=== PATIENT | male | born 1930 | race Caucasian/White ===

== ENCOUNTER 2017-03-08 10:35 | Observation (INO) | payer OTHER ==
[~2017-03-08] VITALS: Ht 177.8 cm; Wt 85.0 kg
[~2017-03-08 10:35] MED LIST: ALLO300T2 PO; AMLO10TA2 PO; ASPI81CH3 CHEW; ENAL10TA PO; ENOX30IN SQ; LOVA40TA PO; METO50TA PO; NORC5TAB PO; OMEP20TA PO; VITA10002 PO; VITA200013 PO
[2017-03-08 10:37] VITALS: BP 143/63; PULSE 62; RESP 20; TEMP 97.3; O2SAT 98
--- NOTE | 2017-03-08 10:50 | PD ---
HPI Chief Complaint: Hip Injury Time Seen by Provider: 10:50 Travel History International Travel<30 days: No Contact w/Intl Traveler<30days: No Traveled to known affect area: No History of Present Illness HPI 86-year-old male who is extremely hard of hearing is here with his for right leg pain radiating down up to his right knee. Patient says this pain has been going on for past 8-9 months. says that he has history of arthritis and was seen by Dr. Tineo 2 and half years ago at which point discussion was done for hip replacement. However at that time patient was diagnosed with colon cancer which became a priority. Lately his hip has been bothering him a lot. He has been having trouble walking and the called 911. EMS mentioned to them that since this is not an emergency that would help him get into the car and if she could drive him to the emergency room which is what she did. Vital signs are stable. No history of recent trauma. PFSH Past Medical History Narrative Medical List of his past medical, surgical, social and family history was reviewed from the nursing note. Hx Anticoagulant Therapy: Yes Arthritis: Yes Asthma: No Anxiety: No Depression: No Cancer: Yes (PROSTATE) Cardiovascular Problems: Yes ([place]) High Cholesterol: Yes Congestive Heart Failure: No COPD: No Diabetes: No Diminished Hearing: Yes ([place] Endocrine: No Gastrointestinal Disorders: Yes (HEMORRHOIDS/RECTAL BLEED) GERD: Yes Gout: Yes Genitourinary: Yes (PROSTATE CANCER, INCONTINENCE) Hepatitis: No Hiatal Hernia: No Hypertension: Yes Immune Disorder: No Implanted Vascular Access Dvce: No Musculoskeletal: Yes (ARTHRITIS/KNEE/HIP PAIN) Neurologic: No Psychiatric: No Reproductive: No Respiratory: No Myocardial Infarction: Yes (PER PATIENT HAD MILD [place] IN 2013) Radiation Therapy: Yes Thyroid Disease: No Past Surgical History AICD: No Body Medical Devices: "pedrito in left leg" Cardiac Surgery: No Ear Surgery: No Endocrine Surgery: No Eye Surgery: Yes (TICO CATARACT SURGERY) Genitourinary Surgery: Yes (PROSTATECTOMY 1997) Joint Replacement: No Neurologic Surgery: No Oral Surgery: No Pacemaker: No Thoracic Surgery: No Social History Alcohol Use: Yes Tobacco Use: No Substance Use: No Allergies-Medications (Allergen,Severity, Reaction): Coded Allergies: No Known Allergies (Verified , 03/08/17) Comments No known drug allergies. Reported Meds & Prescriptions Reported Meds & Active Scripts Active Colace (Docusate Sodium) 100 Mg Capsule 1 Tab PO BID Hydrocodone-Acetaminophen 5-325 mg Tab 1 Tab PO Q6H PRN [place] (Hydrocodone-Acetaminophen) 5-325 mg Tab 1 Tab PO Q4H PRN Omeprazole 20 Mg Tab 20 Mg PO BID Reported Amlodipine (Amlodipine Besylate) 5 Mg Tab 5 Mg PO DAILY Vitamin B-12 (Cyanocobalamin) 1,000 Mcg Tab 1,000 Mcg PO DAILY Vitamin D (Cholecalciferol) 2,000 Unit Cap 2,000 Mg PO DAILY Aspirin 81 Low Dose (Aspirin) 81 Mg Chew 81 Mg CHEW DAILY Lovastatin 40 Mg Tab 40 Mg PO DAILY Allopurinol 300 Mg Tab 300 Mg PO DAILY Metoprolol Tartrate 50 Mg Tab 50 Mg PO BID Enalapril (Enalapril Maleate) 10 Mg Tab 10 Mg PO DAILY Narrative Medication List of his home medications reviewed from the nursing note. Review of Systems Except as stated in HPI: all other systems reviewed are Neg Physical Exam Narrative GENERAL: Awake, alert, extremely hard of hearing SKIN: Focused skin assessment warm/dry. HEAD: Atraumatic. Normocephalic. EYES: Pupils equal and round. No scleral icterus. No injection or drainage. ENT: No nasal bleeding or discharge. Mucous membranes pink and moist. NECK: Trachea midline. No JVD. CARDIOVASCULAR: Regular rate and rhythm. No murmur appreciated. RESPIRATORY: No accessory muscle use. Clear to auscultation. Breath sounds equal bilaterally. GASTROINTESTINAL: Abdomen soft, non-tender, nondistended. Hepatic and splenic margins not palpable. MUSCULOSKELETAL: No obvious deformities. No clubbing. No cyanosis. No edema. Decreased range of motion at the right knee and hip joint due to the pain. NEUROLOGICAL: Awake and alert. No obvious cranial nerve deficits. Motor grossly within normal limits. Normal speech. PSYCHIATRIC: Appropriate mood and affect; insight and judgment normal. Data Data Last Documented VS Vital Signs Date Time Temp Pulse Resp B/P (MAP) Pulse Ox O2 Delivery O2 Flow Rate FiO2 03/08/17 16:28 63 18 145/63 (90) 95 Room Air 03/08/17 10:37 97.3 Orders Orders Hip, Uni(Ap&Lat) W Ap Pelvis (03/08/17 ) Acetamin-Hydrocod 325-5 Mg ([place] 5-325 (03/08/17 11:00) Ct Hip W/O Contrast (03/08/17 ) Ct Lumb Spine W/O Contrast (03/08/17 ) Complete Blood Count With Diff (03/08/17 15:09) Comprehensive Metabolic Panel (03/08/17 15:09) Urinalysis - C+S If Indicated (03/08/17 15:09) (Hub Use Only)Inp Phy Cons/Ref (03/08/17 ) (Hub Use Only)Inp Phy Cons/Ref (03/08/17 ) Place In Observation (03/08/17 ) Vital Signs (Adult) Q4H (03/08/17 17:03) Activity Oob With Assistance (03/08/17 17:03) Diet Regular Basic (03/08/17 Dinner) Sodium Chlor 0.9% 1000 Ml Inj (Ns 1000 M (03/08/17 17:03) Sodium Chloride 0.9% Flush (Ns Flush) (03/08/17 17:15) Sodium Chloride 0.9% Flush (Ns Flush) (03/08/17 21:00) Acetaminophen (Tylenol) (03/08/17 17:15) Ondansetron Inj (Zofran Inj) (03/08/17 17:15) Scd Bilateral/Knee High EL.BID (03/08/17 17:03) Naloxone Inj (Narcan Inj) (03/08/17 17:15) Docusate Sodium-Senna (Le-Colace) (03/08/17 21:00) Magnesium Hydroxide Liq (Milk Of Magnesi (03/08/17 17:15) Sennosides (Senokot) (03/08/17 17:15) Bisacodyl Supp (Dulcolax Supp) (03/08/17 17:15) Lactulose Liq (Lactulose Liq) (03/08/17 17:15) Case Management Consult (03/08/17 ) Admit Order (Ed Use Only) (03/08/17 17:03) Labs Laboratory Tests Test 03/08/17 15:27 White Blood Count 8.5 TH/MM3 Red Blood Count 4.34 MIL/MM3 Hemoglobin 13.4 GM/DL Hematocrit 42.0 % Mean Corpuscular Volume 96.8 FL Mean Corpuscular Hemoglobin 30.9 PG Mean Corpuscular Hemoglobin Concent 32.0 % Red Cell Distribution Width 15.6 % Platelet Count 207 TH/MM3 Mean Platelet Volume 8.3 FL Neutrophils (%) (Auto) 66.4 % Lymphocytes (%) (Auto) 19.7 % Monocytes (%) (Auto) 10.9 % Eosinophils (%) (Auto) 2.6 % Basophils (%) (Auto) 0.4 % Neutrophils # (Auto) 5.6 TH/MM3 Lymphocytes # (Auto) 1.7 TH/MM3 Monocytes # (Auto) 0.9 TH/MM3 Eosinophils # (Auto) 0.2 TH/MM3 Basophils # (Auto) 0.0 TH/MM3 CBC Comment DIFF FINAL Differential Comment Blood Urea Nitrogen 24 MG/DL Creatinine 1.86 MG/DL Random Glucose 110 MG/DL Total Protein 7.8 GM/DL Albumin 3.8 GM/DL Calcium Level 9.5 MG/DL Alkaline Phosphatase 183 U/L Aspartate Amino Transf (AST/SGOT) 85 U/L Alanine Aminotransferase (ALT/SGPT) 49 U/L Total Bilirubin 0.5 MG/DL Sodium Level 138 MEQ/L Potassium Level 4.6 MEQ/L Chloride Level 105 MEQ/L Carbon Dioxide Level 26.8 MEQ/L Anion Gap 6 MEQ/L Estimat Glomerular Filtration Rate 35 ML/MIN [facility] Medical Decision Making Medical Screen Exam Complete: Yes Emergency Medical Condition: Yes Medical Record Reviewed: Yes Differential Diagnosis hip arthritis, hip fracture, pelvic fracture Narrative Course 11:41 AM patient was given hydrocodone. Waiting for the x-ray to be read. I looked at it and did not see any obvious fracture or deformity. 11:56 AM the x-ray was read by the radiologist as possible subcapital femoral neck fracture. I have ordered a CT scan of the hip as well as lumbar spine to clarify. 2:[address] scan reports just came back and they're negative for any fracture. I'll discharge the patient home. 5 PM patient was unable to ambulate after I decided to discharge him. Even with the walker he diffuse to stand up to bear weight because of the pain. The said it would be impossible for her to take care of him. I is cussed with ED case management was trying to find a rehabilitation facility for him. Please refer to her notes. She just told me that they may be able to get a placement in [facility] but not till tomorrow. Patient will require PT evaluation which has been ordered. She wanted the patient to be admitted for observation which has been done. Procedures EKG Prior to Arrival: No Diagnosis Primary Impression: acute on chronic hip pain Additional Impressions: Hip arthritis hip arthritis Admitting Information Admitting Physician Requests: Observation Referrals: Codey Tineo MD 1 week Additional Instructions: Please return to the ER if the condition worsens or any other new concerns. Take the pain medication as per the prescription direction. He have to be very careful with the pain medication as it'll make you groggy. He should not be driving. Follow-up with the orthopedist to discuss about your long-term goal with the hip. If you take the pain medication and it may make it constipated and hence a prescription for stool softener has also been provided. Take it as needed as per the prescription direction. Med/Other Pt SpecificInfo: Prescription(s) given Scripts Docusate Sodium (Colace) 100 Mg Capsule 1 TAB PO BID, #14 Prov: Jenna Macedo MD 03/08/17 Hydrocodone-Acetaminophen (Hydrocodone-Acetaminophen) 5-325 mg Tab 1 TAB PO Q6H Y for PAIN, #15 TAB 0 Refills Prov: Jenna Macedo MD 03/08/17 Jenna Macedo MD Mar 08, 2017 10:50
[2017-03-08] MEDS ORDERED: AMLO5TAB2 PO (10:56)
[2017-03-08] MEDS ORDERED: ACETAMINOPHEN/HYDROcodone 325 MG/5 MG TAB PO ONE (11:00)
--- NOTE | 2017-03-08 11:51 | RADRPT ---
EXAM DATE/TIME: 03/08/2017 11:22 [facility] COMPARISON: No previous studies available for comparison. INDICATIONS : No injury, pain with limited range of motion. MEDICAL HISTORY : None. SURGICAL HISTORY : None. ENCOUNTER: Initial ACUITY: 1 year PAIN SCORE: 10/10 LOCATION: Right hip. FINDINGS: Examination of the right hip was performed with AP Pelvis. There is a subtle lucency along the medial femoral neck could be an incomplete fracture. The acetabulum is grossly intact. CONCLUSION: Probable subcapital femoral neck fracture. Moderate osteoarthritis right hip. Jorge Spangler MD on March 08, 2017 at 11:49 Board Certified Radiologist. This report was verified electronically.
--- NOTE | 2017-03-08 13:38 | RADRPT ---
EXAM DATE/TIME: 03/08/2017 12:29 [facility] COMPARISON: No previous studies available for comparison. INDICATIONS : Right hip pain RADIATION DOSE: 28.05 CTDIvol (mGy) MEDICAL HISTORY : Cardiovascular disease. Hypertension. Carcinoma, prostate.Colon tumor SURGICAL HISTORY : Prostatectomy. ENCOUNTER: Initial ACUITY: 1 yr PAIN SCALE: 8/10 LOCATION: Right Lumbar TECHNIQUE: Volumetric scanning of the lumbar spine was performed. Multiplanar reconstructions in the sagittal, coronal and oblique axial planes were performed. Using automated exposure control and adjustment of the mA and/or kV according to patient size, radiation dose was kept as low as reasonably achievable t o obtain optimal diagnostic quality images. DICOM format image data is available electronically for review and comparison. FINDINGS: VERTEBRAE: Normal vertebral body height. Mild disc space narrowing at L4-5. ALIGNMENT: No evidence of subluxation. T12-L1: The thecal sac has a normal diameter. No evidence of disc bulge or protrusion. The neural foramina are patent bilaterally. L1-L2: The thecal sac has a normal diameter. No evidence of disc bulge or protrusion. The neural foramina are patent bilaterally. L2-L3: The thecal sac has a normal diameter. No evidence of disc bulge or protrusion. The neural foramina are patent bilaterally. L3-L4: The thecal sac has a normal diameter. No evidence of disc bulge or protrusion. The neural foramina are patent bilaterally. L4-L5: The thecal sac has a normal diameter. No evidence of disc bulge or protrusion. The neural foramina are patent bilaterally. L5-S1: The thecal sac has a normal diameter. No evidence of disc bulge or protrusion. The neural foramina are patent bilaterally. CONCLUSION: Normal examination. Mild disc space narrowing at the L4-5 level. Jorge Spangler MD on March 08, 2017 at 13:35 Board Certified Radiologist. This report was verified electronically.
[2017-03-08] MEDS ORDERED: COLA100C PO (14:22)
[2017-03-08] MEDS ORDERED: HYDR-3516 PO (14:22)
--- NOTE | 2017-03-08 14:22 | RADRPT ---
EXAM DATE/TIME: 03/08/2017 12:29 [facility] COMPARISON: No previous studies available for comparison. INDICATIONS : Right hip pain RADIATION DOSE: 50.36 CTDIvol (mGy) MEDICAL HISTORY : Cardiovascular disease. Hypertension. Carcinoma, prostate.Colon tumor SURGICAL HISTORY : Prostatectomy. ENCOUNTER: Initial ACUITY: 1 yr PAIN SCALE: 8/10 LOCATION: Right Hip TECHNIQUE: Volumetric scanning of the hip was performed. Using automated exposure control and adjustment of the mA and/or kV according to patient size, radiation dose was kept as low as reasonably achievable to o btain optimal diagnostic quality images. DICOM format image data is available electronically for rev iew and comparison. FINDINGS: CT scan right hip fails to demonstrate the fracture that is questioned on a plain film. There is art hritis with some joint space narrowing superiorly in the anteriorly. Mild spurring of the femoral he ad and the acetabulum. No lytic or blastic lesions are identified. The left hip has been previously pinned. No fracture is identified. CONCLUSION: 1. The questionable fracture seen on the plain film is not recreated on the CT scan. Could be relate d to overlying osteophyte or vascular groove. 2. No fracture seen on the reformatted images. Jorge Spangler MD on March 08, 2017 at 13:33 Board Certified Radiologist. This report was verified electronically.
[2017-03-08 16:12] LABS: AUTOMATED NEUTROPHIL # 5.6 TH/MM3 (1.8-7.7); BASOPHIL % 0.4 % (0.0-2.0); EOSINOPHIL # 0.2 TH/MM3 (0-0.4); EOSINOPHIL % 2.6 % (0.0-4.0); HEMO FLAGS DIFF FINAL; LYMPH % 19.7 % (9.0-44.0); LYMPHOCYTE # 1.7 TH/MM3 (1.0-4.8); MEAN CELL VOLUME 96.8 FL (80.0-100.0); MEAN CORPUSCULAR HEMOGLOBIN 30.9 PG (27.0-34.0); MONO % 10.9 % (0.0-8.0); NEUT % 66.4 % (16.0-70.0); PLATELET COUNT 207 TH/MM3 (150-450); RED BLOOD COUNT 4.34 MIL/MM3 (4.50-5.90); RED CELL DISTRIBUTION WIDTH 15.6 % (11.6-17.2); WHITE BLOOD COUNT 8.5 TH/MM3 (4.0-11.0)
[2017-03-08 16:27] LABS: ANION GAP 6 MEQ/L (5-15); AST (GOT) 85 U/L (15-37); BICARBONATE 26.8 MEQ/L (21.0-32.0); BLOOD UREA NITROGEN 24 MG/DL (7-18); CHLORIDE 105 MEQ/L (98-107); GLOMERULAR FILTRATION RATE 35 ML/MIN (>89); POTASSIUM 4.6 MEQ/L (3.5-5.1); SODIUM (NA) 138 MEQ/L (136-145)
[2017-03-08 16:28] VITALS: BP 145/63; PULSE 63; RESP 18; O2SAT 95
[2017-03-08 16:30] LABS: ALKALINE PHOSPHATASE 183 U/L (45-117); ALT (GPT) 49 U/L (12-78); TOTAL BILIRUBIN ADULT 0.5 MG/DL (0.2-1.0)
[2017-03-08] MEDS ORDERED: MAGNESIUM HYDROXIDE SUSP 30 ML CUP PO PRN (17:15)
[2017-03-08] MEDS ORDERED: SENNOSIDES 8.6 MG TAB PO PRN (17:15)
[2017-03-08] MEDS ORDERED: NALOXONE HCL 0.4 MG/ML AMP IV PUSH PRN (17:15)
[2017-03-08] MEDS ORDERED: SODIUM CHLORIDE 0.9% FLUSH 10 ML FLUSH IV FLUSH PRN (17:15)
[2017-03-08] MEDS ORDERED: ACETAMINOPHEN 325 MG TAB PO PRN (17:15)
[2017-03-08] MEDS ORDERED: BISACODYL 10 MG SUPP RECTAL PRN (17:15)
[2017-03-08] MEDS ORDERED: LACTULOSE SYRUP 20 GM/30 ML CUP PO PRN (17:15)
[2017-03-08] MEDS ORDERED: ONDANSETRON HCL 4 MG/2 ML VIAL IVP PRN (17:15)
--- NOTE | 2017-03-08 18:27 | RADRPT ---
EXAM DATE/TIME: 03/08/2017 18:00 [facility] COMPARISON: No previous studies available for comparison. INDICATIONS : Right knee pain from unknown injury. MEDICAL HISTORY : None. SURGICAL HISTORY : None. ENCOUNTER: Initial ACUITY: 1 week PAIN SCORE: 8/10 LOCATION: Right knee. FINDINGS: Bones of the right knee are intact. No subluxation. There is mild medial compartment joint space narr owing. No large effusion demonstrated. CONCLUSION: No acute right knee abnormality seen. Mild medial arm and ost or arthritis. Shan Reaves MD on March 08, 2017 at 18:25 Board Certified Radiologist. This report was verified electronically.
[2017-03-08] MEDS: SODIUM CHLOR 0.9% 1000 ML INJ 1,000 ML IV SCH ×2 (18:54→20:41)
[2017-03-08 20:01] VITALS: BP 137/72; TEMP 98.3
[2017-03-08] MEDS: DOCUSATE SODIUM 50 MG/SENNA 8.6 MG TAB PO SCH (20:40)
[2017-03-08] MEDS: SODIUM CHLORIDE 0.9% FLUSH 10 ML FLUSH IV FLUSH SCH (20:41)
[2017-03-08 21:06] VITALS: BP 110/53; PULSE 73; RESP 18; TEMP 97.5; O2SAT 94
[2017-03-09] VITALS (7 sets, daily range): BP systolic 137–175; BP diastolic 60–80; PULSE 61–82; RESP 18–22; TEMP 97.4–98.3; O2SAT 93–98
--- NOTE | 2017-03-09 05:43 | HHI.HP ---
HPI Service [facility] Primary Care Physician Stephani Rodriguez MD Admission Diagnosis difficulty ambulation, leg pain Diagnoses: Chief Complaint: Right hip pain. Travel History International Travel<30 Days: No Contact w/Intl Traveler <30 Da: No Traveled to Known Affected Are: No History of Present Illness Late entry for 03/08/2017. Patient was seen at around 5:30PM on 03/08/2017. However, due to EMR problems, H&P could not be entered. Mr. Nuñez is a pleasant 86 year old male with a history of rectal cancer who presents to the ED with his due to right lower ext pain radiating down to his knee. His pain has been bothering him for a while, especially in the last 8- 9 months. Approximately two and half years ago, he was evaluated by Dr. Jonathan Tineo (Orthopedic surgery) due to osteoarthritis. Although right hip replacement was discussed, patient was diagnosed with rectal cancer and thus hip replacement was postponed. Lately, he has been having a lot of trouble walking. His called EMS who informed that his condition did not constitute as emergency. Thus, with help of EMS personnel, patient was brought to the ED by his . Patient is very hard of hearing. However, he denies any chest pain , SOB, fever, chills. No cough, abdominal pain. No changes in bowel or bladder habits. Review of Systems Except as stated in HPI: all other systems reviewed are Neg Past Family Social History Past Medical History Prostate cancer Rectal cancer Osteoarthritis Hypertension Hyperlipidemia Past Surgical History Left knee surgery Mastectomy Cataract surgery Reported Medications Colace (Docusate Sodium) 100 Mg Capsule 1 Tab PO BID Hydrocodone-Acetaminophen 5-325 mg Tab 1 Tab PO Q6H PRN [place] (Hydrocodone-Acetaminophen) 5-325 mg Tab 1 Tab PO Q4H PRN Omeprazole 20 Mg Tab 20 Mg PO BID Reported Amlodipine (Amlodipine Besylate) 5 Mg Tab 5 Mg PO DAILY Vitamin B-12 (Cyanocobalamin) 1,000 Mcg Tab 1,000 Mcg PO DAILY Vitamin D (Cholecalciferol) 2,000 Unit Cap 2,000 Mg PO DAILY Aspirin 81 Low Dose (Aspirin) 81 Mg Chew 81 Mg CHEW DAILY Lovastatin 40 Mg Tab 40 Mg PO DAILY Allopurinol 300 Mg Tab 300 Mg PO DAILY Metoprolol Tartrate 50 Mg Tab 50 Mg PO BID Enalapril (Enalapril Maleate) 10 Mg Tab 10 Mg PO DAILY Allergies: Coded Allergies: No Known Allergies (Verified , 03/08/17) Family History Father had prostate cancer Social History Denies using tobacco or illicit drugs. Drinks moderate amount of alcohol daily. Physical Exam Vital Signs Vital Signs Date Time Temp Pulse Resp B/P (MAP) Pulse Ox O2 Delivery O2 Flow Rate FiO2 03/09/17 05:16 97.5 81 18 162/80 (107) 98 03/09/17 00:00 97.4 76 18 143/69 (93) 98 03/08/17 21:06 97.5 73 18 110/53 (72) 94 03/08/17 20:01 98.3 61 16 137/72 (93) 100 03/08/17 16:28 63 18 145/63 (90) 95 Room Air 03/08/17 10:46 19 03/08/17 10:37 97.3 62 20 143/63 (89) 98 Room Air Physical Exam GENERAL: This is a well-nourished, well-developed patient, in no apparent distress. SKIN: No rashes, ecchymoses or lesions. Warm and dry. HEAD: Atraumatic. Normocephalic. No temporal or scalp tenderness. EYES: Pupils equal round and reactive. No injection or drainage. ENT: Nose without bleeding, purulent drainage or septal hematoma. Airway patent. NECK: Trachea midline. No lymphadenopathy. Supple, nontender, no meningeal signs. CARDIOVASCULAR: Regular rate and rhythm without murmurs, gallops, or rubs. No JVD. RESPIRATORY: Clear to auscultation. Breath sounds equal bilaterally. No wheezes , rales, or rhonchi. GASTROINTESTINAL: Abdomen soft, non-tender, nondistended. No guarding. MUSCULOSKELETAL: Extremities without clubbing, cyanosis, or edema. Pain on movement of his right hip. NEUROLOGICAL: Awake and alert. Cranial nerves II through XII intact. No focal neurological deficits. Hard of hearing. Laboratory Laboratory Tests Test 03/08/17 15:27 White Blood Count 8.5 Red Blood Count 4.34 Hemoglobin 13.4 Hematocrit 42.0 Mean Corpuscular Volume 96.8 Mean Corpuscular Hemoglobin 30.9 Mean Corpuscular Hemoglobin Concent 32.0 Red Cell Distribution Width 15.6 Platelet Count 207 Mean Platelet Volume 8.3 Neutrophils (%) (Auto) 66.4 Lymphocytes (%) (Auto) 19.7 Monocytes (%) (Auto) 10.9 Eosinophils (%) (Auto) 2.6 Basophils (%) (Auto) 0.4 Neutrophils # (Auto) 5.6 Lymphocytes # (Auto) 1.7 Monocytes # (Auto) 0.9 Eosinophils # (Auto) 0.2 Basophils # (Auto) 0.0 CBC Comment DIFF FINAL Differential Comment Blood Urea Nitrogen 24 Creatinine 1.86 Random Glucose 110 Total Protein 7.8 Albumin 3.8 Calcium Level 9.5 Alkaline Phosphatase 183 Aspartate Amino Transf (AST/SGOT) 85 Alanine Aminotransferase (ALT/SGPT) 49 Total Bilirubin 0.5 Sodium Level 138 Potassium Level 4.6 Chloride Level 105 Carbon Dioxide Level 26.8 Anion Gap 6 Estimat Glomerular Filtration Rate 35 Result Diagram: 03/08/17 1527 03/08/17 1527 Imaging Last Impressions Lumbar Spine CT 03/08/17 0000 Signed Impressions: Service Date/Time: February 12:29 - CONCLUSION: Normal examination. Mild disc space narrowing at the L4-5 level. Jorge Spangler MD Lower Extremity CT 03/08/17 0000 Signed Impressions: Service Date/Time: February 12:29 - CONCLUSION: 1. The questionable fracture seen on the plain film is not recreated on the CT scan. Could be related to overlying osteophyte or vascular groove. 2. No fracture seen on the reformatted images. Jorge Spangler MD Knee X-Ray 03/08/17 0000 Signed Impressions: Service Date/Time: February 18:00 - CONCLUSION: No acute right knee abnormality seen. Mild medial arm and ost or arthritis. Shan Reaves MD Hip and Pelvis X-Ray 03/08/17 0000 Signed Impressions: Service Date/Time: February 11:22 - CONCLUSION: Probable subcapital femoral neck fracture. Moderate osteoarthritis right hip. Jorge Spangler MD Caprini VTE Risk Assessment Isaak VTE Risk Assessment: Mod/High Risk (score >= 2) Caprini Risk Assessment Model Point Value = 1 Point Value = 2 Point Value = 3 Point Value = 5 Age 41-60 Minor surgery BMI > 25 kg/m2 Swollen legs Varicose veins or History of unexplained or recurrent spontaneous Oral contraceptives or hormone replacement Sepsis (< 1 month) Serious lung disease, including pneumonia (< 1 month) Abnormal pulmonary function Acute myocardial infarction Congestive heart failure (< 1 month) History of inflammatory bowel disease Medical patient at bed rest Age 61-74 Arthroscopic surgery Major open surgery (> 45 min) Laparoscopic surgery (> 45 min) Malignancy Confined to bed (> 72 hours) Immobilizing plaster cast Central venous access Age >= 75 History of VTE Family history of VTE Factor V Leiden Prothrombin [id number] Lupus anticoagulant Anticardiolipin antibodies Elevated serum homocysteine Heparin-induced thrombocytopenia Other congenital or acquired thrombophilia Stroke (< 1 month) Elective arthroplasty Hip, pelvis, or leg fracture Acute spinal cord injury (< 1 month) Prophylaxis Regimen Total Risk Factor Score Risk Level Prophylaxis Regimen 0-1 Low Early ambulation 2 Moderate Order ONE of the following: *Sequential Compression Device (SCD) *Heparin 5000 units SQ BID 3-4 Higher Order ONE of the following medications: *Heparin 5000 units SQ TID *Enoxaparin/Lovenox 40 mg SQ daily (WT < 150 kg, CrCl > 30 mL/min) *Enoxaparin/Lovenox 30 mg SQ daily (WT < 150 kg, CrCl > 10-29 mL/min) *Enoxaparin/Lovenox 30 mg SQ BID (WT < 150 kg, CrCl > 30 mL/min) AND/OR *Sequential Compression Device (SCD) 5 or more Highest Order ONE of the following medications: *Heparin 5000 units SQ TID (Preferred with Epidurals) *Enoxaparin/Lovenox 40 mg SQ daily (WT < 150 kg, CrCl > 30 mL/min) *Enoxaparin/Lovenox 30 mg SQ daily (WT < 150 kg, CrCl > 10-29 mL/min) *Enoxaparin/Lovenox 30 mg SQ BID (WT < 150 kg, CrCl > 30 mL/min) AND *Sequential Compression Device (SCD) Assessment and Plan Problem List: (1) Osteoarthritis of right hip ICD Code: M16.11 - Unilateral primary osteoarthritis, right hip (2) HTN (hypertension) ICD Code: I10 - HTN (hypertension) Status: Chronic (3) History of rectal cancer ICD Code: Z85.048 - Personal history of other malignant neoplasm of rectum, rectosigmoid junction, and anus Assessment and Plan Mr. Nuñez is a pleasant 86-year-old male with a history of colon cancer who presented to the emergency department due to right lower extremity pain. Imaging studies indicated no acute fracture. Patient had discussion about right hip replacement 2 and half years ago. However due to a diagnosis of colon cancer, hip replacement was postponed. - Right hip osteoarthritis - Even the x-ray showed possible fracture, CT scan did not indicate any fracture. - Patient's right hip pain is likely related to osteoarthritis. - We'll consult Dr. Codey Tineo for his input. - Obtain right knee x-ray - [place] for pain. - Hypertension - Hyperlipidemia - Continue metoprolol 50 mg twice a day, enalapril 10 mg daily, amlodipine 5 mg daily. - Continue pravastatin 40 mg daily. - Paroxysmal Atrial fibrillation - Patient is on rate control medication Toprol 50 g twice a day only. May benefit from anti-coagulation - Will defer anti-coagulation with patient's outpatient driver license technician/PCP. - [id number] score 3 (age, HTN). Full code. SCDs. Lolita Arriaza DO Mar 09, 2017 5:43 am
[2017-03-09 07:06] LABS: BLOOD, URINE SMALL (NEG); COMMENT (UR) CULT NOT INDICATED; CULTURE IF INDICATED CULT NOT INDICATED; GLUCOSE,URINE NEG (NEG); KETONE, URINE NEG (NEG); NITRITE,URINE NEG (NEG); URINE COLOR LIGHT-YELLOW (YELLW/STRAW)
[2017-03-09] MEDS: METOPROLOL TARTRATE 50 MG TAB PO SCH ×2 (09:00→20:15)
[2017-03-09] MEDS: PANTOPRAZOLE SOD 20 MG DELAYED RELEASE TAB PO SCH ×2 (09:08→20:15)
[2017-03-09] MEDS: DOCUSATE SODIUM 50 MG/SENNA 8.6 MG TAB PO SCH ×2 (09:08→20:15)
[2017-03-09] MEDS: CHOLECALCIFEROL (VIT D3) 1000 UNIT TAB PO SCH (09:08)
[2017-03-09] MEDS: ENALAPRIL MALEATE 10 MG TAB PO SCH (09:08)
[2017-03-09] MEDS: amLODIPine BESYLATE 5 MG TAB PO SCH (09:08)
[2017-03-09] MEDS: ALLOPURINOL 300 MG TAB PO SCH (09:09)
[2017-03-09] MEDS: PRAVASTATIN SOD 40 MG TAB PO SCH (09:09)
[2017-03-09] MEDS: SODIUM CHLORIDE 0.9% FLUSH 10 ML FLUSH IV FLUSH SCH ×2 (09:09→20:15)
[2017-03-09] MEDS: ASPIRIN 81 MG CHEW TAB CHEW SCH (09:09)
[2017-03-09] MEDS: CYANOCOBALAMIN 1,000 MCG TAB PO SCH (09:09)
--- NOTE | 2017-03-09 09:38 | HHI.PR ---
Subjective Remarks Follow up for lower ext pain, weakness wendy right knee. Patient is doing well. He is still having a lot of right knee pain. No fever, chills. Objective Vitals Vital Signs Date Time Temp Pulse Resp B/P (MAP) Pulse Ox O2 Delivery O2 Flow Rate FiO2 03/09/17 07:58 97.4 82 20 175/76 (109) 97 03/09/17 05:16 97.5 81 18 162/80 (107) 98 03/09/17 00:00 97.4 76 18 143/69 (93) 98 03/08/17 21:06 97.5 73 18 110/53 (72) 94 03/08/17 20:01 98.3 61 16 137/72 (93) 100 03/08/17 16:28 63 18 145/63 (90) 95 Room Air 03/08/17 10:46 19 03/08/17 10:37 97.3 62 20 143/63 (89) 98 Room Air I/O 03/08/17 03/08/17 03/08/17 03/09/17 03/09/17 03/09/17 07:00 15:00 23:00 07:00 15:00 23:00 Output Total 600 ml Balance -600 ml Output Urine Total 600 ml # Voids 3 Result Diagram: 03/08/17 1527 03/08/17 1527 Imaging Last Impressions Lumbar Spine CT 03/08/17 0000 Signed Impressions: Service Date/Time: February 12:29 - CONCLUSION: Normal examination. Mild disc space narrowing at the L4-5 level. Jorge Spangler MD Lower Extremity CT 03/08/17 0000 Signed Impressions: Service Date/Time: February 12:29 - CONCLUSION: 1. The questionable fracture seen on the plain film is not recreated on the CT scan. Could be related to overlying osteophyte or vascular groove. 2. No fracture seen on the reformatted images. Jorge Spangler MD Knee X-Ray 03/08/17 0000 Signed Impressions: Service Date/Time: February 18:00 - CONCLUSION: No acute right knee abnormality seen. Mild medial arm and ost or arthritis. Shan Reaves MD Hip and Pelvis X-Ray 03/08/17 0000 Signed Impressions: Service Date/Time: February 11:22 - CONCLUSION: Probable subcapital femoral neck fracture. Moderate osteoarthritis right hip. Jorge pSangler MD Objective Remarks GENERAL: Alert, NAD. SKIN: Warm and dry. HEAD: Normocephalic. EYES: No scleral icterus. No injection or drainage. NECK: Supple, trachea midline. No JVD or lymphadenopathy. CARDIOVASCULAR: Regular rate and rhythm without murmurs, gallops, or rubs. RESPIRATORY: Breath sounds equal bilaterally. No accessory muscle use. GASTROINTESTINAL: Abdomen soft, non-tender, nondistended. MUSCULOSKELETAL: No cyanosis, or edema. Significant pain on right knee movements. BACK: Nontender without obvious deformity. No CVA tenderness. Procedures None. A/P Problem List: (1) Osteoarthritis of right hip ICD Code: M16.11 - Unilateral primary osteoarthritis, right hip (2) HTN (hypertension) ICD Code: I10 - HTN (hypertension) Status: Chronic (3) History of rectal cancer ICD Code: Z85.048 - Personal history of other malignant neoplasm of rectum, rectosigmoid junction, and anus Assessment and Plan Mr. Nuñez is a pleasant 86-year-old male with a history of colon cancer who presented to the emergency department due to right lower extremity pain. Imaging studies indicated no acute fracture. Patient had discussion about right hip replacement 2 and half years ago. However due to a diagnosis of colon cancer, hip replacement was postponed. - Right knee pain - likely due to osteoarthritis - Patient will benefit from intra-articular Hyalgan - Will start patient on Naproxen with PPI. - Patient's would prefer to get intra-articular injection (gel or steroid) prior to going home. SNF is not preferred. - Hypertension - Hyperlipidemia - Continue metoprolol 50 mg twice a day, enalapril 10 mg daily, amlodipine 5 mg daily. - Continue pravastatin 40 mg daily. - Paroxysmal Atrial fibrillation - Patient is on rate control medication Toprol 50 g twice a day only. May benefit from anti-coagulation - Will defer anti-coagulation with patient's outpatient park maintenance technician/PCP. - [id number] score 3 (age, HTN). Full code. SCDs. Lolita Arriaza DO Mar 09, 2017 09:38
[2017-03-09] MEDS: ACETAMINOPHEN/HYDROcodone 325 MG/5 MG TAB PO PRN (11:50)
--- NOTE | 2017-03-09 13:35 | PD.ORT.PN ---
Subjective Subjective Remarks Berry is a 86-year-old male who is here today for difficulty with ambulation. He has had limited activities over the past 2 years. They have a wheelchair, walker, hospital bed and Rollator and walks approximately 50 foot maximum. He has gait instability and has had increased pain in his right lower extremity. He has not had any falls or injuries to the right lower extremity. He has previously been a patient of Dr. Tineo and has had Hyalgan injections to his right knee and has had evaluation to his right hip. At that time his hip is bothering him and discussion was broached concerning a right total hip arthroplasty. Unfortunately they discovered colon cancer and he was unable to proceed. 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 He is examined bedside today and states he has no complaints of pain in his hip. He does have pain when he stands. He is accompanied by his who is his caregiver. He denies any numbness or tingling in the right lower extremity. Objective Vitals Vital Signs Date Time Temp Pulse Resp B/P (MAP) Pulse Ox O2 Delivery O2 Flow Rate FiO2 03/09/17 11:59 97.6 62 22 141/65 (90) 93 03/09/17 10:02 148/79 (102) 03/09/17 07:58 97.4 82 20 175/76 (109) 97 03/09/17 05:16 97.5 81 18 162/80 (107) 98 03/09/17 00:00 97.4 76 18 143/69 (93) 98 03/08/17 21:06 97.5 73 18 110/53 (72) 94 03/08/17 20:01 98.3 61 16 137/72 (93) 100 03/08/17 16:28 63 18 145/63 (90) 95 Room Air I/O 03/08/17 03/08/17 03/08/17 03/09/17 03/09/17 03/09/17 07:00 15:00 23:00 07:00 15:00 23:00 Output Total 600 ml Balance -600 ml Output Urine Total 600 ml # Voids 3 Result Diagram: 03/08/17 1527 03/08/17 1527 Imaging Last 72 hours Impressions [address] 03/08/17 0000 Signed Impressions: Service Date/Time: February 12:29 - CONCLUSION: Normal examination. Mild disc space narrowing at the L4-5 level. Jorge Spangler MD Lower Extremity CT 03/08/17 0000 Signed Impressions: Service Date/Time: February 12:29 - CONCLUSION: 1. The questionable fracture seen on the plain film is not recreated on the CT scan. Could be related to overlying osteophyte or vascular groove. 2. No fracture seen on the reformatted images. Jorge Spangler MD Knee X-Ray 03/08/17 0000 Signed Impressions: Service Date/Time: February 18:00 - CONCLUSION: No acute right knee abnormality seen. Mild medial arm and ost or arthritis. Shan Reaves MD Hip and Pelvis X-Ray 03/08/17 0000 Signed Impressions: Service Date/Time: February 11:22 - CONCLUSION: Probable subcapital femoral neck fracture. Moderate osteoarthritis right hip. Jorge Spangler MD Objective Remarks Bilateral upper extremities: Full range of motion and neurovascularly intact Left lower extremity: No pain with hip knee or ankle range of motion. Distally he has intact sensation with good capillary refills. He is strong dorsiflexion and plantar flexion of foot. Right lower extremity: Examination of the hip reveals no palpable tenderness over the trochanteric bursa. I am able to forward flex and internal/external rotate the hip without any significant pain or discomfort. He has a negative Stinchfield test and straight leg test. He does have snapping and stiffness of his hamstrings distally and has tenderness through range of motion of his knee. He has tenderness over the medial joint line. He has no tenderness over the medial and lateral collateral ligaments. He is stable to varus and valgus stresses and has a negative anterior posterior drawer sign. He has moderate crepitus through range of motion of the patellofemoral joint. Distally he has intact sensation with good capillary refills. He has some tenderness to deep palpation over the Achilles tendon as well. Ankle range of motion is 10 dorsiflexion and 45 of plantarflexion. He is able to do a straight leg raise but does have some weakness of his quadriceps to keep his leg completely straight. Assessment & Plan Assessment and Plan Osteoarthritis of right knee Due to his continued pain and previous surgeries for his colostomy he has has developed weakened gait stability and balance. His CT scan does show mild arthritis of the hip but has no clinical pain. Clinically he does show signs of arthritis of his knee with pain with motion as well as over the medial compartment. At this point is recommended that he continue to work with physical therapy to work on range of motion of the right lower extremity. I would also recommend that he follow-up with Dr. Tineo for repeat evaluation of his knee and repeat Hyalgan series injections to his right knee to help with arthritis. I would evaluate the possibility of being discharged home versus going to rehabilitation depending on his progress with physical therapy and his ability to safely transfer and ambulate. If he is able to take anti-inflammatories such as Aleve or naproxen it would benefit him for his arthritic changes and inflammation of his right knee. Patient's x-rays and clinical findings are reviewed and plan is agreed with by Dr. Gaytan. Bao Cochran Jr. Mar 09, 2017 13:35
[2017-03-09] MEDS: SODIUM CHLOR 0.9% 1000 ML INJ 1,000 ML IV SCH (14:01)
[2017-03-10] VITALS (8 sets, daily range): BP systolic 109–166; BP diastolic 56–69; PULSE 59–66; RESP 16–20; TEMP 97.9–98.9; O2SAT 93–97
[2017-03-10] MEDS: SODIUM CHLOR 0.9% 1000 ML INJ 1,000 ML IV SCH ×3 (01:39→21:00)
[2017-03-10] MEDS: SODIUM CHLORIDE 0.9% FLUSH 10 ML FLUSH IV FLUSH SCH ×2 (09:00→21:00)
[2017-03-10] MEDS: ENALAPRIL MALEATE 10 MG TAB PO SCH (09:03)
[2017-03-10] MEDS: NAPROXEN 500 MG TAB PO SCH ×2 (09:03→21:00)
[2017-03-10] MEDS: CYANOCOBALAMIN 1,000 MCG TAB PO SCH (09:04)
[2017-03-10] MEDS: CHOLECALCIFEROL (VIT D3) 1000 UNIT TAB PO SCH (09:04)
[2017-03-10] MEDS: ALLOPURINOL 300 MG TAB PO SCH (09:04)
[2017-03-10] MEDS: ASPIRIN 81 MG CHEW TAB CHEW SCH (09:04)
[2017-03-10] MEDS: amLODIPine BESYLATE 5 MG TAB PO SCH (09:04)
[2017-03-10] MEDS: PANTOPRAZOLE SOD 20 MG DELAYED RELEASE TAB PO SCH ×2 (09:04→21:00)
[2017-03-10] MEDS: DOCUSATE SODIUM 50 MG/SENNA 8.6 MG TAB PO SCH ×2 (09:04→21:00)
[2017-03-10] MEDS: PRAVASTATIN SOD 40 MG TAB PO SCH (09:04)
[2017-03-10] MEDS: METOPROLOL TARTRATE 50 MG TAB PO SCH ×2 (09:04→21:00)
[2017-03-10] MEDS: ACETAMINOPHEN/HYDROcodone 325 MG/5 MG TAB PO PRN (21:00)
[2017-03-11 03:36] VITALS: BP 135/68; PULSE 61; RESP 16; TEMP 98.4; O2SAT 94
[2017-03-11] MEDS: SODIUM CHLOR 0.9% 1000 ML INJ 1,000 ML IV SCH ×2 (05:03→15:03)
[2017-03-11 08:25] VITALS: BP 144/80; PULSE 62; RESP 20; TEMP 97.9; O2SAT 96
[2017-03-11] MEDS: SODIUM CHLORIDE 0.9% FLUSH 10 ML FLUSH IV FLUSH SCH ×2 (09:00→21:00)
[2017-03-11] MEDS: METOPROLOL TARTRATE 50 MG TAB PO SCH ×2 (09:24→22:24)
[2017-03-11] MEDS: amLODIPine BESYLATE 5 MG TAB PO SCH (09:25)
[2017-03-11] MEDS: PANTOPRAZOLE SOD 20 MG DELAYED RELEASE TAB PO SCH ×2 (09:25→22:24)
[2017-03-11] MEDS: PRAVASTATIN SOD 40 MG TAB PO SCH (09:25)
[2017-03-11] MEDS: CHOLECALCIFEROL (VIT D3) 1000 UNIT TAB PO SCH (09:25)
[2017-03-11] MEDS: CYANOCOBALAMIN 1,000 MCG TAB PO SCH (09:25)
[2017-03-11] MEDS: DOCUSATE SODIUM 50 MG/SENNA 8.6 MG TAB PO SCH ×2 (09:25→22:24)
[2017-03-11] MEDS: ASPIRIN 81 MG CHEW TAB CHEW SCH (09:25)
[2017-03-11] MEDS: ENALAPRIL MALEATE 10 MG TAB PO SCH (09:25)
[2017-03-11] MEDS: ALLOPURINOL 300 MG TAB PO SCH (09:26)
[2017-03-11] MEDS: NAPROXEN 500 MG TAB PO SCH ×2 (09:26→22:24)
[2017-03-11 12:10] VITALS: BP 118/60; PULSE 55; RESP 18; TEMP 98.2; O2SAT 96
--- NOTE | 2017-03-11 14:59 | HHI.PR ---
Subjective Remarks Late entry for 03/10/2017 Follow up for lower ext pain, weakness wendy right knee. Patient is doing better. He is able to move his right knee better. No fever, chills. Objective Vitals Vital Signs Date Time Temp Pulse Resp B/P (MAP) Pulse Ox O2 Delivery O2 Flow Rate FiO2 03/11/17 12:10 98.2 55 18 118/60 (79) 96 03/11/17 08:25 97.9 62 20 144/80 (101) 96 03/11/17 03:36 98.4 61 16 135/68 (90) 94 03/10/17 23:26 97.9 61 16 110/56 (74) 93 03/10/17 23:08 18 03/10/17 23:07 18 03/10/17 19:40 98.2 62 18 111/56 (74) 94 03/10/17 16:20 97.9 65 20 109/57 (74) 95 03/10/17 15:01 98.9 59 16 117/59 (78) 94 I/O 03/10/17 03/10/17 03/10/17 03/11/17 03/11/17 03/11/17 07:00 15:00 23:00 07:00 15:00 23:00 Intake Total 1200 ml Output Total 375 ml Balance 1200 ml -375 ml IV Total 1200 ml Output Urine Total 375 ml Result Diagram: 03/08/17 1527 03/08/17 1527 Imaging Last Impressions Lumbar Spine CT 03/08/17 0000 Signed Impressions: Service Date/Time: February 12:29 - CONCLUSION: Normal examination. Mild disc space narrowing at the L4-5 level. Jorge Spangler MD Lower Extremity CT 03/08/17 0000 Signed Impressions: Service Date/Time: February 12:29 - CONCLUSION: 1. The questionable fracture seen on the plain film is not recreated on the CT scan. Could be related to overlying osteophyte or vascular groove. 2. No fracture seen on the reformatted images. Jorge Spangler MD Knee X-Ray 03/08/17 0000 Signed Impressions: Service Date/Time: February 18:00 - CONCLUSION: No acute right knee abnormality seen. Mild medial arm and ost or arthritis. Shan Reaves MD Hip and Pelvis X-Ray 03/08/17 0000 Signed Impressions: Service Date/Time: February 11:22 - CONCLUSION: Probable subcapital femoral neck fracture. Moderate osteoarthritis right hip. Jorge Spangler MD Objective Remarks GENERAL: Alert, NAD. SKIN: Warm and dry. HEAD: Normocephalic. EYES: No scleral icterus. No injection or drainage. NECK: Supple, trachea midline. No JVD or lymphadenopathy. CARDIOVASCULAR: Regular rate and rhythm without murmurs, gallops, or rubs. RESPIRATORY: Breath sounds equal bilaterally. No accessory muscle use. GASTROINTESTINAL: Abdomen soft, non-tender, nondistended. MUSCULOSKELETAL: No cyanosis, or edema. Significant pain on right knee movements. BACK: Nontender without obvious deformity. No CVA tenderness. Procedures None. A/P Problem List: (1) Osteoarthritis of right hip ICD Code: M16.11 - Unilateral primary osteoarthritis, right hip (2) HTN (hypertension) ICD Code: I10 - HTN (hypertension) Status: Chronic (3) History of rectal cancer ICD Code: Z85.048 - Personal history of other malignant neoplasm of rectum, rectosigmoid junction, and anus Assessment and Plan Mr. Nuñez is a pleasant 86-year-old male with a history of colon cancer who presented to the emergency department due to right lower extremity pain. Imaging studies indicated no acute fracture. Patient had discussion about right hip replacement 2 and half years ago. However due to a diagnosis of colon cancer, hip replacement was postponed. - Right knee pain - likely due to osteoarthritis - Patient will benefit from intra-articular Hyalgan - Will Continue patient on Naproxen with PPI. - PT consult. - Hypertension - Hyperlipidemia - Continue metoprolol 50 mg twice a day, enalapril 10 mg daily, amlodipine 5 mg daily. - Continue pravastatin 40 mg daily. - Paroxysmal Atrial fibrillation - Patient is on rate control medication Toprol 50 g twice a day only. May benefit from anti-coagulation - Will defer anti-coagulation with patient's outpatient online journalist/PCP. - [id number] score 3 (age, HTN). Full code. SCDs. Lolita Arriaza DO Mar 11, 2017 2:59 pm
--- NOTE | 2017-03-11 15:02 | HHI.PR ---
Subjective Remarks Follow up for lower ext pain, weakness wendy right knee. Patient complains of no knee pain. He is able to move his right knee well. PT evaluated patient and recommended rehab or home health PT. Patient's wants to arrange some help at home and take him home tomorrow. She does not want him to go to SNF. Objective Vitals Vital Signs Date Time Temp Pulse Resp B/P (MAP) Pulse Ox O2 Delivery O2 Flow Rate FiO2 03/11/17 12:10 98.2 55 18 118/60 (79) 96 03/11/17 08:25 97.9 62 20 144/80 (101) 96 03/11/17 03:36 98.4 61 16 135/68 (90) 94 03/10/17 23:26 97.9 61 16 110/56 (74) 93 03/10/17 23:08 18 03/10/17 23:07 18 03/10/17 19:40 98.2 62 18 111/56 (74) 94 03/10/17 16:20 97.9 65 20 109/57 (74) 95 03/10/17 15:01 98.9 59 16 117/59 (78) 94 I/O 03/10/17 03/10/17 03/10/17 03/11/17 03/11/17 03/11/17 07:00 15:00 23:00 07:00 15:00 23:00 Intake Total 1200 ml Output Total 375 ml Balance 1200 ml -375 ml IV Total 1200 ml Output Urine Total 375 ml Result Diagram: 03/08/17 1527 03/08/17 1527 Imaging Last Impressions Lumbar Spine CT 03/08/17 0000 Signed Impressions: Service Date/Time: February 12:29 - CONCLUSION: Normal examination. Mild disc space narrowing at the L4-5 level. Jorge Spangler MD Lower Extremity CT 03/08/17 0000 Signed Impressions: Service Date/Time: February 12:29 - CONCLUSION: 1. The questionable fracture seen on the plain film is not recreated on the CT scan. Could be related to overlying osteophyte or vascular groove. 2. No fracture seen on the reformatted images. Jorge Spangelr MD Knee X-Ray 03/08/17 0000 Signed Impressions: Service Date/Time: February 18:00 - CONCLUSION: No acute right knee abnormality seen. Mild medial arm and ost or arthritis. Shan Reaves MD Hip and Pelvis X-Ray 03/08/17 0000 Signed Impressions: Service Date/Time: February 11:22 - CONCLUSION: Probable subcapital femoral neck fracture. Moderate osteoarthritis right hip. Jorge Spangler MD Objective Remarks GENERAL: Alert, NAD. SKIN: Warm and dry. HEAD: Normocephalic. EYES: No scleral icterus. No injection or drainage. NECK: Supple, trachea midline. No JVD or lymphadenopathy. CARDIOVASCULAR: Regular rate and rhythm without murmurs, gallops, or rubs. RESPIRATORY: Breath sounds equal bilaterally. No accessory muscle use. GASTROINTESTINAL: Abdomen soft, non-tender, nondistended. MUSCULOSKELETAL: No cyanosis, or edema. Significant pain on right knee movements. BACK: Nontender without obvious deformity. No CVA tenderness. Procedures None. A/P Problem List: (1) Osteoarthritis of right hip ICD Code: M16.11 - Unilateral primary osteoarthritis, right hip (2) HTN (hypertension) ICD Code: I10 - HTN (hypertension) Status: Chronic (3) History of rectal cancer ICD Code: Z85.048 - Personal history of other malignant neoplasm of rectum, rectosigmoid junction, and anus Assessment and Plan Mr. Nuñez is a pleasant 86-year-old male with a history of colon cancer who presented to the emergency department due to right lower extremity pain. Imaging studies indicated no acute fracture. Patient had discussion about right hip replacement 2 and half years ago. However due to a diagnosis of colon cancer, hip replacement was postponed. - Right knee pain - likely due to osteoarthritis - Patient will benefit from intra-articular Hyalgan - Will Continue patient on Naproxen with PPI. Patient is already showing significant improvement of his right knee movements. - PT consult --> rehab vs. Home health PT. - Patient can follow up with Orthopedic surgery in the outpatient setting. - Hypertension - Hyperlipidemia - Continue metoprolol 50 mg twice a day, enalapril 10 mg daily, amlodipine 5 mg daily. - Continue pravastatin 40 mg daily. - Paroxysmal Atrial fibrillation - Patient is on rate control medication Toprol 50 g twice a day only. May benefit from anti-coagulation - Will defer anti-coagulation with patient's outpatient forestry and wildlife manager/PCP. - [id number] score 3 (age, HTN). Full code. SCDs. Lolita Arriaza DO Mar 11, 2017 3:02 pm
--- NOTE | 2017-03-11 15:04 | HHI.FF ---
Face to Face Verification Diagnosis: (1) Osteoarthritis of right knee (2) Osteoarthritis of right hip Physical Therapy Order: Evaluate and Treat, Improve ambulation, Strength and gait training Home Health Nursing Order: Signs/symptoms of disease process Nursing assessment with vital signs I have seen patient Berry Nuñez on 03/11/17. My clinical findings support the need for the requested home health care services because: Ltd mobility - disease progression Patient has SOB Deconditioned w/ increased weakness Need for psychosocial assistance High risk of falls Infection w/ risk of complications I certify that my clinical findings support that this patient is homebound because: Impaired cognitive ability/safety Unsteady gait/balance Unsafe to leave home unassisted Unable to use public transportation Lolita Arriaza DO Mar 11, 2017 3:04 pm
[2017-03-11 15:51] VITALS: BP 140/60; PULSE 60; RESP 20; TEMP 97.8; O2SAT 96
[2017-03-11 20:11] VITALS: BP 162/70; PULSE 78; RESP 18; TEMP 98.5; O2SAT 97
[2017-03-12] MEDS: SODIUM CHLOR 0.9% 1000 ML INJ 1,000 ML IV SCH ×2 (01:03→11:03)
[2017-03-12 04:39] VITALS: BP 147/84; PULSE 67; RESP 18; TEMP 98.8; O2SAT 97
[2017-03-12 07:19] VITALS: BP 137/59; PULSE 61; RESP 17; TEMP 97.7; O2SAT 95
--- NOTE | 2017-03-12 08:16 | MB ---
cc: KIM BEST M.D. DATE OF CONSULTATION: 03/08/2017. REASON FOR CONSULTATION: Right leg pain with probable osteoarthritis. ADMISSION DIAGNOSIS: Gait instability and inability to ambulate. CONSULTING PHYSICIAN: Dr. Arriaza. HISTORY OF PRESENT ILLNESS Berry is an 86-year-old male who was examined bedside. He is very [id number] and his is able to answer the majority of the questions. He is a previously known patient to Dr. Best. He has had Hyalgan injections to his right knee in the past due to arthritis and he was developing worsening pain in his right hip. He was evaluated for osteoarthritis and prior scheduling surgery and his medical workup, he was diagnosed with colon cancer. They postponed surgery for a total hip and proceeded with addressing the colon cancer. He was given a colostomy which is non-reversible, which he continues to have. He has had an limited ambulation and has had gait instability. His is his caregiver and he has had many things purchased to help with daily activities which included a wheelchair, walker, rollator and hospital bed. He has done physical therapy but unfortunately the right lower extremity continues to give him problems. He denies any falls or any injuries to the right lower extremity. He denies any chest pain, shortness of breath, fevers, chills, abdominal pain. REVIEW OF SYSTEMS: He denies any fevers, chills, blurred vision, double vision, chest pain, palpitations, shortness of breath, cough, nausea, vomiting, diarrhea, constipation, dysuria, chronic rashes, heat or cold intolerances, easy bruising or anxiety but does complain of right lower extremity pain. PAST MEDICAL HISTORY: 1. Prostate cancer. 2. Rectal cancer. 3. Osteoarthritis of the knee. 4. Hypertension. 5. Hyperlipidemia. PAST SURGICAL HISTORY: 1. Left knee surgery. 2. Mastectomy. 3. Cataract surgery. REPORTED MEDICATIONS: 1. Colace. 2. Hydrocodone. 3. Omeprazole. 4. Vitamin B12. 5. Vitamin D. 6. Aspirin 81 milligrams. 7. Lovastatin. 8. Allopurinol. 9. Metoprolol. 10. Enalapril. ALLERGIES: NO KNOWN DRUG ALLERGIES. FAMILY HISTORY: Father had prostate cancer. SOCIAL HISTORY: Denies any tobacco or illicit drug use and drinks occasional alcohol socially. PHYSICAL EXAMINATION: VITAL SIGNS: Temperature of 97.6 oral, pulse of 62 with respiratory rate of 22, blood pressure is 141/65 with a pulse oximetry of 93%. GENERAL: Berry is an 86-year-old male who is well-nourished and pleasant. He is alert and oriented but has difficulty hearing and he is in no apparent distress. SKIN: No rashes or ecchymoses. Warm and dry. HEAD: Normocephalic and atraumatic. EYES: Pupils equal, round and reactive to light and accommodation. Extraocular muscles are intact. ENT: Nose without bleeding or purulent drainage. NECK: Trachea is midline with no lymphadenopathy. CARDIOVASCULAR: Regular rate and rhythm. RESPIRATORY: No wheezing or accessory muscle use. GASTROINTESTINAL: Abdomen soft and nondistended but does have a colostomy. MUSCULOSKELETAL: Examination of bilateral upper extremities reveals no decreased range of motion or pain. ____ of his shoulders, elbows, or wrists. Distally he has intact sensation of the radial, ulnar and median nerve distributions and bilateral upper extremities. He is able to fully extend his fingers and make fist bilaterally. Examination of the left lower extremity reveals no pain with hip, knee or ankle range of motion. Distally he has intact sensation with good capillary refills. He has a previous surgical incision over his patella. Examination of the right lower extremity reveals no tenderness to palpation over the trochanteric bursa. He has no tenderness with forward flexion and internal and external rotation of the hip. He has a negative test and negative straight leg test. When doing straight leg test, he does show pain through the hamstrings as it inserts into the knee. He has no tenderness over the medial or lateral collateral ligaments. He is stable to varus and valgus stresses and has a negative anterior and posterior draw sign. He has minimal effusion to the knee. He has palpable tenderness over the medial joint line and mild crepitus through range of motion of the knee as well as crepitus through patellofemoral joint. He is able to extend his knee but does have weakness distally. He has intact sensation with good capillary refills. He has weak dorsiflexion and plantar flexion of bilateral feet. LABORATORY TESTS: Laboratory tests show white blood cell count of 8.5 with hemoglobin of 13.4, hematocrit 42. Chemistries do show some decreased renal function with BUN of 24, creatinine of 1.86 with an estimated GFR of 35. Urines are negative for any infection. IMAGING STUDIES: Hip and pelvis x-rays taken on 03/08/2017 showed a possible suspected subcapital femoral neck fracture. CT was thereafter which shows no fracture seen through reformatted images. Knee x-rays were also obtained on 03/08/2017 which showed no acute fractures or dislocations. He does have decreased joint space over the medial compartment and patellofemoral arthritis. ASSESSMENT: 1. Osteoarthritis of knee. 2. Gait instability with atrophy. PLAN: At this point, it is recommended that he continue to work with physical therapy for gait and balance. The decision making needs to consider home discharge versus rehab. I would recommend that he follow up with Dr. Best this week for evaluation of his knee and due to arthritic changes and pain in his knee followup injections of Hyalgan be proceeded with. If he is able to take anti-inflammatories, it would be recommended such as Aleve or naproxen. Otherwise, Tylenol and hydrocodone will help alleviate some pain. Clinical examination as well as x-ray examination shows mild arthritis of his hip and clinical findings do not support significant hip arthritis pain. The majority of this pain does appear to be coming from the arthritis of his knee as well as muscular and soft tissue inflammation. X-rays and plan as well as clinical findings were reviewed with Dr. Gaytan who agrees with the aforementioned plan. We will have him follow up with Dr. Best this week. If the patient still remains to be at the hospital overnight, Dr. Best or his PA, Daniela Pedroza, will evaluate. Thank you for the consultation. Dictated by Bao Cochran PA-C. MD RAYMUNDO Aragon/IVELISSE /1:39 PM /8:14 AM
[2017-03-12] MEDS ORDERED: HYDR-3516 PO ×2 (08:24→08:25)
--- NOTE | 2017-03-12 08:26 | HHI.DS ---
Discharge Summary Admission Date Mar 08, 2017 at 5:06 pm Discharge Date: Mar 12, 2017 Admitting Diagnosis difficulty ambulation, leg pain (1) Osteoarthritis of right hip ICD Code: M16.11 - Unilateral primary osteoarthritis, right hip (2) HTN (hypertension) ICD Code: I10 - HTN (hypertension) Status: Chronic (3) History of rectal cancer ICD Code: Z85.048 - Personal history of other malignant neoplasm of rectum, rectosigmoid junction, and anus Procedures None. Brief History - From Admission Mr. Nuñez is a pleasant 86 year old male with a history of rectal cancer who presents to the ED with his due to right lower ext pain radiating down to his knee. His pain has been bothering him for a while, especially in the last 8- 9 months. Approximately two and half years ago, he was evaluated by Dr. Jonathan Tineo (Orthopedic surgery) due to osteoarthritis. Although right hip replacement was discussed, patient was diagnosed with rectal cancer and thus hip replacement was postponed. Lately, he has been having a lot of trouble walking. His called EMS who informed that his condition did not constitute as emergency. Thus, with help of EMS personnel, patient was brought to the ED by his . Patient is very hard of hearing. However, he denies any chest pain , SOB, fever, chills. No cough, abdominal pain. No changes in bowel or bladder habits. CBC/BMP: 03/08/17 1527 03/08/17 1527 Imaging Last Impressions Lumbar Spine CT 03/08/17 0000 Signed Impressions: Service Date/Time: February 12:29 - CONCLUSION: Normal examination. Mild disc space narrowing at the L4-5 level. Jorge Spangler MD Lower Extremity CT 03/08/17 0000 Signed Impressions: Service Date/Time: February 12:29 - CONCLUSION: 1. The questionable fracture seen on the plain film is not recreated on the CT scan. Could be related to overlying osteophyte or vascular groove. 2. No fracture seen on the reformatted images. Jorge Spangler MD Knee X-Ray 03/08/17 0000 Signed Impressions: Service Date/Time: February 18:00 - CONCLUSION: No acute right knee abnormality seen. Mild medial arm and ost or arthritis. Shan Reaves MD Hip and Pelvis X-Ray 03/08/17 0000 Signed Impressions: Service Date/Time: February 11:22 - CONCLUSION: Probable subcapital femoral neck fracture. Moderate osteoarthritis right hip. Jorge Spangler MD PE at Discharge GENERAL: Alert, NAD. SKIN: Warm and dry. HEAD: Normocephalic. EYES: No scleral icterus. No injection or drainage. NECK: Supple, trachea midline. No JVD or lymphadenopathy. CARDIOVASCULAR: Regular rate and rhythm without murmurs, gallops, or rubs. RESPIRATORY: Breath sounds equal bilaterally. No accessory muscle use. GASTROINTESTINAL: Abdomen soft, non-tender, nondistended. MUSCULOSKELETAL: No cyanosis, or edema. Significant pain on right knee movements. BACK: Nontender without obvious deformity. No CVA tenderness. Pt update on day of discharge Patient is doing well. No pain on moving his right knee. Patient wants to go home. Hospital Course Mr. Nuñez is a pleasant 86-year-old male with a history of colon cancer who presented to the emergency department due to right lower extremity pain. Imaging studies indicated no acute fracture. Patient had discussion about right hip replacement 2 and half years ago. However due to a diagnosis of colon cancer, hip replacement was postponed. - Right knee pain - likely due to osteoarthritis - Patient will benefit from intra-articular Hyalgan - Will Continue patient on Naproxen with PPI. Patient is already showing significant improvement of his right knee movements. - PT consult --> rehab vs. Home health PT. Patient prefers to go home with home health. - Patient can follow up with Orthopedic surgery in the outpatient setting. - Hypertension - Hyperlipidemia - Continue metoprolol 50 mg twice a day, enalapril 10 mg daily, amlodipine 5 mg daily. - Continue pravastatin 40 mg daily. - Paroxysmal Atrial fibrillation - Patient is on rate control medication Toprol 50 g twice a day only. May benefit from anti-coagulation - Will defer anti-coagulation with patient's outpatient unit control clerk/PCP. - [id number] score 3 (age, HTN). Full code. SCDs. Pt Condition on Discharge: Good Discharge Disposition: Disch w/ Home Health Serv Discharge Time: <= 30 minutes Discharge Instructions DIET: Follow Instructions for: Heart Healthy Diet Activities you can perform: Regular-No Restrictions Follow up Referrals: Orthopedics - 2 Weeks with Codey Tineo MD PCP Follow-up - 1 Week New Medications: Naproxen (Naprosyn) 500 Mg Tab 500 MG PO Q12HR for Inflammation, #30 TAB Continued Medications: Allopurinol (Allopurinol) 300 Mg Tab 300 MG PO DAILY for Gout, #30 TAB 0 Refills Amlodipine (Amlodipine) 5 Mg Tab 5 MG PO DAILY for Blood Pressure Management, #30 TAB 0 Refills Aspirin (Aspirin 81 Low Dose) 81 Mg Chew 81 MG CHEW DAILY, #30 TAB Cholecalciferol (Vitamin D) 2,000 Unit Cap 2000 MG PO DAILY Cyanocobalamin (Vitamin B-12) 1,000 Mcg Tab 1000 MCG PO DAILY for Nutritional Supplement, #1 BOTTLE 0 Refills Docusate Sodium (Colace) 100 Mg Capsule 1 TAB PO BID, #14 Enalapril (Enalapril) 10 Mg Tab 10 MG PO DAILY, #30 TAB 0 Refills Hydrocodone-Acetaminophen (Hydrocodone-Acetaminophen) 5-325 mg Tab 1 TAB PO Q6H PRN for PAIN, #30 TAB 0 Refills (This prescription has been renewed ) Lovastatin (Lovastatin) 40 Mg Tab 40 MG PO DAILY for Cholesterol Management, #30 TAB 0 Refills Metoprolol Tartrate (Metoprolol Tartrate) 50 Mg Tab 50 MG PO BID, #30 TAB 0 Refills Omeprazole (Omeprazole) 20 Mg Tab 20 MG PO BID for Reflux, #60 TAB 0 Refills Discontinued Medications: Hydrocodone-Acetaminophen (Rydal) 5-325 mg Tab 1 TAB PO Q4H PRN for PAIN, #90 TAB 0 Refills Lolita Arriaza DO Mar 12, 2017 08:26
[2017-03-12] MEDS ORDERED: NAPR500 PO (08:28)
[2017-03-12] MEDS: DOCUSATE SODIUM 50 MG/SENNA 8.6 MG TAB PO SCH (09:00)
[2017-03-12] MEDS: CYANOCOBALAMIN 1,000 MCG TAB PO SCH (10:20)
[2017-03-12] MEDS: NAPROXEN 500 MG TAB PO SCH (10:21)
[2017-03-12] MEDS: ENALAPRIL MALEATE 10 MG TAB PO SCH (10:21)
[2017-03-12] MEDS: PRAVASTATIN SOD 40 MG TAB PO SCH (10:21)
[2017-03-12] MEDS: ALLOPURINOL 300 MG TAB PO SCH (10:21)
[2017-03-12] MEDS: CHOLECALCIFEROL (VIT D3) 1000 UNIT TAB PO SCH (10:22)
[2017-03-12] MEDS: METOPROLOL TARTRATE 50 MG TAB PO SCH (10:22)
[2017-03-12] MEDS: ASPIRIN 81 MG CHEW TAB CHEW SCH (10:22)
[2017-03-12] MEDS: PANTOPRAZOLE SOD 20 MG DELAYED RELEASE TAB PO SCH (10:22)
[2017-03-12] MEDS: SODIUM CHLORIDE 0.9% FLUSH 10 ML FLUSH IV FLUSH SCH (10:22)
[2017-03-12] MEDS: amLODIPine BESYLATE 5 MG TAB PO SCH (10:22)
== END 2017-03-12 13:29 | disposition home or self-care (01) ==
LOC: NEPD 10:35 → NEDA 17:06 → NEPHCDU 20:39
PROVIDERS: ADMIT Hospitalist; ATTEND Hospitalist
DX: M17.11 Unilateral primary osteoarthritis, right knee (principal); I48.0 Paroxysmal atrial fibrillation; E78.00 Pure hypercholesterolemia, unspecified; K21.9 Gastro-esophageal reflux disease without esophagitis; M10.9 Gout, unspecified; Z85.048 Personal history of other malignant neoplasm of rectum, rectosigmoid junction, and anus
CPT/HCPCS: 72131; 73502; 73564; 73700; 80053; 81001; 85025; 96360; 96361; 97162; 99285; G0378; G8987; G8988; J7030

== ENCOUNTER 2017-06-17 20:00 | Inpatient (IN) | payer OTHER, MEDICARE ==
[~2017-06-17] VITALS: Ht 180.3 cm; Wt 84.9 kg
[~2017-06-17 20:00] MED LIST changes: -AMLO10TA2 PO; +AMLO5TAB2 PO; +ASPI1CHW4 CHEW; -ASPI81CH3 CHEW; +COLA100C5 PO; -ENOX30IN SQ; +HYDR-3516 PO; +NAPR500 PO; -NORC5TAB PO; -OMEP20TA PO; +OMEP20TA93 PO
[2017-06-17] MEDS ORDERED: IODIXANOL 320 MG/ML 50 ML VIAL (for Rad CT) IVCONTRAST ONE (20:01)
[2017-06-17 20:03] VITALS: BP 137/62; PULSE 94; RESP 18; TEMP 98; O2SAT 98
[2017-06-17] MEDS ORDERED: ONDANSETRON HCL 4 MG/2 ML VIAL IVP ONE (20:15)
[2017-06-17] MEDS ORDERED: SODIUM CHLORIDE 0.9% FLUSH 10 ML FLUSH IV FLUSH PRN ×2 (20:15→23:00)
[2017-06-17] MEDS ORDERED: PANTOPRAZOLE SODIUM 40 MG VIAL IVP ONE (20:15)
[2017-06-17] MEDS ORDERED: MORPHINE SULFATE 2 MG/ML INJ IV PUSH ONE (20:15)
[2017-06-17 20:30] VITALS: BP 136/62; PULSE 78; RESP 16; O2SAT 94
[2017-06-17] MEDS ORDERED: MORPHINE SULFATE 4 MG/ML INJ ONE (20:39)
[2017-06-17 20:59] LABS: AUTOMATED NEUTROPHIL # 15.6 TH/MM3 (1.8-7.7); BASOPHIL # 0.8 TH/MM3 (0-0.2); BASOPHIL % 4.5 % (0.0-2.0); EOSINOPHIL % 0.2 % (0.0-4.0); HEMATOCRIT 39.3 % (39.0-51.0); HEMOGLOBIN 12.3 GM/DL (13.0-17.0); LYMPH % 4.3 % (9.0-44.0); LYMPHOCYTE # 0.8 TH/MM3 (1.0-4.8); MEAN CELL VOLUME 97.9 FL (80.0-100.0); MEAN CORPUSCULAR HEMOGLOBIN 30.6 PG (27.0-34.0); MEAN CORPUSCULAR HGB CONC 31.3 % (32.0-36.0); MEAN PLATELET VOLUME 8.5 FL (7.0-11.0); MONO % 4.6 % (0.0-8.0); MONOCYTE # 0.8 TH/MM3 (0-0.9); NEUT % 86.4 % (16.0-70.0); PLATELET COUNT 216 TH/MM3 (150-450); RED BLOOD COUNT 4.01 MIL/MM3 (4.50-5.90); RED CELL DISTRIBUTION WIDTH 16.6 % (11.6-17.2)
[2017-06-17] MEDS ORDERED: HYDROmorphone HCL PF 2 MG/ML VIAL IV PUSH ONE (21:00)
--- NOTE | 2017-06-17 21:03 | PD ---
HPI Chief Complaint: Abdominal Pain Time Seen by Provider: 20:03 Travel History International Travel<30 days: No Contact w/Intl Traveler<30days: No Traveled to known affect area: No History of Present Illness HPI 86-year-old male with history of prostate cancer, rectal cancer, status post abdominopelvic resection of the rectal cancer with diverting colostomy performed by Dr. Jacobs in 2016, here for evaluation of epigastric abdominal pain. Symptoms have been going on for about 4 hours and are severe, constant, worse with movements, radiates up into his chest. Patient is unable to provide much more history secondary to pain and clinical condition. His is able to tell me more about the patient's presentation. She tells me that yesterday after waking up and having his morning coffee the patient told her that he did not feel well. He then went into his bedroom and laid in bed the entire day. Yesterday evening he felt nauseous and had 2 episodes of vomiting. He also felt feverish/chills. Patient also complained of having chest pain to his yesterday evening, so she gave him a sublingual nitroglycerin which seemed to improve his pain. After having his morning coffee today, again the patient stated that he did not feel well and did not wish to have anything to eat all day. About 4 hours prior to presenting to the emergency department he began to have severe epigastric pain. PFSH Past Medical History Hx Anticoagulant Therapy: Yes Arthritis: Yes Asthma: No Anxiety: No Depression: No Cancer: Yes (PROSTATE) Cardiovascular Problems: Yes ([place]) High Cholesterol: Yes Congestive Heart Failure: No COPD: No Diabetes: No Diminished Hearing: Yes ([place]) Endocrine: No Gastrointestinal Disorders: Yes (HEMORRHOIDS/RECTAL BLEED, COLOSTOMY, COLON TUMOR) GERD: Yes Gout: Yes Genitourinary: Yes (PROSTATE CANCER, INCONTINENCE) Hepatitis: No Hiatal Hernia: No Hypertension: Yes Immune Disorder: No Implanted Vascular Access Dvce: No Musculoskeletal: Yes (ARTHRITIS/KNEE/HIP PAIN) Neurologic: No Psychiatric: No Reproductive: No Respiratory: No Myocardial Infarction: Yes (PER PATIENT HAD MILD LA IN 2013) Radiation Therapy: Yes Thyroid Disease: No ?: Not Past Surgical History AICD: No Body Medical Devices: "pedrito in left leg" Cardiac Surgery: No Ear Surgery: No Endocrine Surgery: No Eye Surgery: Yes (TICO CATARACT SURGERY) Genitourinary Surgery: Yes (PROSTATECTOMY 1997) Joint Replacement: No Neurologic Surgery: No Oral Surgery: No Pacemaker: No Thoracic Surgery: No Other Surgery: Yes (unable to assess) Social History Alcohol Use: Yes Tobacco Use: No Substance Use: No Allergies-Medications (Allergen,Severity, Reaction): Coded Allergies: No Known Allergies (Verified , 03/08/17) Reported Meds & Prescriptions Reported Meds & Active Scripts Active Naprosyn (Naproxen) 500 Mg Tab 500 Mg PO Q12HR Hydrocodone-Acetaminophen 5-325 mg Tab 1 Tab PO Q6H PRN Colace (Docusate Sodium) 100 Mg Capsule 1 Tab PO BID Omeprazole 20 Mg Tab 20 Mg PO BID Reported Amlodipine (Amlodipine Besylate) 5 Mg Tab 5 Mg PO DAILY Vitamin B-12 (Cyanocobalamin) 1,000 Mcg Tab 1,000 Mcg PO DAILY Vitamin D (Cholecalciferol) 2,000 Unit Cap 2,000 Mg PO DAILY Aspirin 81 Low Dose (Aspirin) 81 Mg Chew 81 Mg CHEW DAILY Lovastatin 40 Mg Tab 40 Mg PO DAILY Allopurinol 300 Mg Tab 300 Mg PO DAILY Metoprolol Tartrate 50 Mg Tab 50 Mg PO BID Enalapril (Enalapril Maleate) 10 Mg Tab 10 Mg PO DAILY Review of Systems Except as stated in HPI: all other systems reviewed are Neg Physical Exam Narrative GENERAL: Well-developed, well-nourished, moderate distress secondary to pain. SKIN: Focused skin assessment warm/dry. Mild diffuse jaundice. HEAD: Atraumatic. Normocephalic. EYES: Pupils equal and round. No scleral icterus. No injection or drainage. ENT: Mucous membranes pink and moist. NECK: Trachea midline. No JVD. CARDIOVASCULAR: Regular rate and rhythm. RESPIRATORY: No accessory muscle use. Clear to auscultation. Breath sounds equal bilaterally. GASTROINTESTINAL: Abdomen soft, nondistended. Moderate epigastric and right upper quadrant tenderness with guarding, rest of abdomen is mildly tender. Left mid/lower abdomen with colostomy bag with brown stool within the bag. Normal bowel sounds. Slight parastomal hernia that is reducible. No other hernias. MUSCULOSKELETAL: No obvious deformities. No clubbing. No cyanosis. No edema. NEUROLOGICAL: Awake and alert. No obvious cranial nerve deficits. Motor grossly within normal limits. Normal speech. PSYCHIATRIC: Appropriate mood and affect; insight and judgment normal. Data Data Last Documented VS Vital Signs Date Time Temp Pulse Resp B/P (MAP) Pulse Ox O2 Delivery O2 Flow Rate FiO2 06/17/17 21:46 92 16 145/63 (90) 92 Nasal Cannula 4.00 06/17/17 20:03 98.0 Orders Orders Complete Blood Count With Diff (06/17/17 20:03) Comprehensive Metabolic Panel (06/17/17 20:03) Lipase (06/17/17 20:03) Lactic Acid (06/17/17 20:03) Prothrombin Time / Inr (Pt) (06/17/17 20:03) Act Partial Throm Time (Ptt) (06/17/17 20:03) Urinalysis - C+S If Indicated (06/17/17 20:03) Ct Abd/Pel W Iv Contrast(Rout) (06/17/17 20:03) Iv Access Insert/Monitor (06/17/17 20:03) Ecg Monitoring (06/17/17 20:03) Oximetry (06/17/17 20:03) Ondansetron Inj (Zofran Inj) (06/17/17 20:15) Pantoprazole Inj (Protonix Inj) (06/17/17 20:15) Sodium Chloride 0.9% Flush (Ns Flush) (06/17/17 20:15) Morphine Inj (Morphine Inj) (06/17/17 20:15) Electrocardiogram (06/17/17 20:03) Ckmb (Isoenzyme) Profile (06/17/17 20:03) Troponin I (06/17/17 20:03) Morphine Inj (Morphine Inj) (06/17/17 20:39) Abdomen, Upright Only (06/17/17 20:41) Chest, Single Ap (06/17/17 ) Influenzae A/B Antigen (06/17/17 20:45) Hydromorphone Pf Inj (Dilaudid Pf Inj) (06/17/17 21:00) Sodium Chlor 0.9% 1000 Ml Inj (Ns 1000 M (06/17/17 21:15) Iodixanol 320 Inj (Rad Ct) (Visipaque 32 (06/17/17 20:01) Ceftriaxone Inj (Rocephin Inj) (06/17/17 22:30) Labs Laboratory Tests Test 06/17/17 20:40 White Blood Count 18.0 TH/MM3 Red Blood Count 4.01 MIL/MM3 Hemoglobin 12.3 GM/DL Hematocrit 39.3 % Mean Corpuscular Volume 97.9 FL Mean Corpuscular Hemoglobin 30.6 PG Mean Corpuscular Hemoglobin Concent 31.3 % Red Cell Distribution Width 16.6 % Platelet Count 216 TH/MM3 Mean Platelet Volume 8.5 FL Neutrophils (%) (Auto) 86.4 % Lymphocytes (%) (Auto) 4.3 % Monocytes (%) (Auto) 4.6 % Eosinophils (%) (Auto) 0.2 % Basophils (%) (Auto) 4.5 % Neutrophils # (Auto) 15.6 TH/MM3 Lymphocytes # (Auto) 0.8 TH/MM3 Monocytes # (Auto) 0.8 TH/MM3 Eosinophils # (Auto) 0.0 TH/MM3 Basophils # (Auto) 0.8 TH/MM3 CBC Comment AUTO DIFF Differential Comment AUTO DIFF CONFIRMED Platelet Estimate NORMAL Platelet Morphology Comment NORMAL Prothrombin Time 10.9 SEC Prothromb Time International Ratio 1.1 RATIO Activated Partial Thromboplast Time 30.3 SEC Blood Urea Nitrogen 30 MG/DL Creatinine 2.20 MG/DL Random Glucose 203 MG/DL Total Protein 7.5 GM/DL Albumin 3.2 GM/DL Calcium Level 8.9 MG/DL Alkaline Phosphatase 315 U/L Aspartate Amino Transf (AST/SGOT) 97 U/L Alanine Aminotransferase (ALT/SGPT) 108 U/L Total Bilirubin 4.7 MG/DL Sodium Level 138 MEQ/L Potassium Level 3.7 MEQ/L Chloride Level 102 MEQ/L Carbon Dioxide Level 24.5 MEQ/L Anion Gap 12 MEQ/L Estimat Glomerular Filtration Rate 29 ML/MIN Lactic Acid Level 2.5 mmol/L Total Creatine Kinase 37 U/L Troponin I LESS THAN 0.02 NG/ML Lipase 93 U/L MDM Medical Decision Making Medical Screen Exam Complete: Yes Emergency Medical Condition: Yes Medical Record Reviewed: Yes Differential Diagnosis Pancreatitis, hepatobiliary disease, colitis, ruptured AAA, ACS, dissection, mesenteric ischemia, cholangitis, choledocholithiasis Narrative Course Initial vital signs show heart rate 94, blood pressure 137/62, pulse ox 98% on room air, oral temp of 98F. CBC: WBC 18, hemoglobin 12.3, hematocrit 97.9, platelets 216, neutrophils 86.4%. CMP is remarkable for BUN 30, creatinine 2.2, GFR 29 which is slightly worse than his baseline, random glucose 203, AST 97, ALT 108, T bili 4.7 Cardiac enzymes are negative. CT scan was reviewed from 2016 and shows that the patient has about a 3 cm AAA. I am concerned about possible AAA rupture as well as possible mesenteric ischemia, therefore although the patient shows some renal insufficiency, IV contrast was ordered for the CT scan today. CT Abd/Pelvis: CONCLUSION: 1. 5 mm rounded density in the region of the distal common duct suspicious for choledocholithiasis. Common duct diameter has increased when compared to the prior study now measuring 7-8 mm in diameter. Mild diffuse intrahepatic biliary ductal prominence. 2. Cholelithiasis. 3. 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 No bowel dilatation. Patient was started on IV Rocephin for possible cholangitis given his elevated WBC count, signs of choledocholithiasis, right upper quadrant pain, and jaundice. Patient was initially given a dose of 4 mg of IV morphine which did not help with his pain. He was then given 1 mg of IV Dilaudid and states his pain is resolved. Again the patient has slight acute on chronic renal insufficiency, however because of concern for possible vascular etiology for the patient's severe abdominal pain, small amount of this opaque was given to the patient. He was given some IV fluids, and IV Rocephin was given to avoid any nephrotoxic antibiotic. Case discussed with on-call inside sales specialist Dr. Rinaldi who would like the patient to be admitted to the medical service and transferred to the main hospital for likely ERCP tomorrow. The patient and the patient's were made aware of all findings and plan for admission. Case discussed with hospitalist Dr. Rodgers who will admit the patient to her service. Diagnosis Primary Impression: Choledocholithiasis Additional Impressions: Hyperbilirubinemia Transaminitis Acute on chronic renal insufficiency Roverto Hair MD Jun 17, 2017 21:03
[2017-06-17 21:06] LABS: CHLORIDE 102 MEQ/L (98-107); SODIUM (NA) 138 MEQ/L (136-145)
[2017-06-17 21:08] VITALS: BP 137/62; PULSE 88; RESP 16; O2SAT 96
[2017-06-17 21:09] LABS: CALCIUM 8.9 MG/DL (8.5-10.1)
[2017-06-17 21:10] LABS: ALBUMIN 3.2 GM/DL (3.4-5.0); BICARBONATE 24.5 MEQ/L (21.0-32.0); BLOOD UREA NITROGEN 30 MG/DL (7-18); GLUCOSE,RANDOM 203 MG/DL (74-106); LIPASE 93 U/L (73-393)
[2017-06-17 21:11] LABS: INTERNATIONAL NORMALIZED RATIO 1.1 RATIO; PROTHROMBIN TIME - PATIENT 10.9 SEC (9.8-11.6)
[2017-06-17 21:13] LABS: ALT (GPT) 108 U/L (12-78); AST (GOT) 97 U/L (15-37); GLOMERULAR FILTRATION RATE 29 ML/MIN (>89)
[2017-06-17 21:14] LABS: TOTAL BILIRUBIN ADULT 4.7 MG/DL (0.2-1.0); TOTAL PROTEIN 7.5 GM/DL (6.4-8.2)
[2017-06-17 21:15] LABS: ALKALINE PHOSPHATASE 315 U/L (45-117)
[2017-06-17] MEDS ORDERED: SODIUM CHLOR 0.9% 1000 ML INJ 1,000 ML IV ONE (21:15)
[2017-06-17 21:18] LABS: TROPONIN I LESS THAN 0.02 NG/ML (0.02-0.05)
[2017-06-17 21:46] VITALS: BP 145/63; PULSE 92; RESP 16; O2SAT 92
--- NOTE | 2017-06-17 22:05 | RADRPT ---
EXAM DATE/TIME: 06/17/2017 20:49 [facility] COMPARISON: No previous studies available for comparison. INDICATIONS : Epigastric pain. MEDICAL HISTORY : Hypertension. Gastroesophageal reflux disease. Carcinoma, prostatic. SURGICAL HISTORY : Prostatectomy. Colostomy. ENCOUNTER: Initial ACUITY: 1 day PAIN SCORE: 5/10 LOCATION: abdomen, epigastric. FINDINGS: Single upright view of the abdomen. No evidence of free air. Scattered gas in the colon. Mildly diste nded gas filled stomach. CONCLUSION: No evidence of free air. Salomon Faust MD on June 17, 2017 at 22:03 Board Certified Radiologist. This report was verified electronically.
--- NOTE | 2017-06-17 22:05 | RADRPT ---
EXAM DATE/TIME: 06/17/2017 20:49 [facility] COMPARISON: CHEST SINGLE AP, May 30, 2016, 13:26. INDICATIONS : Shortness of breath. MEDICAL HISTORY : Hypertension. Gastroesophageal reflux disease. SURGICAL HISTORY : None. ENCOUNTER: Initial ACUITY: 1 day PAIN SCORE: 6/10 LOCATION: Bilateral chest FINDINGS: Single AP view of the chest. Lung volumes are low. Mild cardiac silhouette enlargement. Mild bilatera l linear opacity at the lung bases. No evidence of pleural effusion or pneumothorax. CONCLUSION: Mild linear bilateral lower lung zone predominant opacity may be related to vascular crowding from lo w volumes or may represent mild pulmonary edema. Cardiac silhouette is mildly enlarged. Salomon Faust MD on June 17, 2017 at 22:02 Board Certified Radiologist. This report was verified electronically.
--- NOTE | 2017-06-17 22:23 | RADRPT ---
EXAM DATE/TIME: 06/17/2017 21:30 [facility] COMPARISON: CT ABDOMEN & PELVIS W CONTRAST, December 09, 2015, 18:27. No previous studies available for comparison. INDICATIONS : Sudden onset of abdominal pain 4 hours ago. IV CONTRAST: 40 cc Visipaque (iodixanol) IV ORAL CONTRAST: No oral contrast ingested. RADIATION DOSE: 13.01 CTDIvol (mGy) MEDICAL HISTORY : Gastroesophageal reflux disease. Hypertension. Carcinoma, prostate. SURGICAL HISTORY : None. ENCOUNTER: Initial ACUITY: 1 day PAIN SCALE: 10/10 LOCATION: abdomen TECHNIQUE: Volumetric scanning of the abdomen and pelvis was performed. Using automated exposure control and ad justment of the mA and/or kV according to patient size, radiation dose was kept as low as reasonably achievable to obtain optimal diagnostic quality images. DICOM format image data is available electro nically for review and comparison. FINDINGS: LOWER LUNGS: Moderate bilateral lower lobe atelectasis. Mild diffuse cardiac enlargement. LIVER: Distended gallbladder with multiple small calculi in the dependent portion of the gallbladder. No per icholecystic inflammatory changes. There is a 5 mm rounded hyperdensity in the region of the distal c ommon duct at the pancreatic head indicating possible choledocholithiasis. Mild diffuse intrahepatic biliary ductal prominence The common duct is more prominent than on the comparison study of 2016. Now measuring 7-8 mm in diameter compared to 5 mm on the prior study SPLEEN: Normal size without lesion. PANCREAS: Within normal limits. KIDNEYS: Normal in size and shape. There is no mass, stone or hydronephrosis. ADRENAL GLANDS: Within normal limits. VASCULAR: Diffuse arterial calcification. Aortic diameter are within normal limits. BOWEL/MESENTERY: Left lower quadrant stoma. Peristomal hernia containing loop of small bowel. No evidence of bowel dil atation or bowel wall thickening. RETROPERITONEUM: There is no lymphadenopathy. BLADDER: No wall thickening or mass. REPRODUCTIVE: Within normal limits. INGUINAL: There is no lymphadenopathy or hernia. MUSCULOSKELETAL: Left-sided hip screw. CONCLUSION: 1. 5 mm rounded density in the region of the distal common duct suspicious for choledocholithiasis. C ommon duct diameter has increased when compared to the prior study now measuring 7-8 mm in diameter. Mild diffuse intrahepatic biliary ductal prominence. 2. Cholelithiasis. 3. 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 No bowel dilatation. Salomon Faust MD on June 17, 2017 at 22:15 Board Certified Radiologist. This report was verified electronically.
[2017-06-17] MEDS ORDERED: cefTRIAXone INJ 1,000 MG in SODIUM CHLORIDE 0.9% INJ 100 ML IV ONE (22:30)
[2017-06-17] MEDS ORDERED: BISACODYL 10 MG SUPP RECTAL PRN (23:00)
[2017-06-17] MEDS ORDERED: NALOXONE HCL 0.4 MG/ML AMP IV PUSH PRN (23:00)
[2017-06-17] MEDS ORDERED: ONDANSETRON HCL 4 MG/2 ML VIAL IVP PRN (23:00)
[2017-06-17] MEDS ORDERED: LACTULOSE SYRUP 20 GM/30 ML CUP PO PRN (23:00)
[2017-06-17] MEDS ORDERED: SENNOSIDES 8.6 MG TAB PO PRN (23:00)
[2017-06-17] MEDS ORDERED: MAGNESIUM HYDROXIDE SUSP 30 ML CUP PO PRN (23:00)
[2017-06-18] VITALS (7 sets, daily range): BP systolic 99–146; BP diastolic 50–63; PULSE 83–133; RESP 16–25; TEMP 95.7–98.7; O2SAT 91–96
[2017-06-18] MEDS: SODIUM CHLOR 0.9% 1000 ML INJ 1,000 ML IV SCH ×4 (02:30→21:32)
--- NOTE | 2017-06-18 02:42 | HHI.HP ---
[facility] Primary Care Physician Stephani Rodriguez MD Admission Diagnosis choledocholithiasis, hyperbilirubinemia, renal insufficiency Diagnoses: Travel History International Travel<30 Days: No Contact w/Intl Traveler <30 Da: No Traveled to Known Affected Are: No History of Present Illness 86-year-old male with a past medical history significant for rectal cancer status post colectomy, history of prostate cancer, osteoarthritis, hypertension , hyperlipidemia, CKD and paroxysmal A. fib presented to the emergency department with severe epigastric abdominal pain. The patient's abdominal pain started 2 days ago. It was accompanied by episodic nausea/vomiting. Positive subjective fever/chills. CT of the abdomen/pelvis showed choledocholithiasis with increased diameter of the common bile duct. Patient with transaminitis and elevated lactic acid. WBCs 18.0. Review of Systems Positive fever/chills Denies blurry vision, otorrhea, rhinorrhea Denies sore throat and cough No chest pain, palpitations, shortness of breath Positive abdominal pain Denies constipation/diarrhea. Positive nausea/vomiting Denies muscle pain/weakness No rashes Past Family Social History Past Medical History (Obtained from medical records) h/o prostate cancer h/o rectal cancer Osteoarthritis Hypertension Hyperlipidemia Paroxysmal atrial fibrillation History of PE Past Surgical History Left knee surgery Left hip repair Prostatectomy Colostomy Reported Medications Reported Meds & Active Scripts Active Naprosyn (Naproxen) 500 Mg Tab 500 Mg PO Q12HR Hydrocodone-Acetaminophen 5-325 mg Tab 1 Tab PO Q6H PRN Colace (Docusate Sodium) 100 Mg Capsule 1 Tab PO BID Omeprazole 20 Mg Tab 20 Mg PO BID Reported Amlodipine (Amlodipine Besylate) 5 Mg Tab 5 Mg PO DAILY Vitamin B-12 (Cyanocobalamin) 1,000 Mcg Tab 1,000 Mcg PO DAILY Vitamin D (Cholecalciferol) 2,000 Unit Cap 2,000 Mg PO DAILY Aspirin 81 Low Dose (Aspirin) 81 Mg Chew 81 Mg CHEW DAILY Lovastatin 40 Mg Tab 40 Mg PO DAILY Allopurinol 300 Mg Tab 300 Mg PO DAILY Metoprolol Tartrate 50 Mg Tab 50 Mg PO BID Enalapril (Enalapril Maleate) 10 Mg Tab 10 Mg PO DAILY Allergies: Coded Allergies: No Known Allergies (Verified , 03/08/17) Family History Father with prostate cancer Social History Denies tobacco, illicit drugs. Daily alcohol intake. Physical Exam Vital Signs Vital Signs Date Time Temp Pulse Resp B/P (MAP) Pulse Ox O2 Delivery O2 Flow Rate FiO2 06/18/17 01:21 06/18/17 00:01 87 16 146/63 (90) 96 Nasal Cannula 3.00 06/17/17 21:46 92 16 145/63 (90) 92 Nasal Cannula 4.00 06/17/17 21:08 88 16 137/62 (87) 96 Room Air 06/17/17 20:30 78 16 136/62 (86) 94 Room Air 06/17/17 20:03 98.0 94 18 137/62 (87) 98 Physical Exam GENERAL: male lying in bed SKIN: No rashes, ecchymoses or lesions. Cool and dry. Mild diffuse jaundice. HEAD: Atraumatic. Normocephalic. No temporal or scalp tenderness. EYES: Pupils equal round and reactive. Extraocular motions intact. Positive scleral icterus. No injection or drainage. ENT: Nose without bleeding, purulent drainage or septal hematoma. Throat without erythema, tonsillar hypertrophy or exudate. Uvula midline. Airway patent. NECK: Trachea midline. No JVD or lymphadenopathy. Supple, nontender, no meningeal signs. CARDIOVASCULAR: Regular rate and rhythm without murmurs, gallops, or rubs. RESPIRATORY: Clear to auscultation. Breath sounds equal bilaterally. No wheezes , rales, or rhonchi. GASTROINTESTINAL: Abdomen soft, nondistended. Exquisitely tender to palpation in the epigastric region. No guarding. MUSCULOSKELETAL: Extremities without clubbing, cyanosis, or edema. No joint tenderness, effusion, or edema noted. No calf tenderness. NEUROLOGICAL: Awake and alert. Cranial nerves II through XII intact. Motor and sensory grossly within normal limits. Normal speech. Laboratory Laboratory Tests Test 06/17/17 20:40 White Blood Count 18.0 Red Blood Count 4.01 Hemoglobin 12.3 Hematocrit 39.3 Mean Corpuscular Volume 97.9 Mean Corpuscular Hemoglobin 30.6 Mean Corpuscular Hemoglobin Concent 31.3 Red Cell Distribution Width 16.6 Platelet Count 216 Mean Platelet Volume 8.5 Neutrophils (%) (Auto) 86.4 Lymphocytes (%) (Auto) 4.3 Monocytes (%) (Auto) 4.6 Eosinophils (%) (Auto) 0.2 Basophils (%) (Auto) 4.5 Neutrophils # (Auto) 15.6 Lymphocytes # (Auto) 0.8 Monocytes # (Auto) 0.8 Eosinophils # (Auto) 0.0 Basophils # (Auto) 0.8 CBC Comment AUTO DIFF Differential Comment AUTO DIFF CONFIRMED Platelet Estimate NORMAL Platelet Morphology Comment NORMAL Prothrombin Time 10.9 Prothromb Time International Ratio 1.1 Activated Partial Thromboplast Time 30.3 Blood Urea Nitrogen 30 Creatinine 2.20 Random Glucose 203 Total Protein 7.5 Albumin 3.2 Calcium Level 8.9 Alkaline Phosphatase 315 Aspartate Amino Transf (AST/SGOT) 97 Alanine Aminotransferase (ALT/SGPT) 108 Total Bilirubin 4.7 Sodium Level 138 Potassium Level 3.7 Chloride Level 102 Carbon Dioxide Level 24.5 Anion Gap 12 Estimat Glomerular Filtration Rate 29 Lactic Acid Level 2.5 Total Creatine Kinase 37 Troponin I LESS THAN 0.02 Lipase 93 Date/Time Source Procedure Growth Status 06/17/17 20:40 Nasal Washing Influenza Types A,B Antigen (JUJU) - Final NEGATIVE FOR FLU A AND B ANTIGEN.... Complete Result Diagram: 06/17/17203906/17/172039 Caprini VTE Risk Assessment Caprini VTE Risk Assessment: Mod/High Risk (score >= 2) Caprini Risk Assessment Model Point Value = 1 Point Value = 2 Point Value = 3 Point Value = 5 Age 41-60 Minor surgery BMI > 25 kg/m2 Swollen legs Varicose veins or History of unexplained or recurrent spontaneous Oral contraceptives or hormone replacement Sepsis (< 1 month) Serious lung disease, including pneumonia (< 1 month) Abnormal pulmonary function Acute myocardial infarction Congestive heart failure (< 1 month) History of inflammatory bowel disease Medical patient at bed rest Age 61-74 Arthroscopic surgery Major open surgery (> 45 min) Laparoscopic surgery (> 45 min) Malignancy Confined to bed (> 72 hours) Immobilizing plaster cast Central venous access Age >= 75 History of VTE Family history of VTE Factor V Leiden Prothrombin [id number] Lupus anticoagulant Anticardiolipin antibodies Elevated serum homocysteine Heparin-induced thrombocytopenia Other congenital or acquired thrombophilia Stroke (< 1 month) Elective arthroplasty Hip, pelvis, or leg fracture Acute spinal cord injury (< 1 month) Prophylaxis Regimen Total Risk Factor Score Risk Level Prophylaxis Regimen 0-1 Low Early ambulation 2 Moderate Order ONE of the following: *Sequential Compression Device (SCD) *Heparin 5000 units SQ BID 3-4 Higher Order ONE of the following medications: *Heparin 5000 units SQ TID *Enoxaparin/Lovenox 40 mg SQ daily (WT < 150 kg, CrCl > 30 mL/min) *Enoxaparin/Lovenox 30 mg SQ daily (WT < 150 kg, CrCl > 10-29 mL/min) *Enoxaparin/Lovenox 30 mg SQ BID (WT < 150 kg, CrCl > 30 mL/min) AND/OR *Sequential Compression Device (SCD) 5 or more Highest Order ONE of the following medications: *Heparin 5000 units SQ TID (Preferred with Epidurals) *Enoxaparin/Lovenox 40 mg SQ daily (WT < 150 kg, CrCl > 30 mL/min) *Enoxaparin/Lovenox 30 mg SQ daily (WT < 150 kg, CrCl > 10-29 mL/min) *Enoxaparin/Lovenox 30 mg SQ BID (WT < 150 kg, CrCl > 30 mL/min) AND *Sequential Compression Device (SCD) Assessment and Plan Assessment and Plan Assessment/plan: 1. Choledocholithiasis CT of the abdomen/pelvis showed choledocholithiasis with increased diameter of the common bile duct Leukocytosis, elevated lactic acid, transaminitis, elevated T bili Antibiotic coverage with Rocephin as patient has acute on chronic kidney injury Gastroenterology consulted, plan for ERCP later today Dilaudid for pain Monitor for signs of sepsis 2. Acute on chronic kidney injury Creatinine 2.20, baseline 1.8 IV fluid hydration Monitor renal function Avoid nephrotoxic agents 3. Hypertension/hyperlipidemia/a fib Restart home medications once medication list reconciled - patient unable to provide list of his home medications FEN NPO NS at 125 cc/hr Electrolytes: monitor and replete prn Holding pharmacologic anticoagulation in anticipation of procedure later today Physician Certification 2 Midnight Certification Type: Admission for Inpatient Services Order for Inpatient Services The services are ordered in accordance with Medicare regulations or non- Medicare payer requirements, as applicable. In the case of services not specified as inpatient-only, they are appropriately provided as inpatient services in accordance with the 2-midnight benchmark. Estimated LOS (days): 2 2 days is the estimated time the patient will need to remain in the hospital, assuming treatment plan goals are met and no additional complications. Post-Hospital Plan: Not yet determined Rosy Rodgers MD Jun 18, 2017 02:42
[2017-06-18] MEDS: HYDROmorphone HCL PF 2 MG/ML VIAL IV PUSH PRN ×2 (03:47→10:19)
[2017-06-18 04:02] LABS: AUTOMATED NEUTROPHIL # 13.8 TH/MM3 (1.8-7.7); BASOPHIL # 0.1 TH/MM3 (0-0.2); BASOPHIL % 0.4 % (0.0-2.0); HEMATOCRIT 40.3 % (39.0-51.0); HEMOGLOBIN 13.1 GM/DL (13.0-17.0); LYMPH % 1.8 % (9.0-44.0); LYMPHOCYTE # 0.3 TH/MM3 (1.0-4.8); MEAN CELL VOLUME 98.8 FL (80.0-100.0); MEAN CORPUSCULAR HGB CONC 32.4 % (32.0-36.0); MEAN PLATELET VOLUME 8.9 FL (7.0-11.0); MONO % 3.1 % (0.0-8.0); MONOCYTE # 0.4 TH/MM3 (0-0.9); NEUT % 94.7 % (16.0-70.0); PLATELET COUNT 175 TH/MM3 (150-450); RED BLOOD COUNT 4.09 MIL/MM3 (4.50-5.90); RED CELL DISTRIBUTION WIDTH 16.9 % (11.6-17.2); WHITE BLOOD COUNT 14.5 TH/MM3 (4.0-11.0)
[2017-06-18 04:13] LABS: LACTIC ACID SEPSIS PROTOCOL 3.1 mmol/L (0.4-2.0)
[2017-06-18 04:31] LABS: ALT (GPT) 101 U/L (12-78); AST (GOT) 76 U/L (15-37); BLOOD UREA NITROGEN 28 MG/DL (7-18); CHLORIDE 107 MEQ/L (98-107); CREATININE 2.02 MG/DL (0.60-1.30); GLOMERULAR FILTRATION RATE 32 ML/MIN (>89); GLUCOSE,RANDOM 199 MG/DL (74-106); SODIUM (NA) 139 MEQ/L (136-145)
[2017-06-18 04:34] LABS: ALKALINE PHOSPHATASE 295 U/L (45-117); TOTAL PROTEIN 7.2 GM/DL (6.4-8.2)
--- NOTE | 2017-06-18 07:22 | EKG ---
Date Performed: 06/17/2017 Time Performed: 20:03:51 PTAGE: 86 years EKG: Sinus rhythm WITH FIRST DEGREE AV BLOCK NONSPECIFIC ST & T-WAVE ABNORMALITY ABNORMAL ECG NO PREVIOUS TRACING DOCTOR: Manohar Mc Interpretating Date/Time 06/18/2017 07:20:20
[2017-06-18] MEDS: SODIUM CHLORIDE 0.9% FLUSH 10 ML FLUSH IV FLUSH SCH ×2 (07:34→21:26)
[2017-06-18] MEDS: DOCUSATE SODIUM 50 MG/SENNA 8.6 MG TAB PO SCH ×2 (08:01→21:26)
--- NOTE | 2017-06-18 10:57 | PD.CONS ---
HPI History of Present Illness This is a 86 year old male with hx rectal ca s/p colectomy and colostomy, prostate ca s/p 38 x radiation tx, extremely GAKONA, who presentes with abd pain, n /v. His noticed his urine became dark in the last few days. Onset 1 week ago, tried aleve and nitroglycerin and did nto help. Denies blood in emesis, hx problems with gallbladder, pancreas or liver. Had EGD with dilatation [address] Arambula, has had 2 EGD with dilatations in past. CT showed choledocholithiasis. Drinks 3 x vodka drinks daily. Pt extremely GAK[place] and poor historian, hx obtained from and EMR. (Eliana Watters) PFSH Past Medical History (Obtained from medical records) h/o prostate cancer s/p radiation treatment x 38 h/o rectal cancer s/p colectomy and colostomy Osteoarthritis Hypertension Hyperlipidemia Paroxysmal atrial fibrillation History of PE Past Surgical History Left knee surgery Left hip repair Prostatectomy Colostomy (Eliana Watters) Coded Allergies: No Known Allergies (Verified , 03/08/17) Family History Father with prostate cancer Social History Denies tobacco, illicit drugs. Daily alcohol intake, 3 x vodka drinks daily (Eliana Watters) Review of Systems ROS noncontributory (Eliana Watters) GI Exam Vitals I&O Vital Signs Date Time Temp Pulse Resp B/P (MAP) Pulse Ox O2 Delivery O2 Flow Rate FiO2 06/18/17 07:42 98.7 99 25 107/53 (71) 92 06/18/17 04:00 95.7 83 20 108/57 (74) 93 06/18/17 02:23 96.2 94 18 137/60 (85) 93 06/18/17 01:21 06/18/17 00:01 87 16 146/63 (90) 96 Nasal Cannula 3.00 06/17/17 21:46 92 16 145/63 (90) 92 Nasal Cannula 4.00 06/17/17 21:08 88 16 137/62 (87) 96 Room Air 06/17/17 20:30 78 16 136/62 (86) 94 Room Air 06/17/17 20:03 98.0 94 18 137/62 (87) 98 I/O 06/17/17 06/17/17 06/17/17 06/18/17 06/18/17 06/18/17 07:00 15:00 23:00 07:00 15:00 23:00 Intake Total 1000 ml 100 ml 0 ml Balance 1000 ml 100 ml 0 ml Intake Oral 0 ml 0 ml IV Total 1000 ml 100 ml # Voids 2 # Bowel Movements 0 Imaging Last Impressions Abdomen X-Ray 06/17/172040 Signed Impressions: Service Date/Time: Saturday, June 17, 2017 20:49 - CONCLUSION: No evidence of free air. Salomon Faust MD Abdomen/Pelvis CT 06/17/172002 Signed Impressions: Service Date/Time: Saturday, June 17, 2017 21:30 - CONCLUSION: 1. 5 mm rounded density in the region of the distal common duct suspicious for choledocholithiasis. Common duct diameter has increased when compared to the prior study now measuring 7-8 mm in diameter. Mild diffuse intrahepatic biliary ductal prominence. 2. Cholelithiasis. 3. 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 No bowel dilatation. Salomon Faust MD Chest X-Ray 06/17/17 0000 Signed Impressions: Service Date/Time: Saturday, June 17, 2017 20:49 - CONCLUSION: Mild linear bilateral lower lung zone predominant opacity may be related to vascular crowding from low volumes or may represent mild pulmonary edema. Cardiac silhouette is mildly enlarged. Salomon Faust MD Laboratory Test 06/17/17 20:40 06/18/17 03:36 06/18/17 08:24 White Blood Count 18.0 TH/MM3 14.5 TH/MM3 Red Blood Count 4.01 MIL/MM3 4.09 MIL/MM3 Hemoglobin 12.3 GM/DL 13.1 GM/DL Hematocrit 39.3 % 40.3 % Mean Corpuscular Volume 97.9 FL 98.8 FL Mean Corpuscular Hemoglobin 30.6 PG 32.0 PG Mean Corpuscular Hemoglobin Concent 31.3 % 32.4 % Red Cell Distribution Width 16.6 % 16.9 % Platelet Count 216 TH/MM3 175 TH/MM3 Mean Platelet Volume 8.5 FL 8.9 FL Neutrophils (%) (Auto) 86.4 % 94.7 % Lymphocytes (%) (Auto) 4.3 % 1.8 % Monocytes (%) (Auto) 4.6 % 3.1 % Eosinophils (%) (Auto) 0.2 % 0.0 % Basophils (%) (Auto) 4.5 % 0.4 % Neutrophils # (Auto) 15.6 TH/MM3 13.8 TH/MM3 Lymphocytes # (Auto) 0.8 TH/MM3 0.3 TH/MM3 Monocytes # (Auto) 0.8 TH/MM3 0.4 TH/MM3 Eosinophils # (Auto) 0.0 TH/MM3 0.0 TH/MM3 Basophils # (Auto) 0.8 TH/MM3 0.1 TH/MM3 CBC Comment AUTO DIFF DIFF FINAL Differential Comment AUTO DIFF CONFIRMED Platelet Estimate NORMAL Platelet Morphology Comment NORMAL Prothrombin Time 10.9 SEC Prothromb Time International Ratio 1.1 RATIO Activated Partial Thromboplast Time 30.3 SEC Blood Urea Nitrogen 30 MG/DL 28 MG/DL Creatinine 2.20 MG/DL 2.02 MG/DL Random Glucose 203 MG/DL 199 MG/DL Total Protein 7.5 GM/DL 7.2 GM/DL Albumin 3.2 GM/DL 3.0 GM/DL Calcium Level 8.9 MG/DL 9.0 MG/DL Alkaline Phosphatase 315 U/L 295 U/L Aspartate Amino Transf (AST/SGOT) 97 U/L 76 U/L Alanine Aminotransferase (ALT/SGPT) 108 U/L 101 U/L Total Bilirubin 4.7 MG/DL 4.0 MG/DL Sodium Level 138 MEQ/L 139 MEQ/L Potassium Level 3.7 MEQ/L 3.8 MEQ/L Chloride Level 102 MEQ/L 107 MEQ/L Carbon Dioxide Level 24.5 MEQ/L 23.0 MEQ/L Anion Gap 12 MEQ/L 9 MEQ/L Estimat Glomerular Filtration Rate 29 ML/MIN 32 ML/MIN Lactic Acid Level 2.5 mmol/L 3.1 mmol/L 2.5 mmol/L Total Creatine Kinase 37 U/L Troponin I LESS THAN 0.02 NG/ML Lipase 93 U/L Date/Time Source Procedure Growth Status 06/17/17 20:40 Nasal Washing Influenza Types A,B Antigen (JUJU) - Final NEGATIVE FOR FLU A AND B ANTIGEN.... Complete Physical Examination HEENT: PERRL; normocephalic; atraumatic; no jaundice. CHEST: diminished CARDIAC: RRR ABDOMEN: Soft, mildly,diffuse TTP; no hepatosplenomegaly; bowel sounds are present in all four quadrants. colostomy with neris colored stool EXTREMITIES: No clubbing, cyanosis, or edema. SKIN: Normal; no rash; no jaundice. 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 CT showing increased diameter CBD, cholelithiasis, and suspicious for choledocholithiasis. LFT elevated obstructive pattern. lipase WNL. neris colored stool PLAN - ERCP - obtain consent - NPO - consider GS consult - monitor labs - further recs to follow This pt seen by myself and Dr Rinaldi and this note is written on his behalf (Eliana Watters) Physician Comments Seen and examined, plan as above. Will proceed with ERCP. Risk, benefits and possible complications explained to the patient. (Margoth Rinaldi MD) Eliana Watters Jun 18, 2017 10:57 Margoth Rinaldi MD Jun 18, 2017 12:13
[2017-06-18 12:17] LABS: BACTERIA, URINE FEW /hpf; BILIRUBIN, URINE MOD (NEG); BLOOD, URINE MOD (NEG); GLUCOSE,URINE NEG (NEG); KETONE, URINE TRACE mg/dL (NEG); MUCUS URINE FEW /lpf (OCC); NITRITE,URINE NEG (NEG); SQUAMOUS EPITHELIAL CELL URINE <1 /hpf (0-5); URINE COLOR DARK-BROWN (YELLW/STRAW); URINE LEUKOCYTE ESTERASE LARGE (NEG); WHITE BLOOD CELL CLUMPS OCC
[2017-06-18] MEDS ORDERED: SUGAMMADEX SODIUM 200 MG/2 ML VIAL IV PUSH ONE (12:42)
--- NOTE | 2017-06-18 13:40 | GIPROC ---
[facility] [address] [facility]. [facility], [address] ERCP PROCEDURE REPORT EXAM DATE: 06/18/2017 PATIENT NAME: Berry Nuñez MR #: [id number] BIRTHDATE: 1930 ATTENDING: Margoth Rinaldi MD ORDER #: [id number] GENERAL OFFICE DISPATCHER: Oliver Bal NATIONAL RECRUITER STATUS: inpatient INDICATIONS: The patient is a 86 yr old male here for an ERCP due to established ascending cholangitis, abdominal pain of suspected biliary origin, and abnormal abdominal CT PROCEDURE PERFORMED: ERCP with sphincterotomy/papillotomy ERCP with removal of calculus/calculi MEDICATIONS: None and Per Anesthesia. CONSENT: The patient understands the risks and benefits of the procedure and understands that these risks include, but are not limited to: sedation, allergic reaction, infection, perforation and/or bleeding. Alternative means of evaluation and treatment include, among others: physical exam, x-rays, and/or surgical intervention. The patient elects to proceed with this endoscopic procedure. medical equipment was checked for proper function. Hand hygiene and appropriate measures for infection prevention was taken. After the risks, benefits and alternatives of the procedure were thoroughly explained, Informed was verified, confirmed and timeout was successfully executed by the treatment team. With the patient in left semi-prone position, medications were administered intravenously.The was passed from the mouth into the esophagus and further advanced from the esophagus into the stomach. From stomach scope was directed to the second portion of the duodenum. Major papilla was aligned with the duodenoscope. The scope position was confirmed fluoroscopically. Rest of the findings/therapeutics are given below. The scope was then completely withdrawn from the patient and the procedure completed. The pulse, BP, and O2 saturation were monitored and documented by the physician and the nursing staff throughout the entire procedure. The patient was cared for as planned according to standard protocol. The patient was then discharged to recovery in stable condition and with appropriate post procedure care. There was a small periampullary diverticulum. A single filling defect was seen in the distal common bile duct. With guidewire in the bile duct, a biliary sphincterotomy was performed using the sphincterotome. Using a stone extraction balloon the bile duct was swept three times. A single stone was removed from the bile duct successfully. ADVERSE EVENT: There were no complications. IMPRESSIONS: Small periampullary diverticulum Filling defect at distal CBD Sphinecterotomy and large stone removed successfully GB with multiple stones. RECOMMENDATIONS: Cholecystectomy REPEAT EXAM: As needed Margoth Rinaldi MD eSigned: Margoth Rinaldi MD 06/18/2017 1:39 PM cc: PATIENT NAME: Joaquin Berry Victor Hugo MR#: [id number]
[2017-06-18] MEDS ORDERED: *RESP: ALBUTEROL 2.5 MG/3 ML NEB (PRN) PERIprocedural Use ONLY NEB ONE (13:43)
[2017-06-18] MEDS ORDERED: DO NOT ADM ANY ANTICOAGULANT DRUGS PRN (14:00)
[2017-06-18] MEDS ORDERED: IOHEXOL 350 MG/ML 50 ML BTL (for RAD DIAG) OTHER ONE (14:01)
--- NOTE | 2017-06-18 15:32 | RADRPT ---
EXAM DATE/TIME: 06/18/2017 13:06 [facility] COMPARISON: No previous studies available for comparison. INDICATIONS : Obstruction. FLUORO TIME: 2 minutes IMAGE COUNT: 10 CONTRAST: Instilled by Ordering Physician MEDICAL HISTORY : Gastroesophageal reflux disease. Hypertension. Carcinoma, prostate. SURGICAL HISTORY : None. ENCOUNTER: Subsequent ACUITY: 1 day PAIN SCORE: Non-responsive. LOCATION: Abdomen. FINDINGS: An ERCP was performed by the ordering physician. The images demonstrate contrast within the biliary tract. Several filling defects are seen in the com mon duct suggesting calculi. Balloon is seen in the common duct. Final image shows balloon distally a nd contrast emptying of the common duct. CONCLUSION: ERCP as above. Salomon Faust MD on June 18, 2017 at 15:27 Board Certified Radiologist. This report was verified electronically.
[2017-06-18] MEDS ORDERED: cefTRIAXone INJ 1,000 MG in SODIUM CHLORIDE 0.9% INJ 100 ML IV SCH (22:30)
[2017-06-19] VITALS (10 sets, daily range): BP systolic 121–153; BP diastolic 60–83; PULSE 98–135; RESP 19–22; TEMP 97.8–99.8; O2SAT 92–95
[2017-06-19 04:56] LABS: BASOPHIL % 0.4 % (0.0-2.0); EOSINOPHIL % 0.3 % (0.0-4.0); HEMATOCRIT 32.7 % (39.0-51.0); LYMPH % 6.2 % (9.0-44.0); LYMPHOCYTE # 0.7 TH/MM3 (1.0-4.8); MEAN CELL VOLUME 97.7 FL (80.0-100.0); MEAN CORPUSCULAR HEMOGLOBIN 32.8 PG (27.0-34.0); MEAN CORPUSCULAR HGB CONC 33.6 % (32.0-36.0); MEAN PLATELET VOLUME 8.4 FL (7.0-11.0); MONO % 7.7 % (0.0-8.0); MONOCYTE # 0.8 TH/MM3 (0-0.9); NEUT % 85.4 % (16.0-70.0); PLATELET COUNT 154 TH/MM3 (150-450); RED BLOOD COUNT 3.35 MIL/MM3 (4.50-5.90); RED CELL DISTRIBUTION WIDTH 16.7 % (11.6-17.2); WHITE BLOOD COUNT 10.5 TH/MM3 (4.0-11.0)
[2017-06-19 05:21] LABS: BICARBONATE 23.4 MEQ/L (21.0-32.0); CALCIUM 8.8 MG/DL (8.5-10.1); CREATININE 1.59 MG/DL (0.60-1.30)
[2017-06-19] MEDS: SODIUM CHLOR 0.9% 1000 ML INJ 1,000 ML IV SCH ×3 (08:06→22:50)
[2017-06-19] MEDS: DOCUSATE SODIUM 50 MG/SENNA 8.6 MG TAB PO SCH ×2 (08:07→21:10)
[2017-06-19] MEDS: SODIUM CHLORIDE 0.9% FLUSH 10 ML FLUSH IV FLUSH SCH ×2 (08:08→21:12)
--- NOTE | 2017-06-19 10:46 | RADRPT ---
EXAM DATE/TIME: 06/19/2017 10:36 [facility] COMPARISON: CHEST SINGLE AP, June 17, 2017, 20:49. INDICATIONS : Shortness of breath. MEDICAL HISTORY : Gastroesophageal reflux disease. Hypertension. Carcinoma, prostate. SURGICAL HISTORY : None. ENCOUNTER: Subsequent ACUITY: 1 day PAIN SCORE: 0/10 LOCATION: Bilateral chest FINDINGS: The lungs are hypoaerated. Mild airspace disease is evident in the right base. Heart and mediastinal structures are stable. Heart is mildly enlarged. CONCLUSION: Hypoaerated lungs with mild right basilar airspace disease. Mild cardiomegaly Long Garrison MD on June 19, 2017 at 10:43 Board Certified Radiologist. This report was verified electronically.
[2017-06-19] MEDS: RESP: ALBUTEROL 2.5 MG/IPRATROPIUM 0.5 MG NEB (SCH) NEB ONE (11:40)
[2017-06-19] MEDS ORDERED: RESP: IPRATROPIUM 0.5 MG/2.5 ML NEB NEB SCH (12:00)
[2017-06-19] MEDS ORDERED: SODIUM CHLOR 0.9% 1000 ML INJ 1,000 ML IV ONE (12:00)
[2017-06-19] MEDS ORDERED: THIAMINE HCL 100 MG TAB PO ONE (12:00)
[2017-06-19] MEDS: PIPERACIL-TAZO 3.375 GM PREMIX 50 ML IV SCH ×2 (12:52→18:20)
[2017-06-19] MEDS ORDERED: RESP: IPRATROPIUM 0.5 MG/2.5 ML NEB NEB PRN (14:00)
[2017-06-19] MEDS ORDERED: AZITHROMYCIN INJ 500 MG in SODIUM CHLOR 0.9% 250 ML INJ 250 ML IV SCH (14:00)
[2017-06-19] MEDS ORDERED: RESP: ALBUTEROL 2.5 MG/IPRATROPIUM 0.5 MG NEB (SCH) NEB (16:00)
[2017-06-19] MEDS: RESP: IPRATROPIUM 0.5 MG/2.5 ML NEB NEB SCH ×3 (16:00→23:51)
--- NOTE | 2017-06-19 16:27 | RADRPT ---
EXAM DATE/TIME: 06/19/2017 15:59 [facility] COMPARISON: CT THORAX W/O CONTRAST, November 09, 2014, 10:47. INDICATIONS : Evaluate the size of the infiltrate,short of breath. RADIATION DOSE: 7.56 CTDIvol (mGy) MEDICAL HISTORY : Cardiovascular disease. Carcinoma, rectal. Carcinoma, prostate. Hypertension SURGICAL HISTORY : Prostatectomy. Colostomy. ENCOUNTER: Initial ACUITY: 1 day PAIN SCALE: 0/10 LOCATION: chest TECHNIQUE: Volumetric scanning of the chest was performed. Using automated exposure control and adjustment of t he mA and/or kV according to patient size, radiation dose was kept as low as reasonably achievable to obtain optimal diagnostic quality images. DICOM format image data is available electronically for r eview and comparison. Follow-up recommendations for detected pulmonary nodules are based at a minimum on nodule size and pa tient risk factors according to Fleischner Society Guidelines. FINDINGS: LUNGS: Chronic interstitial lung disease is identified course septal thickening is evident throughout both u pper lobes. Bibasilar airspace disease is identified in both bases. Chronic airway changes with bronc hial wall thickening are noted. PLEURAE: Mild pleural thickening and small bilateral effusions are noted. MEDIASTINUM: Mild aneurysmal enlargement of the ascending thoracic aorta stable. It measures 5.6 cm in diameter. T he soft tissues are otherwise unremarkable. AXILLAE: Within normal limits. No lymphadenopathy. MUSCULOSKELETAL: Within normal limits for patient age. MISCELLANEOUS: The visualized upper abdominal organs demonstrate no acute abnormality. CONCLUSION: 1. Chronic interstitial lung disease 2. Bibasilar airspace disease with small effusions and mild dural thickening 3. 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 Long Garrison MD on June 19, 2017 at 16:20 Board Certified Radiologist. This report was verified electronically.
--- NOTE | 2017-06-19 16:36 | RADRPT ---
EXAM DATE/TIME: 06/19/2017 13:29 [facility] COMPARISON: CT ABDOMEN & PELVIS W CONTRAST, December 09, 2015, 18:27. US ABDOMEN - LOWER LIMITED, June 19, 2017, 14:14. CT ABDOMEN & PELVIS W CONTRAST, June 17, 2017, 21:30. EXTERNAL COMPARISON : [facility], CT ABDOMEN & PELVIS W & W/O CONTRAST, August 13, 2012 INDICATIONS : Increased BUN/creatinine. MEDICAL HISTORY : Myocardial infarction. Hypercholesterolemia. Arthritis. HTN. GERD. Gout. Prostate/rectal carcinoma. A nticoagulant therapy. SURGICAL HISTORY : Prostatectomy. Bilateral cataract surgery. Right arm surgery for severed muscle/tendon. Left knee surgery. ENCOUNTER: Initial ACUITY: 1 day PAIN SCORE: 0/10 LOCATION: Bilateral flank MEASUREMENTS: RIGHT KIDNEY: 12.2 x 5.2 x 6.5 cm LEFT KIDNEY: 11.7 x 5.7 x 5.0 cm FINDINGS: RIGHT KIDNEY: Increased renal cortical echogenicity. No stone or hydronephrosis. No significant mass. LEFT KIDNEY: Increased renal cortical echogenicity. BLADDER: Within normal limits given the degree of distension. CONCLUSION: 1. Hyperechoic kidneys consistent with medical renal disease. 2. No obstructive uropathy. Swapnil Marte MD on June 19, 2017 at 16:31 Board Certified Radiologist. This report was verified electronically.
--- NOTE | 2017-06-19 16:38 | RADRPT ---
EXAM DATE/TIME: 06/19/2017 14:14 [facility] COMPARISON: No previous studies available for comparison. INDICATIONS : Evaulate for ascites. MEDICAL HISTORY : Myocardial infarction. Hypercholesterolemia. Arthritis. Hearing loss. HTN. GERD. Gout. Prostate/recta l carcinoma. Anticoagulant therapy. SURGICAL HISTORY : Prostatectomy. Bilateral cataract surgery. Right arm for severed muscle/tendon. Left knee surgery . ENCOUNTER: Initial ACUITY: 1 day PAIN SCORE: 0/10 LOCATION: Abdomen. AREA EVALUATED: Abdominal quadrants. FINDINGS: Imaging of the abdomen and pelvis was performed to evaluate for ascites for possible paracentesis. N o ascites is observed. CONCLUSION: 1. No significant ascites. Swapnil Marte MD on June 19, 2017 at 16:36 Board Certified Radiologist. This report was verified electronically.
[2017-06-19] MEDS: AZITHROMYCIN INJ 500 MG in SODIUM CHLOR 0.9% 250 ML INJ 250 ML IV SCH (17:00)
--- NOTE | 2017-06-19 20:12 | ECHRPT ---
Indication: EF CHF CONCLUSIONS Normal left ventricular size. Mild concentric left ventricular hypertrophy. The left ventricular systolic function is preserved with an estimated ejection fraction of 55%. The right ventriclar size is upper limits of normal. BP: 133 / 63 HR: 107 Rhythm: Atrial fibrillation MEASUREMENTS (Male / Female) Normal Values Technical Quality:Good 2D ECHO LV Diastolic Diameter PLAX 4.1 cm 4.2 - 5.9 / 3.9 - 5.3 cm LV Systolic Diameter PLAX 3.4 cm IVS Diastolic Thickness 0.9 cm 0.6 - 1.0 / 0.6 - 0.9 cm LVPW Diastolic Thickness 0.9 cm 0.6 - 1.0 / 0.6 - 0.9 cm LV Relative Wall Thickness 0.4 RV Internal Dim ED PLAX 2.2 cm DOPPLER Mitral E Point Velocity 115.0 cm/s TR Peak Velocity 305.0 cm/s TR Peak Gradient 37.2 mmHg Right Atrial Pressure 10.0 mmHg Pulmonary Artery Systolic Pressu 47.2 mmHg Right Ventricular Systolic Press 47.2 mmHg FINDINGS LEFT VENTRICLE Normal left ventricular size. Mild concentric left ventricular hypertrophy. The left ventricular systolic function is preserved with an estimated ejection fraction of 55%. RIGHT VENTRICLE The right ventriclar size is upper limits of normal. LEFT ATRIUM The left atrial size is normal. RIGHT ATRIUM The right atrial size is normal. ATRIAL SEPTUM Normal atrial septal thickness without atrial level shunting by limited color doppler interrogation. AORTA The aortic root and proximal ascending aorta are normal in size on limited imaging. MITRAL VALVE Structurally normal mitral valve. No mitral valve stenosis or regurgitation. AORTIC VALVE Trileaflet aortic valve. No aortic valve stenosis or regurgitation. TRICUSPID VALVE Structurally normal tricuspid valve. No tricuspid valve stenosis or regurgitation. PULMONARY VALVE No pulmonary valve regurgitation or stenosis. VESSELS The inferior vena cava is normal in size. PERICARDIUM No pericardial effusion. Mitch Foster MD, FACC (Electronically Signed) Final Date:19 June 2017 20:12
--- NOTE | 2017-06-19 23:35 | MB ---
cc: GERMAN CONROY MD, JOHN DATE OF CONSULTATION: 06/19/2017 REASON FOR CONSULTATION: Respiratory insufficiency and lung infiltrate with pneumonia. HISTORY OF PRESENT ILLNESS: This is an 86 year-old white male who was initially admitted with complaints of abdominal pain, restlessness and epigastric discomfort with vomiting. The patient also had some fever or chills. He was seen in the emergency room after being brought in via [facility]. Upon arrival, CT of the abdomen and pelvis was done which showed choledocholithiasis and increased common bile duct diameter. The patient was placed on antibiotics. His white count was elevated and lactic acid was elevated as well. He was on piperacillin and Zithromax. A chest x-ray showed a right lower lobe lung infiltrate. The patient was unable to provide any meaningful details of his history and seems somewhat disoriented. He is on oxygen by nasal cannula at three liters and maintaining a saturation of 92%. PAST MEDICAL HISTORY: 1. History of rectal cancer with resection. 2. Prior history of prostate cancer with radiation and resection. 3. History of hypertension. 4. Hyperlipidemia. 5. History of pulmonary embolism. 6. Paroxysmal atrial fibrillation. PAST SURGICAL HISTORY: 1. Prostatectomy. 2. Colostomy following colon resection. 3. Left hip repair, with a history of fracture. 4. Left knee surgery. MEDICATIONS: 1. Amlodipine 5 milligrams a day. 2. Aspirin one daily. 3. Allopurinol 300 milligrams a day. 4. Metoprolol 50 milligrams b.i.d. 5. Enalapril 10 milligrams daily. ALLERGIES: None listed. FAMILY HISTORY: Prostate cancer. HABITS: The patient smoked in the past for about 25 years and then quit many years ago. He drinks alcohol daily. No other illicit drug use. SYSTEM REVIEW: The patient is unable to provide any meaningful details, seems disoriented. PHYSICAL EXAMINATION: This is a moderately obese elderly man, who is laying flat. Pallor is noted. No cyanosis. There is mild clubbing. Skin turgor is diminished. VITAL SIGNS: Blood pressure is 140/70, pulse 80, respiratory rate 22, temperature 97.2. HEENT: Head normocephalic. Pupils are reactive and equal. Tongue dry. Throat is injected. He has no inflammation. Neck: Supple. No bruits or thyroid enlargement or lymphadenopathy. Chest: Decreased excursions. Coarse wheezes bilaterally with crackles over for right lung base. Heart: The heart sounds are irregularly irregular, S1-S2 no murmur. Abdomen: Soft, protuberant with colostomy bag in place. Bowel sounds are active. No organomegaly. Extremities: Minimal edema with diminished pulses. Reflexes are 1+. The patient does move his lower extremities sluggishly. Babinski negative. Skin: No lesions are observed. IMPRESSION 1. Basilar pneumonia with hypoxemia. 2. History of choledocholithiasis with sepsis. 3. Acute kidney injury with history of chronic kidney disease. 4. History of colostomy. PLAN The patient has been on antibiotic coverage, piperacillin and Zithromax will be continued. He will be placed on nebulized DuoNeb solution q.i.d. and p.r.n. O2 will be placed via nasal cannula at 4 liters to maintain sats greater than 92 and incentive spirometry added every two hours, BiPap will be used at night if the saturations drop below 92. Follow up chest x-ray has been ordered and a CT scan of the chest to evaluate lower lung infiltrates. Sputum will be sent for Gram stain and culture. Thank you Dr. Conroy, for this consultation. MD NIKITA Chowdary/ROSE MARIE /10:31 PM /10:49 PM
--- NOTE | 2017-06-19 23:51 | HHI.PR ---
Subjective Remarks Patient seen this morning around 11 AM. Slightly more short of breath than yesterday. Denies any chest pain. Objective Vital Signs Date Time Temp Pulse Resp B/P (MAP) Pulse Ox O2 Delivery O2 Flow Rate FiO2 06/19/17 20:30 93 Simple Mask 10.00 06/19/17 20:00 98.7 115 22 153/72 (99) 93 06/19/17 19:53 92 Simple Mask 10.00 06/19/17 16:00 99.3 132 19 121/72 (88) 95 06/19/17 11:50 95 Simple Mask 10.00 06/19/17 11:30 97.8 107 20 133/63 (86) 93 06/19/17 09:24 92 Simple Mask 7.00 06/19/17 08:20 92 Simple Mask 7.00 06/19/17 07:53 99.8 108 19 128/60 (82) 92 06/19/17 05:11 92 Simple Mask 7.00 06/19/17 00:09 98.6 98 21 128/83 (98) 92 I/O 06/19/17 06/19/17 06/19/17 06/20/17 06/20/17 06/20/17 07:00 15:00 23:00 07:00 15:00 23:00 Intake Total 680 ml 100 ml 1780 ml Output Total 400 ml 400 ml Balance 280 ml 100 ml 1380 ml Intake Oral 580 ml 100 ml 480 ml IV Total 100 ml 1300 ml Output Urine Total 400 ml Stool Total 400 ml # Voids 3 # Bowel Movements 0 Result Diagram: 06/19/17 0432 06/19/17 0432 Objective Remarks GENERAL: patient sitting up in bed. Appears moderately short of breath. SKIN: Warm and dry. HEAD: Normocephalic. EYES: No scleral icterus. No injection or drainage. NECK: Supple, trachea midline. No JVD. CARDIOVASCULAR: Regular rate and rhythm without murmurs, gallops, or rubs. RESPIRATORY: Breath sounds equal bilaterally. No accessory muscle use. GASTROINTESTINAL: Abdomen distended. Nontender. MUSCULOSKELETAL: No cyanosis, or edema. BACK: Nontender without obvious deformity. No CVA tenderness. A/P Assessment and Plan //Choledocholithiasis CT of the abdomen/pelvis showed choledocholithiasis with increased diameter of the common bile duct Leukocytosis, elevated lactic acid, transaminitis, elevated T bili Antibiotic coverage with Rocephin as patient has acute on chronic kidney injury Gastroenterology consulted, plan for ERCP later today Dilaudid for pain Monitor for signs of sepsis -GI following. Status post ERCP. Appreciate assistance. //biBasilar pneumonia //Hypoxemic respiratory failure. -Change antibiotics to Zosyn and Zithromax. Continue supportive care with do nebs. Incentive spirometry, Acapella. BNP normal, echocardiogram without pericardial effusion. Pulmonology following. Appreciate assistance. //Acute on chronic kidney injury Creatinine 2.20, baseline 1.8 IV fluid hydration Monitor renal function Avoid nephrotoxic agents = 06/19. Creatinine improved to baseline 1.8. Continue to monitor. //Hypertension/hyperlipidemia/a fib Restart home medications once medication list reconciled - patient unable to provide list of his home medications FEN NPO NS at 125 cc/hr Electrolytes: monitor and replete prn Holding pharmacologic anticoagulation due to procedures. Plan restart when appropriate. Codey Maldonado MD Jun 19, 2017 23:51
[2017-06-20] VITALS (19 sets, daily range): BP systolic 105–148; BP diastolic 58–92; PULSE 82–160; RESP 24–38; TEMP 95.9–99.5; O2SAT 90–95
[2017-06-20] MEDS: PIPERACIL-TAZO 3.375 GM PREMIX 50 ML IV SCH ×4 (00:13→19:06)
[2017-06-20] MEDS: RESP: IPRATROPIUM 0.5 MG/2.5 ML NEB NEB SCH ×5 (03:19→19:55)
[2017-06-20] MEDS ORDERED: ATOR40TA16 PO (07:31)
[2017-06-20] MEDS: SODIUM CHLOR 0.9% 1000 ML INJ 1,000 ML IV SCH ×2 (07:43→16:55)
[2017-06-20] MEDS: DOCUSATE SODIUM 50 MG/SENNA 8.6 MG TAB PO SCH ×2 (08:24→21:00)
[2017-06-20] MEDS: SODIUM CHLORIDE 0.9% FLUSH 10 ML FLUSH IV FLUSH SCH (08:25)
[2017-06-20 10:02] LABS: AUTOMATED NEUTROPHIL # 9.4 TH/MM3 (1.8-7.7); BASOPHIL % 0.4 % (0.0-2.0); EOSINOPHIL # 0.1 TH/MM3 (0-0.4); EOSINOPHIL % 0.8 % (0.0-4.0); HEMATOCRIT 34.7 % (39.0-51.0); HEMOGLOBIN 11.6 GM/DL (13.0-17.0); LYMPH % 4.3 % (9.0-44.0); LYMPHOCYTE # 0.5 TH/MM3 (1.0-4.8); MEAN CELL VOLUME 97.7 FL (80.0-100.0); MEAN CORPUSCULAR HEMOGLOBIN 32.8 PG (27.0-34.0); MEAN CORPUSCULAR HGB CONC 33.5 % (32.0-36.0); MEAN PLATELET VOLUME 8.5 FL (7.0-11.0); MONO % 7.4 % (0.0-8.0); MONOCYTE # 0.8 TH/MM3 (0-0.9); NEUT % 87.1 % (16.0-70.0); PLATELET COUNT 177 TH/MM3 (150-450); RED BLOOD COUNT 3.55 MIL/MM3 (4.50-5.90); WHITE BLOOD COUNT 10.8 TH/MM3 (4.0-11.0)
[2017-06-20 10:21] LABS: ALBUMIN 2.1 GM/DL (3.4-5.0); BICARBONATE 20.5 MEQ/L (21.0-32.0); CALCIUM 9.1 MG/DL (8.5-10.1); CREATININE 1.21 MG/DL (0.60-1.30); MAGNESIUM 1.8 MG/DL (1.5-2.5); PHOSPHORUS 2.3 MG/DL (2.5-4.9)
--- NOTE | 2017-06-20 11:01 | HHI.GIFU ---
Subjective Remarks Sitting up in the chair, awake, very hard of hearing at bedside Denies any current abdominal pain, mild soreness at colostomy site Positive for abdominal bloating (Taylor Ching) Objective Vitals I&O Vital Signs Date Time Temp Pulse Resp B/P (MAP) Pulse Ox O2 Delivery O2 Flow Rate FiO2 06/20/17 08:05 91 Simple Mask 10.00 06/20/17 08:00 98.3 104 24 147/69 (95) 90 06/20/17 04:38 98.8 107 24 142/79 (100) 92 06/20/17 03:22 90 Simple Mask 10.00 06/20/17 00:41 24 06/20/17 00:22 98.6 102 28 133/72 (92) 95 06/20/17 00:00 96 06/19/17 23:59 93 Simple Mask 10.00 06/19/17 20:30 93 Simple Mask 10.00 06/19/17 20:00 135 06/19/17 20:00 98.7 115 22 153/72 (99) 93 06/19/17 19:53 92 Simple Mask 10.00 06/19/17 16:00 99.3 132 19 121/72 (88) 95 06/19/17 11:50 95 Simple Mask 10.00 06/19/17 11:30 97.8 107 20 133/63 (86) 93 I/O 06/19/17 06/19/17 06/19/17 06/20/17 06/20/17 06/20/17 07:00 15:00 23:00 07:00 15:00 23:00 Intake Total 680 ml 100 ml 1780 ml 630 ml Output Total 400 ml 400 ml 1500 ml Balance 280 ml 100 ml 1380 ml -870 ml Intake Oral 580 ml 100 ml 480 ml 580 ml IV Total 100 ml 1300 ml 50 ml Output Urine Total 400 ml 1200 ml Stool Total 400 ml 300 ml # Voids 3 # Bowel Movements 0 Laboratory Laboratory Tests Test 06/19/17 11:13 06/19/17 17:10 06/20/17 09:35 Blood Gas Puncture Site RT RADIAL Blood Gas Patient Temperature 98.1 Blood Gas HCO3 23 Blood Gas Base Excess -0.4 Blood Gas Oxygen Saturation 92 Arterial Blood pH 7.43 Arterial Blood Partial Pressure CO2 36 Arterial Blood Partial Pressure O2 68 Arterial Blood Oxygen Content 13.8 Arterial Blood Carboxyhemoglobin 1.4 Arterial Blood Methemoglobin 1.1 Blood Gas Hemoglobin 10.6 Oxygen Delivery Device MASK Blood Gas Liter Flow 10 Lactic Acid Level 0.9 White Blood Count 10.8 Red Blood Count 3.55 Hemoglobin 11.6 Hematocrit 34.7 Mean Corpuscular Volume 97.7 Mean Corpuscular Hemoglobin 32.8 Mean Corpuscular Hemoglobin Concent 33.5 Red Cell Distribution Width 17.0 Platelet Count 177 Mean Platelet Volume 8.5 Neutrophils (%) (Auto) 87.1 Lymphocytes (%) (Auto) 4.3 Monocytes (%) (Auto) 7.4 Eosinophils (%) (Auto) 0.8 Basophils (%) (Auto) 0.4 Neutrophils # (Auto) 9.4 Lymphocytes # (Auto) 0.5 Monocytes # (Auto) 0.8 Eosinophils # (Auto) 0.1 Basophils # (Auto) 0.0 CBC Comment DIFF FINAL Differential Comment Blood Urea Nitrogen 15 Creatinine 1.21 Random Glucose 87 Albumin 2.1 Calcium Level 9.1 Phosphorus Level 2.3 Magnesium Level 1.8 Sodium Level 137 Potassium Level 3.7 Chloride Level 108 Carbon Dioxide Level 20.5 Anion Gap 9 Estimat Glomerular Filtration Rate 57 Date/Time Source Procedure Growth Status 06/17/17 20:40 Nasal Washing Influenza Types A,B Antigen (JUJU) - Final NEGATIVE FOR FLU A AND B ANTIGEN.... Complete 06/18/17 10:15 Urine Random Urine Urine Culture - Final <10,000 CFU/ML GRAM POSITIVE DENICE Complete Imaging Last Impressions Chest CT 06/19/17 1513 Signed Impressions: Service Date/Time: Monday, June 19, 2017 15:59 - CONCLUSION: 1. Chronic interstitial lung disease 2. Bibasilar airspace disease with small effusions and mild dural thickening 3. 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 Long Garrison MD Renal Ultrasound 06/19/17 0000 Signed Impressions: Service Date/Time: Monday, June 19, 2017 13:29 - CONCLUSION: 1. Hyperechoic kidneys consistent with medical renal disease. 2. No obstructive uropathy. Swapnil Marte MD Chest X-Ray 06/19/17 0000 Signed Impressions: Service Date/Time: Monday, June 19, 2017 10:36 - CONCLUSION: Hypoaerated lungs with mild right basilar airspace disease. Mild cardiomegaly Long Garrison MD Abdomen Ultrasound 06/19/17 0000 Signed Impressions: Service Date/Time: Monday, June 19, 2017 14:14 - CONCLUSION: 1. No significant ascites. Swapnil Marte MD GI Procedure 06/18/17 0000 Signed Impressions: Service Date/Time: Sunday, June 18, 2017 13:06 - CONCLUSION: ERCP as above. Salomon Faust MD Abdomen X-Ray 06/17/172040 Signed Impressions: Service Date/Time: Saturday, June 17, 2017 20:49 - CONCLUSION: No evidence of free air. Salomon Faust MD Abdomen/Pelvis CT 06/17/172002 Signed Impressions: Service Date/Time: Saturday, June 17, 2017 21:30 - CONCLUSION: 1. 5 mm rounded density in the region of the distal common duct suspicious for choledocholithiasis. Common duct diameter has increased when compared to the prior study now measuring 7-8 mm in diameter. Mild diffuse intrahepatic biliary ductal prominence. 2. Cholelithiasis. 3. 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 No bowel dilatation. Salomon Faust MD Physical Exam HEENT: Pupils round and reactive to light; normocephalic; atraumatic, obese NECK: Neck is supple, no JVD, no lymphadenopathy. CHEST: Chest, decreased breath sounds at bases CARDIAC: Regular rhythm/tachycardia mild ABDOMEN: taut, mild bloating nontender except for around colostomy site; no hepatosplenomegaly; bowel sounds present EXTREMITIES: No clubbing, cyanosis, or edema. SKIN: Normal; no rash; no jaundice. REACHER: Hard of hearing (Taylor Ching) Assessment and Plan Plan ASSESSMENT - abd pain, n/v, abnormal imaging, elevated LFT - choledocholithiasis. CT showing increased diameter CBD, cholelithiasis, and suspicious for choledocholithiasis. LFT elevated obstructive pattern. lipase WNL. neris colored stool ERCP 06/18, Small periampullary diverticulum Filling defect at distal CBD Sphinecterotomy and large stone removed successfully GB with multiple stones. PLAN - consider cholecystectomy, consult done today , spoke to hospitalist - Diet clear liquids, increase to full liquids today - monitor labs - further recs to follow This pt seen by myself and Dr Rinaldi and this note is written on his behalf (Taylor Ching) Physician Comments Improving clinically and by labs, stable from GI point of view. (Margoth Rinaldi MD) Taylor Ching Jun 20, 2017 11:01 Margoth Rinaldi MD Jun 20, 2017 14:15
[2017-06-20] MEDS ORDERED: ATOR10TA15 PO (12:29)
[2017-06-20] MEDS ORDERED: METOPROLOL TARTRATE 5 MG/5 ML VIAL IV PUSH ONE (12:45)
[2017-06-20] MEDS ORDERED: METOPROLOL TARTRATE 50 MG TAB PO SCH (12:45)
[2017-06-20] MEDS: ENALAPRIL MALEATE 10 MG TAB PO SCH (12:47)
--- NOTE | 2017-06-20 12:56 | HHI.PR ---
Subjective Remarks Went to see the patient is an A. fib with RVR at 160, he looks pale, fatigued, he's not really answering my question so he did not confirm feeling pain or lightheaded or dizziness, blood pressure dropped to around 100 systolic I discussed with the nurse will have to transfer patient to ICU in order to be able to give him iv medication to control heart rate, I will resume his Lopressor 50 mg twice a day. Also discussed with nurse, GI, and consulted general surgery to look at him for future cholecystectomy, discussed with [facility] Objective Vitals Vital Signs Date Time Temp Pulse Resp B/P (MAP) Pulse Ox O2 Delivery O2 Flow Rate FiO2 06/20/17 12:00 95.9 160 24 105/69 (81) 91 06/20/17 08:20 103 06/20/17 08:20 92 Simple Mask 10.00 06/20/17 08:05 91 Simple Mask 10.00 06/20/17 08:00 98.3 104 24 147/69 (95) 90 06/20/17 04:38 98.8 107 24 142/79 (100) 92 06/20/17 03:22 90 Simple Mask 10.00 06/20/17 00:41 24 06/20/17 00:22 98.6 102 28 133/72 (92) 95 06/20/17 00:00 96 06/19/17 23:59 93 Simple Mask 10.00 06/19/17 20:30 93 Simple Mask 10.00 06/19/17 20:00 135 06/19/17 20:00 98.7 115 22 153/72 (99) 93 06/19/17 19:53 92 Simple Mask 10.00 06/19/17 16:00 99.3 132 19 121/72 (88) 95 I/O 06/19/17 06/19/17 06/19/17 06/20/17 06/20/17 06/20/17 07:00 15:00 23:00 07:00 15:00 23:00 Intake Total 680 ml 100 ml 1780 ml 630 ml Output Total 400 ml 400 ml 1500 ml Balance 280 ml 100 ml 1380 ml -870 ml Intake Oral 580 ml 100 ml 480 ml 580 ml IV Total 100 ml 1300 ml 50 ml Output Urine Total 400 ml 1200 ml Stool Total 400 ml 300 ml # Voids 3 # Bowel Movements 0 Result Diagram: 06/20/1735 06/20/17 0935 Objective Remarks GENERAL: This is a frail elderly patient on 10 L simple mask oxygen SKIN: No rashes, warm and dry HEAD: Atraumatic. Normocephalic. EYES: Pupils equal round and reactive. Extraocular motions intact. No scleral icterus. ENT: Nose without bleeding, or drainage, Airway patent. NECK: Trachea midline. Supple CARDIOVASCULAR: Irregularly irregular RESPIRATORY: Fair air entry bilaterally. No wheezes, rales, or rhonchi. GASTROINTESTINAL: Abdomen soft, non-tender, nondistended. Positive bowel sounds MUSCULOSKELETAL: Extremities without clubbing, cyanosis, or edema. Pedal pulses appreciated NEUROLOGICAL: Awake and alert. Moves all extremity. Normal speech.no focal neurological deficit A/P Assessment and Plan Bibasilar pneumonia A. fib with RVR Choledocholithiasis Acute respiratory failure and hypoxia QUIQUE on CKD Hypertension/hyperlipidemia DVT prophylaxis Plan: 06/20: Stat transfer to ICU, stat Check lactic acid, consult ID, Lopressor iv to control heart rate, resume Lopressorpo, Discussed with GI, discussed with GS //Choledocholithiasis CT of the abdomen/pelvis showed choledocholithiasis with increased diameter of the common bile duct Leukocytosis, elevated lactic acid, transaminitis, elevated T bili Antibiotic coverage with Rocephin as patient has acute on chronic kidney injury Gastroenterology consulted, plan for ERCP later today Dilaudid for pain Monitor for signs of sepsis -GI following. Status post ERCP. Appreciate assistance. //biBasilar pneumonia //Hypoxemic respiratory failure. -Change antibiotics to Zosyn and Zithromax. Continue supportive care with do nebs. Incentive spirometry, Acapella. BNP normal, echocardiogram without pericardial effusion. Pulmonology following. Appreciate assistance. //Acute on chronic kidney injury Creatinine 2.20, baseline 1.8 IV fluid hydration Monitor renal function Avoid nephrotoxic agents = 06/19. Creatinine improved to baseline 1.8. Continue to monitor. //Hypertension/hyperlipidemia/a fib Restart home medications once medication list reconciled - patient unable to provide list of his home medications FEN NPO NS at 125 cc/hr Electrolytes: monitor and replete prn Holding pharmacologic anticoagulation due to procedures. Plan restart when/ Gaby Slaughter MD Jun 20, 2017 12:56
[2017-06-20] MEDS: ALLOPURINOL 300 MG TAB PO SCH (13:04)
[2017-06-20] MEDS ORDERED: CHLORHEXIDINE GLUCONATE 2 % 1 PACK (2 CLOTHS)(extra cloths) TOPICAL PRN (14:15)
--- NOTE | 2017-06-20 14:58 | EKG ---
Date Performed: 06/19/2017 Time Performed: 18:21:18 PTAGE: 86 years EKG: ATRIAL FLUTTER/TACHYCARDIA WITH RAPID VENTRICULAR RESPONSE NONSPECIFIC T-WAVE ABNORMALITY A BNORMAL RHYTHM ECG PREVIOUS TRACING : 06/17/2017 20.03 DOCTOR: Jorge Fuller Interpretating Date/Time 06/20/2017 14:57:43
[2017-06-20 15:11] LABS: ALBUMIN 2.1 GM/DL (3.4-5.0); DIRECT BILIRUBIN ADULT 4.5 MG/DL (0.0-0.2)
[2017-06-20 15:14] LABS: INDIRECT BILIRUBIN 1.1 MG/DL (0.0-0.8); TOTAL BILIRUBIN ADULT 5.6 MG/DL (0.2-1.0); TOTAL PROTEIN 6.3 GM/DL (6.4-8.2)
--- NOTE | 2017-06-20 16:49 | MB ---
cc: RUFINA STINSON M.D. DATE OF CONSULTATION: 06/20/2017 REASON FOR CONSULTATION: Cholelithiasis status post ERCP for choledocholithiasis. HISTORY OF PRESENT ILLNESS The patient is a 86-year-old male who was admitted on 06/17 with abdominal pain, weakness, nausea and vomiting and epigastric pain. The patient was found to have elevated liver function tests and cholecystolithiasis. He underwent ERCP with stone extraction 06/18 with large stone extracted at that time. The patient continues have some right upper quadrant pain and was moved to intensive care for tachycardia which was treated medically. The patient also has pulmonary consultation placed for question of pneumonia. PAST MEDICAL HISTORY Past medical history is quite significant and includes history of prostate cancer history of rectal cancer status post abdominal perineal resection and 2016 with radiation OTHER MEDICAL PROBLEMS: other medical problems include Hypertension Osteoarthritis History of pulmonary embolus and atrial fibrillation. PAST SURGERIES Included an abdominoperineal resection with diverting colostomy prostatectomy Cataract surgery. ALLERGIES NO KNOWN DRUG ALLERGIES MEDICATIONS: 1. currently include atorvastatin 10 mg p.o. q.h.s. 2. Allopurinol 300 mg p.o. q. day 3. Vasotec 10 mg p.o. q. Day 4. Metoprolol 50 mg p.o. b.i.d. 5. Azithromycin q 24 hours. 6. Piperacillin 7. Tazobactam q.6 h 8. Senna as needed. 9. lactulose as needed. PHYSICAL EXAMINATION: IN GENERAL: The physical exam reveals an obese male who is hard of hearing. VITAL SIGNS: Blood pressure 105/69, pulse currently 110, it was a high as 160 at noon today. 91% sat on simple mask now 89% sat on non-rebreather. HEAD, EYES, EARS, NOSE, AND THROAT: Sclerae are icteric with some jaundice to the skin on the face and upper arms. Pupils are equal and reactive. NECK: Neck is supple. CHEST: Chest is clear with decreased breath sounds on the right. There are no rhonchi or wheezes noted. CARDIOVASCULAR SYSTEM: Cardiac exam reveals tachycardia without appreciated murmurs. ABDOMEN: The abdomen is soft with tenderness in the right upper quadrant. There is a well-healed midline scar extending above the umbilicus, half way to the xyphoid process. There is a colostomy in place in the left lower quadrant. No hernias noted. LABORATORY FINDINGS WBCs are 10.8, hemoglobin 11.6, platelet count 177,000. Chemistries demonstrates a total bilirubin 5.6, direct bili is 4.5, AST 42, ALT 48, alkaline phosphatase 309, coagulation demonstrates an INR of 1.1. IMAGING STUDIES Includes chest CT which does not demonstrate any evidence of PE with only chronic interstitial lung disease noted. CT of the abdomen and pelvis on 06/17 demonstrated distended gallbladder with multiple small calculi. There is no pericholecystic inflammatory changes. There is a 5 mm rounded hyper density in the region of the distal common duct at the pancreatic head, indicating possible choledocholithiasis. There is some diffuse intrahepatic biliary ductal dilatation measuring 7 to 8 mm's in diameter. ASSESSMENT Previous choledocholithiasis with persistently elevated liver function tests, pulmonary insufficiency and tachy arrhythmia today requiring admission to the intensive care unit. PLAN The patient needs to be medically optimized and is a poor candidate for surgery at this time. We would recommend placement of a cholecystostomy tube at this juncture, allow for him to recuperate and to perform surgery when he is medically able to tolerate with minimal chance for morbidity. I will attempt to contact the patient's to discuss this with her. We do not plan on any surgery this week. He will likely undergo surgical procedure about 3 weeks although it could be accomplished sooner if he improves rapidly. We will follow with you and see the patient while he is in the hospital. MD KOMAL Martinez/asuncion /3:21 PM /4:08 PM [id number]
[2017-06-20] MEDS: METOPROLOL TARTRATE 50 MG TAB PO SCH (16:54)
[2017-06-20] MEDS: AZITHROMYCIN INJ 500 MG in SODIUM CHLOR 0.9% 250 ML INJ 250 ML IV SCH (16:55)
--- NOTE | 2017-06-20 18:03 | HHI.PR ---
Subjective Remarks He is SOB and on a Mask at 60 % FIO2 . Was in Atrial Fib and RVR,with rate of 160.Was given IV Lopressor. Now HR is 78. Being transferred to [facility]. Output was OK. Objective Vital Signs Date Time Temp Pulse Resp B/P (MAP) Pulse Ox O2 Delivery O2 Flow Rate FiO2 06/20/17 17:00 117 38 130/66 (87) 93 06/20/17 16:00 99.5 118 35 147/92 (110) 93 06/20/17 16:00 118 06/20/17 15:00 115 35 148/76 (100) 91 06/20/17 14:01 99.1 102 32 137/65 (89) 91 06/20/17 14:00 103 34 90 06/20/17 13:35 89 Non-Rebreather 15.00 06/20/17 13:30 156 06/20/17 13:30 85 Simple Mask 10.00 06/20/17 12:00 95.9 160 24 105/69 (81) 91 06/20/17 08:20 103 06/20/17 08:20 92 Simple Mask 10.00 06/20/17 08:05 91 Simple Mask 10.00 06/20/17 08:00 98.3 104 24 147/69 (95) 90 06/20/17 04:38 98.8 107 24 142/79 (100) 92 06/20/17 03:22 90 Simple Mask 10.00 06/20/17 00:41 24 06/20/17 00:22 98.6 102 28 133/72 (92) 95 06/20/17 00:00 96 06/19/17 23:59 93 Simple Mask 10.00 06/19/17 20:30 93 Simple Mask 10.00 06/19/17 20:00 135 06/19/17 20:00 98.7 115 22 153/72 (99) 93 06/19/17 19:53 92 Simple Mask 10.00 I/O 06/19/17 06/19/17 06/19/17 06/20/17 06/20/17 06/20/17 07:00 15:00 23:00 07:00 15:00 23:00 Intake Total 680 ml 100 ml 1780 ml 630 ml 100 ml 1000 ml Output Total 400 ml 400 ml 1500 ml Balance 280 ml 100 ml 1380 ml -870 ml 100 ml 1000 ml Intake Oral 580 ml 100 ml 480 ml 580 ml IV Total 100 ml 1300 ml 50 ml 100 ml 1000 ml Output Urine Total 400 ml 1200 ml Stool Total 400 ml 300 ml # Voids 3 # Bowel Movements 0 Result Diagram: 06/20/1793406/20/17934 Objective Remarks This is a moderately obese elderly man, who is laying flat. Pallor is noted. Mild cyanosis. There is mild clubbing. Skin turgor is diminished. HEENT: Head normocephalic. Pupils are reactive and equal. Tongue dry. Throat is injected. He has no inflammation. Neck: Supple. No bruits or thyroid enlargement or lymphadenopathy. Chest: Decreased excursions. Coarse wheezes bilaterally with crackles over Both lung bases. Heart: The heart sounds are irregularly irregular, S1-S2 no murmur. Abdomen: Soft, protuberant with colostomy bag in place. Bowel sounds are active. No organomegaly. Extremities: Minimal edema with diminished pulses. Reflexes are 1+. The patient does move his lower extremities sluggishly. Babinski negative. Skin: No lesions are observed. Assessment and Plan Assessment and Plan IMPRESSION 1. Basilar pneumonia with hypoxemia. 2. History of choledocholithiasis with sepsis. 3. Acute kidney injury with history of chronic kidney disease. 4. History of colostomy. 5. Atrial Fibrillation with RVR Plan : 1. Start Metoprolol 50 mg bid 2. O2 Via NRB mask and to BIPAP tonite 3. ABG, CXR in am. 4. Continue antibiotics, Zosyn.Zithromax 5. CBC,BMP in am. 6. Lasix 40 mg IV X1 7. Continue Heparin 5000 U S/Q 8.For Drainage of Gall bladder in am Lon Willams MD Jun 20, 2017 18:03
[2017-06-20] MEDS ORDERED: FUROSEMIDE 40 MG/4 ML VIAL IV PUSH ONE (18:15)
[2017-06-20] MEDS: HEPARIN SODIUM - SQ 10,000 UNITS/ML VIAL SQ SCH (21:00)
--- NOTE | 2017-06-20 22:47 | MB ---
cc: BARBARA TATE MD DATE OF CONSULTATION: 06/20/[address] Slaughter. REASON FOR CONSULTATION: Sepsis with bilateral choledocholithiasis. Please help with antibiotics. HISTORY OF PRESENT ILLNESS This 86-year-old white male was admitted through the emergency department with abdominal pain. He was evaluated and found to have a 1.5 millimeter rounded density in the region of the distal common duct suspicious for choledocholithiasis. Also increase in the diameter of the common duct was noted. His white count was 18.0 on admission and his temperature was normal on admission, but then decreased to 95.7 at one point. He has undergone CT of the chest which shows chronic interstitial lung disease. The patient was evaluated by surgical specialty and it was felt that he is not a good surgical candidate and therefore plans to place a cholecystostomy tube. The patient developed arrhythmia in the form of atrial fibrillation and was transferred to the Intensive Care Unit. He is currently on BiPAP and he does appear to have been short of breath. He was seen also by credentials specialist and is felt to have bilateral pneumonia. He is currently on intravenous antibiotics. His white count has improved and today it is 10.8. PAST MEDICAL HISTORY 1. Hypertension. 2. Hyperlipidemia. 3. Paroxysmal atrial fibrillation. 4. Osteoarthritis. 5. History of pulmonary embolism. 6. History of prostate cancer. 7. History of rectal cancer. 8. History of abdominal surgery. 9. Colostomy. 10. Left knee surgery. 11. Left hip repair. 12. Prostatectomy. ALLERGIES NO KNOWN DRUG ALLERGIES. MEDICATIONS 1. Lopressor. 2. Vasotec. 3. Allopurinol 4. Azithromycin 5. Piperacillin/tazobactam 6. Le-Colace SOCIAL HISTORY: No tobacco. Positive alcohol. No illicit drugs. FAMILY HISTORY Unable to obtain because of the BiPap being in place. REVIEW OF SYSTEMS: Unable to obtain because of the BiPAP in place. PHYSICAL EXAMINATION: The patient is a well-developed male who is somewhat agitated. He appears restless and is trying to sit up. He just pulled out a condom catheter. Vital signs: Include temperature of 99.5, heart rate 97. Blood pressure 130/66, respiratory rate 32. HEENT: Head is atraumatic. Extraocular movements grossly intact. No icterus. Oropharynx: mucosa appears slightly dry. He has a BiPap mask in place. Neck: Obese, no tenderness. Lungs: Bilateral wheezing and decreased breath sounds. Heart: Irregular rate and rhythm. Slight systolic murmur at the left sternal border. Abdomen: Bowel sounds present but diminished, soft. Colostomy bag in place at the left lower quadrant and appears functional. Rectal: Not performed. Extremities: No clubbing or cyanosis or edema. Skin: No rash. Neuro: Unable to fully assess. Psych: The patient is restless. LABORATORY DATA: WBC 10.8, platelet count 177, 87% neutrophils, hemoglobin 11.6, creatinine 1.21, BUN 15, sodium 137, total bilirubin 5.6, AST 42, ALT 48, alk phos 309. Urine culture less than 10,000 colonies of gram-positive carmen. IMPRESSION 1. Pneumonia. 2. Choledocholithiasis. 3. Hypoxemia. RECOMMENDATIONS 1. Continue piperacillin / tazobactam. 2. Continue Zithromax. 3. Follow temperature and obtain blood culture if temperature spikes again. Thank you this consultation. The patient's progress will be followed and further recommendations will be given upon followup. Currently he appears to be in respiratory distress and may require intubation. Barbara Tate MD FD/ROSE MARIE /6:47 PM /10:11 PM
[2017-06-21] VITALS (20 sets, daily range): BP systolic 120–155; BP diastolic 58–98; PULSE 83–97; RESP 21–36; TEMP 98.6–99.2; O2SAT 76–95
[2017-06-21] MEDS: SODIUM CHLOR 0.9% 1000 ML INJ 1,000 ML IV SCH ×4 (00:06→16:31)
[2017-06-21] MEDS: RESP: IPRATROPIUM 0.5 MG/2.5 ML NEB NEB SCH ×7 (00:29→23:53)
[2017-06-21] MEDS: METOPROLOL TARTRATE 50 MG TAB PO SCH ×3 (00:50→17:43)
[2017-06-21] MEDS: PIPERACIL-TAZO 3.375 GM PREMIX 50 ML IV SCH ×4 (00:51→18:47)
[2017-06-21] MEDS ORDERED: CHLORHEXIDINE GLUCONATE 2 % 1 PACK (2 CLOTHS)(taper/protocol) TOPICAL SCH (04:00)
[2017-06-21 06:49] LABS: ALKALINE PHOSPHATASE 304 U/L (45-117); TOTAL BILIRUBIN ADULT 4.5 MG/DL (0.2-1.0); TOTAL PROTEIN 6.3 GM/DL (6.4-8.2)
[2017-06-21 06:50] LABS: ALBUMIN 2.1 GM/DL (3.4-5.0); ALT (GPT) 38 U/L (12-78); AST (GOT) 37 U/L (15-37); BICARBONATE 24.9 MEQ/L (21.0-32.0); BLOOD UREA NITROGEN 15 MG/DL (7-18); CHLORIDE 104 MEQ/L (98-107); CREATININE 1.27 MG/DL (0.60-1.30); GLOMERULAR FILTRATION RATE 54 ML/MIN (>89); GLUCOSE,RANDOM 58 MG/DL (74-106); SODIUM (NA) 139 MEQ/L (136-145)
[2017-06-21] MEDS: SODIUM CHLORIDE 0.9% FLUSH 10 ML FLUSH IV FLUSH SCH ×2 (09:00→21:34)
[2017-06-21] MEDS: ENALAPRIL MALEATE 10 MG TAB PO SCH (09:00)
[2017-06-21] MEDS: ALLOPURINOL 300 MG TAB PO SCH (09:00)
[2017-06-21] MEDS: DOCUSATE SODIUM 50 MG/SENNA 8.6 MG TAB PO SCH ×3 (09:00→21:33)
[2017-06-21] MEDS ORDERED: PHENYLEPHRINE HCL 10 MG/ML VIAL IV ONE (12:00)
[2017-06-21] MEDS ORDERED: LIDOCAINE HCL 1% PF 5 ML SYRINGE OTHER ONE (12:00)
[2017-06-21] MEDS ORDERED: ROCURONIUM INJ 50 MG/5 ML SYRINGE IV PUSH ONE (12:00)
[2017-06-21] MEDS ORDERED: PROPOFOL 200 MG/20 ML AMP IV ONE (12:00)
[2017-06-21] MEDS ORDERED: PHENYLEPH/NS 1000 MCG/10 ML SYR IV ONE (12:00)
--- NOTE | 2017-06-21 13:43 | RADRPT ---
EXAM DATE/TIME: 06/21/2017 11:19 [facility] COMPARISON: No previous studies available for comparison. INDICATIONS : Epigastric abdominal pain. DOSE: 4.2 mCi Tc99m Mebrofenin IV MEDICAL HISTORY : Myocardial infarction. Hypertension. Gastroesophageal reflux disease. SURGICAL HISTORY : Prostatectomy. ENCOUNTER: Initial ACUITY: 3 days PAIN SCALE: 4/10 LOCATION: Abdomen. TECHNIQUE: Following the intravenous administration of radiotracer, dynamic sequential images were performed wit h continuous acquisition. FINDINGS: HEPATIC KINETICS: There is prompt uptake of radiotracer in the liver. No focal defects are seen. There is normal rate of washout from the hepatic parenchyma. BILIARY CLEARANCE: Activity is first seen in the extrahepatic biliary system at 15 minutes. There is normal excretion i nto the small bowel. GALLBLADDER: No activity is demonstrated in the gallbladder at up to 90 minutes. Common bile duct kinetics are nor mal and there is no evidence of biliary obstruction. BILIARY ENTRIC REFLUX: None observed. CONCLUSION: 1. Normal biliary bowel transit time with no evidence for common bile duct obstruction. 2. No activity noted in the gallbladder at up to 90 minutes. This is concerning for obstruction of th e cystic duct in this patient with suspected acute cholecystitis. Given the high degree of clinical s uspicion and patient's tenuous clinical condition, plan is for percutaneous cholecystostomy drain bety cement rather than delayed imaging. Swapnil Marte MD on June 21, 2017 at 13:39 Board Certified Radiologist. This report was verified electronically.
--- NOTE | 2017-06-21 14:19 | HHI.PR ---
Subjective Remarks patient going to special for cholecystomy drainage Still on 15 L nonrebreather oxygen, appreciate coronary and ID consultation Discussed with the nurse will plan on keeping in ICU until respiratory more stable Objective Vitals Vital Signs Date Time Temp Pulse Resp B/P (MAP) Pulse Ox O2 Delivery O2 Flow Rate FiO2 06/21/17 13:35 99.2 89 25 155/75 (101) 92 06/21/17 08:01 95 Partial Rebreather 06/21/17 06:00 83 06/21/17 04:00 90 06/21/17 04:00 98.7 90 22 138/98 (111) 80 06/21/17 02:00 84 06/21/17 00:00 98.6 87 21 125/68 (87) 92 06/21/17 00:00 87 06/21/17 00:00 Non-Rebreather 15.00 06/20/17 22:00 85 06/20/17 20:00 82 06/20/17 20:00 91 Non-Rebreather 15.00 06/20/17 20:00 98.8 85 25 125/58 (80) 94 06/20/17 19:55 92 Non-Rebreather 15.00 06/20/17 18:00 97 06/20/17 17:00 117 38 130/66 (87) 93 06/20/17 16:00 99.5 118 35 147/92 (110) 93 06/20/17 16:00 118 06/20/17 15:00 115 35 148/76 (100) 91 I/O 06/20/17 06/20/17 06/20/17 06/21/17 06/21/17 06/21/17 06:59 14:59 22:59 06:59 14:59 22:59 Intake Total 630 ml 100 ml 1587 ml 100 ml 1000 ml Output Total 1500 ml 150 ml 3700 ml Balance -870 ml 100 ml 1437 ml -3600 ml 1000 ml Intake Oral 580 ml 50 ml 50 ml IV Total 50 ml 100 ml 1537 ml 50 ml 1000 ml Output Urine Total 1200 ml 150 ml 3000 ml Stool Total 300 ml 0 ml 700 ml Result Diagram: 06/20/17 0935 06/21/17 0520 Objective Remarks GENERAL: This is a frail elderly patient on 15 L nonrebreathing mask SKIN: No rashes, warm and dry HEAD: Atraumatic. Normocephalic. EYES: Pupils equal round and reactive. Extraocular motions intact. No scleral icterus. ENT: Nose without bleeding, or drainage, Airway patent. NECK: Trachea midline. Supple CARDIOVASCULAR: Irregularly irregular RESPIRATORY: Diminished breath sounds GASTROINTESTINAL: Abdomen soft, non-tender, nondistended. Positive bowel sounds MUSCULOSKELETAL: Extremities without clubbing, cyanosis, or edema. Pedal pulses appreciated NEUROLOGICAL: Awake and alert. Moves all extremity. Normal speech.no focal neurological deficit A/P Assessment and Plan Bibasilar pneumonia A. fib with RVR Choledocholithiasis Acute respiratory failure and hypoxia QUIQUE on CKD Hypertension/hyperlipidemia DVT prophylaxis Plan: 06/20: Stat transfer to ICU, stat Check lactic acid, consult ID, Lopressor iv to control heart rate, resume Lopressorpo, Discussed with GI, discussed with GS 06/21: Heart rate much better on Lopressor 50 every 8 hours, still on 15 L nonrebreather mask, appreciate pulmonary, recommended high flow oxygen, ABG nonsignificant pH 7.44. Rayna scan has been done was concerning for obstruction, surgery following patient will go to IR for cholecystotomy drainage, ID following for iv antibiotic //Choledocholithiasis CT of the abdomen/pelvis showed choledocholithiasis with increased diameter of the common bile duct Leukocytosis, elevated lactic acid, transaminitis, elevated T bili Antibiotic coverage with Rocephin as patient has acute on chronic kidney injury Gastroenterology consulted, plan for ERCP later today Dilaudid for pain Monitor for signs of sepsis -GI following. Status post ERCP. Appreciate assistance. //biBasilar pneumonia //Hypoxemic respiratory failure. -Change antibiotics to Zosyn and Zithromax. Continue supportive care with do nebs. Incentive spirometry, Acapella. BNP normal, echocardiogram without pericardial effusion. Pulmonology following. Appreciate assistance. //Acute on chronic kidney injury Creatinine 2.20, baseline 1.8 IV fluid hydration Monitor renal function Avoid nephrotoxic agents = 06/19. Creatinine improved to baseline 1.8. Continue to monitor. //Hypertension/hyperlipidemia/a fib Restart home medications once medication list reconciled - patient unable to provide list of his home medications FEN NPO NS at 125 cc/hr Electrolytes: monitor and replete prn Holding pharmacologic anticoagulation due to procedures. Plan restart when/ Gaby Slaughter MD Jun 21, 2017 14:19
[2017-06-21] MEDS ORDERED: fentaNYL CITRATE 250 MCG/5 ML AMP ONE (14:36)
--- NOTE | 2017-06-21 15:41 | PD.RAD ---
Post Procedure Progress Note Pre Procedure Diagnosis: (1) Acute cholecystitis Post Procedure Diagnosis: (1) Biliary sludge Procedure Date: Jun 21, 2017 Supervising Radiologist: Jermaine Herman Proceduralist/Assist: Ca Khan RT(R)(CV), Kristan Lundy RT(R) Anesthesia: Local, Analgesia, Conscious Sedation Plan of Activity Patient to Unit: [facility]OPU Patient Condition: Good See PACS Report for procedural detail/treatment Drainage Procedure Procedure 1 Imaging Guidance: Fluoroscopy, Ultrasound Procedure Type: Cholecystostomy Procedure: Placement Drainage: [place] drainage Fluid Description: Cloudy, Bilious Findings: Bowel surrounds anterior access to GB. Transhepatic approach. Cystic duct and CBD patent. Debris in GB lumen. 8Fr catheter to gravity drainage. Jermaine Herman MD Jun 21, 2017 15:41
[2017-06-21] MEDS ORDERED: IOHEXOL 350 MG/ML 50 ML BTL (for RAD DIAG) OTHER ONE (15:44)
--- NOTE | 2017-06-21 15:47 | HHI.IDPN ---
Note Infectious Disease Note Patient had cholecystostomy tube placement. Appears confused. Afebrile. WBC improved. 86-year-old white male was admitted through the emergency department with abdominal pain. He was evaluated and found to have a 1.5 millimeter rounded density in the region of the distal common duct suspicious for choledocholithiasis. PAST MEDICAL HISTORY 1. Hypertension. 2. Hyperlipidemia. 3. Paroxysmal atrial fibrillation. 4. Osteoarthritis. 5. History of pulmonary embolism. 6. History of prostate cancer. 7. History of rectal cancer. 8. History of abdominal surgery. 9. Colostomy. 10. Left knee surgery. 11. Left hip repair. 12. Prostatectomy. ALLERGIES NO KNOWN DRUG ALLERGIES. MEDICATIONS Azithromycin Piperacillin/tazobactam OBJECTIVE: Vital Signs Date Time Temp Pulse Resp B/P (MAP) Pulse Ox O2 Delivery O2 Flow Rate FiO2 06/21/17 13:35 99.2 89 25 155/75 (101) 92 06/21/17 08:01 95 Partial Rebreather 06/21/17 06:00 83 06/21/17 04:00 90 06/21/17 04:00 98.7 90 22 138/98 (111) 80 06/21/17 02:00 84 06/21/17 00:00 98.6 87 21 125/68 (87) 92 06/21/17 00:00 87 06/21/17 00:00 Non-Rebreather 15.00 06/20/17 22:00 85 06/20/17 20:00 82 06/20/17 20:00 91 Non-Rebreather 15.00 06/20/17 20:00 98.8 85 25 125/58 (80) 94 06/20/17 19:55 92 Non-Rebreather 15.00 06/20/17 18:00 97 06/20/17 17:00 117 38 130/66 (87) 93 06/20/17 16:00 99.5 118 35 147/92 (110) 93 06/20/17 16:00 118 Laboratory Tests Test 06/20/17 09:35 White Blood Count 10.8 TH/MM3 Red Blood Count 3.55 MIL/MM3 Hemoglobin 11.6 GM/DL Hematocrit 34.7 % Mean Corpuscular Volume 97.7 FL Mean Corpuscular Hemoglobin 32.8 PG Mean Corpuscular Hemoglobin Concent 33.5 % Red Cell Distribution Width 17.0 % Platelet Count 177 TH/MM3 Mean Platelet Volume 8.5 FL Neutrophils (%) (Auto) 87.1 % Lymphocytes (%) (Auto) 4.3 % Monocytes (%) (Auto) 7.4 % Eosinophils (%) (Auto) 0.8 % Basophils (%) (Auto) 0.4 % Neutrophils # (Auto) 9.4 TH/MM3 Lymphocytes # (Auto) 0.5 TH/MM3 Monocytes # (Auto) 0.8 TH/MM3 Eosinophils # (Auto) 0.1 TH/MM3 Basophils # (Auto) 0.0 TH/MM3 CBC Comment DIFF FINAL Differential Comment Laboratory Tests Test 06/19/17 17:10 06/20/17 09:35 06/20/17 14:45 06/21/17 05:20 Lactic Acid Level 0.9 mmol/L 0.9 mmol/L Blood Urea Nitrogen 15 MG/DL 15 MG/DL Creatinine 1.21 MG/DL 1.27 MG/DL Random Glucose 87 MG/DL 58 MG/DL Albumin 2.1 GM/DL 2.1 GM/DL Calcium Level 9.1 MG/DL 9.0 MG/DL Phosphorus Level 2.3 MG/DL Magnesium Level 1.8 MG/DL Sodium Level 137 MEQ/L 139 MEQ/L Potassium Level 3.7 MEQ/L 3.5 MEQ/L Chloride Level 108 MEQ/L 104 MEQ/L Carbon Dioxide Level 20.5 MEQ/L 24.9 MEQ/L Anion Gap 9 MEQ/L 10 MEQ/L Estimat Glomerular Filtration Rate 57 ML/MIN 54 ML/MIN Total Bilirubin 5.6 MG/DL 4.5 MG/DL Direct Bilirubin 4.5 MG/DL Indirect Bilirubin 1.1 MG/DL Aspartate Amino Transf (AST/SGOT) 42 U/L 37 U/L Alanine Aminotransferase (ALT/SGPT) 48 U/L 38 U/L Alkaline Phosphatase 309 U/L 304 U/L Total Protein 6.3 GM/DL 6.3 GM/DL IMAGING: Hepatobiliary Scan Nuclear Medicine 06/21/17 1120 Signed Impressions: Service Date/Time: May 11:19 - CONCLUSION: 1. Normal biliary bowel transit time with no evidence for common bile duct obstruction. 2. No activity noted in the gallbladder at up to 90 minutes. This is concerning for obstruction of the cystic duct in this patient with suspected acute cholecystitis. Given the high degree of clinical suspicion and patient's tenuous clinical condition, plan is for percutaneous cholecystostomy drain placement rather than delayed imaging. Swapnil Marte MD Chest CT 06/19/17 1513 Signed Impressions: Service Date/Time: Monday, June 19, 2017 15:59 - CONCLUSION: 1. Chronic interstitial lung disease 2. Bibasilar airspace disease with small effusions and mild dural thickening 3. 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 Long Garrison MD Renal Ultrasound 06/19/17 0000 Signed Impressions: Service Date/Time: Monday, June 19, 2017 13:29 - CONCLUSION: 1. Hyperechoic kidneys consistent with medical renal disease. 2. No obstructive uropathy. Swapnil Marte MD Chest X-Ray 06/19/17 0000 Signed Impressions: Service Date/Time: Monday, June 19, 2017 10:36 - CONCLUSION: Hypoaerated lungs with mild right basilar airspace disease. Mild cardiomegaly Long Garrison MD Abdomen Ultrasound 06/19/17 0000 Signed Impressions: Service Date/Time: Monday, June 19, 2017 14:14 - CONCLUSION: 1. No significant ascites. Swapnil Marte MD GI Procedure 06/18/17 0000 Signed Impressions: Service Date/Time: Sunday, June 18, 2017 13:06 - CONCLUSION: ERCP as above. Salomon Faust MD Abdomen X-Ray 06/17/[id number] Signed Impressions: Service Date/Time: Saturday, June 17, 2017 20:49 - CONCLUSION: No evidence of free air. Salomon Faust MD Abdomen/Pelvis CT 06/17/172002 Signed Impressions: Service Date/Time: Saturday, June 17, 2017 21:30 - CONCLUSION: 1. 5 mm rounded density in the region of the distal common duct suspicious for choledocholithiasis. Common duct diameter has increased when compared to the prior study now measuring 7-8 mm in diameter. Mild diffuse intrahepatic biliary ductal prominence. 2. Cholelithiasis. 3. 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 No bowel dilatation. Salomon Faust MD PHYSICAL EXAMINATION: General: Restless. He just pulled out a condom catheter. HEENT: Head is atraumatic. Extraocular movements grossly intact. No icterus. Oropharynx: mucosa appears slightly dry. He has a BiPap mask in place. Neck: Obese, no tenderness. Lungs: Bilateral wheezing and decreased breath sounds. Heart: Irregular rate and rhythm. Slight systolic murmur at the left sternal border. Abdomen: Bowel sounds present but diminished, soft. Colostomy bag in place at the left lower quadrant and appears functional. Extremities: No clubbing or cyanosis or edema. Skin: No rash. Neuro: Unable to fully assess. NEURO: No focal finding. Psych: Restless. IMPRESSION 1. Pneumonia. 2. Choledocholithiasis. 3. Hypoxemia. RECOMMENDATIONS 1. Continue piperacillin / tazobactam. 2. Continue Zithromax. 3. Follow temperature. Lito Sena MD Jun 21, 2017 15:47
--- NOTE | 2017-06-21 15:55 | RADRPT ---
EXAM DATE/TIME: 06/21/2017 14:26 [facility] COMPARISON: No previous studies available for comparison. INDICATIONS : Patient with abdominal pain. Fever and chills. MEDICAL HISTORY : 1. Hx of prostate ca 2. hx of rectal ca 3. osteoarthritis 4. HTN 5. Hyperlipidemia 6. A fib 7. Hx of PE SURGICAL HISTORY : 1. Left kneesurgery 2. Left hip repair 3. prostatectomy 4. colostomy ENCOUNTER: Initial ACUITY: 4 - 6 days PAIN SCORE: 2/10 LOCATION: Right upper quadrant FLUORO TIME: 1.7 minutes IMAGE SERIES: 3 SEDATION TIME: 30 minutes CONTRAST: 5 cc Omnipaque (iohexol) 350 MEDICATION(S): 1.) 2 mg midazolam (Versed) IV 2.) 100 mcg fentanyl (Sublimaze) IV DEVICE(S): 1.) 8 [place]ian locking All purpose drain PROCEDURE : 1. Ultrasound guided puncture of the gallbladder. 2. Percutaneous cholangiogram. 3. Percutaneous cholecystostomy tube placement. 4. Conscious sedation with continuous EKG and oximetry monitoring. The risks, benefits and alternatives to the procedure were explained and verbal and written consent w as obtained. The site was prepped in sterile fashion. Full sterile technique was used, including ca p, mask, sterile gloves and gown and a large sterile sheet. Hand hygiene and 2% chlorhexidine and/or betadine/alcohol prep was utilized per protocol for cutaneous antisepsis. Sterile gel and sterile p robe cover were utilized for ultrasound guidance. The skin and subcutaneous tissues were infiltrated with local anesthetic solution. Patient's CT was reviewed. This demonstrated loops of bowel over the anterior and anterolateral aspec t of the gallbladder fundus, the area most accessible percutaneously. Therefore, a lateral, transhepa tic approach was utilized. With ultrasound and fluoroscopic guidance the gallbladder was punctured wi th a micropuncture set and a 4 [place]udian dilator was placed. Injection of positive contrast demonstrate s position within the gallbladder. Contrast also passed freely through the cystic duct into the CBD and down to the sphincter of Alexandro into the small bowel. A 0.035 guidewire was placed within the gallb ladder lumen and dilatation was performed to accept the prescribed catheter. Conscious sedation was performed with the prescribed dosages and duration as above in the presence of an independent trained radiology nurse to assist in the monitoring of the patient. EKG and oximetry remained stable throughout the procedure. The patient tolerated the procedure well and there were n o complications. The patient was sent to post anesthesia recovery in stable condition. CONCLUSION: 1. Uncomplicated percutaneous cholecystostomy as above. 2. As noted above, bowel drapes over the anterior and anterolateral aspects of the gallbladder preven ting access from this approach. A lateral, transhepatic approach was utilized. 3. Cystic duct and CBD all appear to be patent. Jermaine Herman MD on June 21, 2017 at 15:50 Board Certified Radiologist. This report was verified electronically.
[2017-06-21] MEDS: AZITHROMYCIN INJ 500 MG in SODIUM CHLOR 0.9% 250 ML INJ 250 ML IV SCH (17:43)
--- NOTE | 2017-06-21 18:36 | HHI.PR ---
Subjective Remarks He is SOB and on a Partial NRB Mask at 60 % FIO2 .Confused. Was in Atrial Fib and RVR,with rate of 160.Was given IV Lopressor. Now HR is 78. Being sent for Bile duct Drain placement. Output was OK. Objective Vital Signs Date Time Temp Pulse Resp B/P (MAP) Pulse Ox O2 Delivery O2 Flow Rate FiO2 06/21/17 17:30 90 31 95 06/21/17 17:00 97 32 120/62 (81) 82 06/21/17 16:30 93 32 76 06/21/17 16:00 95 33 127/78 (94) 84 06/21/17 15:38 94 32 128/58 (81) 06/21/17 14:30 92 31 95 06/21/17 14:00 88 32 126/60 (82) 94 06/21/17 13:35 99.2 89 25 155/75 (101) 92 06/21/17 08:01 95 Partial Rebreather 06/21/17 07:00 89 Partial Non-Rebreather 15.00 Non-Rebreather 06/21/17 06:00 83 06/21/17 04:00 90 06/21/17 04:00 98.7 90 22 138/98 (111) 80 06/21/17 02:00 84 06/21/17 00:00 98.6 87 21 125/68 (87) 92 06/21/17 00:00 87 06/21/17 00:00 Non-Rebreather 15.00 06/20/17 22:00 85 06/20/17 20:00 82 06/20/17 20:00 91 Non-Rebreather 15.00 06/20/17 20:00 98.8 85 25 125/58 (80) 94 06/20/17 19:55 92 Non-Rebreather 15.00 I/O 06/20/17 06/20/17 06/20/17 06/21/17 06/21/17 06/21/17 07:00 15:00 23:00 07:00 15:00 23:00 Intake Total 630 ml 100 ml 1587 ml 100 ml 1000 ml 1050 ml Output Total 1500 ml 150 ml 3700 ml Balance -870 ml 100 ml 1437 ml -3600 ml 1000 ml 1050 ml Intake Oral 580 ml 50 ml 50 ml IV Total 50 ml 100 ml 1537 ml 50 ml 1000 ml 1050 ml Output Urine Total 1200 ml 150 ml 3000 ml Stool Total 300 ml 0 ml 700 ml Result Diagram: 06/20/17 0935 06/21/17 0520 Objective Remarks This is a moderately obese elderly man, who is sitting up. Pallor is noted. Mild cyanosis. There is no clubbing. Skin turgor is diminished. HEENT: Head normocephalic. Pupils are reactive and equal. Tongue dry. Throat is injected. He has no inflammation. Neck: Supple. No bruits or thyroid enlargement or lymphadenopathy. Chest: Decreased excursions. occ wheezes bilaterally with crackles over Both lung bases. Heart: The heart sounds are irregularly irregular, S1-S2 no murmur. Abdomen: Soft, protuberant with colostomy bag in place. Bowel sounds are active. No organomegaly.Tender upper abdomen. Extremities: Minimal edema with diminished pulses. Reflexes are 1+. The patient does move his lower extremities. Babinski negative. Skin: No lesions are observed. Assessment and Plan Assessment and Plan IMPRESSION 1. Basilar pneumonia with hypoxemia. 2. History of choledocholithiasis with sepsis. 3. Acute kidney injury with history of chronic kidney disease. 4. History of colostomy. 5. Atrial Fibrillation with RVR Plan : 1. Metoprolol 50 mg bid 2. O2 Via NRB mask and to ventimask 50 % 3. CBC CXR in am. 4. Continue antibiotics, Zosyn.Zithromax 5. CBC,BMP in am. 6. Lasix 20 mg IV X1 7. Continue Heparin 5000 U S/Q 8. IS at bedside qid. Lon Willams MD Jun 21, 2017 18:36
--- NOTE | 2017-06-21 20:01 | HHI.PR ---
Subjective Subjective Notes Discussed with radiology; performed HIDA first, as bili persistently elevated. Objective Vitals/I&O Vital Signs Date Time Temp Pulse Resp B/P (MAP) Pulse Ox O2 Delivery O2 Flow Rate FiO2 06/21/17 19:47 92 Partial Rebreather 12.00 06/21/17 18:00 90 06/21/17 17:30 31 06/21/17 17:00 120/62 (81) 06/21/17 13:35 99.2 Labs Laboratory Tests Test 06/21/17 05:20 06/21/17 11:23 Blood Urea Nitrogen 15 Creatinine 1.27 Random Glucose 58 Total Protein 6.3 Albumin 2.1 Calcium Level 9.0 Alkaline Phosphatase 304 Aspartate Amino Transf (AST/SGOT) 37 Alanine Aminotransferase (ALT/SGPT) 38 Total Bilirubin 4.5 Sodium Level 139 Potassium Level 3.5 Chloride Level 104 Carbon Dioxide Level 24.9 Anion Gap 10 Estimat Glomerular Filtration Rate 54 Blood Gas Puncture Site LT RADIAL Blood Gas Patient Temperature 98.6 Blood Gas HCO3 24 Blood Gas Base Excess 0.4 Blood Gas Oxygen Saturation 92 Arterial Blood pH 7.44 Arterial Blood Partial Pressure CO2 36 Arterial Blood Partial Pressure O2 70 Arterial Blood Oxygen Content 14.7 Arterial Blood Carboxyhemoglobin 0.9 Arterial Blood Methemoglobin 1.2 Blood Gas Hemoglobin 11.3 Oxygen Delivery Device PRB Blood Gas Liter Flow 15 Date/Time Source Procedure Growth Status 06/17/17 20:40 Nasal Washing Influenza Types A,B Antigen (UJJU) - Final NEGATIVE FOR FLU A AND B ANTIGEN.... Complete 06/18/17 10:15 Urine Random Urine Urine Culture - Final <10,000 CFU/ML GRAM POSITIVE DENICE Complete Lungs: Clear Abdomen: Non-distended A/P Assessment and Plan Acute cholecystitis with multiple medical comorbidities, s/p cholecystostomy tube placement Will see tomorrow, then next week. No surgery planned for near future. Bao Rojas MD Jun 21, 2017 20:01
[2017-06-21] MEDS ORDERED: DEXTROSE 50% IN WATER 50 ML VIAL(D50) IV PUSH PRN (20:45)
[2017-06-21] MEDS ORDERED: GLUCAGON 1 MG/ML VIAL OTHER PRN (20:45)
[2017-06-21] MEDS: ATORVASTATIN 10 MG TAB PO SCH ×2 (21:00→21:33)
[2017-06-21] MEDS: DEXT 5%-NACL 0.9% 1000 ML INJ 1,000 ML IV SCH (21:34)
--- NOTE | 2017-06-21 23:27 | EKG ---
Date Performed: 06/20/2017 Time Performed: 12:52:22 PTAGE: 86 years EKG: ATRIAL FLUTTER/TACHYCARDIA WITH RAPID VENTRICULAR RESPONSE ST DEVIATION AND MODERATE T-WAVE ABNORMALITY, CONSIDER INFERIOR ISCHEMIA ABNORMAL ECG PREVIOUS TRACING : 06/19/2017 18.21 Compared to prior tracing no significant change DOCTOR: Brad Pollack Interpretating Date/Time 06/21/2017 23:26:35
[2017-06-22] VITALS (15 sets, daily range): BP systolic 105–140; BP diastolic 58–94; PULSE 82–108; RESP 31–41; TEMP 87–99.2; O2SAT 91–96
[2017-06-22] MEDS: PIPERACIL-TAZO 3.375 GM PREMIX 50 ML IV SCH ×4 (00:33→17:58)
[2017-06-22] MEDS: METOPROLOL TARTRATE 50 MG TAB PO SCH ×3 (00:34→16:41)
[2017-06-22] MEDS ORDERED: HALOPERIDOL LACTATE 5 MG/ML AMP IM ONE (01:45)
[2017-06-22] MEDS: RESP: IPRATROPIUM 0.5 MG/2.5 ML NEB NEB SCH ×6 (03:53→23:54)
[2017-06-22 05:28] LABS: ALBUMIN 2.3 GM/DL (3.4-5.0); AST (GOT) 35 U/L (15-37); BLOOD UREA NITROGEN 15 MG/DL (7-18); CALCIUM 9.4 MG/DL (8.5-10.1); CHLORIDE 103 MEQ/L (98-107); CREATININE 1.16 MG/DL (0.60-1.30); GLOMERULAR FILTRATION RATE 60 ML/MIN (>89); GLUCOSE,RANDOM 90 MG/DL (74-106); SODIUM (NA) 140 MEQ/L (136-145)
[2017-06-22 05:30] LABS: AUTOMATED NEUTROPHIL # 7.9 TH/MM3 (1.8-7.7); BASOPHIL % 0.5 % (0.0-2.0); EOSINOPHIL # 0.3 TH/MM3 (0-0.4); EOSINOPHIL % 2.7 % (0.0-4.0); HEMATOCRIT 36.4 % (39.0-51.0); HEMOGLOBIN 12.2 GM/DL (13.0-17.0); LYMPH % 7.7 % (9.0-44.0); LYMPHOCYTE # 0.8 TH/MM3 (1.0-4.8); MEAN CELL VOLUME 97.9 FL (80.0-100.0); MEAN CORPUSCULAR HEMOGLOBIN 32.8 PG (27.0-34.0); MEAN CORPUSCULAR HGB CONC 33.5 % (32.0-36.0); MEAN PLATELET VOLUME 8.4 FL (7.0-11.0); MONO % 10.9 % (0.0-8.0); MONOCYTE # 1.1 TH/MM3 (0-0.9); NEUT % 78.2 % (16.0-70.0); PLATELET COUNT 204 TH/MM3 (150-450); RED BLOOD COUNT 3.72 MIL/MM3 (4.50-5.90); RED CELL DISTRIBUTION WIDTH 16.9 % (11.6-17.2); WHITE BLOOD COUNT 10.2 TH/MM3 (4.0-11.0)
[2017-06-22 05:31] LABS: ALKALINE PHOSPHATASE 300 U/L (45-117); ALT (GPT) 36 U/L (12-78); TOTAL BILIRUBIN ADULT 3.4 MG/DL (0.2-1.0)
[2017-06-22] MEDS: POTASSIUM CHLOR 10 MEQ PREMIX 100 ML IV SCH ×4 (06:57→11:26)
--- NOTE | 2017-06-22 08:01 | HHI.PR ---
Subjective Remarks Pt agitated, currently in restraints. RN assisted in repositioning pt and he grabbed her stethoscope/hair and wouldn't let go. Pt does appear agitated, didn' t know he was in the hospital. when asked if he is in pain, he does say yes but is vague on location. Difficult to understand. Pt speaks but doesn't quite make sense. Objective Vitals Vital Signs Date Time Temp Pulse Resp B/P (MAP) Pulse Ox O2 Delivery O2 Flow Rate FiO2 06/22/17 06:00 93 06/22/17 04:00 108 06/22/17 04:00 108 31 134/58 (83) 91 06/22/17 02:00 99 06/22/17 00:00 96 39 134/66 (88) 91 06/22/17 00:00 96 06/21/17 22:00 93 06/21/17 20:00 91 06/21/17 20:00 91 36 129/76 (93) 94 06/21/17 19:47 92 Partial Rebreather 12.00 06/21/17 19:00 93 Non-Rebreather 15.00 06/21/17 18:00 90 06/21/17 17:30 90 31 95 06/21/17 17:00 97 32 120/62 (81) 82 06/21/17 16:30 93 32 76 06/21/17 16:00 95 33 127/78 (94) 84 06/21/17 16:00 95 06/21/17 15:38 94 32 128/58 (81) 06/21/17 14:30 92 31 95 06/21/17 14:00 88 32 126/60 (82) 94 06/21/17 14:00 88 06/21/17 13:35 99.2 89 25 155/75 (101) 92 06/21/17 12:00 86 06/21/17 10:00 86 06/21/17 08:01 95 Partial Rebreather 06/21/17 08:00 87 I/O 06/21/17 06/21/17 06/21/17 06/22/17 06/22/17 06/22/17 07:00 15:00 23:00 07:00 15:00 23:00 Intake Total 100 ml 1000 ml 2350 ml 100 ml Output Total 3700 ml 650 ml 900 ml Balance -3600 ml 1000 ml 1700 ml -800 ml Intake Oral 50 ml 50 ml IV Total 50 ml 1000 ml 2350 ml 50 ml Output Urine Total 3000 ml 500 ml 900 ml Stool Total 700 ml 150 ml 0 ml Result Diagram: 06/22/17 0400 06/22/17 0400 Imaging Last Impressions Percutaneous Cholangiogram 06/21/17 1513 Signed Impressions: Service Date/Time: May 14:26 - CONCLUSION: 1. Uncomplicated percutaneous cholecystostomy as above. 2. As noted above, bowel drapes over the anterior and anterolateral aspects of the gallbladder preventing access from this approach. A lateral, transhepatic approach was utilized. 3. Cystic duct and CBD all appear to be patent. Jermaine Herman MD Hepatobiliary Scan Nuclear Medicine 06/21/17 1120 Signed Impressions: Service Date/Time: May 11:19 - CONCLUSION: 1. Normal biliary bowel transit time with no evidence for common bile duct obstruction. 2. No activity noted in the gallbladder at up to 90 minutes. This is concerning for obstruction of the cystic duct in this patient with suspected acute cholecystitis. Given the high degree of clinical suspicion and patient's tenuous clinical condition, plan is for percutaneous cholecystostomy drain placement rather than delayed imaging. Swapnil Marte MD Chest CT 06/19/17 1513 Signed Impressions: Service Date/Time: Monday, June 19, 2017 15:59 - CONCLUSION: 1. Chronic interstitial lung disease 2. Bibasilar airspace disease with small effusions and mild dural thickening 3. 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 Long Garrison MD Renal Ultrasound 06/19/17 0000 Signed Impressions: Service Date/Time: Monday, June 19, 2017 13:29 - CONCLUSION: 1. Hyperechoic kidneys consistent with medical renal disease. 2. No obstructive uropathy. Swapnil Marte MD Chest X-Ray 06/19/17 0000 Signed Impressions: Service Date/Time: Monday, June 19, 2017 10:36 - CONCLUSION: Hypoaerated lungs with mild right basilar airspace disease. Mild cardiomegaly Long Garrison MD Abdomen Ultrasound 06/19/17 0000 Signed Impressions: Service Date/Time: Monday, June 19, 2017 14:14 - CONCLUSION: 1. No significant ascites. Swapnil Marte MD GI Procedure 06/18/17 0000 Signed Impressions: Service Date/Time: Sunday, June 18, 2017 13:06 - CONCLUSION: ERCP as above. Salomon Faust MD Abdomen X-Ray [id number] Signed Impressions: Service Date/Time: Saturday, June 17, 2017 20:49 - CONCLUSION: No evidence of free air. Salomon Faust MD Abdomen/Pelvis CT [id number] Signed Impressions: Service Date/Time: Saturday, June 17, 2017 21:30 - CONCLUSION: 1. 5 mm rounded density in the region of the distal common duct suspicious for choledocholithiasis. Common duct diameter has increased when compared to the prior study now measuring 7-8 mm in diameter. Mild diffuse intrahepatic biliary ductal prominence. 2. Cholelithiasis. 3. 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 No bowel dilatation. Salomon Faust MD Objective Remarks GENERAL: This is a frail elderly patient on 15 L nonrebreathing mask EYES: Extraocular motions intact. ENT: Nose without bleeding. Airway patent. NECK: Trachea midline. Supple CARDIOVASCULAR: Irregularly irregular RESPIRATORY: Diminished breath sounds, some expiratory wheezes auscultated GASTROINTESTINAL: Abdomen soft, non-tender, nondistended. Positive bowel sounds MUSCULOSKELETAL: Extremities without edema. Pedal pulses appreciated NEUROLOGICAL/PSYCH: Awake and alert but agitated. Moves all extremity but currently limited due to restraints. able to speak but confused A/P Assessment and Plan Bibasilar pneumonia A. fib with RVR Choledocholithiasis Acute respiratory failure and hypoxia QUIQUE on CKD Hypertension/hyperlipidemia DVT prophylaxis Plan: 06/20: Stat transfer to ICU, stat Check lactic acid, consult ID, Lopressor iv to control heart rate, resume Lopressorpo, Discussed with GI, discussed with GS 06/21: Heart rate much better on Lopressor 50 every 8 hours, still on 15 L nonrebreather mask, appreciate pulmonary, recommended high flow oxygen, ABG nonsignificant pH 7.44. Rayna scan has been done was concerning for obstruction, surgery following patient will go to IR for cholecystotomy drainage, ID following for iv antibiotic 06/22: pt agitated, aggressive if restraints removed. will consult Psych for assistance to agitation/confusion. Continue abx (zosyn/azithro). Monitor labs. Hypokalemia noted. Currently getting replacement. Per RN, pt NPO at this time, awaiting swallow eval. On D5NS @84ml/hr and also getting IV potassium. Monitor electrolytes. Leukocytosis resolved. s/p cholecystostomy tube placement. QUIQUE resolved. Continue to monitor in ICU due to respiratory status and still requiring partial non rebreather. //Choledocholithiasis CT of the abdomen/pelvis showed choledocholithiasis with increased diameter of the common bile duct Leukocytosis, elevated lactic acid, transaminitis, elevated T bili Antibiotic coverage with Rocephin as patient has acute on chronic kidney injury Gastroenterology following, s/p ERCP. Dilaudid for pain //biBasilar pneumonia //Hypoxemic respiratory failure. -Change antibiotics to Zosyn and Zithromax. Continue supportive care with do nebs. Incentive spirometry, Acapella. BNP normal, echocardiogram without pericardial effusion. Pulmonology following. Appreciate assistance. //Acute on chronic kidney injury resolved. IV fluid hydration Monitor renal function Avoid nephrotoxic agent //Hypertension/hyperlipidemia/a fib Restart home medications once medication list reconciled - patient unable to provide list of his home medications FEN NPO Electrolytes: monitor and replete prn Holding pharmacologic anticoagulation due to procedures. Awaiting final recs from GS and restart anticoagulation. Discharge Planning continue monitoring in the ICU, pt still requiring partial non rebreather and sats do drop. Pt agitated and confused. Psych consult placed. Bia Pérez MD Jun 22, 2017 08:01
[2017-06-22] MEDS ORDERED: LORazepam 2 MG/ML VIAL IV PUSH PRN (08:15)
[2017-06-22] MEDS ORDERED: HALOPERIDOL LACTATE 5 MG/ML AMP IM STA (09:11)
[2017-06-22] MEDS: ENALAPRIL MALEATE 10 MG TAB PO SCH (09:53)
[2017-06-22] MEDS: DOCUSATE SODIUM 50 MG/SENNA 8.6 MG TAB PO SCH ×2 (09:53→19:48)
[2017-06-22] MEDS: SODIUM CHLORIDE 0.9% FLUSH 10 ML FLUSH IV FLUSH SCH ×2 (09:53→19:53)
[2017-06-22] MEDS: ALLOPURINOL 300 MG TAB PO SCH (09:53)
--- NOTE | 2017-06-22 13:19 | PD.PSY.CON ---
Provisional Diagnosis Admission Date Jun 17, 2017 at 22:55 Etta I. Delirium History of Present Illness Service Psychiatry Consult Requested By Medical team Reason for Consult Agitation Primary Care Physician Stephani Rodriguez MD HPI The patient is a 86 year-old man, domiciled in [place] with his , retired, without any previous psychiatric history, no previous psychiatric hospitalizations, no previous suicidal attempts, hospitalized due to Bibasilar pneumonia, A. fib with RVR, Choledocholithiasis Acute respiratory failure and hypoxia, QUIQUE on CKD. Consulted to psychiatry due to agitation and aggressive behavior in the ICU. Chart reviewed. Case discussed with nurse in charge. Collateral information from patient's Stella Nuñez was obtained. On psychiatric evaluation patient is restrained in 4 points. He is disorganized, completely disoriented and confused, unable to provide any meaningful information for the psychiatric assessment. His states that the patient at baseline is completely logical, coherent and relevant. She denies dementia symptoms. Patient is functional at home. Doesn' t have any previous psychiatric history. She clarifies that he has been in a similar presentation before after surgery many years ago. Patient doesn't use alcohol or illicit drugs. Review of Systems ROS Limitations: Unresponsive, Uncooperative Past Family Social History Coded Allergies: No Known Allergies (Verified , 03/08/17) Active Scripts Naproxen (Naprosyn) 500 Mg Tab, 500 MG PO Q12HR for Inflammation, #30 TAB Prov:Lolita Arriaza DO 03/12/17 Hydrocodone-Acetaminophen (Hydrocodone-Acetaminophen) 5-325 mg Tab, 1 TAB PO Q6H Y for PAIN, #30 TAB 0 Refills Prov:Lolita Arriaza DO 03/12/17 Docusate Sodium (Colace) 100 Mg Capsule, 1 TAB PO BID, #14 Prov:Jenna Macedo MD 03/08/17 Omeprazole (Omeprazole) 20 Mg Tab, 20 MG PO BID for Reflux, #60 TAB 0 Refills Prov:Codey Maldonado MD 06/02/16 Reported Medications Atorvastatin (Atorvastatin) 10 Mg Tab, 10 MG PO HS for Cholesterol Management, # 30 TAB 0 Refills 06/20/17 Amlodipine (Amlodipine) 5 Mg Tab, 5 MG PO DAILY for Blood Pressure Management, # 30 TAB 0 Refills 03/08/17 Cyanocobalamin (Vitamin B-12) 1,000 Mcg Tab, 1000 MCG PO DAILY for Nutritional Supplement, #1 BOTTLE 0 Refills 06/16/16 Cholecalciferol (Vitamin D) 2,000 Unit Cap, 2000 MG PO DAILY 05/30/16 Aspirin (Aspirin 81 Low Dose) 81 Mg Chew, 81 MG CHEW DAILY, #30 TAB 05/30/16 Allopurinol (Allopurinol) 300 Mg Tab, 300 MG PO DAILY for Gout, #30 TAB 0 Refills 05/30/16 Metoprolol Tartrate (Metoprolol Tartrate) 50 Mg Tab, 50 MG PO BID, #30 TAB 0 Refills 05/30/16 Enalapril (Enalapril) 10 Mg Tab, 10 MG PO DAILY, #30 TAB 0 Refills 05/30/16 Current Medications Medications (Trade) Dose Ordered Sig/Thee Route Start Time Stop Time Status Last Admin (NS Flush) 2 ml UNSCH PRN IV FLUSH 06/17/17 23:00 (NS Flush) 2 ml BID IV FLUSH 06/18/17 09:00 06/22/17 09:53 (Zofran Inj) 4 mg Q6H PRN IVP 06/17/17 23:00 06/18/17 07:34 (Narcan Inj) 0.4 mg UNSCH PRN IV PUSH 06/17/17 23:00 (Le-Colace) 1 tab BID PO 06/18/17 09:00 06/22/17 09:53 (Milk Of Magnesia Liq) 30 ml Q12H PRN PO 06/17/17 23:00 (Senokot) 17.2 mg Q12H PRN PO 06/17/17 23:00 (Dulcolax Supp) 10 mg DAILY PRN RECTAL 06/17/17 23:00 (Lactulose Liq) 30 ml DAILY PRN PO 06/17/17 23:00 Piperacillin Sod/ Tazobactam Sod 50 ml @ 100 mls/hr Q6H IV 06/19/17 13:00 06/22/17 13:00 (Atrovent Neb) 0.5 mg Q2HR NEB PRN NEB 06/19/17 14:00 (Atrovent Neb) 0.5 mg Q4HR NEB NEB 06/19/17 16:00 06/22/17 11:26 Azithromycin 500 mg/Sodium Chloride 250 ml @ 250 mls/hr Q24H IV 06/19/17 17:00 06/21/17 17:43 (Zyloprim) 300 mg DAILY PO 06/20/17 12:45 06/22/17 09:53 (Lipitor) 10 mg HS PO 06/20/17 21:00 06/21/17 21:33 (Vasotec) 10 mg DAILY PO 06/20/17 12:45 06/22/17 09:53 Miscellaneous Information Patient in critical care unit? Ass... [id number] .XX 06/20/17 14:15 06/20/17 14:15 (Chlorhexidine 2% Cloth) 3 pack DAILY@04 TOPICAL 06/21/17 04:00 06/25/17 04:01 (Chlorhexidine 2% Cloth) 3 pack UNSCH PRN TOPICAL 06/20/17 14:15 06/25/17 14:03 (Lopressor) 50 mg Q8H PO 06/20/17 17:00 06/22/17 09:53 (Heparin Inj) 5,000 units Q12HR SQ 06/20/17 21:00 Future Hold 06/20/17 21:00 Dextrose/Sodium Chloride 1,000 ml @ 84 mls/hr [id number] IV 06/21/17 20:45 06/21/17 21:34 (D50w (Vial) Inj) 50 ml UNSCH PRN IV PUSH 06/21/17 20:45 (Glucagon Inj) 1 mg UNSCH PRN OTHER 06/21/17 20:45 (Ativan Inj) 1 mg Q4H PRN IV PUSH 06/22/17 08:15 Social History Patient was born and raised in [place], he lives in [place] with his , he is retired, his highest level of education is high school Patient's Strengths (min. 2) No previous psychiatric history Physical Exam Vital Signs Vital Signs Date Time Temp Pulse Resp B/P (MAP) Pulse Ox O2 Delivery O2 Flow Rate FiO2 06/22/17 08:00 98.4 106 37 140/94 (109) 91 06/22/17 07:52 Partial Rebreather 06/22/17 07:00 15.00 I/O 06/22/17 06/22/17 06/23/17 08:00 16:00 00:00 Intake Total 250 ml 200 ml Output Total 900 ml Balance -650 ml 200 ml Lab Results Test 06/22/17 02:06 06/22/17 04:00 Blood Gas Puncture Site RT RADIAL Blood Gas Patient Temperature 98.6 Blood Gas HCO3 23 mmol/L Blood Gas Base Excess -0.9 mmol/L Blood Gas Oxygen Saturation 92 % Arterial Blood pH 7.45 Arterial Blood Partial Pressure CO2 33 mmHg Arterial Blood Partial Pressure O2 71 mmHg Arterial Blood Oxygen Content 15.6 Vol % Arterial Blood Carboxyhemoglobin 0.9 % Arterial Blood Methemoglobin 1.3 % Blood Gas Hemoglobin 12.0 G/DL Oxygen Delivery Device Non-Rebreathing Mask Blood Gas Liter Flow 12 L/M White Blood Count 10.2 TH/MM3 Red Blood Count 3.72 MIL/MM3 Hemoglobin 12.2 GM/DL Hematocrit 36.4 % Mean Corpuscular Volume 97.9 FL Mean Corpuscular Hemoglobin 32.8 PG Mean Corpuscular Hemoglobin Concent 33.5 % Red Cell Distribution Width 16.9 % Platelet Count 204 TH/MM3 Mean Platelet Volume 8.4 FL Neutrophils (%) (Auto) 78.2 % Lymphocytes (%) (Auto) 7.7 % Monocytes (%) (Auto) 10.9 % Eosinophils (%) (Auto) 2.7 % Basophils (%) (Auto) 0.5 % Neutrophils # (Auto) 7.9 TH/MM3 Lymphocytes # (Auto) 0.8 TH/MM3 Monocytes # (Auto) 1.1 TH/MM3 Eosinophils # (Auto) 0.3 TH/MM3 Basophils # (Auto) 0.0 TH/MM3 CBC Comment AUTO DIFF Differential Comment AUTO DIFF CONFIRMED Platelet Estimate NORMAL Platelet Morphology Comment NORMAL Blood Urea Nitrogen 15 MG/DL Creatinine 1.16 MG/DL Random Glucose 90 MG/DL Total Protein 7.0 GM/DL Albumin 2.3 GM/DL Calcium Level 9.4 MG/DL Alkaline Phosphatase 300 U/L Aspartate Amino Transf (AST/SGOT) 35 U/L Alanine Aminotransferase (ALT/SGPT) 36 U/L Total Bilirubin 3.4 MG/DL Sodium Level 140 MEQ/L Potassium Level 3.1 MEQ/L Chloride Level 103 MEQ/L Carbon Dioxide Level 26.0 MEQ/L Anion Gap 11 MEQ/L Estimat Glomerular Filtration Rate 60 ML/MIN Date/Time Source Procedure Growth Status 06/17/17 20:40 Nasal Washing Influenza Types A,B Antigen (JUJU) - Final NEGATIVE FOR FLU A AND B ANTIGEN.... Complete 06/18/17 10:15 Urine Random Urine Urine Culture - Final <10,000 CFU/ML GRAM POSITIVE DENICE Complete Mental Status Examination Appearance: Disheveled Consciousness: Obtunded, Clouded Orientation: Person Motor Activity: Abnormal gait Speech: Incoherent Fund of Knowledge: Inadequate Mood: Angry Affect: Irritable Thought Process & Associations: Loose associations Thought Content: Ideas of reference, Racing thoughts, Derealization Suicidal Ideation: No Suicidal Plan: No Suicidal Intention: No Homicidal Ideation: No Homicidal Plan: No Homicidal Intention: No Insight: Poor Judgment: Poor Assessment & Plan Problem List: (1) Delirium ICD Codes: R41.0 - Disorientation, unspecified Assessment & Plan: Patient presents agitated, disorganized, incoherent, unable to provide any meaningful information for the psychiatric assessment. Current presentation seems to be secondary to delirium most probably related with current medical conditions. Patient doesn't have any previous psychiatric history, he doesn't have history of aggressive behavior, psychosis, suicidal attempts. He should benefit of standing low doses of antipsychotics and also IM stat antipsychotics in order to help him to calm down and to help with delirium, however QTC interval was 471 in previous EKG, has to be really careful with antipsychotics. Will order Haldol 2 mg IM stat. Try to avoid benzodiazepines/narcotics,/anticholinergics as much as possible since this medication can actually worsen cognition. Order EKG to reassess QTC. If QTC is less than 460 can continue Haldol 1 mg by mouth twice a day for behavioral dysregulation and delirium and Haldol 2 mg IM every 8 hours when necessary breakthrough agitation. If QTC continues to be increased and patient continues to be agitated, order Abilify 5 mg by mouth twice a day and Alternate Haldol 2 mg IM with Ativan 1-2 mg IM/IV breakthrough aggressive behavior and agitation. We'll follow-up. Assessment & Plan Estimated LOS: Vladimir Vega MD Jun 22, 2017 13:19
--- NOTE | 2017-06-22 16:14 | HHI.PR ---
cc: Bao Rojas MD Subjective Subjective Notes Resting in bed RN at bedside-- patient was agitated; almost hit RN and pulled at her stethoscope Better after IM Haldol Objective Vitals/I&O Vital Signs Date Time Temp Pulse Resp B/P (MAP) Pulse Ox O2 Delivery O2 Flow Rate FiO2 06/22/17 16:00 90 06/22/17 16:00 98.2 31 105/69 (81) 92 06/22/17 07:52 Partial Rebreather 06/22/17 07:00 15.00 Labs Laboratory Tests Test 06/22/17 02:06 06/22/17 04:00 Blood Gas Puncture Site RT RADIAL Blood Gas Patient Temperature 98.6 Blood Gas HCO3 23 Blood Gas Base Excess -0.9 Blood Gas Oxygen Saturation 92 Arterial Blood pH 7.45 Arterial Blood Partial Pressure CO2 33 Arterial Blood Partial Pressure O2 71 Arterial Blood Oxygen Content 15.6 Arterial Blood Carboxyhemoglobin 0.9 Arterial Blood Methemoglobin 1.3 Blood Gas Hemoglobin 12.0 Oxygen Delivery Device Non-Rebreathing Mask Blood Gas Liter Flow 12 White Blood Count 10.2 Red Blood Count 3.72 Hemoglobin 12.2 Hematocrit 36.4 Mean Corpuscular Volume 97.9 Mean Corpuscular Hemoglobin 32.8 Mean Corpuscular Hemoglobin Concent 33.5 Red Cell Distribution Width 16.9 Platelet Count 204 Mean Platelet Volume 8.4 Neutrophils (%) (Auto) 78.2 Lymphocytes (%) (Auto) 7.7 Monocytes (%) (Auto) 10.9 Eosinophils (%) (Auto) 2.7 Basophils (%) (Auto) 0.5 Neutrophils # (Auto) 7.9 Lymphocytes # (Auto) 0.8 Monocytes # (Auto) 1.1 Eosinophils # (Auto) 0.3 Basophils # (Auto) 0.0 CBC Comment AUTO DIFF Differential Comment AUTO DIFF CONFIRMED Platelet Estimate NORMAL Platelet Morphology Comment NORMAL Blood Urea Nitrogen 15 Creatinine 1.16 Random Glucose 90 Total Protein 7.0 Albumin 2.3 Calcium Level 9.4 Alkaline Phosphatase 300 Aspartate Amino Transf (AST/SGOT) 35 Alanine Aminotransferase (ALT/SGPT) 36 Total Bilirubin 3.4 Sodium Level 140 Potassium Level 3.1 Chloride Level 103 Carbon Dioxide Level 26.0 Anion Gap 11 Estimat Glomerular Filtration Rate 60 Date/Time Source Procedure Growth Status 06/17/17 20:40 Nasal Washing Influenza Types A,B Antigen (JUJU) - Final NEGATIVE FOR FLU A AND B ANTIGEN.... Complete 06/18/17 10:15 Urine Random Urine Urine Culture - Final <10,000 CFU/ML GRAM POSITIVE DENICE Complete Cardiovascular: Regular Lungs: Clear Abdomen: Other (jonh tube in place with bilious drainage ) Extremities: No edema A/P Assessment and Plan 86 year old male with multiple medical issues; acute cholecystitis; s/p cholecystostomy tube placement -Continue cholecystostomy tube to drainage bag -GS will see again next week Attending Note - Dr. Rojas Abdomen soft, minimally tender now, cholecystostomy tube drainage yellow/light red Stable from GS standpoint; not a candidate for surgery at this time. Sushma Herrera Jun 22, 2017 16:14 Bao Rojas MD Jun 22, 2017 18:18
[2017-06-22] MEDS: DEXT 5%-NACL 0.9% 1000 ML INJ 1,000 ML IV SCH (16:40)
[2017-06-22] MEDS: AZITHROMYCIN INJ 500 MG in SODIUM CHLOR 0.9% 250 ML INJ 250 ML IV SCH (16:41)
--- NOTE | 2017-06-22 16:44 | HHI.IDPN ---
Note Infectious Disease Note Patient is restless. On 15L O2 via partial rebreather. Noted to be desaturation with weaning O2. Appears confused. Afebrile. Post cholecystostomy tube placement. 86-year-old white male was admitted through the emergency department with abdominal pain. He was evaluated and found to have a 1.5 millimeter rounded density in the region of the distal common duct suspicious for choledocholithiasis. PAST MEDICAL HISTORY 1. Hypertension. 2. Hyperlipidemia. 3. Paroxysmal atrial fibrillation. 4. Osteoarthritis. 5. History of pulmonary embolism. 6. History of prostate cancer. 7. History of rectal cancer. 8. History of abdominal surgery. 9. Colostomy. 10. Left knee surgery. 11. Left hip repair. 12. Prostatectomy. ALLERGIES NO KNOWN DRUG ALLERGIES. MEDICATIONS Azithromycin Piperacillin/tazobactam OBJECTIVE: Vital Signs Date Time Temp Pulse Resp B/P (MAP) Pulse Ox O2 Delivery O2 Flow Rate FiO2 06/22/17 16:00 90 06/22/17 16:00 98.2 90 31 105/69 (81) 92 06/22/17 14:00 92 06/22/17 12:00 85 06/22/17 12:00 98.5 85 34 116/84 (95) 93 06/22/17 10:00 102 06/22/17 08:00 98.4 106 37 140/94 (109) 91 06/22/17 08:00 106 06/22/17 07:52 96 Partial Rebreather 06/22/17 07:00 92 Non-Rebreather 15.00 06/22/17 06:00 93 06/22/17 04:00 108 06/22/17 04:00 108 31 134/58 (83) 91 06/22/17 02:00 99 06/22/17 00:00 96 39 134/66 (88) 91 06/22/17 00:00 96 06/21/17 22:00 93 06/21/17 20:00 91 06/21/17 20:00 91 36 129/76 (93) 94 06/21/17 19:47 92 Partial Rebreather 12.00 06/21/17 19:00 93 Non-Rebreather 15.00 06/21/17 18:00 90 06/21/17 17:30 90 31 95 06/21/17 17:00 97 32 120/62 (81) 82 Laboratory Tests Test 06/22/17 04:00 White Blood Count 10.2 TH/MM3 Red Blood Count 3.72 MIL/MM3 Hemoglobin 12.2 GM/DL Hematocrit 36.4 % Mean Corpuscular Volume 97.9 FL Mean Corpuscular Hemoglobin 32.8 PG Mean Corpuscular Hemoglobin Concent 33.5 % Red Cell Distribution Width 16.9 % Platelet Count 204 TH/MM3 Mean Platelet Volume 8.4 FL Neutrophils (%) (Auto) 78.2 % Lymphocytes (%) (Auto) 7.7 % Monocytes (%) (Auto) 10.9 % Eosinophils (%) (Auto) 2.7 % Basophils (%) (Auto) 0.5 % Neutrophils # (Auto) 7.9 TH/MM3 Lymphocytes # (Auto) 0.8 TH/MM3 Monocytes # (Auto) 1.1 TH/MM3 Eosinophils # (Auto) 0.3 TH/MM3 Basophils # (Auto) 0.0 TH/MM3 CBC Comment AUTO DIFF Differential Comment AUTO DIFF CONFIRMED Platelet Estimate NORMAL Platelet Morphology Comment NORMAL Laboratory Tests Test 06/21/17 05:20 06/22/17 04:00 Blood Urea Nitrogen 15 MG/DL 15 MG/DL Creatinine 1.27 MG/DL 1.16 MG/DL Random Glucose 58 MG/DL 90 MG/DL Total Protein 6.3 GM/DL 7.0 GM/DL Albumin 2.1 GM/DL 2.3 GM/DL Calcium Level 9.0 MG/DL 9.4 MG/DL Alkaline Phosphatase 304 U/L 300 U/L Aspartate Amino Transf (AST/SGOT) 37 U/L 35 U/L Alanine Aminotransferase (ALT/SGPT) 38 U/L 36 U/L Total Bilirubin 4.5 MG/DL 3.4 MG/DL Sodium Level 139 MEQ/L 140 MEQ/L Potassium Level 3.5 MEQ/L 3.1 MEQ/L Chloride Level 104 MEQ/L 103 MEQ/L Carbon Dioxide Level 24.9 MEQ/L 26.0 MEQ/L Anion Gap 10 MEQ/L 11 MEQ/L Estimat Glomerular Filtration Rate 54 ML/MIN 60 ML/MIN Vital Signs Date Time Temp Pulse Resp B/P (MAP) Pulse Ox O2 Delivery O2 Flow Rate FiO2 06/21/17 13:35 99.2 89 25 155/75 (101) 92 06/21/17 08:01 95 Partial Rebreather 06/21/17 06:00 83 06/21/17 04:00 90 06/21/17 04:00 98.7 90 22 138/98 (111) 80 06/21/17 02:00 84 06/21/17 00:00 98.6 87 21 125/68 (87) 92 06/21/17 00:00 87 06/21/17 00:00 Non-Rebreather 15.00 06/20/17 22:00 85 06/20/17 20:00 82 06/20/17 20:00 91 Non-Rebreather 15.00 06/20/17 20:00 98.8 85 25 125/58 (80) 94 06/20/17 19:55 92 Non-Rebreather 15.00 06/20/17 18:00 97 06/20/17 17:00 117 38 130/66 (87) 93 06/20/17 16:00 99.5 118 35 147/92 (110) 93 06/20/17 16:00 118 Laboratory Tests Test 06/20/17 09:35 White Blood Count 10.8 TH/MM3 Red Blood Count 3.55 MIL/MM3 Hemoglobin 11.6 GM/DL Hematocrit 34.7 % Mean Corpuscular Volume 97.7 FL Mean Corpuscular Hemoglobin 32.8 PG Mean Corpuscular Hemoglobin Concent 33.5 % Red Cell Distribution Width 17.0 % Platelet Count 177 TH/MM3 Mean Platelet Volume 8.5 FL Neutrophils (%) (Auto) 87.1 % Lymphocytes (%) (Auto) 4.3 % Monocytes (%) (Auto) 7.4 % Eosinophils (%) (Auto) 0.8 % Basophils (%) (Auto) 0.4 % Neutrophils # (Auto) 9.4 TH/MM3 Lymphocytes # (Auto) 0.5 TH/MM3 Monocytes # (Auto) 0.8 TH/MM3 Eosinophils # (Auto) 0.1 TH/MM3 Basophils # (Auto) 0.0 TH/MM3 CBC Comment DIFF FINAL Differential Comment Laboratory Tests Test 06/19/17 17:10 06/20/17 09:35 06/20/17 14:45 06/21/17 05:20 Lactic Acid Level 0.9 mmol/L 0.9 mmol/L Blood Urea Nitrogen 15 MG/DL 15 MG/DL Creatinine 1.21 MG/DL 1.27 MG/DL Random Glucose 87 MG/DL 58 MG/DL Albumin 2.1 GM/DL 2.1 GM/DL Calcium Level 9.1 MG/DL 9.0 MG/DL Phosphorus Level 2.3 MG/DL Magnesium Level 1.8 MG/DL Sodium Level 137 MEQ/L 139 MEQ/L Potassium Level 3.7 MEQ/L 3.5 MEQ/L Chloride Level 108 MEQ/L 104 MEQ/L Carbon Dioxide Level 20.5 MEQ/L 24.9 MEQ/L Anion Gap 9 MEQ/L 10 MEQ/L Estimat Glomerular Filtration Rate 57 ML/MIN 54 ML/MIN Total Bilirubin 5.6 MG/DL 4.5 MG/DL Direct Bilirubin 4.5 MG/DL Indirect Bilirubin 1.1 MG/DL Aspartate Amino Transf (AST/SGOT) 42 U/L 37 U/L Alanine Aminotransferase (ALT/SGPT) 48 U/L 38 U/L Alkaline Phosphatase 309 U/L 304 U/L Total Protein 6.3 GM/DL 6.3 GM/DL IMAGING: Hepatobiliary Scan Nuclear Medicine 06/21/17 1120 Signed Impressions: Service Date/Time: May 11:19 - CONCLUSION: 1. Normal biliary bowel transit time with no evidence for common bile duct obstruction. 2. No activity noted in the gallbladder at up to 90 minutes. This is concerning for obstruction of the cystic duct in this patient with suspected acute cholecystitis. Given the high degree of clinical suspicion and patient's tenuous clinical condition, plan is for percutaneous cholecystostomy drain placement rather than delayed imaging. Swapnil Marte MD Chest CT 06/19/17 1513 Signed Impressions: Service Date/Time: Monday, June 19, 2017 15:59 - CONCLUSION: 1. Chronic interstitial lung disease 2. Bibasilar airspace disease with small effusions and mild dural thickening 3. 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 Long Garrison MD Renal Ultrasound 06/19/17 0000 Signed Impressions: Service Date/Time: Monday, June 19, 2017 13:29 - CONCLUSION: 1. Hyperechoic kidneys consistent with medical renal disease. 2. No obstructive uropathy. Swapnil Marte MD Chest X-Ray 06/19/17 0000 Signed Impressions: Service Date/Time: Monday, June 19, 2017 10:36 - CONCLUSION: Hypoaerated lungs with mild right basilar airspace disease. Mild cardiomegaly Long Garrison MD Abdomen Ultrasound 06/19/17 0000 Signed Impressions: Service Date/Time: Monday, June 19, 2017 14:14 - CONCLUSION: 1. No significant ascites. Swapnil Marte MD GI Procedure 06/18/17 0000 Signed Impressions: Service Date/Time: Sunday, June 18, 2017 13:06 - CONCLUSION: ERCP as above. Salomon Faust MD Abdomen X-Ray 06/17/172040 Signed Impressions: Service Date/Time: Saturday, June 17, 2017 20:49 - CONCLUSION: No evidence of free air. Salomon Faust MD Abdomen/Pelvis CT 06/17/172002 Signed Impressions: Service Date/Time: Saturday, June 17, 2017 21:30 - CONCLUSION: 1. 5 mm rounded density in the region of the distal common duct suspicious for choledocholithiasis. Common duct diameter has increased when compared to the prior study now measuring 7-8 mm in diameter. Mild diffuse intrahepatic biliary ductal prominence. 2. Cholelithiasis. 3. 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 No bowel dilatation. Salomon Faust MD PHYSICAL EXAMINATION: GENERAL: Restless. HEENT: Head is atraumatic. Extraocular movements grossly intact. No icterus. Oropharynx: mucosa appears slightly dry. He has a BiPap mask in place. Neck: Obese, no tenderness. Lungs: Decreased breath sounds. Heart: Irregular rate and rhythm. Slight systolic murmur at the left sternal border. Abdomen: Bowel sounds present but diminished, soft. Colostomy bag in place at the left lower quadrant and appears functional. Extremities: No clubbing or cyanosis or edema. Skin: No rash. NEURO: No focal finding. Psych: Restless. IMPRESSION 1. Pneumonia. 2. Choledocholithiasis. 3. Hypoxemia. RECOMMENDATIONS 1. Continue piperacillin / tazobactam. 2. Stop Zithromax. 3. Follow temperature. 4. Follow clinical status. Lito Snea MD Jun 22, 2017 16:44
--- NOTE | 2017-06-22 18:58 | HHI.PR ---
Subjective Remarks He remains SOB and on a Partial NRB Mask at 60 % FIO2 .Confused and agitated.Received Haldol. Was in Atrial Fib and RVR,with rate of 160.Was given IV Lopressor. Now HR is 78. Had a Cholecystostomy tube placed .Output was OK. Objective Vital Signs Date Time Temp Pulse Resp B/P (MAP) Pulse Ox O2 Delivery O2 Flow Rate FiO2 06/22/17 18:00 82 06/22/17 16:00 90 06/22/17 16:00 98.2 90 31 105/69 (81) 92 06/22/17 14:00 92 06/22/17 12:00 85 06/22/17 12:00 98.5 85 34 116/84 (95) 93 06/22/17 10:00 102 06/22/17 08:00 98.4 106 37 140/94 (109) 91 06/22/17 08:00 106 06/22/17 07:52 96 Partial Rebreather 06/22/17 07:00 92 Non-Rebreather 15.00 06/22/17 06:00 93 06/22/17 04:00 108 06/22/17 04:00 108 31 134/58 (83) 91 06/22/17 02:00 99 06/22/17 00:00 96 39 134/66 (88) 91 06/22/17 00:00 96 06/21/17 22:00 93 06/21/17 20:00 91 06/21/17 20:00 91 36 129/76 (93) 94 06/21/17 19:47 92 Partial Rebreather 12.00 06/21/17 19:00 93 Non-Rebreather 15.00 I/O 06/21/17 06/21/17 06/21/17 06/22/17 06/22/17 06/22/17 07:00 15:00 23:00 07:00 15:00 23:00 Intake Total 100 ml 1000 ml 2350 ml 150 ml 400 ml 490 ml Output Total 3700 ml 650 ml 900 ml 1100 ml Balance -3600 ml 1000 ml 1700 ml -750 ml 400 ml -610 ml Intake Oral 50 ml 50 ml 240 ml IV Total 50 ml 1000 ml 2350 ml 100 ml 400 ml 250 ml Output Urine Total 3000 ml 500 ml 900 ml 750 ml Stool Total 700 ml 150 ml 0 ml 100 ml Drainage Total 250 ml Result Diagram: 06/22/1739906/22/17399 Objective Remarks This is a moderately obese elderly man, who is sitting up. Pallor is noted. No cyanosis. There is no clubbing. HEENT: Head normocephalic. Pupils are reactive and equal. Tongue dry. Throat is injected. He has no inflammation. Neck: Supple. No bruits or thyroid enlargement or lymphadenopathy. Chest: Decreased excursions. occ wheezes bilaterally with crackles over Both lung bases. Heart: The heart sounds are irregular, S1-S2 no murmur. Abdomen: Soft, protuberant with colostomy bag in place. Bowel sounds are active. No organomegaly.Tender upper abdomen.Drain on RUQ Extremities: Minimal edema with diminished pulses. Reflexes are 1+. The patient does move his lower extremities. Babinski negative. Skin: No lesions are observed. Assessment and Plan Assessment and Plan IMPRESSION 1. Basilar pneumonia with hypoxemia. 2. History of choledocholithiasis with sepsis. 3. Acute kidney injury with history of chronic kidney disease. 4. History of colostomy. 5. Atrial Fibrillation with RVR Plan : 1. Metoprolol 50 mg bid 2. Cont O2 Via NRB mask and to ventimask 50 % 3. CBC BMP in am. 4. Continue antibiotics, Zosyn. 5. CBC,BMP in am. 6. Haldol and Ativan for agitation 7. Continue Heparin 5000 U S/Q bid 8. IS at bedside qid. Lon Willams MD Jun 22, 2017 18:57
[2017-06-22] MEDS: ATORVASTATIN 10 MG TAB PO SCH (19:47)
[2017-06-22] MEDS: HEPARIN SODIUM - SQ 10,000 UNITS/ML VIAL SQ SCH (19:48)
[2017-06-22] MEDS: D5-NS + KCL 20 MEQ INJ 1,000 ML IV SCH (20:50)
[2017-06-23] VITALS (18 sets, daily range): BP systolic 120–143; BP diastolic 56–89; PULSE 78–87; RESP 26–35; TEMP 98.6–99.2; O2SAT 91–94
[2017-06-23] MEDS: METOPROLOL TARTRATE 50 MG TAB PO SCH ×3 (01:00→18:13)
[2017-06-23] MEDS: PIPERACIL-TAZO 3.375 GM PREMIX 50 ML IV SCH ×4 (01:00→18:13)
[2017-06-23] MEDS: RESP: IPRATROPIUM 0.5 MG/2.5 ML NEB NEB SCH ×6 (04:12→23:27)
--- NOTE | 2017-06-23 05:15 | RADRPT ---
EXAM DATE/TIME: 06/23/2017 03:19 [facility] COMPARISON: No previous studies available for comparison. INDICATIONS : Shortness of breath, possible pulmonary disease. MEDICAL HISTORY : Gastroesophageal reflux disease. Hypertension Carcinoma, prostatic. SURGICAL HISTORY : None. ENCOUNTER: Subsequent ACUITY: 1 week PAIN SCORE: Non-responsive. LOCATION: Bilateral chest FINDINGS: Patchy parenchymal opacities again seen of both lungs, not significantly changed. Small right and sma [id number] left pleural effusions persist, also not significantly changed. Heart size stable, upp er limits of normal. CONCLUSION: No significant change. Shan Reaves MD on June 23, 2017 at 5:13 Board Certified Radiologist. This report was verified electronically.
[2017-06-23 05:43] LABS: CALCIUM 8.9 MG/DL (8.5-10.1); CREATININE 1.1 MG/DL (0.60-1.30)
[2017-06-23] MEDS ORDERED: ENALAPRILAT 1.25 MG/ML VIAL IV PUSH PRN (07:45)
--- NOTE | 2017-06-23 07:57 | HHI.PR ---
Subjective Remarks Pt denies any pain, states he feels a better. knows he is in a hospital but thinks it is 2018 and june. discussed w RN, pt now on partial non rebreather. Still on restraints but will try later to take them off Objective Vitals Vital Signs Date Time Temp Pulse Resp B/P (MAP) Pulse Ox O2 Delivery O2 Flow Rate FiO2 06/23/17 06:00 87 06/23/17 04:00 99.0 85 32 142/89 (106) 92 06/23/17 04:00 85 06/23/17 02:00 85 06/23/17 00:00 87 06/23/17 00:00 99.2 87 35 130/64 (86) 92 06/22/17 23:56 93 Partial Rebreather 15.00 06/22/17 22:00 86 06/22/17 20:00 99.2 85 41 118/78 (91) 94 06/22/17 20:00 85 06/22/17 19:45 94 Partial Rebreather 15.00 06/22/17 19:00 93 Non-Rebreather 15.00 06/22/17 18:00 82 06/22/17 16:00 90 06/22/17 16:00 98.2 90 31 105/69 (81) 92 06/22/17 14:00 92 06/22/17 12:00 85 06/22/17 12:00 98.5 85 34 116/84 (95) 93 06/22/17 10:00 102 06/22/17 08:00 98.4 106 37 140/94 (109) 91 06/22/17 08:00 106 06/22/17 07:52 96 Partial Rebreather I/O 06/22/17 06/22/17 06/22/17 06/23/17 06/23/17 06/23/17 07:00 15:00 23:00 07:00 15:00 23:00 Intake Total 150 ml 450 ml 640 ml 50 ml Output Total 900 ml 1100 ml 1000 ml Balance -750 ml 450 ml -460 ml -950 ml Intake Oral 50 ml 240 ml IV Total 100 ml 450 ml 400 ml 50 ml Output Urine Total 900 ml 750 ml 850 ml Stool Total 0 ml 100 ml 0 ml Drainage Total 250 ml 150 ml Result Diagram: 06/22/17 0400 06/23/17 0349 Imaging Last Impressions Chest X-Ray 06/23/17 0600 Signed Impressions: Service Date/Time: Friday, June 23, 2017 03:19 - CONCLUSION: No significant change. Shan Reaves MD Percutaneous Cholangiogram 06/21/17 1513 Signed Impressions: Service Date/Time: May 14:26 - CONCLUSION: 1. Uncomplicated percutaneous cholecystostomy as above. 2. As noted above, bowel drapes over the anterior and anterolateral aspects of the gallbladder preventing access from this approach. A lateral, transhepatic approach was utilized. 3. Cystic duct and CBD all appear to be patent. Jermaine Herman MD Hepatobiliary Scan Nuclear Medicine 06/21/17 1120 Signed Impressions: Service Date/Time: May 11:19 - CONCLUSION: 1. Normal biliary bowel transit time with no evidence for common bile duct obstruction. 2. No activity noted in the gallbladder at up to 90 minutes. This is concerning for obstruction of the cystic duct in this patient with suspected acute cholecystitis. Given the high degree of clinical suspicion and patient's tenuous clinical condition, plan is for percutaneous cholecystostomy drain placement rather than delayed imaging. Swapnil Marte MD Chest CT 06/19/17 1513 Signed Impressions: Service Date/Time: Monday, June 19, 2017 15:59 - CONCLUSION: 1. Chronic interstitial lung disease 2. Bibasilar airspace disease with small effusions and mild dural thickening 3. 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 Long Garrison MD Renal Ultrasound 06/19/17 0000 Signed Impressions: Service Date/Time: Monday, June 19, 2017 13:29 - CONCLUSION: 1. Hyperechoic kidneys consistent with medical renal disease. 2. No obstructive uropathy. Swapnil Marte MD Abdomen Ultrasound 06/19/17 0000 Signed Impressions: Service Date/Time: Monday, June 19, 2017 14:14 - CONCLUSION: 1. No significant ascites. Swapnil Marte MD GI Procedure 06/18/17 0000 Signed Impressions: Service Date/Time: Sunday, June 18, 2017 13:06 - CONCLUSION: ERCP as above. Salomon Faust MD Abdomen X-Ray 06/17/172040 Signed Impressions: Service Date/Time: Saturday, June 17, 2017 20:49 - CONCLUSION: No evidence of free air. Salomon Faust MD Abdomen/Pelvis CT 06/17/172002 Signed Impressions: Service Date/Time: Saturday, June 17, 2017 21:30 - CONCLUSION: 1. 5 mm rounded density in the region of the distal common duct suspicious for choledocholithiasis. Common duct diameter has increased when compared to the prior study now measuring 7-8 mm in diameter. Mild diffuse intrahepatic biliary ductal prominence. 2. Cholelithiasis. 3. 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 No bowel dilatation. Salomon Faust MD Objective Remarks GENERAL: This is a frail elderly patient on partial non rebreather. EYES: Extraocular motions intact. ENT: Nose without bleeding. Airway patent. NECK: Trachea midline. Supple CARDIOVASCULAR: Irregularly irregular RESPIRATORY: Diminished breath sounds, audible exp wheezes. GASTROINTESTINAL: Abdomen soft, non-tender, nondistended. Positive bowel sounds. Ostomy and cholecystectomy tube in place. MUSCULOSKELETAL: Extremities without edema. Pedal pulses appreciated. Restraints in place NEUROLOGICAL/PSYCH: Awake and alert but agitated. Moves all extremity but currently limited due to restraints. able to speak but confused A/P Assessment and Plan Bibasilar pneumonia A. fib with RVR Choledocholithiasis Acute respiratory failure and hypoxia QUIQUE on CKD Hypertension/hyperlipidemia DVT prophylaxis Plan: 06/20: Stat transfer to ICU, stat Check lactic acid, consult ID, Lopressor iv to control heart rate, resume Lopressorpo, Discussed with GI, discussed with GS 06/21: Heart rate much better on Lopressor 50 every 8 hours, still on 15 L nonrebreather mask, appreciate pulmonary, recommended high flow oxygen, ABG nonsignificant pH 7.44. Rayna scan has been done was concerning for obstruction, surgery following patient will go to IR for cholecystotomy drainage, ID following for iv antibiotic 06/22: pt agitated, aggressive if restraints removed. will consult Psych for assistance to agitation/confusion. Continue abx (zosyn/azithro). Monitor labs. Hypokalemia noted. Currently getting replacement. Per RN, pt NPO at this time, awaiting swallow eval. On D5NS @84ml/hr and also getting IV potassium. Monitor electrolytes. Leukocytosis resolved. s/p cholecystostomy tube placement. QUIQUE resolved. Continue to monitor in ICU due to respiratory status and still requiring partial non rebreather. 06/23: seems a bit better this morning. calm. at least he knows his name and that he is in a hospital. K 3.3. continue to supplement IV as pt is currently NPO per speech therapy recs. continue to monitor. added vasotec prn as he cannot yet take po meds. Discussed w GS yesterday, ok to resume dvt proph. Azithro has been stopped by ID and continue zosyn per their rec. Appreciate recs from psych. Try to remove restraints if pt cooperative. //Choledocholithiasis CT of the abdomen/pelvis showed choledocholithiasis with increased diameter of the common bile duct Leukocytosis, elevated lactic acid, transaminitis, elevated T bili Antibiotic coverage with Rocephin as patient has acute on chronic kidney injury Gastroenterology following, s/p ERCP. Dilaudid for pain //biBasilar pneumonia //Hypoxemic respiratory failure. -Change antibiotics to Zosyn and Zithromax. Continue supportive care with do nebs. Incentive spirometry, Acapella. BNP normal, echocardiogram without pericardial effusion. Pulmonology following. Appreciate assistance. //Acute on chronic kidney injury resolved. IV fluid hydration Monitor renal function Avoid nephrotoxic agent //Hypertension/hyperlipidemia/a fib Restart home medications once medication list reconciled - patient unable to provide list of his home medications FEN NPO Electrolytes: monitor and replete prn Holding pharmacologic anticoagulation due to procedures. Awaiting final recs from GS and restart anticoagulation. Discharge Planning continue monitoring in the ICU, pt on partial non rebreather. continue to wean oxygen as tolerated. Pt confused. Psych following. Bia Pérez MD Jun 23, 2017 07:57
[2017-06-23] MEDS: D5-NS + KCL 20 MEQ INJ 1,000 ML IV SCH ×2 (08:25→22:44)
[2017-06-23] MEDS: SODIUM CHLORIDE 0.9% FLUSH 10 ML FLUSH IV FLUSH SCH ×2 (09:00→20:01)
[2017-06-23] MEDS: ENALAPRIL MALEATE 10 MG TAB PO SCH (10:51)
[2017-06-23] MEDS: HEPARIN SODIUM - SQ 10,000 UNITS/ML VIAL SQ SCH ×2 (10:51→20:01)
[2017-06-23] MEDS: ALLOPURINOL 300 MG TAB PO SCH (10:51)
[2017-06-23] MEDS: DOCUSATE SODIUM 50 MG/SENNA 8.6 MG TAB PO SCH ×2 (10:51→20:01)
[2017-06-23 11:13] LABS: AUTOMATED NEUTROPHIL # 6.8 TH/MM3 (1.8-7.7); BASOPHIL % 0.5 % (0.0-2.0); EOSINOPHIL # 0.5 TH/MM3 (0-0.4); EOSINOPHIL % 5.4 % (0.0-4.0); HEMATOCRIT 34.7 % (39.0-51.0); HEMOGLOBIN 11.7 GM/DL (13.0-17.0); LYMPH % 8.3 % (9.0-44.0); LYMPHOCYTE # 0.7 TH/MM3 (1.0-4.8); MEAN CELL VOLUME 97.1 FL (80.0-100.0); MEAN CORPUSCULAR HEMOGLOBIN 32.8 PG (27.0-34.0); MEAN CORPUSCULAR HGB CONC 33.8 % (32.0-36.0); MEAN PLATELET VOLUME 8.1 FL (7.0-11.0); MONO % 10.7 % (0.0-8.0); NEUT % 75.1 % (16.0-70.0); PLATELET COUNT 224 TH/MM3 (150-450); RED BLOOD COUNT 3.57 MIL/MM3 (4.50-5.90); RED CELL DISTRIBUTION WIDTH 17.1 % (11.6-17.2)
[2017-06-23] MEDS: POTASSIUM CHLOR 20 MEQ PREMIX 100 ML IV SCH ×2 (11:52→14:04)
--- NOTE | 2017-06-23 12:51 | HHI.PR ---
Subjective Remarks Seems less SOB and on a Partial NRB Mask at 60 % FIO2 . Confused and less agitated. CXR shows basal infiltrates.On Zosyn. Had a Cholecystostomy tube placed .Output was OK. Objective Vital Signs Date Time Temp Pulse Resp B/P (MAP) Pulse Ox O2 Delivery O2 Flow Rate FiO2 06/23/17 11:00 80 06/23/17 10:00 80 06/23/17 09:00 81 06/23/17 08:00 78 06/23/17 08:00 98.6 78 30 143/65 (91) 94 06/23/17 07:59 92 Partial Rebreather 15.00 06/23/17 07:00 83 06/23/17 07:00 95 Non-Rebreather 15.00 06/23/17 06:00 87 06/23/17 04:00 99.0 85 32 142/89 (106) 92 06/23/17 04:00 85 06/23/17 02:00 85 06/23/17 00:00 87 06/23/17 00:00 99.2 87 35 130/64 (86) 92 06/22/17 23:56 93 Partial Rebreather 15.00 06/22/17 22:00 86 06/22/17 20:00 99.2 85 41 118/78 (91) 94 06/22/17 20:00 85 06/22/17 19:45 94 Partial Rebreather 15.00 06/22/17 19:00 93 Non-Rebreather 15.00 06/22/17 18:00 82 06/22/17 16:00 90 06/22/17 16:00 98.2 90 31 105/69 (81) 92 06/22/17 14:00 92 I/O 06/22/17 06/22/17 06/22/17 06/23/17 06/23/17 06/23/17 07:00 15:00 23:00 07:00 15:00 23:00 Intake Total 150 ml 450 ml 640 ml 50 ml Output Total 900 ml 1100 ml 1000 ml Balance -750 ml 450 ml -460 ml -950 ml Intake Oral 50 ml 240 ml IV Total 100 ml 450 ml 400 ml 50 ml Output Urine Total 900 ml 750 ml 850 ml Stool Total 0 ml 100 ml 0 ml Drainage Total 250 ml 150 ml Result Diagram: 06/23/17 0940 06/23/17 0349 Objective Remarks This is a moderately obese elderly man, who is sitting up. Pallor is noted. No cyanosis. There is no clubbing. HEENT: Head normocephalic. Pupils are reactive and equal. Tongue dry. Throat is clear. Neck: Supple. No bruits or thyroid enlargement or lymphadenopathy. Chest: Decreased excursions. occ wheezes bilaterally with crackles over Both lung bases. Heart: The heart sounds are irregular, S1-S2 no murmur. Abdomen: Soft, protuberant with colostomy bag in place. Bowel sounds are active. No organomegaly.Tender upper abdomen. Drain on RUQ Extremities: Minimal edema with diminished pulses. Reflexes are 1+. The patient does move his lower extremities. Babinski negative. Skin: No lesions are observed. Assessment and Plan Assessment and Plan IMPRESSION 1. Basilar pneumonia with hypoxemia. 2. History of choledocholithiasis/ Cholecystitis with sepsis. 3. Acute kidney injury with history of chronic kidney disease. 4. History of colostomy. 5. Atrial Fibrillation with RVR Plan : 1. Chest Xray in am 2. Cont O2 Via NRB mask and to ventimask 50 % 3. CBC BMP in am. 4. Continue antibiotics, Zosyn. 5. Pureed diet as tolerated. 6. Haldol and Ativan for agitation 7. Continue Heparin 5000 U S/Q bid 8. IS at bedside qid. Lon Willams MD Jun 23, 2017 12:51
[2017-06-23] MEDS: ATORVASTATIN 10 MG TAB PO SCH (20:01)
[2017-06-24] VITALS (16 sets, daily range): BP systolic 114–145; BP diastolic 54–69; PULSE 75–103; RESP 22–39; TEMP 97.7–98.7; O2SAT 85–96
[2017-06-24] MEDS: PIPERACIL-TAZO 3.375 GM PREMIX 50 ML IV SCH ×4 (00:09→18:54)
[2017-06-24] MEDS: METOPROLOL TARTRATE 50 MG TAB PO SCH ×3 (00:09→17:00)
[2017-06-24] MEDS: RESP: IPRATROPIUM 0.5 MG/2.5 ML NEB NEB SCH ×6 (04:32→23:18)
[2017-06-24 05:36] LABS: BICARBONATE 26.1 MEQ/L (21.0-32.0); CALCIUM 9.1 MG/DL (8.5-10.1); CREATININE 1.07 MG/DL (0.60-1.30); MAGNESIUM 1.9 MG/DL (1.5-2.5); TOTAL BILIRUBIN ADULT 1.9 MG/DL (0.2-1.0)
--- NOTE | 2017-06-24 07:52 | HHI.PR ---
Subjective Remarks Pt denies any pain, states his "breathing is ok". Pt knows he is in the hospital , tells me today is sunday and the year is 2017. Objective Vitals Vital Signs Date Time Temp Pulse Resp B/P (MAP) Pulse Ox O2 Delivery O2 Flow Rate FiO2 06/24/17 07:00 92 Partial Non-Rebreather 15.00 06/24/17 06:00 82 06/24/17 04:34 94 Partial Rebreather 15.00 06/24/17 04:00 80 06/24/17 04:00 98.2 80 39 145/65 (91) 85 06/24/17 02:00 85 06/24/17 00:00 97.8 79 32 132/69 (90) 90 06/24/17 00:00 79 06/23/17 23:29 94 Partial Rebreather 15.00 06/23/17 22:00 79 06/23/17 21:00 92 Partial Non-Rebreather 15.00 06/23/17 20:00 78 06/23/17 20:00 92 Partial Non-Rebreather 12.00 06/23/17 20:00 99.1 78 28 131/59 (83) 91 06/23/17 19:49 93 Non-Rebreather 10.00 06/23/17 18:00 80 06/23/17 16:00 98.8 78 26 143/65 (91) 93 06/23/17 16:00 78 06/23/17 14:00 80 06/23/17 12:00 98.9 83 28 120/56 (77) 92 06/23/17 12:00 83 06/23/17 11:00 80 06/23/17 10:00 80 06/23/17 09:00 81 06/23/17 08:00 78 06/23/17 08:00 98.6 78 30 143/65 (91) 94 06/23/17 07:59 92 Partial Rebreather 15.00 I/O 06/23/17 06/23/17 06/23/17 06/24/17 06/24/17 06/24/17 07:00 15:00 23:00 07:00 15:00 23:00 Intake Total 50 ml 2146 ml 670 ml Output Total 1000 ml 1600 ml 1350 ml Balance -950 ml 546 ml -680 ml Intake Oral 650 ml 120 ml IV Total 50 ml 1496 ml 550 ml Output Urine Total 850 ml 1000 ml 1100 ml Stool Total 0 ml Drainage Total 150 ml 600 ml 250 ml Result Diagram: 06/23/17 0940 06/24/17 0450 Imaging Last Impressions Chest X-Ray 06/23/17 0600 Signed Impressions: Service Date/Time: Friday, June 23, 2017 03:19 - CONCLUSION: No significant change. Shan Reaves MD Percutaneous Cholangiogram 06/21/17 1513 Signed Impressions: Service Date/Time: May 14:26 - CONCLUSION: 1. Uncomplicated percutaneous cholecystostomy as above. 2. As noted above, bowel drapes over the anterior and anterolateral aspects of the gallbladder preventing access from this approach. A lateral, transhepatic approach was utilized. 3. Cystic duct and CBD all appear to be patent. Jermaine Herman MD Hepatobiliary Scan Nuclear Medicine 06/21/17 1120 Signed Impressions: Service Date/Time: May 11:19 - CONCLUSION: 1. Normal biliary bowel transit time with no evidence for common bile duct obstruction. 2. No activity noted in the gallbladder at up to 90 minutes. This is concerning for obstruction of the cystic duct in this patient with suspected acute cholecystitis. Given the high degree of clinical suspicion and patient's tenuous clinical condition, plan is for percutaneous cholecystostomy drain placement rather than delayed imaging. Swapnil Marte MD Chest CT 06/19/17 1513 Signed Impressions: Service Date/Time: Monday, June 19, 2017 15:59 - CONCLUSION: 1. Chronic interstitial lung disease 2. Bibasilar airspace disease with small effusions and mild dural thickening 3. 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 Long Garrison MD Renal Ultrasound 06/19/17 0000 Signed Impressions: Service Date/Time: Monday, June 19, 2017 13:29 - CONCLUSION: 1. Hyperechoic kidneys consistent with medical renal disease. 2. No obstructive uropathy. Swapnil Marte MD Abdomen Ultrasound 06/19/17 0000 Signed Impressions: Service Date/Time: Monday, June 19, 2017 14:14 - CONCLUSION: 1. No significant ascites. Swapnil Marte MD GI Procedure 06/18/17 0000 Signed Impressions: Service Date/Time: Sunday, June 18, 2017 13:06 - CONCLUSION: ERCP as above. Salomon Faust MD Abdomen X-Ray 06/17/172040 Signed Impressions: Service Date/Time: Saturday, June 17, 2017 20:49 - CONCLUSION: No evidence of free air. Salomon Faust MD Abdomen/Pelvis CT 06/17/172002 Signed Impressions: Service Date/Time: Saturday, June 17, 2017 21:30 - CONCLUSION: 1. 5 mm rounded density in the region of the distal common duct suspicious for choledocholithiasis. Common duct diameter has increased when compared to the prior study now measuring 7-8 mm in diameter. Mild diffuse intrahepatic biliary ductal prominence. 2. Cholelithiasis. 3. 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 No bowel dilatation. Salomon Faust MD Objective Remarks GENERAL: This is a frail elderly patient on partial non rebreather. EYES: Extraocular motions intact. ENT: Nose without bleeding. Airway patent. NECK: Trachea midline. Supple CARDIOVASCULAR: Irregularly irregular RESPIRATORY: Diminished breath sounds, audible exp wheezes. GASTROINTESTINAL: Abdomen soft, non-tender, nondistended. Positive bowel sounds. Ostomy and cholecystectomy tube in place. MUSCULOSKELETAL: Extremities without edema. Pedal pulses appreciated. off Restraints NEUROLOGICAL/PSYCH: Awake and alert, calm. Moves all extremity on commands. A/P Assessment and Plan Bibasilar pneumonia A. fib with RVR Choledocholithiasis Acute respiratory failure and hypoxia QUIQUE on CKD Hypertension/hyperlipidemia DVT prophylaxis Plan: 06/20: Stat transfer to ICU, stat Check lactic acid, consult ID, Lopressor iv to control heart rate, resume Lopressorpo, Discussed with GI, discussed with GS 06/21: Heart rate much better on Lopressor 50 every 8 hours, still on 15 L nonrebreather mask, appreciate pulmonary, recommended high flow oxygen, ABG nonsignificant pH 7.44. Rayna scan has been done was concerning for obstruction, surgery following patient will go to IR for cholecystotomy drainage, ID following for iv antibiotic 06/22: pt agitated, aggressive if restraints removed. will consult Psych for assistance to agitation/confusion. Continue abx (zosyn/azithro). Monitor labs. Hypokalemia noted. Currently getting replacement. Per RN, pt NPO at this time, awaiting swallow eval. On D5NS @84ml/hr and also getting IV potassium. Monitor electrolytes. Leukocytosis resolved. s/p cholecystostomy tube placement. QUIQUE resolved. Continue to monitor in ICU due to respiratory status and still requiring partial non rebreather. 06/23: seems a bit better this morning. calm. at least he knows his name and that he is in a hospital. K 3.3. continue to supplement IV as pt is currently NPO per speech therapy recs. continue to monitor. added vasotec prn as he cannot yet take po meds. Discussed w GS yesterday, ok to resume dvt proph. Azithro has been stopped by ID and continue zosyn per their rec. Appreciate recs from psych. Try to remove restraints if pt cooperative. 06/24: Pt calm, took off his non rebreather and sats were 74% when I came into the room, I immediately put mask on and sats went up slowly. Pt seems to be improving, he is more alert and able to follow commands, he is off restraints. continue to monitor. continue breathing treatments and IV abx. He is on Zosyn. Discussed w RN, encourage out of bed to a recliner if possible to see if this helps w his ventilation. PT/ST/OT following. He is on puree honey thick diet. No BM's recorded, I requested that pt get his prn stool softeners in addition to the shahab-colace he is getting. Continue to monitor in the ICU for now as pt still requiring a partial non rebreather. Repeat K level as it was noted to be elevated this morning but due to blood being hemolyzed. //Choledocholithiasis CT of the abdomen/pelvis showed choledocholithiasis with increased diameter of the common bile duct Leukocytosis, elevated lactic acid, transaminitis, elevated T bili Antibiotic coverage with Rocephin as patient has acute on chronic kidney injury Gastroenterology following, s/p ERCP. Dilaudid for pain //biBasilar pneumonia //Hypoxemic respiratory failure. -Change antibiotics to Zosyn and Zithromax. Continue supportive care with do nebs. Incentive spirometry, Acapella. BNP normal, echocardiogram without pericardial effusion. Pulmonology following. Appreciate assistance. //Acute on chronic kidney injury resolved. IV fluid hydration Monitor renal function Avoid nephrotoxic agent //Hypertension/hyperlipidemia/a fib Restart home medications once medication list reconciled - patient unable to provide list of his home medications FEN NPO Electrolytes: monitor and replete prn Holding pharmacologic anticoagulation due to procedures. Awaiting final recs from GS and restart anticoagulation. Discharge Planning continue monitoring in the ICU, pt on partial non rebreather. continue to wean oxygen as tolerated. Pt confused. Psych following. Bia Pérez MD Jun 24, 2017 07:52
[2017-06-24] MEDS: HEPARIN SODIUM - SQ 10,000 UNITS/ML VIAL SQ SCH ×2 (08:38→20:37)
[2017-06-24] MEDS: DOCUSATE SODIUM 50 MG/SENNA 8.6 MG TAB PO SCH ×2 (08:39→20:36)
[2017-06-24] MEDS: SODIUM CHLORIDE 0.9% FLUSH 10 ML FLUSH IV FLUSH SCH ×2 (08:39→20:36)
[2017-06-24] MEDS: ALLOPURINOL 300 MG TAB PO SCH (08:39)
[2017-06-24] MEDS: ENALAPRIL MALEATE 10 MG TAB PO SCH (08:39)
[2017-06-24] MEDS: D5-NS + KCL 20 MEQ INJ 1,000 ML IV SCH (08:40)
--- NOTE | 2017-06-24 13:52 | HHI.IDPN ---
Note Infectious Disease Note ID COVERAGE 86-year-old white male was admitted through the emergency department with abdominal pain. He was evaluated and found to have a 1.5 millimeter rounded density in the region of the distal common duct suspicious for choledocholithiasis. Notes reviewed Temps ok On PNRB mask Coughing, but no sputum No CP Appears confused. BP ok Post cholecystostomy tube placement. Bile C/S pending PAST HISTORY 1. Hypertension. 2. Hyperlipidemia. 3. Paroxysmal atrial fibrillation. 4. Osteoarthritis. 5. History of pulmonary embolism. 6. History of prostate cancer. 7. History of rectal cancer. 8. History of abdominal surgery. 9. Colostomy. 10. Left knee surgery. 11. Left hip repair. 12. Prostatectomy. ALLERGIES NO KNOWN DRUG ALLERGIES. MEDICATIONS Piperacillin/tazobactam Current Medications Medications (Trade) Dose Ordered Sig/Thee Route Start Time Stop Time Status Last Admin (NS Flush) 2 ml UNSCH PRN IV FLUSH 06/17/17 23:00 (NS Flush) 2 ml BID IV FLUSH 06/18/17 09:00 06/24/17 08:39 (Zofran Inj) 4 mg Q6H PRN IVP 06/17/17 23:00 06/18/17 07:34 (Narcan Inj) 0.4 mg UNSCH PRN IV PUSH 06/17/17 23:00 (Le-Colace) 1 tab BID PO 06/18/17 09:00 06/24/17 08:39 (Milk Of Magnesia Liq) 30 ml Q12H PRN PO 06/17/17 23:00 (Senokot) 17.2 mg Q12H PRN PO 06/17/17 23:00 (Dulcolax Supp) 10 mg DAILY PRN RECTAL 06/17/17 23:00 (Lactulose Liq) 30 ml DAILY PRN PO 06/17/17 23:00 Piperacillin Sod/ Tazobactam Sod 50 ml @ 100 mls/hr Q6H IV 06/19/17 13:00 06/24/17 12:30 (Atrovent Neb) 0.5 mg Q2HR NEB PRN NEB 06/19/17 14:00 (Atrovent Neb) 0.5 mg Q4HR NEB NEB 06/19/17 16:00 06/24/17 12:41 (Zyloprim) 300 mg DAILY PO 06/20/17 12:45 06/24/17 08:39 (Lipitor) 10 mg HS PO 06/20/17 21:00 06/23/17 20:01 (Vasotec) 10 mg DAILY PO 06/20/17 12:45 06/24/17 08:39 Miscellaneous Information Patient in critical care unit? Ass... [id number] .XX 06/20/17 14:15 06/20/17 14:15 (Chlorhexidine 2% Cloth) 3 pack DAILY@04 TOPICAL 06/21/17 04:00 06/25/17 04:01 (Chlorhexidine 2% Cloth) 3 pack UNSCH PRN TOPICAL 06/20/17 14:15 06/25/17 14:03 (Lopressor) 50 mg Q8H PO 06/20/17 17:00 06/24/17 08:38 (Heparin Inj) 5,000 units Q12HR SQ 06/20/17 21:00 Future hold 06/24/17 08:38 (D50w (Vial) Inj) 50 ml UNSCH PRN IV PUSH 06/21/17 20:45 (Glucagon Inj) 1 mg UNSCH PRN OTHER 06/21/17 20:45 (Ativan Inj) 1 mg Q4H PRN IV PUSH 06/22/17 08:15 Potassium Chloride/Dextrose/ Sod Cl 1,000 ml @ 84 mls/hr [id number] IV 06/22/17 20:30 06/24/17 08:40 (Vasotec Inj) 1.25 mg Q6H PRN IV PUSH 06/23/17 07:45 OBJECTIVE: Vital Signs Date Time Temp Pulse Resp B/P (MAP) Pulse Ox O2 Delivery O2 Flow Rate FiO2 06/24/17 10:00 75 06/24/17 08:00 92 06/24/17 08:00 98.6 92 28 114/54 (74) 90 06/24/17 07:50 96 Partial Rebreather 06/24/17 07:00 92 Partial Non-Rebreather 15.00 06/24/17 06:00 82 06/24/17 04:34 94 Partial Rebreather 15.00 06/24/17 04:00 80 06/24/17 04:00 98.2 80 39 145/65 (91) 85 06/24/17 02:00 85 06/24/17 00:00 97.8 79 32 132/69 (90) 90 06/24/17 00:00 79 06/23/17 23:29 94 Partial Rebreather 15.00 06/23/17 22:00 79 06/23/17 21:00 92 Partial Non-Rebreather 15.00 06/23/17 20:00 78 06/23/17 20:00 92 Partial Non-Rebreather 12.00 06/23/17 20:00 99.1 78 28 131/59 (83) 91 06/23/17 19:49 93 Non-Rebreather 10.00 06/23/17 18:00 80 06/23/17 16:00 98.8 78 26 143/65 (91) 93 06/23/17 16:00 78 06/23/17 14:00 80 Laboratory Tests Test 06/23/17 09:40 White Blood Count 9.0 TH/MM3 Red Blood Count 3.57 MIL/MM3 Hemoglobin 11.7 GM/DL Hematocrit 34.7 % Mean Corpuscular Volume 97.1 FL Mean Corpuscular Hemoglobin 32.8 PG Mean Corpuscular Hemoglobin Concent 33.8 % Red Cell Distribution Width 17.1 % Platelet Count 224 TH/MM3 Mean Platelet Volume 8.1 FL Neutrophils (%) (Auto) 75.1 % Lymphocytes (%) (Auto) 8.3 % Monocytes (%) (Auto) 10.7 % Eosinophils (%) (Auto) 5.4 % Basophils (%) (Auto) 0.5 % Neutrophils # (Auto) 6.8 TH/MM3 Lymphocytes # (Auto) 0.7 TH/MM3 Monocytes # (Auto) 1.0 TH/MM3 Eosinophils # (Auto) 0.5 TH/MM3 Basophils # (Auto) 0.0 TH/MM3 CBC Comment DIFF FINAL Differential Comment Laboratory Tests Test 06/22/17 19:05 06/23/17 03:49 06/24/17 04:50 06/24/17 10:00 Potassium Level 3.4 MEQ/L 3.3 MEQ/L 5.2 MEQ/L Blood Urea Nitrogen 12 MG/DL 9 MG/DL Creatinine 1.10 MG/DL 1.07 MG/DL Random Glucose 110 MG/DL 118 MG/DL Calcium Level 8.9 MG/DL 9.1 MG/DL Sodium Level 141 MEQ/L 138 MEQ/L Chloride Level 106 MEQ/L 107 MEQ/L Carbon Dioxide Level 27.0 MEQ/L 26.1 MEQ/L Anion Gap 8 MEQ/L 5 MEQ/L Estimat Glomerular Filtration Rate 64 ML/MIN 66 ML/MIN Magnesium Level 1.9 MG/DL Total Bilirubin 1.9 MG/DL Microbiology Date/Time Source Procedure Growth Status 06/24/17 02:10 Fluid Bile Fluid Gram Stain - Final Resulted 06/24/17 02:10 Fluid Bile Fluid Body Fluid Culture Pending Resulted Laboratory Tests Test 06/22/17 04:00 White Blood Count 10.2 TH/MM3 Red Blood Count 3.72 MIL/MM3 Hemoglobin 12.2 GM/DL Hematocrit 36.4 % Mean Corpuscular Volume 97.9 FL Mean Corpuscular Hemoglobin 32.8 PG Mean Corpuscular Hemoglobin Concent 33.5 % Red Cell Distribution Width 16.9 % Platelet Count 204 TH/MM3 Mean Platelet Volume 8.4 FL Neutrophils (%) (Auto) 78.2 % Lymphocytes (%) (Auto) 7.7 % Monocytes (%) (Auto) 10.9 % Eosinophils (%) (Auto) 2.7 % Basophils (%) (Auto) 0.5 % Neutrophils # (Auto) 7.9 TH/MM3 Lymphocytes # (Auto) 0.8 TH/MM3 Monocytes # (Auto) 1.1 TH/MM3 Eosinophils # (Auto) 0.3 TH/MM3 Basophils # (Auto) 0.0 TH/MM3 CBC Comment AUTO DIFF Differential Comment AUTO DIFF CONFIRMED Platelet Estimate NORMAL Platelet Morphology Comment NORMAL Laboratory Tests Test 06/21/17 05:20 06/22/17 04:00 Blood Urea Nitrogen 15 MG/DL 15 MG/DL Creatinine 1.27 MG/DL 1.16 MG/DL Random Glucose 58 MG/DL 90 MG/DL Total Protein 6.3 GM/DL 7.0 GM/DL Albumin 2.1 GM/DL 2.3 GM/DL Calcium Level 9.0 MG/DL 9.4 MG/DL Alkaline Phosphatase 304 U/L 300 U/L Aspartate Amino Transf (AST/SGOT) 37 U/L 35 U/L Alanine Aminotransferase (ALT/SGPT) 38 U/L 36 U/L Total Bilirubin 4.5 MG/DL 3.4 MG/DL Sodium Level 139 MEQ/L 140 MEQ/L Potassium Level 3.5 MEQ/L 3.1 MEQ/L Chloride Level 104 MEQ/L 103 MEQ/L Carbon Dioxide Level 24.9 MEQ/L 26.0 MEQ/L Anion Gap 10 MEQ/L 11 MEQ/L Estimat Glomerular Filtration Rate 54 ML/MIN 60 ML/MIN IMAGING: Hepatobiliary Scan Nuclear Medicine 06/21/17 1120 Signed Impressions: Service Date/Time: May 11:19 - CONCLUSION: 1. Normal biliary bowel transit time with no evidence for common bile duct obstruction. 2. No activity noted in the gallbladder at up to 90 minutes. This is concerning for obstruction of the cystic duct in this patient with suspected acute cholecystitis. Given the high degree of clinical suspicion and patient's tenuous clinical condition, plan is for percutaneous cholecystostomy drain placement rather than delayed imaging. Swapnil Marte MD Chest CT 06/19/17 1513 Signed Impressions: Service Date/Time: Monday, June 19, 2017 15:59 - CONCLUSION: 1. Chronic interstitial lung disease 2. Bibasilar airspace disease with small effusions and mild dural thickening 3. 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 Long Garrison MD Renal Ultrasound 06/19/17 0000 Signed Impressions: Service Date/Time: Monday, June 19, 2017 13:29 - CONCLUSION: 1. Hyperechoic kidneys consistent with medical renal disease. 2. No obstructive uropathy. Swapnil Marte MD Chest X-Ray 06/19/17 0000 Signed Impressions: Service Date/Time: Monday, June 19, 2017 10:36 - CONCLUSION: Hypoaerated lungs with mild right basilar airspace disease. Mild cardiomegaly Long Garrison MD Abdomen Ultrasound 06/19/17 0000 Signed Impressions: Service Date/Time: Monday, June 19, 2017 14:14 - CONCLUSION: 1. No significant ascites. Swapnil Marte MD GI Procedure 06/18/17 0000 Signed Impressions: Service Date/Time: Sunday, June 18, 2017 13:06 - CONCLUSION: ERCP as above. Salomon Faust MD Abdomen X-Ray 06/17/172040 Signed Impressions: Service Date/Time: Saturday, June 17, 2017 20:49 - CONCLUSION: No evidence of free air. Salomon Faust MD Abdomen/Pelvis CT 06/17/172002 Signed Impressions: Service Date/Time: Saturday, June 17, 2017 21:30 - CONCLUSION: 1. 5 mm rounded density in the region of the distal common duct suspicious for choledocholithiasis. Common duct diameter has increased when compared to the prior study now measuring 7-8 mm in diameter. Mild diffuse intrahepatic biliary ductal prominence. 2. Cholelithiasis. 3. 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 No bowel dilatation. Salomon Faust MD PHYSICAL EXAMINATION: GENERAL: AWake, responding, NAD HEENT: Head is atraumatic. Extraocular movements grossly intact. No icterus. Oropharynx: mucosa appears slightly dry. On PNRB mask Neck: Obese, no tenderness. Lungs: Decreased breath sounds. Heart: Irregular rate and rhythm. Slight systolic murmur at the left sternal border. Abdomen: Bowel sounds present but diminished, soft. Colostomy bag in place at the left lower quadrant and appears functional. Has diffuse tenderness, no guarding or rebound. GB tube with bile Extremities: No clubbing or cyanosis or edema. Skin: No rash. NEURO: No focal finding. Psych: Restless. IMPRESSION 1. Pneumonia. 2. Choledocholithiasis., cholecystitis 3. Respiratory failure. RECOMMENDATIONS Continue piperacillin / tazobactam. Follow C/S Monitor temps Monitor progress Alexandra Boyd MD Jun 24, 2017 13:52
--- NOTE | 2017-06-24 17:35 | HHI.PR ---
Subjective Remarks Seems less SOB and still on a Partial NRB Mask at 60 % FIO2 . Confused and calm. CXR shows basal infiltrates.On Zosyn. Had a Cholecystostomy tube placed .Output was OK. Objective Vital Signs Date Time Temp Pulse Resp B/P (MAP) Pulse Ox O2 Delivery O2 Flow Rate FiO2 06/24/17 14:00 103 06/24/17 12:00 83 06/24/17 12:00 98.7 83 24 136/60 (85) 91 06/24/17 10:00 75 06/24/17 08:00 92 06/24/17 08:00 98.6 92 28 114/54 (74) 90 06/24/17 07:50 96 Partial Rebreather 06/24/17 07:00 92 Partial Non-Rebreather 15.00 06/24/17 06:00 82 06/24/17 04:34 94 Partial Rebreather 15.00 06/24/17 04:00 80 06/24/17 04:00 98.2 80 39 145/65 (91) 85 06/24/17 02:00 85 06/24/17 00:00 97.8 79 32 132/69 (90) 90 06/24/17 00:00 79 06/23/17 23:29 94 Partial Rebreather 15.00 06/23/17 22:00 79 06/23/17 21:00 92 Partial Non-Rebreather 15.00 06/23/17 20:00 78 06/23/17 20:00 92 Partial Non-Rebreather 12.00 06/23/17 20:00 99.1 78 28 131/59 (83) 91 06/23/17 19:49 93 Non-Rebreather 10.00 06/23/17 18:00 80 I/O 06/23/17 06/23/17 06/23/17 06/24/17 06/24/17 06/24/17 07:00 15:00 23:00 07:00 15:00 23:00 Intake Total 50 ml 2146 ml 670 ml Output Total 1000 ml 1600 ml 1350 ml Balance -950 ml 546 ml -680 ml Intake Oral 650 ml 120 ml IV Total 50 ml 1496 ml 550 ml Output Urine Total 850 ml 1000 ml 1100 ml Stool Total 0 ml Drainage Total 150 ml 600 ml 250 ml Result Diagram: 06/23/17 0940 06/24/17 0450 Objective Remarks This is a moderately obese elderly man, who is sitting up. Pallor is noted. No cyanosis. There is no clubbing. HEENT: Head normocephalic. Pupils are reactive and equal. Tongue dry. Throat is clear. Neck: Supple. No bruits or thyroid enlargement or lymphadenopathy. Chest: occ wheezes bilaterally with crackles over Both lung bases. Heart: The heart sounds are irregular, S1-S2 no murmur. Abdomen: Soft, protuberant with colostomy bag in place. Bowel sounds are active. No organomegaly.Tender upper abdomen. Drain on RUQ Extremities: 1 + edema with diminished pulses. Reflexes are 1+. The patient does move his lower extremities. Skin: No lesions are observed. Assessment and Plan Assessment and Plan IMPRESSION 1. Basilar pneumonia with hypoxemia. 2. History of choledocholithiasis/ Cholecystitis with sepsis. 3. Acute kidney injury with history of chronic kidney disease. 4. History of colostomy. 5. Atrial Fibrillation with RVR Plan : 1. Use Bipap at HS12/5 CM ,FIo2 50% 2. Cont O2 Via NRB mask and to ventimask 50 % daytime 3. CBC BMP in am. 4. Continue antibiotics, Zosyn. 5. Pureed diet as tolerated. 6. Haldol and Ativan for agitation 7. Continue Heparin 5000 U S/Q bid 8. IS at bedside qid. 9. CXR in am. Lon Willams MD Jun 24, 2017 17:35
[2017-06-24] MEDS: ATORVASTATIN 10 MG TAB PO SCH (20:36)
[2017-06-25] VITALS (22 sets, daily range): BP systolic 113–159; BP diastolic 56–97; PULSE 73–107; RESP 22–32; TEMP 98.2–98.4; O2SAT 89–97
[2017-06-25] MEDS: PIPERACIL-TAZO 3.375 GM PREMIX 50 ML IV SCH ×4 (00:38→18:21)
[2017-06-25] MEDS: D5-NS + KCL 20 MEQ INJ 1,000 ML IV SCH ×3 (00:39→18:21)
[2017-06-25] MEDS: METOPROLOL TARTRATE 50 MG TAB PO SCH ×3 (00:51→18:21)
[2017-06-25] MEDS: RESP: IPRATROPIUM 0.5 MG/2.5 ML NEB NEB SCH ×6 (03:26→23:56)
--- NOTE | 2017-06-25 07:54 | HHI.PR ---
Subjective Remarks Pt feeling ok. No pain. Answers yes when asked if his breathing is improving. No nausea or vomiting. Knows he is in the hospital, knows year and month. Discussed w RN, didn't tolerate the BiPAP overnight, now on partial non rebreather Objective Vitals Vital Signs Date Time Temp Pulse Resp B/P (MAP) Pulse Ox O2 Delivery O2 Flow Rate FiO2 06/25/17 07:37 93 Partial Rebreather 15.00 06/25/17 06:00 106 06/25/17 04:00 89 06/25/17 04:00 98.4 89 32 140/60 (86) 89 06/25/17 02:00 107 06/25/17 00:00 98.2 93 31 144/68 (93) 90 06/25/17 00:00 93 06/24/17 22:00 83 06/24/17 21:40 92 Partial Non-Rebreather 14.00 06/24/17 20:01 94 50 06/24/17 20:00 97.7 95 32 132/59 (83) 94 06/24/17 20:00 94 Bi-Pap 50 06/24/17 20:00 95 06/24/17 19:55 95 BiPAP 50 06/24/17 19:00 94 Partial Non-Rebreather 12.00 06/24/17 18:00 85 06/24/17 16:00 81 06/24/17 16:00 98.6 81 22 125/59 (81) 94 06/24/17 14:00 103 06/24/17 12:00 83 06/24/17 12:00 98.7 83 24 136/60 (85) 91 06/24/17 10:00 75 06/24/17 08:00 92 06/24/17 08:00 98.6 92 28 114/54 (74) 90 06/24/17 07:50 96 Partial Rebreather I/O 06/24/17 06/24/17 06/24/17 06/25/17 06/25/17 06/25/17 07:00 15:00 23:00 07:00 15:00 23:00 Intake Total 670 ml 50 ml 1532 ml 959 ml Output Total 1350 ml 950 ml 1650 ml Balance -680 ml 50 ml 582 ml -691 ml Intake Oral 120 ml 650 ml IV Total 550 ml 50 ml 882 ml 959 ml Output Urine Total 1100 ml 450 ml 600 ml Stool Total 500 ml 550 ml Drainage Total 250 ml 500 ml Result Diagram: 06/23/17 0940 06/24/17 1723 Imaging Last Impressions Chest X-Ray 06/23/17 0600 Signed Impressions: Service Date/Time: Friday, June 23, 2017 03:19 - CONCLUSION: No significant change. Shan Reaves MD Percutaneous Cholangiogram 06/21/17 1513 Signed Impressions: Service Date/Time: May 14:26 - CONCLUSION: 1. Uncomplicated percutaneous cholecystostomy as above. 2. As noted above, bowel drapes over the anterior and anterolateral aspects of the gallbladder preventing access from this approach. A lateral, transhepatic approach was utilized. 3. Cystic duct and CBD all appear to be patent. Jermaine Herman MD Hepatobiliary Scan Nuclear Medicine 06/21/17 1120 Signed Impressions: Service Date/Time: May 11:19 - CONCLUSION: 1. Normal biliary bowel transit time with no evidence for common bile duct obstruction. 2. No activity noted in the gallbladder at up to 90 minutes. This is concerning for obstruction of the cystic duct in this patient with suspected acute cholecystitis. Given the high degree of clinical suspicion and patient's tenuous clinical condition, plan is for percutaneous cholecystostomy drain placement rather than delayed imaging. Swapnil Marte MD Chest CT 06/19/17 1513 Signed Impressions: Service Date/Time: Monday, June 19, 2017 15:59 - CONCLUSION: 1. Chronic interstitial lung disease 2. Bibasilar airspace disease with small effusions and mild dural thickening 3. 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 Long Garrison MD Renal Ultrasound 06/19/17 0000 Signed Impressions: Service Date/Time: Monday, June 19, 2017 13:29 - CONCLUSION: 1. Hyperechoic kidneys consistent with medical renal disease. 2. No obstructive uropathy. Swapnil Marte MD Abdomen Ultrasound 06/19/17 0000 Signed Impressions: Service Date/Time: Monday, June 19, 2017 14:14 - CONCLUSION: 1. No significant ascites. Swapnil Marte MD GI Procedure 06/18/17 0000 Signed Impressions: Service Date/Time: Sunday, June 18, 2017 13:06 - CONCLUSION: ERCP as above. Salomon Faust MD Abdomen X-Ray 06/17/172040 Signed Impressions: Service Date/Time: Saturday, June 17, 2017 20:49 - CONCLUSION: No evidence of free air. Salomon Faust MD Abdomen/Pelvis CT 06/17/172002 Signed Impressions: Service Date/Time: Saturday, June 17, 2017 21:30 - CONCLUSION: 1. 5 mm rounded density in the region of the distal common duct suspicious for choledocholithiasis. Common duct diameter has increased when compared to the prior study now measuring 7-8 mm in diameter. Mild diffuse intrahepatic biliary ductal prominence. 2. Cholelithiasis. 3. 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 No bowel dilatation. Salomon Faust MD Objective Remarks GENERAL: This is a frail elderly patient on partial non rebreather. EYES: Extraocular motions intact. ENT: Nose without bleeding. Airway patent. NECK: Trachea midline. Supple CARDIOVASCULAR: Irregularly irregular RESPIRATORY: Diminished breath sounds, exp wheezes. Currently getting a breathing treatment GASTROINTESTINAL: Abdomen soft, non-tender, nondistended. Positive bowel sounds. Ostomy and cholecystectomy tube in place. MUSCULOSKELETAL: Extremities without edema. Pedal pulses appreciated. NEUROLOGICAL/PSYCH: Awake and alert, calm. Moves all extremity on commands. A/P Assessment and Plan Bibasilar pneumonia A. fib with RVR Choledocholithiasis Acute respiratory failure and hypoxia QUIQUE on CKD Hypertension/hyperlipidemia DVT prophylaxis Plan: 06/20: Stat transfer to ICU, stat Check lactic acid, consult ID, Lopressor iv to control heart rate, resume Lopressorpo, Discussed with GI, discussed with GS 06/21: Heart rate much better on Lopressor 50 every 8 hours, still on 15 L nonrebreather mask, appreciate pulmonary, recommended high flow oxygen, ABG nonsignificant pH 7.44. Rayna scan has been done was concerning for obstruction, surgery following patient will go to IR for cholecystotomy drainage, ID following for iv antibiotic 06/22: pt agitated, aggressive if restraints removed. will consult Psych for assistance to agitation/confusion. Continue abx (zosyn/azithro). Monitor labs. Hypokalemia noted. Currently getting replacement. Per RN, pt NPO at this time, awaiting swallow eval. On D5NS @84ml/hr and also getting IV potassium. Monitor electrolytes. Leukocytosis resolved. s/p cholecystostomy tube placement. QUIQUE resolved. Continue to monitor in ICU due to respiratory status and still requiring partial non rebreather. 06/23: seems a bit better this morning. calm. at least he knows his name and that he is in a hospital. K 3.3. continue to supplement IV as pt is currently NPO per speech therapy recs. continue to monitor. added vasotec prn as he cannot yet take po meds. Discussed w GS yesterday, ok to resume dvt proph. Azithro has been stopped by ID and continue zosyn per their rec. Appreciate recs from psych. Try to remove restraints if pt cooperative. 06/24: Pt calm, took off his non rebreather and sats were 74% when I came into the room, I immediately put mask on and sats went up slowly. Pt seems to be improving, he is more alert and able to follow commands, he is off restraints. continue to monitor. continue breathing treatments and IV abx. He is on Zosyn. Discussed w RN, encourage out of bed to a recliner if possible to see if this helps w his ventilation. PT/ST/OT following. He is on puree honey thick diet. No BM's recorded, I requested that pt get his prn stool softeners in addition to the shahab-colace he is getting. Continue to monitor in the ICU for now as pt still requiring a partial non rebreather. Repeat K level as it was noted to be elevated this morning but due to blood being hemolyzed. 06/25: Pt calm and getting breathing treatment. Still requiring partial non rebreather. Per RN, didn't tolerate BiPAP last night. Pt less confused. Continue current management. ID, GS and pulm following. Appreciate assistance. Labs pending this morning. Continue cholecystostomy tube to drainage bag, pt not a candidate for sx. Once breathing treatment improves, will transfer out of ICU. Encourage out of bed to recliner daily. //Choledocholithiasis CT of the abdomen/pelvis showed choledocholithiasis with increased diameter of the common bile duct Leukocytosis, elevated lactic acid, transaminitis, elevated T bili currently on zosyn. Gastroenterology following, s/p ERCP. Dilaudid for pain //biBasilar pneumonia //Hypoxemic respiratory failure. -s/p Zithromax now on Zosyn. Continue supportive care with do nebs. Incentive spirometry, Acapella. BNP normal, echocardiogram without pericardial effusion. Pulmonology following. BiPAP at night but pt not tolerating it. Appreciate assistance. //Acute on chronic kidney injury resolved. IV fluid hydration Monitor renal function Avoid nephrotoxic agent //Hypertension/hyperlipidemia/a fib on metoprolol. Stable. FEN Electrolytes: monitor and replete prn on heparin Discharge Planning continue monitoring in the ICU, pt on partial non rebreather. continue to wean oxygen as tolerated. Once respiratory status improves, transfer out of ICU. Pt not a surgical candidate. Continue IV abx. Awaiting final recs from consultants. Bia Pérez MD Jun 25, 2017 07:54
[2017-06-25 08:24] LABS: AUTOMATED NEUTROPHIL # 6.6 TH/MM3 (1.8-7.7); BASOPHIL # 0.1 TH/MM3 (0-0.2); BASOPHIL % 0.6 % (0.0-2.0); EOSINOPHIL # 0.4 TH/MM3 (0-0.4); EOSINOPHIL % 4.3 % (0.0-4.0); HEMATOCRIT 36.2 % (39.0-51.0); LYMPH % 8.6 % (9.0-44.0); LYMPHOCYTE # 0.7 TH/MM3 (1.0-4.8); MEAN CELL VOLUME 98.2 FL (80.0-100.0); MEAN CORPUSCULAR HEMOGLOBIN 32.4 PG (27.0-34.0); MEAN PLATELET VOLUME 8.2 FL (7.0-11.0); MONOCYTE # 0.6 TH/MM3 (0-0.9); NEUT % 79.5 % (16.0-70.0); PLATELET COUNT 248 TH/MM3 (150-450); RED BLOOD COUNT 3.69 MIL/MM3 (4.50-5.90); RED CELL DISTRIBUTION WIDTH 16.7 % (11.6-17.2); WHITE BLOOD COUNT 8.3 TH/MM3 (4.0-11.0)
[2017-06-25 08:46] LABS: BICARBONATE 27.1 MEQ/L (21.0-32.0); CALCIUM 9.2 MG/DL (8.5-10.1); CREATININE 1.21 MG/DL (0.60-1.30)
[2017-06-25] MEDS: DOCUSATE SODIUM 50 MG/SENNA 8.6 MG TAB PO SCH ×2 (09:00→20:31)
[2017-06-25] MEDS: SODIUM CHLORIDE 0.9% FLUSH 10 ML FLUSH IV FLUSH SCH ×2 (09:35→20:30)
[2017-06-25] MEDS: HEPARIN SODIUM - SQ 10,000 UNITS/ML VIAL SQ SCH ×2 (09:35→20:33)
[2017-06-25] MEDS: ENALAPRIL MALEATE 10 MG TAB PO SCH (09:35)
[2017-06-25] MEDS: ALLOPURINOL 300 MG TAB PO SCH (09:35)
--- NOTE | 2017-06-25 15:16 | HHI.PR ---
Subjective Remarks Seems Mildly Confused CXR shows basal infiltrates.On Zosyn. Had a Cholecystostomy tube placed .Output was OK. Objective Vital Signs Date Time Temp Pulse Resp B/P (MAP) Pulse Ox O2 Delivery O2 Flow Rate FiO2 06/25/17 07:37 93 Partial Rebreather 15.00 06/25/17 06:00 106 06/25/17 04:00 89 06/25/17 04:00 98.4 89 32 140/60 (86) 89 06/25/17 02:00 107 06/25/17 00:00 98.2 93 31 144/68 (93) 90 06/25/17 00:00 93 06/24/17 22:00 83 06/24/17 21:40 92 Partial Non-Rebreather 14.00 06/24/17 20:01 94 50 06/24/17 20:00 97.7 95 32 132/59 (83) 94 06/24/17 20:00 94 Bi-Pap 50 06/24/17 20:00 95 06/24/17 19:55 95 BiPAP 50 06/24/17 19:00 94 Partial Non-Rebreather 12.00 06/24/17 18:00 85 06/24/17 16:00 81 06/24/17 16:00 98.6 81 22 125/59 (81) 94 I/O 06/24/17 06/24/17 06/24/17 06/25/17 06/25/17 06/25/17 07:00 15:00 23:00 07:00 15:00 23:00 Intake Total 670 ml 50 ml 1532 ml 959 ml Output Total 1350 ml 950 ml 1650 ml Balance -680 ml 50 ml 582 ml -691 ml Intake Oral 120 ml 650 ml IV Total 550 ml 50 ml 882 ml 959 ml Output Urine Total 1100 ml 450 ml 600 ml Stool Total 500 ml 550 ml Drainage Total 250 ml 500 ml Result Diagram: 06/25/17 0706/25/17 07 Objective Remarks This is a moderately obese elderly man, who is alert and Pallor noted. No cyanosis. There is no clubbing. HEENT: Head normocephalic. Pupils are reactive and equal. Tongue dry. Throat is clear. Neck: Supple. No bruits or thyroid enlargement or lymphadenopathy. Chest: Few wheezes bilaterally with crackles over Both lung bases. Heart: The heart sounds are irregular, S1-S2 no murmur. Abdomen: Soft, protuberant with colostomy bag in place. Bowel sounds are active. No organomegaly.Tender upper abdomen. Drain on RUQ Extremities: 1 + edema with diminished pulses. Reflexes are 1+. The patient does move his lower extremities. Skin: No lesions are observed. Assessment and Plan Assessment and Plan IMPRESSION 1. Basilar pneumonia with hypoxemia. 2. History of choledocholithiasis/ Cholecystitis with sepsis. 3. Acute kidney injury with history of chronic kidney disease. 4. History of colostomy. 5. Atrial Fibrillation with RVR Plan : 1. Use Bipap at HS 12/5 CM ,FIo2 50% 2. Cont O2 Via ventimask 50 % daytime 3. CBC BMP in am. 4. Continue antibiotics, Zosyn. 5. Pureed diet as tolerated. 6. Haldol and Ativan for agitation 7. Continue Heparin 5000 U S/Q bid 8. IS at bedside qid. 9. To rehab soon. Lon Willams MD Jun 25, 2017 15:16
--- NOTE | 2017-06-25 17:14 | HHI.IDPN ---
Note Infectious Disease Note Patient is calm On O2 via partial rebreather. More alert. Afebrile. Biliary fluid culture has group D enterococcus. Post cholecystostomy tube placement. 86-year-old white male was admitted through the emergency department with abdominal pain. He was evaluated and found to have a 1.5 millimeter rounded density in the region of the distal common duct suspicious for choledocholithiasis. PAST MEDICAL HISTORY 1. Hypertension. 2. Hyperlipidemia. 3. Paroxysmal atrial fibrillation. 4. Osteoarthritis. 5. History of pulmonary embolism. 6. History of prostate cancer. 7. History of rectal cancer. 8. History of abdominal surgery. 9. Colostomy. 10. Left knee surgery. 11. Left hip repair. 12. Prostatectomy. ALLERGIES NO KNOWN DRUG ALLERGIES. MEDICATIONS Piperacillin/tazobactam OBJECTIVE: Vital Signs Date Time Temp Pulse Resp B/P (MAP) Pulse Ox O2 Delivery O2 Flow Rate FiO2 06/25/17 07:37 93 Partial Rebreather 15.00 06/25/17 06:00 106 06/25/17 04:00 89 06/25/17 04:00 98.4 89 32 140/60 (86) 89 06/25/17 02:00 107 06/25/17 00:00 98.2 93 31 144/68 (93) 90 06/25/17 00:00 93 06/24/17 22:00 83 06/24/17 21:40 92 Partial Non-Rebreather 14.00 06/24/17 20:01 94 50 06/24/17 20:00 97.7 95 32 132/59 (83) 94 06/24/17 20:00 94 Bi-Pap 50 06/24/17 20:00 95 06/24/17 19:55 95 BiPAP 50 06/24/17 19:00 94 Partial Non-Rebreather 12.00 06/24/17 18:00 85 Laboratory Tests Test 06/25/17 07:01 White Blood Count 8.3 TH/MM3 Red Blood Count 3.69 MIL/MM3 Hemoglobin 12.0 GM/DL Hematocrit 36.2 % Mean Corpuscular Volume 98.2 FL Mean Corpuscular Hemoglobin 32.4 PG Mean Corpuscular Hemoglobin Concent 33.0 % Red Cell Distribution Width 16.7 % Platelet Count 248 TH/MM3 Mean Platelet Volume 8.2 FL Neutrophils (%) (Auto) 79.5 % Lymphocytes (%) (Auto) 8.6 % Monocytes (%) (Auto) 7.0 % Eosinophils (%) (Auto) 4.3 % Basophils (%) (Auto) 0.6 % Neutrophils # (Auto) 6.6 TH/MM3 Lymphocytes # (Auto) 0.7 TH/MM3 Monocytes # (Auto) 0.6 TH/MM3 Eosinophils # (Auto) 0.4 TH/MM3 Basophils # (Auto) 0.1 TH/MM3 CBC Comment DIFF FINAL Differential Comment Laboratory Tests Test 06/24/17 04:50 06/24/17 17:23 06/25/17 07:01 Blood Urea Nitrogen 9 MG/DL 9 MG/DL Creatinine 1.07 MG/DL 1.21 MG/DL Random Glucose 118 MG/DL 105 MG/DL Calcium Level 9.1 MG/DL 9.2 MG/DL Magnesium Level 1.9 MG/DL Total Bilirubin 1.9 MG/DL Sodium Level 138 MEQ/L 139 MEQ/L Potassium Level 5.2 MEQ/L 3.7 MEQ/L 3.9 MEQ/L Chloride Level 107 MEQ/L 105 MEQ/L Carbon Dioxide Level 26.1 MEQ/L 27.1 MEQ/L Anion Gap 5 MEQ/L 7 MEQ/L Estimat Glomerular Filtration Rate 66 ML/MIN 57 ML/MIN Microbiology Date/Time Source Procedure Growth Status 06/24/17 02:10 Fluid Bile Fluid Gram Stain - Final Resulted 06/24/17 02:10 Body Fluid Culture - Preliminary Group D Enterococcus Resulted IMAGING: Hepatobiliary Scan Nuclear Medicine 06/21/17 1120 Signed Impressions: Service Date/Time: May 11:19 - CONCLUSION: 1. Normal biliary bowel transit time with no evidence for common bile duct obstruction. 2. No activity noted in the gallbladder at up to 90 minutes. This is concerning for obstruction of the cystic duct in this patient with suspected acute cholecystitis. Given the high degree of clinical suspicion and patient's tenuous clinical condition, plan is for percutaneous cholecystostomy drain placement rather than delayed imaging. Swapnil Marte MD Chest CT 06/19/17 1513 Signed Impressions: Service Date/Time: Monday, June 19, 2017 15:59 - CONCLUSION: 1. Chronic interstitial lung disease 2. Bibasilar airspace disease with small effusions and mild dural thickening 3. 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 Long Garrison MD Renal Ultrasound 06/19/17 0000 Signed Impressions: Service Date/Time: Monday, June 19, 2017 13:29 - CONCLUSION: 1. Hyperechoic kidneys consistent with medical renal disease. 2. No obstructive uropathy. Swapnil Marte MD Chest X-Ray 06/19/17 0000 Signed Impressions: Service Date/Time: Monday, June 19, 2017 10:36 - CONCLUSION: Hypoaerated lungs with mild right basilar airspace disease. Mild cardiomegaly Long Garrison MD Abdomen Ultrasound 06/19/17 0000 Signed Impressions: Service Date/Time: Monday, June 19, 2017 14:14 - CONCLUSION: 1. No significant ascites. Swapnil Marte MD GI Procedure 06/18/17 0000 Signed Impressions: Service Date/Time: Sunday, June 18, 2017 13:06 - CONCLUSION: ERCP as above. Salomon Faust MD Abdomen X-Ray 06/17/172040 Signed Impressions: Service Date/Time: Saturday, June 17, 2017 20:49 - CONCLUSION: No evidence of free air. Salomon Faust MD Abdomen/Pelvis CT 06/17/172002 Signed Impressions: Service Date/Time: Saturday, June 17, 2017 21:30 - CONCLUSION: 1. 5 mm rounded density in the region of the distal common duct suspicious for choledocholithiasis. Common duct diameter has increased when compared to the prior study now measuring 7-8 mm in diameter. Mild diffuse intrahepatic biliary ductal prominence. 2. Cholelithiasis. 3. 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 No bowel dilatation. Salomon Faust MD PHYSICAL EXAMINATION: GENERAL: No acute distress. HEENT: Head is atraumatic. Extraocular movements grossly intact. No icterus. Oropharynx: mucosa appears slightly dry. Neck: Obese, no tenderness. Lungs: Decreased breath sounds. Heart: Irregular rate and rhythm. Slight systolic murmur at the left sternal border. Abdomen: Bowel sounds present but diminished, soft. Non tender. Colostomy bag in place at the left lower quadrant and appears functional. Extremities: No clubbing or cyanosis or edema. Skin: No rash. NEURO: No focal finding. Psych: Calm and cooperative. IMPRESSION 1. Pneumonia. 2. Choledocholithiasis. 3. Hypoxemia. RECOMMENDATIONS 1. Continue piperacillin/tazobactam. 2. Restart Zithromax. 3. Follow temperature. 4. Follow clinical status. Lito Sena MD Jun 25, 2017 17:14
[2017-06-25] MEDS: AZITHROMYCIN 250 MG TAB PO SCH (20:30)
[2017-06-25] MEDS: ATORVASTATIN 10 MG TAB PO SCH (20:31)
[2017-06-26] VITALS (14 sets, daily range): BP systolic 136–146; BP diastolic 61–121; PULSE 70–105; RESP 24–40; TEMP 97.2–98.9; O2SAT 90–97
[2017-06-26] MEDS: PIPERACIL-TAZO 3.375 GM PREMIX 50 ML IV SCH ×3 (00:11→12:05)
[2017-06-26] MEDS: METOPROLOL TARTRATE 50 MG TAB PO SCH ×4 (00:11→23:44)
[2017-06-26] MEDS: RESP: IPRATROPIUM 0.5 MG/2.5 ML NEB NEB SCH ×6 (03:31→23:13)
[2017-06-26 05:23] LABS: AUTOMATED NEUTROPHIL # 7.8 TH/MM3 (1.8-7.7); BASOPHIL # 0.1 TH/MM3 (0-0.2); BASOPHIL % 0.6 % (0.0-2.0); EOSINOPHIL # 0.4 TH/MM3 (0-0.4); EOSINOPHIL % 4.2 % (0.0-4.0); HEMATOCRIT 35.5 % (39.0-51.0); HEMOGLOBIN 11.6 GM/DL (13.0-17.0); LYMPH % 8.4 % (9.0-44.0); LYMPHOCYTE # 0.8 TH/MM3 (1.0-4.8); MEAN CELL VOLUME 98.2 FL (80.0-100.0); MEAN CORPUSCULAR HEMOGLOBIN 32.2 PG (27.0-34.0); MEAN CORPUSCULAR HGB CONC 32.8 % (32.0-36.0); MEAN PLATELET VOLUME 8.1 FL (7.0-11.0); MONO % 7.1 % (0.0-8.0); MONOCYTE # 0.7 TH/MM3 (0-0.9); NEUT % 79.7 % (16.0-70.0); PLATELET COUNT 279 TH/MM3 (150-450); RED BLOOD COUNT 3.61 MIL/MM3 (4.50-5.90); RED CELL DISTRIBUTION WIDTH 16.6 % (11.6-17.2); WHITE BLOOD COUNT 9.8 TH/MM3 (4.0-11.0)
[2017-06-26 05:43] LABS: BICARBONATE 27.6 MEQ/L (21.0-32.0); CALCIUM 9.1 MG/DL (8.5-10.1); CREATININE 1.3 MG/DL (0.60-1.30); MAGNESIUM 1.9 MG/DL (1.5-2.5)
[2017-06-26] MEDS: D5-NS + KCL 20 MEQ INJ 1,000 ML IV SCH ×2 (07:28→20:22)
[2017-06-26] MEDS: ENALAPRIL MALEATE 10 MG TAB PO SCH (08:16)
[2017-06-26] MEDS: DOCUSATE SODIUM 50 MG/SENNA 8.6 MG TAB PO SCH ×2 (08:16→20:21)
[2017-06-26] MEDS: SODIUM CHLORIDE 0.9% FLUSH 10 ML FLUSH IV FLUSH SCH ×2 (08:16→20:21)
[2017-06-26] MEDS: AZITHROMYCIN 250 MG TAB PO SCH (08:16)
[2017-06-26] MEDS: ALLOPURINOL 300 MG TAB PO SCH (08:17)
[2017-06-26] MEDS: HEPARIN SODIUM - SQ 10,000 UNITS/ML VIAL SQ SCH ×2 (08:17→20:21)
--- NOTE | 2017-06-26 11:28 | HHI.PR ---
Subjective Remarks Remains in ICU Still on 6 L by nasal cannula Does not like the liquid diet Have discussed with patient and RN and A.m. labs Increase activity Physical therapy and occupational therapy to eval and treat Continue current TREATMENTS Objective Vitals Vital Signs Date Time Temp Pulse Resp B/P (MAP) Pulse Ox O2 Delivery O2 Flow Rate FiO2 06/26/17 10:00 75 06/26/17 08:24 91 Nasal Cannula 7.00 06/26/17 08:00 97.6 75 31 140/65 (90) 93 06/26/17 08:00 75 06/26/17 07:00 96 Partial Non-Rebreather 06/26/17 06:00 78 06/26/17 04:00 74 25 146/121 (129) 93 06/26/17 04:00 74 06/26/17 02:00 76 06/26/17 00:00 94 Partial Non-Rebreather 06/26/17 00:00 98.9 105 40 137/61 (86) 94 06/26/17 00:00 105 06/25/17 23:56 91 Partial Rebreather 15.00 06/25/17 22:00 73 06/25/17 21:30 92 Venturi Mask 5.00 06/25/17 20:52 93 Venturi Mask 6.00 50 06/25/17 20:41 94 Partial Rebreather 13.00 06/25/17 20:00 98.4 85 22 141/97 (112) 97 06/25/17 20:00 85 06/25/17 19:00 94 Partial Non-Rebreather 06/25/17 18:00 79 26 154/66 (95) 92 06/25/17 18:00 79 06/25/17 17:00 80 06/25/17 17:00 80 27 138/94 (109) 90 06/25/17 16:00 75 06/25/17 16:00 75 31 137/80 (99) 92 06/25/17 15:00 76 29 126/60 (82) 94 06/25/17 15:00 76 06/25/17 14:00 79 06/25/17 14:00 79 25 139/88 (105) 95 06/25/17 13:00 80 06/25/17 13:00 80 29 130/59 (82) 94 06/25/17 12:00 76 28 113/61 (78) 95 06/25/17 12:00 76 I/O 06/25/17 06/25/17 06/25/17 06/26/17 06/26/17 06/26/17 07:00 15:00 23:00 07:00 15:00 23:00 Intake Total 959 ml 1290 ml 170 ml 1000 ml Output Total 1650 ml 1700 ml 950 ml Balance -691 ml -410 ml -780 ml 1000 ml Intake Oral 240 ml 120 ml IV Total 959 ml 1050 ml 50 ml 1000 ml Output Urine Total 600 ml 1100 ml 600 ml Stool Total 550 ml 200 ml 0 ml Drainage Total 500 ml 400 ml 350 ml # Voids 3 # Bowel Movements 0 Result Diagram: 06/26/17 0426 06/26/17 0426 Other Results Laboratory Tests Test 06/24/17 04:50 06/24/17 17:23 06/25/17 07:01 06/26/17 04:26 Blood Urea Nitrogen 9 MG/DL 9 MG/DL 10 MG/DL Creatinine 1.07 MG/DL 1.21 MG/DL 1.30 MG/DL Random Glucose 118 MG/DL 105 MG/DL 104 MG/DL Calcium Level 9.1 MG/DL 9.2 MG/DL 9.1 MG/DL Magnesium Level 1.9 MG/DL 1.9 MG/DL Total Bilirubin 1.9 MG/DL Sodium Level 138 MEQ/L 139 MEQ/L 139 MEQ/L Potassium Level 5.2 MEQ/L 3.7 MEQ/L 3.9 MEQ/L 3.9 MEQ/L Chloride Level 107 MEQ/L 105 MEQ/L 105 MEQ/L Carbon Dioxide Level 26.1 MEQ/L 27.1 MEQ/L 27.6 MEQ/L Anion Gap 5 MEQ/L 7 MEQ/L 6 MEQ/L Estimat Glomerular Filtration Rate 66 ML/MIN 57 ML/MIN 52 ML/MIN White Blood Count 8.3 TH/MM3 9.8 TH/MM3 Red Blood Count 3.69 MIL/MM3 3.61 MIL/MM3 Hemoglobin 12.0 GM/DL 11.6 GM/DL Hematocrit 36.2 % 35.5 % Mean Corpuscular Volume 98.2 FL 98.2 FL Mean Corpuscular Hemoglobin 32.4 PG 32.2 PG Mean Corpuscular Hemoglobin Concent 33.0 % 32.8 % Red Cell Distribution Width 16.7 % 16.6 % Platelet Count 248 TH/MM3 279 TH/MM3 Mean Platelet Volume 8.2 FL 8.1 FL Neutrophils (%) (Auto) 79.5 % 79.7 % Lymphocytes (%) (Auto) 8.6 % 8.4 % Monocytes (%) (Auto) 7.0 % 7.1 % Eosinophils (%) (Auto) 4.3 % 4.2 % Basophils (%) (Auto) 0.6 % 0.6 % Neutrophils # (Auto) 6.6 TH/MM3 7.8 TH/MM3 Lymphocytes # (Auto) 0.7 TH/MM3 0.8 TH/MM3 Monocytes # (Auto) 0.6 TH/MM3 0.7 TH/MM3 Eosinophils # (Auto) 0.4 TH/MM3 0.4 TH/MM3 Basophils # (Auto) 0.1 TH/MM3 0.1 TH/MM3 CBC Comment DIFF FINAL AUTO DIFF Differential Comment AUTO DIFF CONFIRMED Platelet Estimate NORMAL Platelet Morphology Comment NORMAL Red Cell Morphology Comment NORMAL Imaging Last Impressions Chest X-Ray 06/23/17 0600 Signed Impressions: Service Date/Time: Friday, June 23, 2017 03:19 - CONCLUSION: No significant change. Shan Reaves MD Percutaneous Cholangiogram 06/21/17 1513 Signed Impressions: Service Date/Time: May 14:26 - CONCLUSION: 1. Uncomplicated percutaneous cholecystostomy as above. 2. As noted above, bowel drapes over the anterior and anterolateral aspects of the gallbladder preventing access from this approach. A lateral, transhepatic approach was utilized. 3. Cystic duct and CBD all appear to be patent. Jermaine Herman MD Hepatobiliary Scan Nuclear Medicine 06/21/17 1120 Signed Impressions: Service Date/Time: May 11:19 - CONCLUSION: 1. Normal biliary bowel transit time with no evidence for common bile duct obstruction. 2. No activity noted in the gallbladder at up to 90 minutes. This is concerning for obstruction of the cystic duct in this patient with suspected acute cholecystitis. Given the high degree of clinical suspicion and patient's tenuous clinical condition, plan is for percutaneous cholecystostomy drain placement rather than delayed imaging. Swapnil Marte MD Chest CT 06/19/17 1513 Signed Impressions: Service Date/Time: Monday, June 19, 2017 15:59 - CONCLUSION: 1. Chronic interstitial lung disease 2. Bibasilar airspace disease with small effusions and mild dural thickening 3. 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 Long Garrison MD Renal Ultrasound 06/19/17 0000 Signed Impressions: Service Date/Time: Monday, June 19, 2017 13:29 - CONCLUSION: 1. Hyperechoic kidneys consistent with medical renal disease. 2. No obstructive uropathy. Swapnil Marte MD Abdomen Ultrasound 06/19/17 0000 Signed Impressions: Service Date/Time: Monday, June 19, 2017 14:14 - CONCLUSION: 1. No significant ascites. Swapnil Marte MD GI Procedure 06/18/17 0000 Signed Impressions: Service Date/Time: Sunday, June 18, 2017 13:06 - CONCLUSION: ERCP as above. Salomon Faust MD Abdomen X-Ray [id number]/17/[id number] Signed Impressions: Service Date/Time: Saturday, June 17, 2017 20:49 - CONCLUSION: No evidence of free air. Salomon Faust MD Abdomen/Pelvis CT 06/17/172002 Signed Impressions: Service Date/Time: Saturday, June 17, 2017 21:30 - CONCLUSION: 1. 5 mm rounded density in the region of the distal common duct suspicious for choledocholithiasis. Common duct diameter has increased when compared to the prior study now measuring 7-8 mm in diameter. Mild diffuse intrahepatic biliary ductal prominence. 2. Cholelithiasis. 3. 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 No bowel dilatation. Salomon Faust MD Objective Remarks GENERAL: Awake and alert some confusion this morning only on 6 L by nasal cannula now SKIN: Warm and dry. HEAD: Atraumatic. Normocephalic. EYES: Pupils equal and round. No scleral icterus. No injection or drainage. Extraocular muscles intact ENT: No nasal bleeding or discharge. Mucous membranes pink and moist. Tongue appears midline NECK: Trachea midline. No JVD. Supple CARDIOVASCULAR: IRRegular rate and rhythm. S1 and S2 no S3 or S4 RESPIRATORY: No accessory muscle use. Few rhonchi is bilaterally. Breath sounds equal bilaterally. GASTROINTESTINAL: Abdomen soft, non-tender, nondistended. Hepatic and splenic margins not palpable. Cholecystotomy tube in place ostomy IN PLACE MUSCULOSKELETAL: Extremities without clubbing, cyanosis, or edema. No obvious deformities. NEUROLOGICAL: Awake and alert. No obvious cranial nerve deficits. Motor grossly within normal limits. 3 out of 5 muscle strength in the arms and legs. Normal speech. PSYCHIATRIC: INAppropriate mood and affect; insight and judgment ABnormal. Procedures Pre Procedure Diagnosis: (1) Acute cholecystitis Post Procedure Diagnosis: (1) Biliary sludge Procedure Date: Jun 21, 2017 Supervising Radiologist: Jermaine Herman Proceduralist/Assist: Ca Khan, RT(R)(CV), Kristan Lundy RT(R) Anesthesia: Local, Analgesia, Conscious Sedation Plan of Activity Patient to Unit: ROPU Patient Condition: Good See PACS Report for procedural detail/treatment Drainage Procedure Procedure 1 Imaging Guidance: Fluoroscopy, Ultrasound Procedure Type: Cholecystostomy Procedure: Placement Drainage: [place] drainage Fluid Description: Cloudy, Bilious Findings: Bowel surrounds anterior access to GB. Transhepatic approach. Cystic duct and CBD patent. Debris in GB lumen. 8Fr catheter to gravity drainage. Medications and IVs Current Medications Ondansetron HCl (Zofran Inj) 4 mg ONCE ONCE IVP Last administered on 20:31; Start 06/17/17 at 20:15; Stop 06/17/17 at 20:16; Status DC Pantoprazole Sodium (Protonix Inj) 40 mg ONCE ONCE IVP Last administered on 20:31; Start 06/17/17 at 20:15; Stop 06/17/17 at 20:16; Status DC Sodium Chloride (NS Flush) 2 ml UNSCH PRN IV FLUSH FLUSH AFTER USING IV ACCESS ; Start 06/17/17 at 20:15; Stop 06/17/17 at 23:06; Status DC Morphine Sulfate (Morphine Inj) 4 mg ONCE ONCE IV PUSH Last administered on 20:32; Start 06/17/17 at 20:15; Stop 06/17/17 at 20:16; Status DC Morphine Sulfate (Morphine Inj) 4 mg STK-MED ONCE .ROUTE ; Start 06/17/17 at 20 :39; Stop 06/17/17 at 20:40; Status DC Hydromorphone HCl (Dilaudid Pf Inj) 1 mg ONCE ONCE IV PUSH Last administered on 06/17/17 21:03; Start 06/17/17 at 21:00; Stop 06/17/17 at 21:01; Status DC Sodium Chloride 1,000 ml @ 999 mls/hr BOLUS ONCE IV Last administered on 21:30; Start 06/17/17 at 21:15; Stop 06/17/17 at 22:15; Status DC Iodixanol (VISIPAQUE 320 INJ (Rad CT)) 40 ml STK-MED ONCE IVCONTRAST Last administered on 06/17/17 20:01; Start 06/17/17 at 20:01; Stop 06/17/17 at 21 :49; Status DC Ceftriaxone Sodium 1000 mg/ Sodium Chloride 100 ml @ 200 mls/hr ONCE ONCE IV Last administered on 06/17/17 22:48; Start 06/17/17 at 22:30; Stop 06/17/17 at 22:59; Status DC Ceftriaxone Sodium 1000 mg/ Sodium Chloride 100 ml @ 200 mls/hr Q24H IV Last administered on 06/18/17 21:27; Start 06/18/17 at 22:30; Stop 06/19/17 at 11 :46; Status DC Hydromorphone HCl (Dilaudid Pf Inj) 1 mg Q4H PRN IV PUSH pain 6-10 Last administered on 06/18/17 10:19; Start 06/17/17 at 23:00; Stop 06/19/17 at 11 :45; Status DC Sodium Chloride 1,000 ml @ 125 mls/hr Q8H IV Last administered on 06/21/17 16:31; Start 06/17/17 at 22:55; Stop 06/21/17 at 20:36; Status DC Sodium Chloride (NS Flush) 2 ml UNSCH PRN IV FLUSH FLUSH AFTER USING IV ACCESS ; Start 06/17/17 at 23:00 Sodium Chloride (NS Flush) 2 ml BID IV FLUSH Last administered on 06/26/17at 08: 16; Start 06/18/17 at 09:00 Ondansetron HCl (Zofran Inj) 4 mg Q6H PRN IVP NAUSEA OR VOMITING Last administered on 06/18/17 07:34; Start 06/17/17 at 23:00 Naloxone HCl (Narcan Inj) 0.4 mg UNSCH PRN IV PUSH SEE LABEL COMMENTS; Start 06/17/17 at 23:00 Senna/Docusate Sodium (Le-Colace) 1 tab BID PO Last administered on 06/26/17at 08:16; Start 06/18/17 at 09:00 Magnesium Hydroxide (Milk Of Magnesia Liq) 30 ml Q12H PRN PO Mild constipation ; Start 06/17/17 at 23:00 Sennosides (Senokot) 17.2 mg Q12H PRN PO Moderate constipation; Start at 23:00 Bisacodyl (Dulcolax Supp) 10 mg DAILY PRN RECTAL SEVERE CONSITIPATION/ IF NPO; Start 06/17/17 at 23:00 Lactulose (Lactulose Liq) 30 ml DAILY PRN PO SEVERE CONSITIPATION/ IF PO; Start 06/17/17 at 23:00 Sugammadex Sodium (Bridion Inj) 400 mg STK-MED ONCE IV PUSH ; Start 06/18/17 at 12:42; Stop 06/18/17 at 12:43; Status DC Albuterol Sulfate (*ALBUTEROL NEB PERIprocedure ONLY) 2.5 mg STK-MED ONCE NEB ; Start 06/18/17 at 13:43; Stop 06/18/17 at 13:44; Status DC Miscellaneous Information ALL NURSING DEPARTME... UNSCH PRN .XX SEE LABEL COMMENTS; Start 06/18/17 at 14:00; Stop 06/19/17 at 13:59; Status DC Iohexol (Omnipaque 350 Inj) 50 ml STK-MED ONCE OTHER Last administered on 06/18t 14:01; Start 06/18/17 at 14:01; Stop 06/18/17 at 14:02; Status DC Albuterol/ Ipratropium (Duoneb Neb) 1 ampule Q6HR NEB NEB ; Start 06/19/17 at 16:00; Stop 06/19/17 at 16:00; Status DC Albuterol/ Ipratropium (Duoneb Neb) 1 ampule ONCE ONCE NEB ; Start 06/19/17 at 10:30; Stop 06/19/17 at 10:34; Status DC Sodium Chloride 1,000 ml @ 999 mls/hr BOLUS ONCE IV Last administered on 12:14; Start 06/19/17 at 12:00; Stop 06/19/17 at 13:00; Status DC Piperacillin Sod/ Tazobactam Sod 50 ml @ 100 mls/hr Q6H IV Last administered on 06/26/17 07:29; Start 06/19/17 at 13:00 Ipratropium [place] (Atrovent Neb) 0.5 mg Q2HR NEB NEB Last administered on 13:27; Start 06/19/17 at 12:00; Stop 06/19/17 at 14:01; Status DC Thiamine HCl (Vitamin B1) 500 mg ONCE ONCE PO Last administered on 06/19/17 12:17; Start 06/19/17 at 12:00; Stop 06/19/17 at 12:07; Status DC Azithromycin 500 mg/Sodium Chloride 250 ml @ 250 mls/hr Q24H IV ; Start at 14:00; Status Cancel Ipratropium [place] (Atrovent Neb) 0.5 mg Q2HR NEB PRN NEB SOB/WHEEZING; Start 06/19/17 at 14:00 Ipratropium [place] (Atrovent Neb) 0.5 mg Q4HR NEB NEB Last administered on 11:18; Start 06/19/17 at 16:00 Azithromycin 500 mg/Sodium Chloride 250 ml @ 250 mls/hr Q24H IV Last administered on 06/22/17 16:41; Start 06/19/17 at 17:00; Stop 06/22/17 at 16 :45; Status DC Allopurinol (Zyloprim) 300 mg DAILY PO Last administered on 06/26/17 08:17; Start 06/20/17 at 12:45 Atorvastatin Calcium (Lipitor) 10 mg HS PO Last administered on 06/25/17 20:31 ; Start 06/20/17 at 21:00 Enalapril Maleate (Vasotec) 10 mg DAILY PO Last administered on 06/26/17 08:16 ; Start 06/20/17 at 12:45 Metoprolol Tartrate (Lopressor) 50 mg BID PO Last administered on 06/20/17 12 :47; Start 06/20/17 at 12:45; Stop 06/20/17 at 16:28; Status DC Metoprolol Tartrate (Lopressor Inj) 5 mg ONCE ONCE IV PUSH Last administered on 06/20/17 13:53; Start 06/20/17 at 12:45; Stop 06/20/17 at 12:46; Status DC Miscellaneous Information Patient in critical care unit? Ass... [id number] .XX Last administered on 06/20/17 14:15; Start 06/20/17 at 14:15 Chlorhexidine Gluconate (Chlorhexidine 2% Cloth) 3 pack DAILY@04 TOPICAL Last administered on 06/25/17 04:00; Start 06/21/17 at 04:00; Stop 06/25/17 at 04:01 ; Status DC Chlorhexidine Gluconate (Chlorhexidine 2% Cloth) 3 pack UNSCH PRN TOPICAL HYGIENIC CARE; Start 06/20/17 at 14:15; Stop 06/25/17 at 14:03; Status DC Metoprolol Tartrate (Lopressor) 50 mg Q8H PO Last administered on 06/26/17 08: 17; Start 06/20/17 at 17:00 Furosemide (Lasix Inj) 40 mg ONCE ONCE IV PUSH Last administered on 19:06; Start 06/20/17 at 18:15; Stop 06/20/17 at 18:16; Status DC Heparin Sodium (Porcine) (Heparin Inj) 5,000 units Q12HR SQ Last administered on 06/26/17 08:17; Start 06/20/17 at 21:00; Status Future hold Fentanyl Citrate (fentaNYL INJ) 250 mcg STK-MED ONCE .ROUTE Last administered on 06/21/17 14:36; Start 06/21/17 at 14:36; Stop 06/21/17 at 14:37; Status DC Iohexol (Omnipaque 350 Inj) 2 ml STK-MED ONCE OTHER ; Start 06/21/17 at 15:44; Stop 06/21/17 at 15:45; Status DC Dextrose/Sodium Chloride 1,000 ml @ 84 mls/hr [id number] IV Last administered on 06/22/17 16:40; Start 06/21/17 at 20:45; Stop 06/22/17 at 20:13; Status DC Dextrose (D50w (Vial) Inj) 50 ml UNSCH PRN IV PUSH HYPOGLYCEMIA-SEE COMMENTS; Start 06/21/17 at 20:45 Glucagon (Glucagon Inj) 1 mg UNSCH PRN OTHER HYPOGLYCEMIA-SEE COMMENTS; Start 06/21/17 at 20:45 Haloperidol Lactate (Haldol Inj) 2 mg ONCE ONCE IM Last administered on 01:48; Start 06/22/17 at 01:45; Stop 06/22/17 at 01:46; Status DC Potassium Chloride 100 ml @ 100 mls/hr Q1H IV Last administered on 06/22/17 11:26; Start 06/22/17 at 06:15; Stop 06/22/17 at 10:14; Status DC Lorazepam (Ativan Inj) 1 mg Q4H PRN IV PUSH SEVERE AGITATION; Start 06/22/17 at 08:15 Haloperidol Lactate (Haldol Inj) 2 mg STAT STAT IM Last administered on 09:11; Start 06/22/17 at 09:11; Stop 06/22/17 at 09:12; Status DC Potassium Chloride/Dextrose/ Sod Cl 1,000 ml @ 84 mls/hr [id number] IV Last administered on 06/26/17at 07:28; Start 06/22/17 at 20:30 Enalaprilat (Vasotec Inj) 1.25 mg Q6H PRN IV PUSH SBP>160, DBP>90; Start 06/23 at 07:45 Potassium Chloride 100 ml @ 50 mls/hr Q2H IV Last administered on 06/23/17 14:04; Start 06/23/17 at 08:00; Stop 06/23/17 at 11:59; Status DC Lidocaine HCl (Xylocaine-Mpf 1% Inj) 5 ml STK-MED ONCE OTHER ; Start 06/21/17 at 12:00; Stop 06/25/17 at 09:27; Status DC Rocuronium [place] (Zemuron Inj) 50 mg STK-MED ONCE IV PUSH ; Start 06/21/17 at 12:00; Stop 06/25/17 at 09:27; Status DC Phenylephrine HCl (Neosynephrine/ NS 1000 Mcg/10ml Syr) 1,000 mcg STK-MED ONCE IV ; Start 06/21/17 at 12:00; Stop 06/25/17 at 09:27; Status DC Phenylephrine HCl (Neosynephrine Inj) 10 mg STK-MED ONCE IV ; Start 06/21/17 at 12:00; Stop 06/25/17 at 09:27; Status DC Propofol (Diprivan 200 Mg/20 ml Inj) 200 mg STK-MED ONCE IV ; Start 06/21/17 at 12:00; Stop 06/25/17 at 09:27; Status DC Azithromycin (Zithromax) 500 mg DAILY PO Last administered on 06/26/17at 08:16; Start 06/25/17 at 17:15 A/P Assessment and Plan Assessment and Plan Bibasilar pneumonia A. fib with RVR Choledocholithiasis Acute respiratory failure and hypoxia QUIQUE on CKD Hypertension/hyperlipidemia DVT prophylaxis Plan: 06/20: Stat transfer to ICU, stat Check lactic acid, consult ID, Lopressor iv to control heart rate, resume Lopressorpo, Discussed with GI, discussed with GS 06/21: Heart rate much better on Lopressor 50 every 8 hours, still on 15 L nonrebreather mask, appreciate pulmonary, recommended high flow oxygen, ABG nonsignificant pH 7.44. Rayna scan has been done was concerning for obstruction, surgery following patient will go to IR for cholecystotomy drainage, ID following for iv antibiotic 06/22: pt agitated, aggressive if restraints removed. will consult Psych for assistance to agitation/confusion. Continue abx (zosyn/azithro). Monitor labs. Hypokalemia noted. Currently getting replacement. Per RN, pt NPO at this time, awaiting swallow eval. On D5NS @84ml/hr and also getting IV potassium. Monitor electrolytes. Leukocytosis resolved. s/p cholecystostomy tube placement. QUIQUE resolved. Continue to monitor in ICU due to respiratory status and still requiring partial non rebreather. 06/23: seems a bit better this morning. calm. at least he knows his name and that he is in a hospital. K 3.3. continue to supplement IV as pt is currently NPO per speech therapy recs. continue to monitor. added vasotec prn as he cannot yet take po meds. Discussed w GS yesterday, ok to resume dvt proph. Azithro has been stopped by ID and continue zosyn per their rec. Appreciate recs from psych. Try to remove restraints if pt cooperative. 06/24: Pt calm, took off his non rebreather and sats were 74% when I came into the room, I immediately put mask on and sats went up slowly. Pt seems to be improving, he is more alert and able to follow commands, he is off restraints. continue to monitor. continue breathing treatments and IV abx. He is on Zosyn. Discussed w RN, encourage out of bed to a recliner if possible to see if this helps w his ventilation. PT/ST/OT following. He is on puree honey thick diet. No BM's recorded, I requested that pt get his prn stool softeners in addition to the le-colace he is getting. Continue to monitor in the ICU for now as pt still requiring a partial non rebreather. Repeat K level as it was noted to be elevated this morning but due to blood being hemolyzed. 06/25: Pt calm and getting breathing treatment. Still requiring partial non rebreather. Per RN, didn't tolerate BiPAP last night. Pt less confused. Continue current management. ID, GS and pulm following. Appreciate assistance. Labs pending this morning. Continue cholecystostomy tube to drainage bag, pt not a candidate for sx. Once breathing treatment improves, will transfer out of ICU. Encourage out of bed to recliner daily. 1-2 patient is still not able to get out of bed. Very short of breath. Slightly confused In bed chair sitting like a recliner at bedside during exam Discussed with RN and patient and Very slow going //Choledocholithiasis CT of the abdomen/pelvis showed choledocholithiasis with increased diameter of the common bile duct Leukocytosis, elevated lactic acid, transaminitis, elevated T bili currently on zosyn. Gastroenterology following, s/p ERCP. Dilaudid for pain Cholecystotomy tube in place //biBasilar pneumonia //Hypoxemic respiratory failure. -s/p Zithromax now on Zosyn. Continue supportive care with do nebs. Incentive spirometry, Acapella. BNP normal, echocardiogram without pericardial effusion. Pulmonology following. BiPAP at night but pt not tolerating it. Appreciate assistance. Wean oxygen as able to-- currently on 6 L by nasal //Acute on chronic kidney injury resolved. IV fluid hydration Monitor renal function Avoid nephrotoxic agent A.m. labs //Hypertension/hyperlipidemia/a fib on metoprolol. Stable. FEN Electrolytes: monitor and replete prn on heparin Discharge Planning continue monitoring in the ICU, pt on 6L BY NC. continue to wean oxygen as tolerated. Once respiratory status improves, transfer out of ICU. Pt not a surgical candidate. Continue IV abx. Awaiting final recs from consultants. Discharge Planning Pending improvement Edd Godinez DO Jun 26, 2017 11:28
--- NOTE | 2017-06-26 14:43 | HHI.PR ---
cc: Bao Rojas MD Subjective Subjective Notes Resting in bed at bedside Objective Vitals/I&O Vital Signs Date Time Temp Pulse Resp B/P (MAP) Pulse Ox O2 Delivery O2 Flow Rate FiO2 06/26/17 12:00 97.6 71 24 136/61 (86) 90 06/26/17 08:24 Nasal Cannula 7.00 06/25/17 20:52 50 Labs Laboratory Tests Test 06/26/17 04:26 White Blood Count 9.8 Red Blood Count 3.61 Hemoglobin 11.6 Hematocrit 35.5 Mean Corpuscular Volume 98.2 Mean Corpuscular Hemoglobin 32.2 Mean Corpuscular Hemoglobin Concent 32.8 Red Cell Distribution Width 16.6 Platelet Count 279 Mean Platelet Volume 8.1 Neutrophils (%) (Auto) 79.7 Lymphocytes (%) (Auto) 8.4 Monocytes (%) (Auto) 7.1 Eosinophils (%) (Auto) 4.2 Basophils (%) (Auto) 0.6 Neutrophils # (Auto) 7.8 Lymphocytes # (Auto) 0.8 Monocytes # (Auto) 0.7 Eosinophils # (Auto) 0.4 Basophils # (Auto) 0.1 CBC Comment AUTO DIFF Differential Comment AUTO DIFF CONFIRMED Platelet Estimate NORMAL Platelet Morphology Comment NORMAL Red Cell Morphology Comment NORMAL Blood Urea Nitrogen 10 Creatinine 1.30 Random Glucose 104 Calcium Level 9.1 Magnesium Level 1.9 Sodium Level 139 Potassium Level 3.9 Chloride Level 105 Carbon Dioxide Level 27.6 Anion Gap 6 Estimat Glomerular Filtration Rate 52 Date/Time Source Procedure Growth Status 06/24/17 02:10 Fluid Bile Fluid Gram Stain - Final Complete 06/24/17 02:10 Body Fluid Culture - Final Enterococcus Faecium Vre Complete 06/17/17 20:40 Nasal Washing Influenza Types A,B Antigen (JUJU) - Final NEGATIVE FOR FLU A AND B ANTIGEN.... Complete 06/18/17 10:15 Urine Random Urine Urine Culture - Final <10,000 CFU/ML GRAM POSITIVE DENICE Complete Cardiovascular: Regular Lungs: Clear Abdomen: Other (jonh tube in place; bilary dark brown billary drainage in collection bag ) Extremities: No edema A/P Assessment and Plan 86 year old male with multiple medical issues; acute cholecystitis; s/p cholecystostomy tube placement -Continue cholecystostomy tube to drainage bag -Heart healthy diet -Will likely need rehab -GS will continue to follow peripherally Attending Note - Dr. Rojas Abdomen soft and nontender The exam, history, and the medical decision-making described in the above note were completed with the assistance of the mid-level provider. I reviewed and agree with the findings presented. I attest that I had a [id number] encounter with the patient on the same day, and personally performed and documented my assessment and findings in the medical record. Sushma Herrera Jun 26, 2017 14:43 Bao Rojas MD Jul 02, 2017 17:41
--- NOTE | 2017-06-26 16:30 | HHI.IDPN ---
Note Infectious Disease Note Patient is calm On O2 nasal canula. Somnolent. Reportedly did not sleep much last night. Afebrile. Biliary fluid culture updated to VRE. Post cholecystostomy tube placement. 86-year-old white male was admitted through the emergency department with abdominal pain. He was evaluated and found to have a 1.5 millimeter rounded density in the region of the distal common duct suspicious for choledocholithiasis. PAST MEDICAL HISTORY 1. Hypertension. 2. Hyperlipidemia. 3. Paroxysmal atrial fibrillation. 4. Osteoarthritis. 5. History of pulmonary embolism. 6. History of prostate cancer. 7. History of rectal cancer. 8. History of abdominal surgery. 9. Colostomy. 10. Left knee surgery. 11. Left hip repair. 12. Prostatectomy. ALLERGIES NO KNOWN DRUG ALLERGIES. MEDICATIONS Zithromax. Piperacillin/tazobactam OBJECTIVE: Vital Signs Date Time Temp Pulse Resp B/P (MAP) Pulse Ox O2 Delivery O2 Flow Rate FiO2 06/26/17 16:00 97.2 70 27 144/65 (91) 97 06/26/17 16:00 72 06/26/17 14:00 70 06/26/17 12:00 97.6 71 24 136/61 (86) 90 06/26/17 12:00 71 06/26/17 10:00 75 06/26/17 08:24 91 Nasal Cannula 7.00 06/26/17 08:00 97.6 75 31 140/65 (90) 93 06/26/17 08:00 75 06/26/17 07:00 96 Partial Non-Rebreather 06/26/17 06:00 78 06/26/17 04:00 74 25 146/121 (129) 93 06/26/17 04:00 74 06/26/17 02:00 76 06/26/17 00:00 94 Partial Non-Rebreather 06/26/17 00:00 98.9 105 40 137/61 (86) 94 06/26/17 00:00 105 06/25/17 23:56 91 Partial Rebreather 15.00 06/25/17 22:00 73 06/25/17 21:30 92 Venturi Mask 5.00 06/25/17 20:52 93 Venturi Mask 6.00 50 06/25/17 20:41 94 Partial Rebreather 13.00 06/25/17 20:00 98.4 85 22 141/97 (112) 97 06/25/17 20:00 85 06/25/17 19:00 94 Partial Non-Rebreather 06/25/17 18:00 79 26 154/66 (95) 92 06/25/17 18:00 79 06/25/17 17:00 80 06/25/17 17:00 80 27 138/94 (109) 90 Laboratory Tests Test 06/25/17 07:01 06/26/17 04:26 White Blood Count 8.3 TH/MM3 9.8 TH/MM3 Red Blood Count 3.69 MIL/MM3 3.61 MIL/MM3 Hemoglobin 12.0 GM/DL 11.6 GM/DL Hematocrit 36.2 % 35.5 % Mean Corpuscular Volume 98.2 FL 98.2 FL Mean Corpuscular Hemoglobin 32.4 PG 32.2 PG Mean Corpuscular Hemoglobin Concent 33.0 % 32.8 % Red Cell Distribution Width 16.7 % 16.6 % Platelet Count 248 TH/MM3 279 TH/MM3 Mean Platelet Volume 8.2 FL 8.1 FL Neutrophils (%) (Auto) 79.5 % 79.7 % Lymphocytes (%) (Auto) 8.6 % 8.4 % Monocytes (%) (Auto) 7.0 % 7.1 % Eosinophils (%) (Auto) 4.3 % 4.2 % Basophils (%) (Auto) 0.6 % 0.6 % Neutrophils # (Auto) 6.6 TH/MM3 7.8 TH/MM3 Lymphocytes # (Auto) 0.7 TH/MM3 0.8 TH/MM3 Monocytes # (Auto) 0.6 TH/MM3 0.7 TH/MM3 Eosinophils # (Auto) 0.4 TH/MM3 0.4 TH/MM3 Basophils # (Auto) 0.1 TH/MM3 0.1 TH/MM3 CBC Comment DIFF FINAL AUTO DIFF Differential Comment AUTO DIFF CONFIRMED Platelet Estimate NORMAL Platelet Morphology Comment NORMAL Red Cell Morphology Comment NORMAL Laboratory Tests Test 06/24/17 17:23 06/25/17 07:01 06/26/17 04:26 Potassium Level 3.7 MEQ/L 3.9 MEQ/L 3.9 MEQ/L Blood Urea Nitrogen 9 MG/DL 10 MG/DL Creatinine 1.21 MG/DL 1.30 MG/DL Random Glucose 105 MG/DL 104 MG/DL Calcium Level 9.2 MG/DL 9.1 MG/DL Sodium Level 139 MEQ/L 139 MEQ/L Chloride Level 105 MEQ/L 105 MEQ/L Carbon Dioxide Level 27.1 MEQ/L 27.6 MEQ/L Anion Gap 7 MEQ/L 6 MEQ/L Estimat Glomerular Filtration Rate 57 ML/MIN 52 ML/MIN Magnesium Level 1.9 MG/DL Microbiology Date/Time Source Procedure Growth Status 06/24/17 02:10 Fluid Bile Fluid Gram Stain - Final Complete 06/24/17 02:10 Body Fluid Culture - Final Enterococcus Faecium Vre Complete Microbiology Date/Time Source Procedure Growth Status 06/24/17 02:10 Fluid Bile Fluid Gram Stain - Final Resulted 06/24/17 02:10 Body Fluid Culture - Preliminary Group D Enterococcus Resulted IMAGING: Hepatobiliary Scan Nuclear Medicine 06/21/17 1120 Signed Impressions: Service Date/Time: May 11:19 - CONCLUSION: 1. Normal biliary bowel transit time with no evidence for common bile duct obstruction. 2. No activity noted in the gallbladder at up to 90 minutes. This is concerning for obstruction of the cystic duct in this patient with suspected acute cholecystitis. Given the high degree of clinical suspicion and patient's tenuous clinical condition, plan is for percutaneous cholecystostomy drain placement rather than delayed imaging. Swapnil Marte MD Chest CT 06/19/17 1513 Signed Impressions: Service Date/Time: Monday, June 19, 2017 15:59 - CONCLUSION: 1. Chronic interstitial lung disease 2. Bibasilar airspace disease with small effusions and mild dural thickening 3. 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 Long Garrison MD Renal Ultrasound 06/19/17 0000 Signed Impressions: Service Date/Time: Monday, June 19, 2017 13:29 - CONCLUSION: 1. Hyperechoic kidneys consistent with medical renal disease. 2. No obstructive uropathy. Swapnil Marte MD Chest X-Ray 06/19/17 0000 Signed Impressions: Service Date/Time: Monday, June 19, 2017 10:36 - CONCLUSION: Hypoaerated lungs with mild right basilar airspace disease. Mild cardiomegaly Long Garrison MD Abdomen Ultrasound 06/19/17 0000 Signed Impressions: Service Date/Time: Monday, June 19, 2017 14:14 - CONCLUSION: 1. No significant ascites. Swapnil Marte MD GI Procedure 06/18/17 0000 Signed Impressions: Service Date/Time: Sunday, June 18, 2017 13:06 - CONCLUSION: ERCP as above. Salomon Faust MD Abdomen X-Ray 06/17/172040 Signed Impressions: Service Date/Time: Saturday, June 17, 2017 20:49 - CONCLUSION: No evidence of free air. Salomon Faust MD Abdomen/Pelvis CT 06/17/172002 Signed Impressions: Service Date/Time: Saturday, June 17, 2017 21:30 - CONCLUSION: 1. 5 mm rounded density in the region of the distal common duct suspicious for choledocholithiasis. Common duct diameter has increased when compared to the prior study now measuring 7-8 mm in diameter. Mild diffuse intrahepatic biliary ductal prominence. 2. Cholelithiasis. 3. 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 No bowel dilatation. Salomon Faust MD PHYSICAL EXAMINATION: GENERAL: No acute distress. HEENT: Head is atraumatic. Extraocular movements grossly intact. No icterus. Oropharynx: mucosa appears slightly dry. Neck: Obese, no tenderness. Lungs: Decreased breath sounds. Heart: Irregular rate and rhythm. Systolic murmur at the left sternal border. Abdomen: Bowel sounds present but diminished, soft. Non tender. Colostomy bag in place at the left lower quadrant and appears functional. Extremities: No clubbing or cyanosis or edema. Skin: No rash. NEURO: No focal finding. Psych: Calm and cooperative. IMPRESSION 1. Pneumonia. 2. Choledocholithiasis. 3. Hypoxemia. RECOMMENDATIONS 1. Stop piperacillin/tazobactam. 2. Stop Zithromax. 3. PO Zyvox for VRE x 7 days. Monitor platelet count while on Zyvox. 4. Follow clinical status. Lito Sena MD Jun 26, 2017 16:30
--- NOTE | 2017-06-26 18:44 | HHI.PR ---
Subjective Remarks Better today and on O2 4 L, Sat 94 CXR shows basal infiltrates.On ZYvox Had a Cholecystostomy tube placed . Objective Vital Signs Date Time Temp Pulse Resp B/P (MAP) Pulse Ox O2 Delivery O2 Flow Rate FiO2 06/26/17 18:00 80 06/26/17 16:00 97.2 70 27 144/65 (91) 97 06/26/17 16:00 72 06/26/17 14:00 70 06/26/17 12:00 97.6 71 24 136/61 (86) 90 06/26/17 12:00 71 06/26/17 10:00 75 06/26/17 08:24 91 Nasal Cannula 7.00 06/26/17 08:00 97.6 75 31 140/65 (90) 93 06/26/17 08:00 75 06/26/17 07:00 96 Partial Non-Rebreather 06/26/17 06:00 78 06/26/17 04:00 74 25 146/121 (129) 93 06/26/17 04:00 74 06/26/17 02:00 76 06/26/17 00:00 94 Partial Non-Rebreather 06/26/17 00:00 98.9 105 40 137/61 (86) 94 06/26/17 00:00 105 06/25/17 23:56 91 Partial Rebreather 15.00 06/25/17 22:00 73 06/25/17 21:30 92 Venturi Mask 5.00 06/25/17 20:52 93 Venturi Mask 6.00 50 06/25/17 20:41 94 Partial Rebreather 13.00 06/25/17 20:00 98.4 85 22 141/97 (112) 97 06/25/17 20:00 85 06/25/17 19:00 94 Partial Non-Rebreather I/O 06/25/17 06/25/17 06/25/17 06/26/17 06/26/17 06/26/17 07:00 15:00 23:00 07:00 15:00 23:00 Intake Total 959 ml 1290 ml 170 ml 1050 ml 1641 ml Output Total 1650 ml 1700 ml 950 ml 1375 ml Balance -691 ml -410 ml -780 ml 1050 ml 266 ml Intake Oral 240 ml 120 ml 720 ml IV Total 959 ml 1050 ml 50 ml 1050 ml 921 ml Output Urine Total 600 ml 1100 ml 600 ml 875 ml Stool Total 550 ml 200 ml 0 ml 250 ml Drainage Total 500 ml 400 ml 350 ml 250 ml # Voids 3 # Bowel Movements 0 Result Diagram: 06/26/1742506/26/17425 Objective Remarks This is a moderately obese elderly man, who is alert and Pallor noted. No cyanosis. There is no clubbing. HEENT: Head normocephalic. Pupils are reactive and equal. Tongue dry. Throat is clear. Neck: Supple. No bruits or thyroid enlargement or lymphadenopathy. Chest: Few wheezes bilaterally with crackles at Both lung bases. Heart: The heart sounds are irregular, S1-S2 no murmur. Abdomen: Soft, protuberant with colostomy bag in place. Bowel sounds are active. No organomegaly.Tender upper abdomen. Drain on RUQ Extremities: 1 + edema with diminished pulses. Reflexes are 1+. The patient does move his lower extremities. Skin: No lesions are observed. Assessment and Plan Assessment and Plan IMPRESSION 1. Basilar pneumonia with hypoxemia. 2. History of choledocholithiasis/ Cholecystitis with sepsis. 3. Acute kidney injury with history of chronic kidney disease. 4. History of colostomy. 5. Atrial Fibrillation with RVR Plan : 1. Cont Bipap at HS 12/5 CM ,FIo2 30% 2. Cont O2 Via N/C 4 L 3. CXR in am. 4. Continue antibiotics, Zyvox 5. Pureed diet as tolerated. 6. Ativan 1 Mg q6h PRN for agitation 7. Continue Heparin 5000 U S/Q bid 8. IS at bedside qid. 9. Labs in am Lon Willams MD Jun 26, 2017 18:43
[2017-06-26] MEDS: ATORVASTATIN 10 MG TAB PO SCH (20:21)
[2017-06-26] MEDS: LINEZOLID 600 MG TAB PO SCH (20:21)
[2017-06-27] VITALS (14 sets, daily range): BP systolic 98–152; BP diastolic 55–66; PULSE 72–84; RESP 25–28; TEMP 98–98.3; O2SAT 92–94
[2017-06-27] MEDS: RESP: IPRATROPIUM 0.5 MG/2.5 ML NEB NEB SCH ×4 (03:02→20:34)
--- NOTE | 2017-06-27 05:01 | RADRPT ---
EXAM DATE/TIME: 06/27/2017 03:42 [place] COMPARISON: CT THORAX W/O CONTRAST, June 19, 2017, 15:59. CHEST SINGLE AP, June 23, 2017, 3:19. INDICATIONS : Shortness of breath. MEDICAL HISTORY : Gastroesophageal reflux disease. Hypertension Carcinoma, prostatic. SURGICAL HISTORY : None. ENCOUNTER: Subsequent ACUITY: 1 week PAIN SCORE: 0/10 LOCATION: Bilateral chest FINDINGS: Single portable frontal view of the chest shows mild bibasilar consolidations. Prominence the right h ilar structures correlates to the patient's vasculature as seen on the prior CT. Heart is at the uppe r limits of normal in terms size. Tiny bilateral pleural effusions. These are slightly smaller. CONCLUSION: Unchanged bibasilar consolidation with slight decrease of bilateral pleural effusions. Gustavo Tineo Jr., MD on June 27, 2017 at 4:58 Board Certified Radiologist. This report was verified electronically.
[2017-06-27] MEDS: ALLOPURINOL 300 MG TAB PO SCH (08:08)
[2017-06-27] MEDS: DOCUSATE SODIUM 50 MG/SENNA 8.6 MG TAB PO SCH ×2 (08:08→19:51)
[2017-06-27] MEDS: HEPARIN SODIUM - SQ 10,000 UNITS/ML VIAL SQ SCH ×2 (08:08→19:51)
[2017-06-27] MEDS: ENALAPRIL MALEATE 10 MG TAB PO SCH (08:08)
[2017-06-27] MEDS: LINEZOLID 600 MG TAB PO SCH ×2 (08:08→19:51)
[2017-06-27] MEDS: METOPROLOL TARTRATE 50 MG TAB PO SCH ×2 (08:08→17:00)
[2017-06-27] MEDS: D5-NS + KCL 20 MEQ INJ 1,000 ML IV SCH ×2 (08:09→19:56)
[2017-06-27] MEDS: RESP: ALBUTEROL 2.5 MG/IPRATROPIUM 0.5 MG NEB (SCH) NEB ONE (11:11)
--- NOTE | 2017-06-27 15:39 | HHI.PR ---
Subjective Remarks Patient is hard hearing is resting in bed but confused is not answering questions appropriately On oxygen mask Afebrile Objective Vitals Vital Signs Date Time Temp Pulse Resp B/P (MAP) Pulse Ox O2 Delivery O2 Flow Rate FiO2 06/27/17 12:00 80 06/27/17 10:00 82 06/27/17 08:21 94 Nasal Cannula 4.00 06/27/17 08:00 84 06/27/17 08:00 82 06/27/17 08:00 98.0 82 26 98/55 (69) 92 06/27/17 06:00 80 06/27/17 04:00 98.0 82 26 150/66 (94) 92 06/27/17 04:00 82 06/27/17 02:00 72 06/27/17 00:00 98.0 75 25 147/66 (93) 93 06/27/17 00:00 75 06/26/17 22:00 77 06/26/17 20:16 94 Nasal Cannula 6.00 06/26/17 20:00 97.9 75 24 142/65 (90) 93 06/26/17 20:00 75 06/26/17 19:00 94 Nasal Cannula 06/26/17 18:00 80 06/26/17 16:00 97.2 70 27 144/65 (91) 97 06/26/17 16:00 72 I/O 06/26/17 06/26/17 06/26/17 06/27/17 06/27/17 06/27/17 07:00 15:00 23:00 07:00 15:00 23:00 Intake Total 170 ml 1050 ml 2641 ml 200 ml Output Total 950 ml 1375 ml 1600 ml Balance -780 ml 1050 ml 1266 ml -1400 ml Intake Oral 120 ml 720 ml 200 ml IV Total 50 ml 1050 ml 1921 ml Output Urine Total 600 ml 875 ml 950 ml Stool Total 0 ml 250 ml 300 ml Drainage Total 350 ml 250 ml 350 ml # Voids 3 # Bowel Movements 0 Result Diagram: 06/26/176 06/26/176 Objective Remarks GENERAL: This is a frail elderly patient on 15 L nonrebreathing mask SKIN: No rashes, warm and dry HEAD: Atraumatic. Normocephalic. EYES: Pupils equal round and reactive. Extraocular motions intact. No scleral icterus. ENT: Nose without bleeding, or drainage, Airway patent. NECK: Trachea midline. Supple CARDIOVASCULAR: Irregularly irregular RESPIRATORY: Diminished breath sounds GASTROINTESTINAL: Abdomen soft, non-tender, nondistended. Positive bowel sounds MUSCULOSKELETAL: Extremities without clubbing, cyanosis, or edema. Pedal pulses appreciated NEUROLOGICAL: Awake and alert. Moves all extremity. Normal speech.no focal neurological deficit Procedures Pre Procedure Diagnosis: (1) Acute cholecystitis Post Procedure Diagnosis: (1) Biliary sludge Procedure Date: Jun 21, 2017 Supervising Radiologist: Jermaine Herman Proceduralist/Assist: Ca Khan, RT(R)(CV), Kristan Lundy, RT(R) Anesthesia: Local, Analgesia, Conscious Sedation Plan of Activity Patient to Unit: ROPU Patient Condition: Good See PACS Report for procedural detail/treatment Drainage Procedure Procedure 1 Imaging Guidance: Fluoroscopy, Ultrasound Procedure Type: Cholecystostomy Procedure: Placement Drainage: [place] drainage Fluid Description: Cloudy, Bilious Findings: Bowel surrounds anterior access to GB. Transhepatic approach. Cystic duct and CBD patent. Debris in GB lumen. 8Fr catheter to gravity drainage. A/P Assessment and Plan Bibasilar pneumonia A. fib with RVR Choledocholithiasis Acute respiratory failure and hypoxia QUIQUE on CKD Hypertension/hyperlipidemia DVT prophylaxis 06/20: Stat transfer to ICU, stat Check lactic acid, consult ID, Lopressor iv to control heart rate, resume Lopressorpo, Discussed with GI, discussed with GS 06/21: Heart rate much better on Lopressor 50 every 8 hours, still on 15 L nonrebreather mask, appreciate pulmonary, recommended high flow oxygen, ABG nonsignificant pH 7.44. Rayna scan has been done was concerning for obstruction, surgery following patient will go to IR for cholecystotomy drainage, ID following for iv antibiotic 06/22: pt agitated, aggressive if restraints removed. will consult Psych for assistance to agitation/confusion. Continue abx (zosyn/azithro). Monitor labs. Hypokalemia noted. Currently getting replacement. Per RN, pt NPO at this time, awaiting swallow eval. On D5NS @84ml/hr and also getting IV potassium. Monitor electrolytes. Leukocytosis resolved. s/p cholecystostomy tube placement. QUIQUE resolved. Continue to monitor in ICU due to respiratory status and still requiring partial non rebreather. 06/23: seems a bit better this morning. calm. at least he knows his name and that he is in a hospital. K 3.3. continue to supplement IV as pt is currently NPO per speech therapy recs. continue to monitor. added vasotec prn as he cannot yet take po meds. Discussed w GS yesterday, ok to resume dvt proph. Azithro has been stopped by ID and continue zosyn per their rec. Appreciate recs from psych. Try to remove restraints if pt cooperative. 06/24: Pt calm, took off his non rebreather and sats were 74% when I came into the room, I immediately put mask on and sats went up slowly. Pt seems to be improving, he is more alert and able to follow commands, he is off restraints. continue to monitor. continue breathing treatments and IV abx. He is on Zosyn. Discussed w RN, encourage out of bed to a recliner if possible to see if this helps w his ventilation. PT/ST/OT following. He is on puree honey thick diet. No BM's recorded, I requested that pt get his prn stool softeners in addition to the shahab-colace he is getting. Continue to monitor in the ICU for now as pt still requiring a partial non rebreather. Repeat K level as it was noted to be elevated this morning but due to blood being hemolyzed. 06/25: Pt calm and getting breathing treatment. Still requiring partial non rebreather. Per RN, didn't tolerate BiPAP last night. Pt less confused. Continue current management. ID, GS and pulm following. Appreciate assistance. Labs pending this morning. Continue cholecystostomy tube to drainage bag, pt not a candidate for sx. Once breathing treatment improves, will transfer out of ICU. Encourage out of bed to recliner daily. 1-2 patient is still not able to get out of bed. Very short of breath. Slightly confused In bed chair sitting like a recliner at bedside during exam Discussed with RN and patient and Very slow going 06/27/17: Still in respiratory failure nonrebreathing mask, pulmonary following, hard hearing slightly confused, continue monitoring in ICU Deficit A/P: //Choledocholithiasis CT of the abdomen/pelvis showed choledocholithiasis with increased diameter of the common bile duct Leukocytosis, elevated lactic acid, transaminitis, elevated T bili currently on zosyn. Gastroenterology following, s/p ERCP. Dilaudid for pain Cholecystotomy tube in place //biBasilar pneumonia //Hypoxemic respiratory failure. -s/p Zithromax now on Zosyn. Continue supportive care with do nebs. Incentive spirometry, Acapella. BNP normal, echocardiogram without pericardial effusion. Pulmonology following. BiPAP at night but pt not tolerating it. Appreciate assistance. Wean oxygen as able to-- currently on 6 L by nasal //Acute on chronic kidney injury resolved. IV fluid hydration Monitor renal function Avoid nephrotoxic agent A.m. labs //Hypertension/hyperlipidemia/a fib on metoprolol. Stable. FEN Electrolytes: monitor and replete prn on heparin Discharge Planning continue monitoring in the ICU, pt on 6L BY NC. continue to wean oxygen as tolerated. Once respiratory status improves, transfer out of ICU. Pt not a surgical candidate. Continue IV abx. Awaiting final recs from consultants. Gaby Slaughter MD Jun 27, 2017 15:38
--- NOTE | 2017-06-27 19:18 | HHI.PR ---
Subjective Remarks Better today and on O2 3 L, Sat 95 CXR shows basal infiltrates.Taking a diet now. Had a Cholecystostomy tube placed . Objective Vital Signs Date Time Temp Pulse Resp B/P (MAP) Pulse Ox O2 Delivery O2 Flow Rate FiO2 06/27/17 18:00 82 06/27/17 16:00 98.0 75 26 129/60 (83) 92 06/27/17 16:00 82 06/27/17 14:00 82 06/27/17 12:00 82 06/27/17 12:00 98.3 78 26 128/60 (82) 92 06/27/17 12:00 80 06/27/17 10:00 82 06/27/17 08:21 94 Nasal Cannula 4.00 06/27/17 08:00 84 06/27/17 08:00 82 06/27/17 08:00 98.0 82 26 98/55 (69) 92 06/27/17 07:00 96 Nasal Cannula 06/27/17 06:00 80 06/27/17 04:00 98.0 82 26 150/66 (94) 92 06/27/17 04:00 82 06/27/17 02:00 72 06/27/17 00:00 98.0 75 25 147/66 (93) 93 06/27/17 00:00 75 06/26/17 22:00 77 06/26/17 20:16 94 Nasal Cannula 6.00 06/26/17 20:00 97.9 75 24 142/65 (90) 93 06/26/17 20:00 75 I/O 06/26/17 06/26/17 06/26/17 06/27/17 06/27/17 06/27/17 07:00 15:00 23:00 07:00 15:00 23:00 Intake Total 170 ml 1050 ml 2641 ml 200 ml 1260 ml Output Total 950 ml 1375 ml 1600 ml 1275 ml Balance -780 ml 1050 ml 1266 ml -1400 ml -15 ml Intake Oral 120 ml 720 ml 200 ml 380 ml IV Total 50 ml 1050 ml 1921 ml 880 ml Output Urine Total 600 ml 875 ml 950 ml 950 ml Stool Total 0 ml 250 ml 300 ml Drainage Total 350 ml 250 ml 350 ml 325 ml # Voids 3 # Bowel Movements 0 Result Diagram: 06/26/17 0426 06/26/17 0426 Objective Remarks This is a moderately obese elderly man, who is alert and in no distress No cyanosis. There is no clubbing. HEENT: Head normocephalic. Pupils are reactive and equal. Tongue dry. Throat is clear. Neck: Supple. No bruits or thyroid enlargement or lymphadenopathy. Chest: Few wheezes bilaterally with Occ crackles at Both lung bases. Heart: The heart sounds are irregular, S1-S2 no murmur. Abdomen: Soft, protuberant with colostomy bag in place. Bowel sounds are active. No organomegaly.Tender upper abdomen. Drain on RUQ Extremities: 1 + edema with diminished pulses. Reflexes are 1+. The patient does move his arms and legs well. Skin: No lesions are observed. Assessment and Plan Assessment and Plan IMPRESSION 1. Basilar pneumonia with hypoxemia. 2. History of choledocholithiasis/ Cholecystitis with sepsis. 3. Acute kidney injury with history of chronic kidney disease. 4. History of colostomy. 5. Atrial Fibrillation with RVR Resolved Plan : 1. Cont Bipap at HS 12/5 CM ,FIo2 30% 2. Cont O2 Via N/C 4 L 3. CBC, BMP in am. 4. Continue antibiotics, Zyvox 5. Soft diet as tolerated. 6. Ativan .5 Mg q6h PRN for agitation 7. Continue Heparin 5000 U S/Q bid 8. IS at bedside qid. 9. PT evaluation Lon Willams MD Jun 27, 2017 19:18
[2017-06-27] MEDS: ATORVASTATIN 10 MG TAB PO SCH (19:51)
[2017-06-27] MEDS: SODIUM CHLORIDE 0.9% FLUSH 10 ML FLUSH IV FLUSH SCH (19:55)
[2017-06-28] VITALS (21 sets, daily range): BP systolic 110–162; BP diastolic 56–100; PULSE 75–90; RESP 24–36; TEMP 97.8–98.5; O2SAT 85–98
[2017-06-28] MEDS: METOPROLOL TARTRATE 50 MG TAB PO SCH ×3 (01:00→17:54)
[2017-06-28] MEDS: RESP: IPRATROPIUM 0.5 MG/2.5 ML NEB NEB SCH ×4 (03:56→21:24)
[2017-06-28] MEDS: D5-NS + KCL 20 MEQ INJ 1,000 ML IV SCH ×2 (07:35→21:14)
[2017-06-28] MEDS: LINEZOLID 600 MG TAB PO SCH ×2 (09:13→21:15)
[2017-06-28] MEDS: ENALAPRIL MALEATE 10 MG TAB PO SCH (09:13)
[2017-06-28] MEDS: SODIUM CHLORIDE 0.9% FLUSH 10 ML FLUSH IV FLUSH SCH ×2 (09:13→21:15)
[2017-06-28] MEDS: ALLOPURINOL 300 MG TAB PO SCH (09:13)
[2017-06-28] MEDS: DOCUSATE SODIUM 50 MG/SENNA 8.6 MG TAB PO SCH ×2 (09:13→21:15)
[2017-06-28] MEDS: HEPARIN SODIUM - SQ 10,000 UNITS/ML VIAL SQ SCH ×2 (09:14→21:15)
--- NOTE | 2017-06-28 11:29 | HHI.IDPN ---
Note Infectious Disease Note Patient is calm On O2 nasal canula. More awake. Afebrile. Biliary fluid culture updated to VRE. 86-year-old white male was admitted through the emergency department with abdominal pain. He was evaluated and found to have a 1.5 millimeter rounded density in the region of the distal common duct suspicious for choledocholithiasis. PAST MEDICAL HISTORY 1. Hypertension. 2. Hyperlipidemia. 3. Paroxysmal atrial fibrillation. 4. Osteoarthritis. 5. History of pulmonary embolism. 6. History of prostate cancer. 7. History of rectal cancer. 8. History of abdominal surgery. 9. Colostomy. 10. Left knee surgery. 11. Left hip repair. 12. Prostatectomy. ALLERGIES NO KNOWN DRUG ALLERGIES. MEDICATIONS Zyvox. OBJECTIVE: Vital Signs Date Time Temp Pulse Resp B/P (MAP) Pulse Ox O2 Delivery O2 Flow Rate FiO2 06/28/17 08:05 98 Venturi Mask 50 06/28/17 06:00 79 06/28/17 04:00 81 06/28/17 04:00 98.0 81 27 162/82 (108) 94 06/28/17 03:59 92 Venturi Mask 5.00 50 06/28/17 02:00 75 06/28/17 00:00 75 06/28/17 00:00 98.0 75 25 156/94 (114) 91 06/27/17 23:58 92 Venturi Mask 50 06/27/17 22:00 78 06/27/17 20:00 83 06/27/17 20:00 98.0 83 28 152/66 (94) 94 06/27/17 19:00 94 Nasal Cannula 06/27/17 18:00 82 06/27/17 16:00 98.0 75 26 129/60 (83) 92 06/27/17 16:00 82 06/27/17 14:00 82 06/27/17 12:00 82 06/27/17 12:00 98.3 78 26 128/60 (82) 92 06/27/17 12:00 80 Microbiology Date/Time Source Procedure Growth Status 06/24/17 02:10 Fluid Bile Fluid Gram Stain - Final Complete 06/24/17 02:10 Body Fluid Culture - Final Enterococcus Faecium Vre Complete IMAGING: Chest X-Ray 06/27/17 0600 Signed Impressions: Service Date/Time: Tuesday, June 27, 2017 03:42 - CONCLUSION: Unchanged bibasilar consolidation with slight decrease of bilateral pleural effusions. Gustavo Tineo Jr., MD Hepatobiliary Scan Nuclear Medicine 06/21/17 1120 Signed Impressions: Service Date/Time: May 11:19 - CONCLUSION: 1. Normal biliary bowel transit time with no evidence for common bile duct obstruction. 2. No activity noted in the gallbladder at up to 90 minutes. This is concerning for obstruction of the cystic duct in this patient with suspected acute cholecystitis. Given the high degree of clinical suspicion and patient's tenuous clinical condition, plan is for percutaneous cholecystostomy drain placement rather than delayed imaging. Swapnil Marte MD Chest CT 06/19/17 1513 Signed Impressions: Service Date/Time: Monday, June 19, 2017 15:59 - CONCLUSION: 1. Chronic interstitial lung disease 2. Bibasilar airspace disease with small effusions and mild dural thickening 3. 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 Long Garrison MD Renal Ultrasound 06/19/17 0000 Signed Impressions: Service Date/Time: Monday, June 19, 2017 13:29 - CONCLUSION: 1. Hyperechoic kidneys consistent with medical renal disease. 2. No obstructive uropathy. Swapnil Marte MD Chest X-Ray 06/19/17 0000 Signed Impressions: Service Date/Time: Monday, June 19, 2017 10:36 - CONCLUSION: Hypoaerated lungs with mild right basilar airspace disease. Mild cardiomegaly Long Garrison MD Abdomen Ultrasound 06/19/17 0000 Signed Impressions: Service Date/Time: Monday, June 19, 2017 14:14 - CONCLUSION: 1. No significant ascites. Swapnil Marte MD GI Procedure 06/18/17 0000 Signed Impressions: Service Date/Time: Sunday, June 18, 2017 13:06 - CONCLUSION: ERCP as above. Salomon Faust MD Abdomen X-Ray 06/17/172040 Signed Impressions: Service Date/Time: Saturday, June 17, 2017 20:49 - CONCLUSION: No evidence of free air. Salomon Faust MD Abdomen/Pelvis CT 06/17/172002 Signed Impressions: Service Date/Time: Saturday, June 17, 2017 21:30 - CONCLUSION: 1. 5 mm rounded density in the region of the distal common duct suspicious for choledocholithiasis. Common duct diameter has increased when compared to the prior study now measuring 7-8 mm in diameter. Mild diffuse intrahepatic biliary ductal prominence. 2. Cholelithiasis. 3. 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 No bowel dilatation. Salomon Faust MD PHYSICAL EXAMINATION: GENERAL: No acute distress. HEENT: No icterus. Oropharynx: mucosa appears slightly dry. Neck: Supple. Lungs: Decreased breath sounds. Clear. Heart: Irregular rate and rhythm. Systolic murmur at the left sternal border. Abdomen: Bowel sounds present but diminished, soft. Non tender. Colostomy bag in place at the left lower quadrant and appears functional. Extremities: No clubbing or cyanosis or edema. Skin: No rash. NEURO: No focal finding. Psych: Calm and cooperative. IMPRESSION 1. Pneumonia. improved. 2. Choledocholithiasis. Acute cholecystitis - VRE. 3. Hypoxemia. Appears stable. RECOMMENDATIONS 1. Continue PO Zyvox for VRE x 7 days. Monitor platelet count while on Zyvox. 2. Follow clinical status. Lito Sena MD Jun 28, 2017 11:29
[2017-06-28] MEDS: NYSTATIN 100,000 U/GM PWD 15 GM BTL TOPICAL SCH ×2 (11:45→21:16)
[2017-06-28 13:08] LABS: BICARBONATE 24.2 MEQ/L (21.0-32.0); CALCIUM 9.4 MG/DL (8.5-10.1); CREATININE 1.24 MG/DL (0.60-1.30)
--- NOTE | 2017-06-28 13:43 | HHI.PR ---
Subjective Remarks Patient resting in bed sleeping, arousable, at the bedside Discussed with her in length, patient was on a Ventimask now on 5 L nasal cannula Afebrile Objective Vitals Vital Signs Date Time Temp Pulse Resp B/P (MAP) Pulse Ox O2 Delivery O2 Flow Rate FiO2 06/28/17 08:05 98 Venturi Mask 50 06/28/17 06:00 79 06/28/17 04:00 81 06/28/17 04:00 98.0 81 27 162/82 (108) 94 06/28/17 03:59 92 Venturi Mask 5.00 50 06/28/17 02:00 75 06/28/17 00:00 75 06/28/17 00:00 98.0 75 25 156/94 (114) 91 06/27/17 23:58 92 Venturi Mask 50 06/27/17 22:00 78 06/27/17 20:00 83 06/27/17 20:00 98.0 83 28 152/66 (94) 94 06/27/17 19:00 94 Nasal Cannula 06/27/17 18:00 82 06/27/17 16:00 98.0 75 26 129/60 (83) 92 06/27/17 16:00 82 06/27/17 14:00 82 I/O 06/27/17 06/27/17 06/27/17 06/28/17 06/28/17 06/28/17 07:00 15:00 23:00 07:00 15:00 23:00 Intake Total 200 ml 2260 ml 200 ml Output Total 1600 ml 1275 ml 1550 ml Balance -1400 ml 985 ml -1350 ml Intake Oral 200 ml 380 ml 200 ml IV Total 1880 ml Output Urine Total 950 ml 950 ml 900 ml Stool Total 300 ml 250 ml Drainage Total 350 ml 325 ml 400 ml Result Diagram: 06/26/17 0426 06/28/17 1230 Objective Remarks GENERAL: This is a frail elderly on high flow nasal oxygen SKIN: No rashes, warm and dry HEAD: Atraumatic. Normocephalic. EYES: Pupils equal round and reactive. Extraocular motions intact. No scleral icterus. ENT: Nose without bleeding, or drainage, Airway patent. NECK: Trachea midline. Supple CARDIOVASCULAR: Irregularly irregular RESPIRATORY: Diminished breath sounds GASTROINTESTINAL: Abdomen soft, non-tender, nondistended. Positive bowel sounds MUSCULOSKELETAL: Extremities without clubbing, cyanosis, or edema. Pedal pulses appreciated NEUROLOGICAL: Awake and alert. Moves all extremity. Normal speech.no focal neurological deficit Procedures Pre Procedure Diagnosis: (1) Acute cholecystitis Post Procedure Diagnosis: (1) Biliary sludge Procedure Date: Jun 21, 2017 Supervising Radiologist: Jermaine Herman Proceduralist/Assist: Ca Khan, RT(R)(CV), Kristan Lundy, RT(R) Anesthesia: Local, Analgesia, Conscious Sedation Plan of Activity Patient to Unit: ROPU Patient Condition: Good See PACS Report for procedural detail/treatment Drainage Procedure Procedure 1 Imaging Guidance: Fluoroscopy, Ultrasound Procedure Type: Cholecystostomy Procedure: Placement Drainage: [place] drainage Fluid Description: Cloudy, Bilious Findings: Bowel surrounds anterior access to GB. Transhepatic approach. Cystic duct and CBD patent. Debris in GB lumen. 8Fr catheter to gravity drainage. A/P Assessment and Plan Bibasilar pneumonia A. fib with RVR Choledocholithiasis Acute respiratory failure and hypoxia QUIQUE on CKD Hypertension/hyperlipidemia DVT prophylaxis 06/20: Stat transfer to ICU, stat Check lactic acid, consult ID, Lopressor iv to control heart rate, resume Lopressorpo, Discussed with GI, discussed with GS 06/21: Heart rate much better on Lopressor 50 every 8 hours, still on 15 L nonrebreather mask, appreciate pulmonary, recommended high flow oxygen, ABG nonsignificant pH 7.44. Rayna scan has been done was concerning for obstruction, surgery following patient will go to IR for cholecystotomy drainage, ID following for iv antibiotic 06/22: pt agitated, aggressive if restraints removed. will consult Psych for assistance to agitation/confusion. Continue abx (zosyn/azithro). Monitor labs. Hypokalemia noted. Currently getting replacement. Per RN, pt NPO at this time, awaiting swallow eval. On D5NS @84ml/hr and also getting IV potassium. Monitor electrolytes. Leukocytosis resolved. s/p cholecystostomy tube placement. QUIQUE resolved. Continue to monitor in ICU due to respiratory status and still requiring partial non rebreather. 06/23: seems a bit better this morning. calm. at least he knows his name and that he is in a hospital. K 3.3. continue to supplement IV as pt is currently NPO per speech therapy recs. continue to monitor. added vasotec prn as he cannot yet take po meds. Discussed w GS yesterday, ok to resume dvt proph. Azithro has been stopped by ID and continue zosyn per their rec. Appreciate recs from psych. Try to remove restraints if pt cooperative. 06/24: Pt calm, took off his non rebreather and sats were 74% when I came into the room, I immediately put mask on and sats went up slowly. Pt seems to be improving, he is more alert and able to follow commands, he is off restraints. continue to monitor. continue breathing treatments and IV abx. He is on Zosyn. Discussed w RN, encourage out of bed to a recliner if possible to see if this helps w his ventilation. PT/ST/OT following. He is on puree honey thick diet. No BM's recorded, I requested that pt get his prn stool softeners in addition to the shahab-colace he is getting. Continue to monitor in the ICU for now as pt still requiring a partial non rebreather. Repeat K level as it was noted to be elevated this morning but due to blood being hemolyzed. 06/25: Pt calm and getting breathing treatment. Still requiring partial non rebreather. Per RN, didn't tolerate BiPAP last night. Pt less confused. Continue current management. ID, GS and pulm following. Appreciate assistance. Labs pending this morning. Continue cholecystostomy tube to drainage bag, pt not a candidate for sx. Once breathing treatment improves, will transfer out of ICU. Encourage out of bed to recliner daily. 1-2 patient is still not able to get out of bed. Very short of breath. Slightly confused In bed chair sitting like a recliner at bedside during exam Discussed with RN and patient and Very slow going 06/27/17: Still in respiratory failure nonrebreathing mask, pulmonary following, hard hearing slightly confused, continue monitoring in ICU 06/28/17: Continue weaning down oxygen, follow with pulmonology Deficit A/P: //Choledocholithiasis CT of the abdomen/pelvis showed choledocholithiasis with increased diameter of the common bile duct Leukocytosis, elevated lactic acid, transaminitis, elevated T bili currently on zosyn. Gastroenterology following, s/p ERCP. Dilaudid for pain Cholecystotomy tube in place //biBasilar pneumonia //Hypoxemic respiratory failure. -s/p Zithromax now on Zosyn. Continue supportive care with do nebs. Incentive spirometry, Acapella. BNP normal, echocardiogram without pericardial effusion. Pulmonology following. BiPAP at night but pt not tolerating it. Appreciate assistance. Wean oxygen as able to-- currently on 6 L by nasal //Acute on chronic kidney injury resolved. IV fluid hydration Monitor renal function Avoid nephrotoxic agent A.m. labs //Hypertension/hyperlipidemia/a fib on metoprolol. Stable. FEN Electrolytes: monitor and replete prn on heparin Discharge Planning continue monitoring in the ICU, pt on 6L BY NC. continue to wean oxygen as tolerated. Once respiratory status improves, transfer out of ICU. Pt not a surgical candidate. Continue IV abx. Awaiting final recs from consultants. Gaby Slaughter MD Jun 28, 2017 13:43
--- NOTE | 2017-06-28 14:17 | PQ ---
Physician Query Response Document PATIENT: SANDY HEALY : 1930 ADMIT DATE: 06/17/2017 10:55 PM DISCH DATE: RESPONDING PROVIDER #: SGRCAROLINA QUERY TEXT: Sepsis Query Based on your medical judgement, can you further clarify the folowiin. Sepsis (SIRS due to an infection) 2. Sepsis with Organ Dysfunction 3. A localized Infection only 4. Another condition - please specify 5. Unable to determine - please explain. Depending on your selection above, please indicate one of the below if applicable: - Sepsis was present on Admission - Sepsis developed after admission PLEASE CALL [facility] @ [phone] FOR ASSISTANCE The patient's Clinical Indicators include: //Choledocholithiasis Leukocytosis, elevated lactic acid, transaminitis, elevated T bili Antibiotic coverage with Rocephin as patient has acute on chronic kidney injury Monitor for signs of sepsis /biBasilar pneumonia 06/20 PHYSICIAN ORDER PLACED FOR ID CONSULTATION TO EVALUATE FOR SEPSIS 06/17 WBC=18.0, LA=2.5 Query created by: Maribell Chiu on 06/27/2017 4:01 PM RESPONSE TEXT: Sepsis with organ dysfuction due to respiratory and gi failure/bowel obstruction And patient herson to hospice Electronically signed by: Edd Godinez 06/28/2017 2:13 PM
--- NOTE | 2017-06-28 20:54 | HHI.PR ---
Subjective Remarks Improved further today and on O2 3 L, Sat 95 CXR shows basal infiltrates.Taking a reg diet now. Had a Cholecystostomy tube placed which is draining . Objective Vital Signs Date Time Temp Pulse Resp B/P (MAP) Pulse Ox O2 Delivery O2 Flow Rate FiO2 06/28/17 19:54 97 Nasal Cannula 5.00 06/28/17 16:00 98.3 80 36 126/100 (109) 89 06/28/17 15:00 78 31 128/61 (83) 90 06/28/17 14:00 79 32 110/80 (90) 92 06/28/17 13:00 81 27 124/59 (80) 89 06/28/17 12:00 98.5 90 31 128/79 (95) 91 06/28/17 11:01 80 28 120/56 (77) 85 06/28/17 10:07 81 24 124/56 (78) 92 06/28/17 09:01 81 32 116/56 (76) 88 06/28/17 09:00 82 35 90 06/28/17 08:05 98 Venturi Mask 50 06/28/17 08:01 97.8 77 28 155/65 (95) 91 06/28/17 07:00 92 Nasal Cannula 5.00 06/28/17 06:00 79 06/28/17 04:00 81 06/28/17 04:00 98.0 81 27 162/82 (108) 94 06/28/17 03:59 92 Venturi Mask 5.00 50 06/28/17 02:00 75 06/28/17 00:00 75 06/28/17 00:00 98.0 75 25 156/94 (114) 91 06/27/17 23:58 92 Venturi Mask 50 06/27/17 22:00 78 I/O 06/27/17 06/27/17 06/27/17 06/28/17 06/28/17 06/28/17 07:00 15:00 23:00 07:00 15:00 23:00 Intake Total 200 ml 2260 ml 200 ml 1150 ml Output Total 1600 ml 1275 ml 1550 ml 1250 ml Balance -1400 ml 985 ml -1350 ml -100 ml Intake Oral 200 ml 380 ml 200 ml 400 ml IV Total 1880 ml 750 ml Output Urine Total 950 ml 950 ml 900 ml 800 ml Stool Total 300 ml 250 ml 50 ml Drainage Total 350 ml 325 ml 400 ml 400 ml Result Diagram: 06/26/17 0426 06/28/17 1230 Objective Remarks This is a moderately obese elderly man, who is alert and in no distress No cyanosis. There is no clubbing. HEENT: Head normocephalic. Pupils are reactive and equal. Tongue dry. Throat is clear. Neck: Supple. No bruits or thyroid enlargement or lymphadenopathy. Chest: Occ crackles at Both lung bases.Distant breath sounds Heart: The heart sounds are irregular, S1-S2 no murmur. Abdomen: Soft, protuberant with colostomy bag in place. Bowel sounds are active. No organomegaly.. Drain on RUQ Extremities: 1 + edema with diminished pulses. Reflexes are 1+. The patient does move his arms and legs well. Skin: No lesions are observed. Assessment and Plan Assessment and Plan IMPRESSION 1. Basilar pneumonia with hypoxemia. 2. History of choledocholithiasis/ Cholecystitis with sepsis. 3. Acute kidney injury with history of chronic kidney disease. 4. History of colostomy. 5. Atrial Fibrillation with RVR Resolved Plan : 1. Cont Bipap at HS 12/5 CM ,FIo2 30% 2. Cont O2 Via N/C 4 L 3. CXR in am. 4. Continue antibiotics, Zyvox 5. Soft diet as tolerated. 6. Ativan .5 Mg q6h PRN for agitation 7. Continue Heparin 5000 U S/Q bid [facility]. [facility] 9. PT evaluation Lon Willams MD Jun 28, 2017 20:54
[2017-06-28] MEDS: ATORVASTATIN 10 MG TAB PO SCH (21:15)
[2017-06-29] VITALS (24 sets, daily range): BP systolic 114–191; BP diastolic 53–124; PULSE 68–89; RESP 25–41; TEMP 97.3–98.6; O2SAT 88–100
[2017-06-29] MEDS: METOPROLOL TARTRATE 50 MG TAB PO SCH ×3 (00:23→17:18)
[2017-06-29] MEDS: RESP: IPRATROPIUM 0.5 MG/2.5 ML NEB NEB SCH ×4 (03:38→21:40)
--- NOTE | 2017-06-29 06:05 | RADRPT ---
EXAM DATE/TIME: 06/29/2017 04:49 [facility] COMPARISON: CHEST SINGLE AP, June 27, 2017, 3:42. INDICATIONS : Evaluate for infiltrate. MEDICAL HISTORY : Gastroesophageal reflux disease. Hypertension Carcinoma, prostatic. SURGICAL HISTORY : None. ENCOUNTER: Subsequent ACUITY: 3 days PAIN SCORE: Non-responsive. LOCATION: chest FINDINGS: Single AP view of the chest. Decreased prominence of the central pulmonary vasculature. Minimal bilat eral lower lung zone opacity. No evidence of pleural effusion or pneumothorax. CONCLUSION: Decreased pulmonary vascular congestion. Minimal bilateral lower lung zone opacity likely representi ng atelectasis. Salomon Faust MD on June 29, 2017 at 6:02 Board Certified Radiologist. This report was verified electronically.
[2017-06-29] MEDS: D5-NS + KCL 20 MEQ INJ 1,000 ML IV SCH ×2 (07:25→20:30)
[2017-06-29] MEDS: ALLOPURINOL 300 MG TAB PO SCH (09:36)
[2017-06-29] MEDS: ENALAPRIL MALEATE 10 MG TAB PO SCH (09:36)
[2017-06-29] MEDS: DOCUSATE SODIUM 50 MG/SENNA 8.6 MG TAB PO SCH ×2 (09:37→20:29)
[2017-06-29] MEDS: LINEZOLID 600 MG TAB PO SCH ×2 (09:37→20:29)
[2017-06-29] MEDS: SODIUM CHLORIDE 0.9% FLUSH 10 ML FLUSH IV FLUSH SCH ×2 (09:37→20:29)
[2017-06-29] MEDS: HEPARIN SODIUM - SQ 10,000 UNITS/ML VIAL SQ SCH ×2 (09:37→20:30)
[2017-06-29] MEDS: NYSTATIN 100,000 U/GM PWD 15 GM BTL TOPICAL SCH ×2 (09:37→20:30)
--- NOTE | 2017-06-29 13:37 | HHI.PR ---
cc: Bao Rojas MD Subjective Subjective Notes Resting in bed Slightly agitated upset because patient received Ativan last night Objective Vitals/I&O Vital Signs Date Time Temp Pulse Resp B/P (MAP) Pulse Ox O2 Delivery O2 Flow Rate FiO2 06/29/17 08:06 91 Nasal Cannula 5.00 06/29/17 06:00 89 06/29/17 04:00 98.4 31 139/60 (86) 06/28/17 08:05 50 Labs Date/Time Source Procedure Growth Status 06/24/17 02:10 Fluid Bile Fluid Gram Stain - Final Complete 06/24/17 02:10 Body Fluid Culture - Final Enterococcus Faecium Vre Complete 06/17/17 20:40 Nasal Washing Influenza Types A,B Antigen (JUJU) - Final NEGATIVE FOR FLU A AND B ANTIGEN.... Complete 06/18/17 10:15 Urine Random Urine Urine Culture - Final <10,000 CFU/ML GRAM POSITIVE DENICE Complete Cardiovascular: Regular Lungs: Clear Abdomen: Non-distended, Non-tender, Other (jonh tube in place with bilious bile in collection bag ) Extremities: No edema A/P Assessment and Plan 86 year old male with multiple medical issues; acute cholecystitis; s/p cholecystostomy tube placement -Continue cholecystostomy tube to drainage bag -Diet as tolerated -Will likely need rehab -Spoke with Dr. Slaughter about the patient's concerns about not wanting patient to have sedative medications - will continue to follow peripherally Attending Note - Dr. Rojas Abdomen remains benign The exam, history, and the medical decision-making described in the above note were completed with the assistance of the mid-level provider. I reviewed and agree with the findings presented. I attest that I had a [id number] encounter with the patient on the same day, and personally performed and documented my assessment and findings in the medical record. Sushma Herrera Jun 29, 2017 13:37 Bao Rojas MD Jul 02, 2017 17:49
[2017-06-29] MEDS: HALOPERIDOL LACTATE 5 MG/ML AMP IM PRN (17:18)
--- NOTE | 2017-06-29 19:40 | HHI.PR ---
Subjective Remarks at the bedside she told me patient is more confused today due to having Ativan for agitation overnight Will change that to have abdominal On high flow oxygen afebrile Objective Vitals Vital Signs Date Time Temp Pulse Resp B/P (MAP) Pulse Ox O2 Delivery O2 Flow Rate FiO2 06/29/17 17:01 79 30 150/82 (104) 96 06/29/17 16:01 98.5 73 25 114/54 (74) 94 06/29/17 15:01 81 40 131/59 (83) 95 06/29/17 15:00 Nasal Cannula 35.00 50 06/29/17 14:01 80 30 128/71 (90) 94 06/29/17 14:00 95 High Flow Nasal Cannula 35.00 50 06/29/17 13:01 86 31 151/67 (95) 92 06/29/17 12:00 98.5 84 29 137/61 (86) 94 06/29/17 11:55 83 32 143/79 (100) 97 06/29/17 10:01 81 26 118/74 (89) 89 06/29/17 09:01 97.3 83 41 124/58 (80) 88 06/29/17 08:06 91 Nasal Cannula 5.00 06/29/17 07:00 90 Nasal Cannula 5.00 06/29/17 06:00 89 06/29/17 05:29 92 Nasal Cannula 5.00 06/29/17 05:27 95 Nasal Cannula 5.00 06/29/17 04:00 82 06/29/17 04:00 98.4 79 31 139/60 (86) 100 06/29/17 03:40 97 Simple Mask 10.00 06/29/17 02:00 81 06/29/17 01:01 81 33 191/124 (146) 99 06/29/17 00:01 98.6 79 26 142/60 (87) 94 06/29/17 00:00 81 06/28/17 23:12 96 Simple Mask 10.00 06/28/17 22:00 83 34 127/59 (81) 91 06/28/17 22:00 79 06/28/17 22:00 98 Simple Mask 6.00 06/28/17 21:01 76 27 149/71 (97) 90 06/28/17 20:00 98.5 77 31 142/67 (92) 92 1/4/18 20:00 91 Nasal Cannula 5.00 06/28/17 20:00 77 06/28/17 19:54 97 Nasal Cannula 5.00 I/O 06/28/17 06/28/17 06/28/17 06/29/17 06/29/17 06/29/17 07:00 15:00 23:00 07:00 15:00 23:00 Intake Total 200 ml 1150 ml 1345 ml 875 ml Output Total 1550 ml 1250 ml 500 ml 1050 ml Balance -1350 ml -100 ml 845 ml -175 ml Intake Oral 200 ml 400 ml 400 ml IV Total 750 ml 945 ml 875 ml Output Urine Total 900 ml 800 ml 200 ml 600 ml Stool Total 250 ml 50 ml 50 ml 50 ml Drainage Total 400 ml 400 ml 250 ml 400 ml # Voids 3 Result Diagram: 06/26/17 0426 06/28/17 1230 Objective Remarks GENERAL: This is a frail elderly patient on high flow oxygen SKIN: No rashes, warm and dry HEAD: Atraumatic. Normocephalic. EYES: Pupils equal round and reactive. Extraocular motions intact. No scleral icterus. ENT: Nose without bleeding, or drainage, Airway patent. NECK: Trachea midline. Supple CARDIOVASCULAR: Irregularly irregular RESPIRATORY: Diminished breath sounds GASTROINTESTINAL: Abdomen soft, non-tender, nondistended. Positive bowel sounds MUSCULOSKELETAL: Extremities without clubbing, cyanosis, or edema. Pedal pulses appreciated NEUROLOGICAL: Awake and alert. Moves all extremity. Normal speech.no focal neurological deficit Procedures Pre Procedure Diagnosis: (1) Acute cholecystitis Post Procedure Diagnosis: (1) Biliary sludge Procedure Date: Jun 21, 2017 Supervising Radiologist: Jermaine Herman Proceduralist/Assist: Ca Khan, RT(R)(CV), Kristan Lundy RT(R) Anesthesia: Local, Analgesia, Conscious Sedation Plan of Activity Patient to Unit: ROPU Patient Condition: Good See PACS Report for procedural detail/treatment Drainage Procedure Procedure 1 Imaging Guidance: Fluoroscopy, Ultrasound Procedure Type: Cholecystostomy Procedure: Placement Drainage: [place] drainage Fluid Description: Cloudy, Bilious Findings: Bowel surrounds anterior access to GB. Transhepatic approach. Cystic duct and CBD patent. Debris in GB lumen. 8Fr catheter to gravity drainage. A/P Assessment and Plan Bibasilar pneumonia A. fib with RVR Choledocholithiasis Acute respiratory failure and hypoxia QUIQUE on CKD Hypertension/hyperlipidemia DVT prophylaxis 06/20: Stat transfer to ICU, stat Check lactic acid, consult ID, Lopressor iv to control heart rate, resume Lopressorpo, Discussed with GI, discussed with GS 06/21: Heart rate much better on Lopressor 50 every 8 hours, still on 15 L nonrebreather mask, appreciate pulmonary, recommended high flow oxygen, ABG nonsignificant pH 7.44. Rayna scan has been done was concerning for obstruction, surgery following patient will go to IR for cholecystotomy drainage, ID following for iv antibiotic 06/22: pt agitated, aggressive if restraints removed. will consult Psych for assistance to agitation/confusion. Continue abx (zosyn/azithro). Monitor labs. Hypokalemia noted. Currently getting replacement. Per RN, pt NPO at this time, awaiting swallow eval. On D5NS @84ml/hr and also getting IV potassium. Monitor electrolytes. Leukocytosis resolved. s/p cholecystostomy tube placement. QUIQUE resolved. Continue to monitor in ICU due to respiratory status and still requiring partial non rebreather. 06/23: seems a bit better this morning. calm. at least he knows his name and that he is in a hospital. K 3.3. continue to supplement IV as pt is currently NPO per speech therapy recs. continue to monitor. added vasotec prn as he cannot yet take po meds. Discussed w NAGA yesterday, ok to resume dvt proph. Azithro has been stopped by ID and continue zosyn per their rec. Appreciate recs from psych. Try to remove restraints if pt cooperative. 06/24: Pt calm, took off his non rebreather and sats were 74% when I came into the room, I immediately put mask on and sats went up slowly. Pt seems to be improving, he is more alert and able to follow commands, he is off restraints. continue to monitor. continue breathing treatments and IV abx. He is on Zosyn. Discussed w RN, encourage out of bed to a recliner if possible to see if this helps w his ventilation. PT/ST/OT following. He is on puree honey thick diet. No BM's recorded, I requested that pt get his prn stool softeners in addition to the shahab-colace he is getting. Continue to monitor in the ICU for now as pt still requiring a partial non rebreather. Repeat K level as it was noted to be elevated this morning but due to blood being hemolyzed. 06/25: Pt calm and getting breathing treatment. Still requiring partial non rebreather. Per RN, didn't tolerate BiPAP last night. Pt less confused. Continue current management. ID, GS and pulm following. Appreciate assistance. Labs pending this morning. Continue cholecystostomy tube to drainage bag, pt not a candidate for sx. Once breathing treatment improves, will transfer out of ICU. Encourage out of bed to recliner daily. 1-2 patient is still not able to get out of bed. Very short of breath. Slightly confused In bed chair sitting like a recliner at bedside during exam Discussed with RN and patient and Very slow going 06/27/17: Still in respiratory failure nonrebreathing mask, pulmonary following, hard hearing slightly confused, continue monitoring in ICU 06/28/17: Continue weaning down oxygen, follow with pulmonology 06/29/17: Still oxygen dependent high flow nasal cannula, worsening change in mental status possibly due to Ativan for evening agitation/ing, will switch to hold all Deficit A/P: //Choledocholithiasis CT of the abdomen/pelvis showed choledocholithiasis with increased diameter of the common bile duct Leukocytosis, elevated lactic acid, transaminitis, elevated T bili currently on zosyn. Gastroenterology following, s/p ERCP. Dilaudid for pain Cholecystotomy tube in place //biBasilar pneumonia //Hypoxemic respiratory failure. -s/p Zithromax now on Zosyn. Continue supportive care with do nebs. Incentive spirometry, Acapella. BNP normal, echocardiogram without pericardial effusion. Pulmonology following. BiPAP at night but pt not tolerating it. Appreciate assistance. Wean oxygen as able to-- currently on 6 L by nasal //Acute on chronic kidney injury resolved. IV fluid hydration Monitor renal function Avoid nephrotoxic agent A.m. labs //Hypertension/hyperlipidemia/a fib on metoprolol. Stable. FEN Electrolytes: monitor and replete prn on heparin Discharge Planning continue monitoring in the ICU, pt on 6L BY NC. continue to wean oxygen as tolerated. Once respiratory status improves, transfer out of ICU. Pt not a surgical candidate. Continue IV abx. Awaiting final recs from consultants. Gaby Slaughter MD Jun 29, 2017 19:39
--- NOTE | 2017-06-29 19:42 | HHI.PR ---
Subjective Remarks Worse today and on O2 at High flow and 50 % CXR shows basal infiltrates. Confused and agitated Had a Cholecystostomy tube placed which is draining . Objective Vital Signs Date Time Temp Pulse Resp B/P (MAP) Pulse Ox O2 Delivery O2 Flow Rate FiO2 06/29/17 17:01 79 30 150/82 (104) 96 06/29/17 16:01 98.5 73 25 114/54 (74) 94 06/29/17 15:01 81 40 131/59 (83) 95 06/29/17 15:00 Nasal Cannula 35.00 50 06/29/17 14:01 80 30 128/71 (90) 94 06/29/17 14:00 95 High Flow Nasal Cannula 35.00 50 06/29/17 13:01 86 31 151/67 (95) 92 06/29/17 12:00 98.5 84 29 137/61 (86) 94 06/29/17 11:55 83 32 143/79 (100) 97 06/29/17 10:01 81 26 118/74 (89) 89 06/29/17 09:01 97.3 83 41 124/58 (80) 88 06/29/17 08:06 91 Nasal Cannula 5.00 06/29/17 07:00 90 Nasal Cannula 5.00 06/29/17 06:00 89 06/29/17 05:29 92 Nasal Cannula 5.00 06/29/17 05:27 95 Nasal Cannula 5.00 06/29/17 04:00 82 06/29/17 04:00 98.4 79 31 139/60 (86) 100 06/29/17 03:40 97 Simple Mask 10.00 06/29/17 02:00 81 06/29/17 01:01 81 33 191/124 (146) 99 06/29/17 00:01 98.6 79 26 142/60 (87) 94 06/29/17 00:00 81 06/28/17 23:12 96 Simple Mask 10.00 06/28/17 22:00 83 34 127/59 (81) 91 06/28/17 22:00 79 06/28/17 22:00 98 Simple Mask 6.00 06/28/17 21:01 76 27 149/71 (97) 90 06/28/17 20:00 98.5 77 31 142/67 (92) 92 06/28/17 20:00 91 Nasal Cannula 5.00 06/28/17 20:00 77 06/28/17 19:54 97 Nasal Cannula 5.00 I/O 06/28/17 06/28/17 06/28/17 06/29/17 06/29/17 06/29/17 07:00 15:00 23:00 07:00 15:00 23:00 Intake Total 200 ml 1150 ml 1345 ml 875 ml Output Total 1550 ml 1250 ml 500 ml 1050 ml Balance -1350 ml -100 ml 845 ml -175 ml Intake Oral 200 ml 400 ml 400 ml IV Total 750 ml 945 ml 875 ml Output Urine Total 900 ml 800 ml 200 ml 600 ml Stool Total 250 ml 50 ml 50 ml 50 ml Drainage Total 400 ml 400 ml 250 ml 400 ml # Voids 3 Result Diagram: 06/26/17 0426 06/28/17 1230 Objective Remarks This is a moderately obese elderly man, who is alert and in no distress No cyanosis. There is no clubbing. HEENT: Head normocephalic. Pupils are reactive and equal. Tongue dry. Throat is clear. Neck: Supple. No bruits or thyroid enlargement or lymphadenopathy. Chest: Occ crackles at Both lung bases.Distant breath sounds Heart: The heart sounds are irregular, S1-S2 no murmur. Abdomen: Soft, protuberant with colostomy bag in place. Bowel sounds are active. No organomegaly.. Drain on RUQ Extremities: 1 + edema with diminished pulses. Reflexes are 1+. The patient does move his arms and legs well. Skin: No lesions are observed. Assessment and Plan Assessment and Plan IMPRESSION 1. Basilar pneumonia with hypoxemia. 2. History of choledocholithiasis/ Cholecystitis with sepsis. 3. Acute kidney injury with history of chronic kidney disease. 4. History of colostomy. 5. Atrial Fibrillation with RVR Resolved Plan : 1. Cont Bipap at HS 12/5 CM ,FIo2 30% 2. Cont O2 Via N/C High flow at 50 % 3. CXR CBC,BMP in am. 4. Continue antibiotics, Zyvox 5. Soft diet as tolerated. 6. Ativan .5 Mg q6h PRN for agitation 7. Continue Heparin 5000 U S/Q bid 8. Add Seroquel 25 mg bid 9. PT evaluation Lon Willams MD Jun 29, 2017 19:42
[2017-06-29] MEDS: ATORVASTATIN 10 MG TAB PO SCH (20:29)
[2017-06-29] MEDS ORDERED: HALOPERIDOL LACTATE 5 MG/ML AMP IM ONE (22:00)
[2017-06-30] VITALS (14 sets, daily range): BP systolic 104–150; BP diastolic 55–67; PULSE 61–82; RESP 19–29; TEMP 96.8–98.2; O2SAT 91–100
[2017-06-30] MEDS: METOPROLOL TARTRATE 50 MG TAB PO SCH ×3 (02:07→18:34)
[2017-06-30] MEDS: HALOPERIDOL LACTATE 5 MG/ML AMP IM PRN (02:07)
[2017-06-30] MEDS: RESP: IPRATROPIUM 0.5 MG/2.5 ML NEB NEB SCH ×3 (03:18→14:23)
[2017-06-30] MEDS: D5-NS + KCL 20 MEQ INJ 1,000 ML IV SCH ×2 (07:28→18:34)
[2017-06-30] MEDS: SODIUM CHLORIDE 0.9% FLUSH 10 ML FLUSH IV FLUSH SCH ×2 (07:29→21:00)
[2017-06-30] MEDS: ALLOPURINOL 300 MG TAB PO SCH (09:00)
[2017-06-30] MEDS: ENALAPRIL MALEATE 10 MG TAB PO SCH (09:00)
[2017-06-30] MEDS: LINEZOLID 600 MG TAB PO SCH ×2 (09:00→21:25)
[2017-06-30] MEDS: QUEtiapine FUMARATE 25 MG TAB PO SCH ×2 (09:00→10:42)
[2017-06-30] MEDS: DOCUSATE SODIUM 50 MG/SENNA 8.6 MG TAB PO SCH ×2 (09:00→21:25)
[2017-06-30] MEDS: HEPARIN SODIUM - SQ 10,000 UNITS/ML VIAL SQ SCH ×2 (09:01→21:26)
[2017-06-30] MEDS: NYSTATIN 100,000 U/GM PWD 15 GM BTL TOPICAL SCH ×2 (09:01→21:26)
--- NOTE | 2017-06-30 11:58 | HHI.IDPN ---
Note Infectious Disease Note Patient in no distress. On O2 nasal canula. Afebrile. 86-year-old white male was admitted through the emergency department with abdominal pain. He was evaluated and found to have a 1.5 millimeter rounded density in the region of the distal common duct suspicious for choledocholithiasis. PAST MEDICAL HISTORY 1. Hypertension. 2. Hyperlipidemia. 3. Paroxysmal atrial fibrillation. 4. Osteoarthritis. 5. History of pulmonary embolism. 6. History of prostate cancer. 7. History of rectal cancer. 8. History of abdominal surgery. 9. Colostomy. 10. Left knee surgery. 11. Left hip repair. 12. Prostatectomy. ALLERGIES NO KNOWN DRUG ALLERGIES. MEDICATIONS Zyvox. OBJECTIVE: Vital Signs Date Time Temp Pulse Resp B/P (MAP) Pulse Ox O2 Delivery O2 Flow Rate FiO2 06/30/17 10:00 65 06/30/17 10:00 65 25 121/58 (79) 100 06/30/17 09:30 93 Nasal Cannula 4.00 06/30/17 09:00 66 28 141/64 (89) 95 06/30/17 08:00 97.7 65 29 150/67 (94) 97 06/30/17 08:00 65 06/30/17 07:00 97 [employer] Operator 30.00 50 06/30/17 06:00 69 06/30/17 04:00 71 29 136/57 (83) 99 06/30/17 04:00 71 06/30/17 03:21 94 High Flow Nasal Cannula 30.00 50 06/30/17 02:00 67 06/30/17 00:00 76 29 127/58 (81) 98 06/30/17 00:00 76 06/29/17 23:25 96 High Flow Nasal Cannula 30.00 50 06/29/17 22:00 68 06/29/17 21:41 98 High Flow Nasal Cannula 30.00 50 06/29/17 20:00 71 06/29/17 20:00 98.2 71 28 118/53 (74) 98 06/29/17 19:55 97 High Flow Nasal Cannula 30.00 50 06/29/17 19:00 100 [employer] Operator 30.00 50 06/29/17 17:01 79 30 150/82 (104) 96 06/29/17 16:01 98.5 73 25 114/54 (74) 94 06/29/17 15:01 81 40 131/59 (83) 95 06/29/17 15:00 Nasal Cannula 35.00 50 06/29/17 14:01 80 30 128/71 (90) 94 06/29/17 14:00 95 High Flow Nasal Cannula 35.00 50 06/29/17 13:01 86 31 151/67 (95) 92 06/29/17 12:00 98.5 84 29 137/61 (86) 94 06/29/17 11:55 83 32 143/79 (100) 97 Laboratory Tests Test 06/28/17 12:30 Blood Urea Nitrogen 7 MG/DL Creatinine 1.24 MG/DL Random Glucose 115 MG/DL Calcium Level 9.4 MG/DL Sodium Level 137 MEQ/L Potassium Level 3.9 MEQ/L Chloride Level 104 MEQ/L Carbon Dioxide Level 24.2 MEQ/L Anion Gap 9 MEQ/L Estimat Glomerular Filtration Rate 55 ML/MIN Microbiology Date/Time Source Procedure Growth Status 06/24/17 02:10 Fluid Bile Fluid Gram Stain - Final Complete 06/24/17 02:10 Body Fluid Culture - Final Enterococcus Faecium Vre Complete IMAGING: Chest X-Ray 06/27/17 0600 Signed Impressions: Service Date/Time: Tuesday, June 27, 2017 03:42 - CONCLUSION: Unchanged bibasilar consolidation with slight decrease of bilateral pleural effusions. Gustavo Tineo Jr., MD Hepatobiliary Scan Nuclear Medicine 06/21/17 1120 Signed Impressions: Service Date/Time: May 11:19 - CONCLUSION: 1. Normal biliary bowel transit time with no evidence for common bile duct obstruction. 2. No activity noted in the gallbladder at up to 90 minutes. This is concerning for obstruction of the cystic duct in this patient with suspected acute cholecystitis. Given the high degree of clinical suspicion and patient's tenuous clinical condition, plan is for percutaneous cholecystostomy drain placement rather than delayed imaging. Swapnil Marte MD Chest CT 06/19/17 1513 Signed Impressions: Service Date/Time: Monday, June 19, 2017 15:59 - CONCLUSION: 1. Chronic interstitial lung disease 2. Bibasilar airspace disease with small effusions and mild dural thickening 3. 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 Long Garrison MD Renal Ultrasound 06/19/17 0000 Signed Impressions: Service Date/Time: Monday, June 19, 2017 13:29 - CONCLUSION: 1. Hyperechoic kidneys consistent with medical renal disease. 2. No obstructive uropathy. Swapnil Marte MD Chest X-Ray 06/19/17 0000 Signed Impressions: Service Date/Time: Monday, June 19, 2017 10:36 - CONCLUSION: Hypoaerated lungs with mild right basilar airspace disease. Mild cardiomegaly Long Garrison MD Abdomen Ultrasound 06/19/17 0000 Signed Impressions: Service Date/Time: Monday, June 19, 2017 14:14 - CONCLUSION: 1. No significant ascites. Swapnil Marte MD GI Procedure 06/18/17 0000 Signed Impressions: Service Date/Time: Sunday, June 18, 2017 13:06 - CONCLUSION: ERCP as above. Salomon Faust MD Abdomen X-Ray 06/17/[id number] Signed Impressions: Service Date/Time: Saturday, June 17, 2017 20:49 - CONCLUSION: No evidence of free air. Salomon Faust MD Abdomen/Pelvis CT 06/17/172002 Signed Impressions: Service Date/Time: Saturday, June 17, 2017 21:30 - CONCLUSION: 1. 5 mm rounded density in the region of the distal common duct suspicious for choledocholithiasis. Common duct diameter has increased when compared to the prior study now measuring 7-8 mm in diameter. Mild diffuse intrahepatic biliary ductal prominence. 2. Cholelithiasis. 3. 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 No bowel dilatation. Salomon Faust MD PHYSICAL EXAMINATION: GENERAL: No acute distress. HEENT: No icterus. Oropharynx: mucosa appears slightly dry. Neck: Supple. Lungs: Decreased breath sounds. Heart: Irregular rate and rhythm. Systolic murmur at the left sternal border. Abdomen: Bowel sounds present but diminished, soft. Non tender. Colostomy bag in place. Cholecystostomy tube has biliary drainage. Extremities: No clubbing or cyanosis or edema. Skin: No rash. NEURO: No focal finding. Psych: Calm and cooperative. IMPRESSION 1. Pneumonia. improved. 2. Choledocholithiasis. Acute cholecystitis - VRE. Appears stable. RECOMMENDATIONS 1. Continue PO Zyvox for VRE until 07/03/17. Monitor platelet count while on Zyvox. 2. Follow clinical status. Lito Sena MD Jun 30, 2017 11:58
--- NOTE | 2017-06-30 21:23 | HHI.PR ---
Subjective Remarks Patient looks much better, is on nasal cannula today Afebrile discussed with Will transfer to medical floor Objective Vitals Vital Signs Date Time Temp Pulse Resp B/P (MAP) Pulse Ox O2 Delivery O2 Flow Rate FiO2 06/30/17 21:20 Nasal Cannula 3.00 06/30/17 20:00 96.9 82 24 120/63 (82) 98 06/30/17 18:19 98 3.00 06/30/17 16:00 96.8 69 19 114/55 (74) 93 06/30/17 14:00 67 06/30/17 13:00 74 19 111/55 (73) 92 06/30/17 12:00 63 06/30/17 12:00 98.2 63 22 104/65 (78) 91 06/30/17 11:00 61 27 94 06/30/17 10:00 65 06/30/17 10:00 65 25 121/58 (79) 100 06/30/17 09:30 93 Nasal Cannula 4.00 06/30/17 09:00 66 28 141/64 (89) 95 06/30/17 08:00 97.7 65 29 150/67 (94) 97 06/30/17 08:00 65 06/30/17 07:00 97 Scarf And Anneal Operator 30.00 50 06/30/17 06:00 69 06/30/17 04:00 71 29 136/57 (83) 99 06/30/17 04:00 71 06/30/17 03:21 94 High Flow Nasal Cannula 30.00 50 06/30/17 02:00 67 06/30/17 00:00 76 29 127/58 (81) 98 06/30/17 00:00 76 06/29/17 23:25 96 High Flow Nasal Cannula 30.00 50 06/29/17 22:00 68 06/29/17 21:41 98 High Flow Nasal Cannula 30.00 50 I/O 06/29/17 06/29/17 06/29/17 06/30/17 06/30/17 06/30/17 06:59 14:59 22:59 06:59 14:59 22:59 Intake Total 1345 ml 875 ml 1019 ml 940 ml Output Total 500 ml 1050 ml 1240 ml 850 ml Balance 845 ml -175 ml -221 ml 940 ml -850 ml Intake Oral 400 ml IV Total 945 ml 875 ml 1019 ml 940 ml Output Urine Total 200 ml 600 ml 925 ml 600 ml Stool Total 50 ml 50 ml 0 ml Drainage Total 250 ml 400 ml 315 ml 250 ml # Voids 3 Result Diagram: 06/26/17 0426 06/28/17 1230 Objective Remarks GENERAL: This is a frail elderly patient on 15 L nonrebreathing mask SKIN: No rashes, warm and dry HEAD: Atraumatic. Normocephalic. EYES: Pupils equal round and reactive. Extraocular motions intact. No scleral icterus. ENT: Nose without bleeding, or drainage, Airway patent. NECK: Trachea midline. Supple CARDIOVASCULAR: Irregularly irregular RESPIRATORY: Diminished breath sounds GASTROINTESTINAL: Abdomen soft, non-tender, nondistended. Positive bowel sounds MUSCULOSKELETAL: Extremities without clubbing, cyanosis, or edema. Pedal pulses appreciated NEUROLOGICAL: Awake and alert. Moves all extremity. Normal speech.no focal neurological deficit Procedures Pre Procedure Diagnosis: (1) Acute cholecystitis Post Procedure Diagnosis: (1) Biliary sludge Procedure Date: Jun 21, 2017 Supervising Radiologist: Jermaine Herman Proceduralist/Assist: Ca Khan, RT(R)(CV), Kristan Lundy RT(R) Anesthesia: Local, Analgesia, Conscious Sedation Plan of Activity Patient to Unit: ROPU Patient Condition: Good See PACS Report for procedural detail/treatment Drainage Procedure Procedure 1 Imaging Guidance: Fluoroscopy, Ultrasound Procedure Type: Cholecystostomy Procedure: Placement Drainage: [place] drainage Fluid Description: Cloudy, Bilious Findings: Bowel surrounds anterior access to GB. Transhepatic approach. Cystic duct and CBD patent. Debris in GB lumen. 8Fr catheter to gravity drainage. A/P Assessment and Plan Bibasilar pneumonia A. fib with RVR Choledocholithiasis Acute respiratory failure and hypoxia QUIQUE on CKD Hypertension/hyperlipidemia DVT prophylaxis 06/20: Stat transfer to ICU, stat Check lactic acid, consult ID, Lopressor iv to control heart rate, resume Lopressorpo, Discussed with GI, discussed with GS 06/21: Heart rate much better on Lopressor 50 every 8 hours, still on 15 L nonrebreather mask, appreciate pulmonary, recommended high flow oxygen, ABG nonsignificant pH 7.44. Rayna scan has been done was concerning for obstruction, surgery following patient will go to IR for cholecystotomy drainage, ID following for iv antibiotic 06/22: pt agitated, aggressive if restraints removed. will consult Psych for assistance to agitation/confusion. Continue abx (zosyn/azithro). Monitor labs. Hypokalemia noted. Currently getting replacement. Per RN, pt NPO at this time, awaiting swallow eval. On D5NS @84ml/hr and also getting IV potassium. Monitor electrolytes. Leukocytosis resolved. s/p cholecystostomy tube placement. QUIQUE resolved. Continue to monitor in ICU due to respiratory status and still requiring partial non rebreather. 06/23: seems a bit better this morning. calm. at least he knows his name and that he is in a hospital. K 3.3. continue to supplement IV as pt is currently NPO per speech therapy recs. continue to monitor. added vasotec prn as he cannot yet take po meds. Discussed w GS yesterday, ok to resume dvt proph. Azithro has been stopped by ID and continue zosyn per their rec. Appreciate recs from psych. Try to remove restraints if pt cooperative. 06/24: Pt calm, took off his non rebreather and sats were 74% when I came into the room, I immediately put mask on and sats went up slowly. Pt seems to be improving, he is more alert and able to follow commands, he is off restraints. continue to monitor. continue breathing treatments and IV abx. He is on Zosyn. Discussed w RN, encourage out of bed to a recliner if possible to see if this helps w his ventilation. PT/ST/OT following. He is on puree honey thick diet. No BM's recorded, I requested that pt get his prn stool softeners in addition to the shahab-colace he is getting. Continue to monitor in the ICU for now as pt still requiring a partial non rebreather. Repeat K level as it was noted to be elevated this morning but due to blood being hemolyzed. 06/25: Pt calm and getting breathing treatment. Still requiring partial non rebreather. Per RN, didn't tolerate BiPAP last night. Pt less confused. Continue current management. ID, GS and pulm following. Appreciate assistance. Labs pending this morning. Continue cholecystostomy tube to drainage bag, pt not a candidate for sx. Once breathing treatment improves, will transfer out of ICU. Encourage out of bed to recliner daily. 1-2 patient is still not able to get out of bed. Very short of breath. Slightly confused In bed chair sitting like a recliner at bedside during exam Discussed with RN and patient and Very slow going 06/27/17: Still in respiratory failure nonrebreathing mask, pulmonary following, hard hearing slightly confused, continue monitoring in ICU 06/28/17: Continue weaning down oxygen, follow with pulmonology 06/29/17: Still oxygen dependent high flow nasal cannula, worsening change in mental status possibly due to Ativan for evening agitation/ing, will switch to hold all 06/30/17: Continue weaning down oxygen, transferred to [facility] floor with telemetry, mental status improved, pulmonology following Deficit A/P: //Choledocholithiasis CT of the abdomen/pelvis showed choledocholithiasis with increased diameter of the common bile duct Leukocytosis, elevated lactic acid, transaminitis, elevated T bili currently on zosyn. Gastroenterology following, s/p ERCP. Dilaudid for pain Cholecystotomy tube in place //biBasilar pneumonia //Hypoxemic respiratory failure. -s/p Zithromax now on Zosyn. Continue supportive care with do nebs. Incentive spirometry, Acapella. BNP normal, echocardiogram without pericardial effusion. Pulmonology following. BiPAP at night but pt not tolerating it. Appreciate assistance. Wean oxygen as able to-- currently on 6 L by nasal //Acute on chronic kidney injury resolved. IV fluid hydration Monitor renal function Avoid nephrotoxic agent A.m. labs //Hypertension/hyperlipidemia/a fib on metoprolol. Stable. FEN Electrolytes: monitor and replete prn on heparin Discharge Planning continue monitoring in the ICU, pt on 6L BY NC. continue to wean oxygen as tolerated. Once respiratory status improves, transfer out of ICU. Pt not a surgical candidate. Continue IV abx. Awaiting final recs from consultants. Gaby Slaughter MD Jun 30, 2017 21:23
[2017-06-30] MEDS: ATORVASTATIN 10 MG TAB PO SCH (21:25)
[2017-07-01] VITALS (10 sets, daily range): BP systolic 112–134; BP diastolic 53–60; PULSE 66–89; RESP 17–24; TEMP 97.1–98.2; O2SAT 92–100
[2017-07-01] MEDS: METOPROLOL TARTRATE 50 MG TAB PO SCH ×3 (01:00→16:57)
[2017-07-01] MEDS: RESP: IPRATROPIUM 0.5 MG/2.5 ML NEB NEB SCH ×4 (04:12→20:37)
[2017-07-01] MEDS: D5-NS + KCL 20 MEQ INJ 1,000 ML IV SCH ×2 (06:03→16:57)
[2017-07-01 07:19] LABS: AUTOMATED NEUTROPHIL # 5.4 TH/MM3 (1.8-7.7); BASOPHIL # 0.1 TH/MM3 (0-0.2); BASOPHIL % 1.2 % (0.0-2.0); EOSINOPHIL # 0.3 TH/MM3 (0-0.4); EOSINOPHIL % 3.8 % (0.0-4.0); HEMATOCRIT 35.1 % (39.0-51.0); HEMOGLOBIN 11.6 GM/DL (13.0-17.0); LYMPHOCYTE # 1.4 TH/MM3 (1.0-4.8); MEAN CELL VOLUME 97.5 FL (80.0-100.0); MEAN CORPUSCULAR HEMOGLOBIN 32.1 PG (27.0-34.0); MEAN PLATELET VOLUME 7.7 FL (7.0-11.0); MONOCYTE # 0.8 TH/MM3 (0-0.9); PLATELET COUNT 378 TH/MM3 (150-450); RED BLOOD COUNT 3.61 MIL/MM3 (4.50-5.90); RED CELL DISTRIBUTION WIDTH 16.1 % (11.6-17.2)
[2017-07-01 08:22] LABS: OVALOCYTES 1+ (NORMAL)
[2017-07-01] MEDS: DOCUSATE SODIUM 50 MG/SENNA 8.6 MG TAB PO SCH ×2 (09:00→19:32)
[2017-07-01] MEDS: QUEtiapine FUMARATE 25 MG TAB PO SCH ×2 (09:51→12:00)
[2017-07-01] MEDS: LINEZOLID 600 MG TAB PO SCH ×2 (09:51→19:33)
[2017-07-01] MEDS: ALLOPURINOL 300 MG TAB PO SCH (09:52)
[2017-07-01] MEDS: HEPARIN SODIUM - SQ 10,000 UNITS/ML VIAL SQ SCH ×2 (09:52→19:33)
[2017-07-01] MEDS: ENALAPRIL MALEATE 10 MG TAB PO SCH (09:52)
[2017-07-01] MEDS: SODIUM CHLORIDE 0.9% FLUSH 10 ML FLUSH IV FLUSH SCH ×2 (16:58→19:32)
[2017-07-01] MEDS: NYSTATIN 100,000 U/GM PWD 15 GM BTL TOPICAL SCH ×2 (16:58→19:33)
[2017-07-01] MEDS: ATORVASTATIN 10 MG TAB PO SCH (19:33)
--- NOTE | 2017-07-01 19:44 | HHI.PR ---
Subjective Remarks Resting in bed on 4 L nasal cannula Looks much better, answering question, at the bedside MedSur bed once available Objective Vitals Vital Signs Date Time Temp Pulse Resp B/P (MAP) Pulse Ox O2 Delivery O2 Flow Rate FiO2 07/01/17 16:00 97.7 89 17 131/60 (83) 98 07/01/17 14:27 84 07/01/17 12:00 97.9 86 19 114/59 (77) 97 07/01/17 08:40 94 3.00 07/01/17 08:31 93 Nasal Cannula 4.00 07/01/17 08:00 97.6 83 19 127/60 (82) 93 07/01/17 04:16 92 Nasal Cannula 3.00 07/01/17 04:00 98.2 77 24 116/57 (76) 95 07/01/17 00:00 97.1 66 24 134/60 (84) 97 07/01/17 00:00 68 06/30/17 21:20 Nasal Cannula 3.00 06/30/17 20:00 96.9 82 24 120/63 (82) 98 I/O 06/30/17 06/30/17 06/30/17 07/01/17 07/01/17 07/01/17 07:00 15:00 23:00 07:00 15:00 23:00 Intake Total 1019 ml 940 ml 0 ml 360 ml Output Total 1240 ml 850 ml 680 ml 500 ml Balance -221 ml 940 ml -850 ml -680 ml -140 ml Intake Oral 0 ml 360 ml IV Total 1019 ml 940 ml Output Urine Total 925 ml 600 ml 400 ml 500 ml Stool Total 0 ml 0 ml 0 ml Drainage Total 315 ml 250 ml 280 ml Result Diagram: 07/01/17 0647 06/28/17 1230 Objective Remarks GENERAL: This is a frail elderly patient on O2 nasal cannula SKIN: No rashes, warm and dry HEAD: Atraumatic. Normocephalic. EYES: Pupils equal round and reactive. Extraocular motions intact. No scleral icterus. ENT: Nose without bleeding, or drainage, Airway patent. NECK: Trachea midline. Supple CARDIOVASCULAR: Irregularly irregular RESPIRATORY: Diminished breath sounds GASTROINTESTINAL: Abdomen soft, non-tender, nondistended. Positive bowel sounds MUSCULOSKELETAL: Extremities without clubbing, cyanosis, or edema. Pedal pulses appreciated NEUROLOGICAL: Awake and alert. Moves all extremity. Normal speech.no focal neurological deficit Procedures Pre Procedure Diagnosis: (1) Acute cholecystitis Post Procedure Diagnosis: (1) Biliary sludge Procedure Date: Jun 21, 2017 Supervising Radiologist: Jermaine Herman Proceduralist/Assist: Ca Khan, RT(R)(CV), Kristan Lundy, RT(R) Anesthesia: Local, Analgesia, Conscious Sedation Plan of Activity Patient to Unit: ROPU Patient Condition: Good See PACS Report for procedural detail/treatment Drainage Procedure Procedure 1 Imaging Guidance: Fluoroscopy, Ultrasound Procedure Type: Cholecystostomy Procedure: Placement Drainage: [place] drainage Fluid Description: Cloudy, Bilious Findings: Bowel surrounds anterior access to GB. Transhepatic approach. Cystic duct and CBD patent. Debris in GB lumen. 8Fr catheter to gravity drainage. A/P Assessment and Plan Bibasilar pneumonia A. fib with RVR Choledocholithiasis Acute respiratory failure and hypoxia QUIQUE on CKD Hypertension/hyperlipidemia DVT prophylaxis 06/20: Stat transfer to ICU, stat Check lactic acid, consult ID, Lopressor iv to control heart rate, resume Lopressorpo, Discussed with GI, discussed with GS 06/21: Heart rate much better on Lopressor 50 every 8 hours, still on 15 L nonrebreather mask, appreciate pulmonary, recommended high flow oxygen, ABG nonsignificant pH 7.44. Rayna scan has been done was concerning for obstruction, surgery following patient will go to IR for cholecystotomy drainage, ID following for iv antibiotic 06/22: pt agitated, aggressive if restraints removed. will consult Psych for assistance to agitation/confusion. Continue abx (zosyn/azithro). Monitor labs. Hypokalemia noted. Currently getting replacement. Per RN, pt NPO at this time, awaiting swallow eval. On D5NS @84ml/hr and also getting IV potassium. Monitor electrolytes. Leukocytosis resolved. s/p cholecystostomy tube placement. QUIQUE resolved. Continue to monitor in ICU due to respiratory status and still requiring partial non rebreather. 06/23: seems a bit better this morning. calm. at least he knows his name and that he is in a hospital. K 3.3. continue to supplement IV as pt is currently NPO per speech therapy recs. continue to monitor. added vasotec prn as he cannot yet take po meds. Discussed w GS yesterday, ok to resume dvt proph. Azithro has been stopped by ID and continue zosyn per their rec. Appreciate recs from psych. Try to remove restraints if pt cooperative. 06/24: Pt calm, took off his non rebreather and sats were 74% when I came into the room, I immediately put mask on and sats went up slowly. Pt seems to be improving, he is more alert and able to follow commands, he is off restraints. continue to monitor. continue breathing treatments and IV abx. He is on Zosyn. Discussed w RN, encourage out of bed to a recliner if possible to see if this helps w his ventilation. PT/ST/OT following. He is on puree honey thick diet. No BM's recorded, I requested that pt get his prn stool softeners in addition to the shahab-colace he is getting. Continue to monitor in the ICU for now as pt still requiring a partial non rebreather. Repeat K level as it was noted to be elevated this morning but due to blood being hemolyzed. 06/25: Pt calm and getting breathing treatment. Still requiring partial non rebreather. Per RN, didn't tolerate BiPAP last night. Pt less confused. Continue current management. ID, GS and pulm following. Appreciate assistance. Labs pending this morning. Continue cholecystostomy tube to drainage bag, pt not a candidate for sx. Once breathing treatment improves, will transfer out of ICU. Encourage out of bed to recliner daily. 1-2 patient is still not able to get out of bed. Very short of breath. Slightly confused In bed chair sitting like a recliner at bedside during exam Discussed with RN and patient and Very slow going 06/27/17: Still in respiratory failure nonrebreathing mask, pulmonary following, hard hearing slightly confused, continue monitoring in ICU 06/28/17: Continue weaning down oxygen, follow with pulmonology 06/29/17: Still oxygen dependent high flow nasal cannula, worsening change in mental status possibly due to Ativan for evening agitation/owning, will switch to hold all 07/01/17: Continue weaning down oxygen, follow with pulmonary, transferred to [facility] floor Initial A/P: //Choledocholithiasis CT of the abdomen/pelvis showed choledocholithiasis with increased diameter of the common bile duct Leukocytosis, elevated lactic acid, transaminitis, elevated T bili currently on zosyn. Gastroenterology following, s/p ERCP. Dilaudid for pain Cholecystotomy tube in place //biBasilar pneumonia //Hypoxemic respiratory failure. -s/p Zithromax now on Zosyn. Continue supportive care with do nebs. Incentive spirometry, Acapella. BNP normal, echocardiogram without pericardial effusion. Pulmonology following. BiPAP at night but pt not tolerating it. Appreciate assistance. Wean oxygen as able to-- currently on 6 L by nasal //Acute on chronic kidney injury resolved. IV fluid hydration Monitor renal function Avoid nephrotoxic agent A.m. labs //Hypertension/hyperlipidemia/a fib on metoprolol. Stable. FEN Electrolytes: monitor and replete prn on heparin Discharge Planning continue monitoring in the ICU, pt on 6L BY NC. continue to wean oxygen as tolerated. Once respiratory status improves, transfer out of ICU. Pt not a surgical candidate. Continue IV abx. Awaiting final recs from consultants. Gaby Slaughter MD Jul 01, 2017 19:44
[2017-07-02] VITALS (10 sets, daily range): BP systolic 110–140; BP diastolic 50–66; PULSE 62–81; RESP 16–19; TEMP 96.3–98.2; O2SAT 94–98
[2017-07-02] MEDS: METOPROLOL TARTRATE 50 MG TAB PO SCH ×3 (01:00→16:42)
[2017-07-02] MEDS: RESP: IPRATROPIUM 0.5 MG/2.5 ML NEB NEB SCH ×4 (04:06→20:41)
[2017-07-02] MEDS: D5-NS + KCL 20 MEQ INJ 1,000 ML IV SCH ×2 (04:25→16:41)
[2017-07-02] MEDS: ALLOPURINOL 300 MG TAB PO SCH (08:18)
[2017-07-02] MEDS: LINEZOLID 600 MG TAB PO SCH ×2 (08:18→21:02)
[2017-07-02] MEDS: DOCUSATE SODIUM 50 MG/SENNA 8.6 MG TAB PO SCH ×2 (08:18→21:02)
[2017-07-02] MEDS: ENALAPRIL MALEATE 10 MG TAB PO SCH (08:18)
[2017-07-02] MEDS: NYSTATIN 100,000 U/GM PWD 15 GM BTL TOPICAL SCH ×2 (08:18→21:03)
[2017-07-02] MEDS: QUEtiapine FUMARATE 25 MG TAB PO SCH ×2 (08:18→11:40)
[2017-07-02] MEDS: SODIUM CHLORIDE 0.9% FLUSH 10 ML FLUSH IV FLUSH SCH ×2 (08:19→21:00)
[2017-07-02] MEDS: HEPARIN SODIUM - SQ 10,000 UNITS/ML VIAL SQ SCH ×2 (08:22→21:02)
--- NOTE | 2017-07-02 11:57 | HHI.IDPN ---
Note Infectious Disease Note Patient in no distress. On O2 nasal canula. Afebrile. No complaints. 86-year-old white male was admitted through the emergency department with abdominal pain. He was evaluated and found to have a 1.5 millimeter rounded density in the region of the distal common duct suspicious for choledocholithiasis. PAST MEDICAL HISTORY 1. Hypertension. 2. Hyperlipidemia. 3. Paroxysmal atrial fibrillation. 4. Osteoarthritis. 5. History of pulmonary embolism. 6. History of prostate cancer. 7. History of rectal cancer. 8. History of abdominal surgery. 9. Colostomy. 10. Left knee surgery. 11. Left hip repair. 12. Prostatectomy. ALLERGIES NO KNOWN DRUG ALLERGIES. MEDICATIONS Zyvox. OBJECTIVE: Vital Signs Date Time Temp Pulse Resp B/P (MAP) Pulse Ox O2 Delivery O2 Flow Rate FiO2 07/02/17 08:46 96 Nasal Cannula 4.00 07/02/17 08:00 96.8 78 16 110/50 (70) 96 07/02/17 04:06 94 Nasal Cannula 4.00 07/02/17 04:00 97.1 75 16 110/58 (75) 94 07/02/17 00:00 97.9 62 19 112/54 (73) 98 07/01/17 20:37 93 Nasal Cannula 4.00 07/01/17 20:00 72 07/01/17 20:00 97.8 66 19 112/53 (72) 100 07/01/17 19:39 Nasal Cannula 4.00 Humidified 07/01/17 16:00 97.7 89 17 131/60 (83) 98 07/01/17 14:27 84 07/01/17 12:00 97.9 86 19 114/59 (77) 97 Laboratory Tests Test 07/01/17 06:47 White Blood Count 8.0 TH/MM3 Red Blood Count 3.61 MIL/MM3 Hemoglobin 11.6 GM/DL Hematocrit 35.1 % Mean Corpuscular Volume 97.5 FL Mean Corpuscular Hemoglobin 32.1 PG Mean Corpuscular Hemoglobin Concent 33.0 % Red Cell Distribution Width 16.1 % Platelet Count 378 TH/MM3 Mean Platelet Volume 7.7 FL Neutrophils (%) (Auto) 68.0 % Lymphocytes (%) (Auto) 17.0 % Monocytes (%) (Auto) 10.0 % Eosinophils (%) (Auto) 3.8 % Basophils (%) (Auto) 1.2 % Neutrophils # (Auto) 5.4 TH/MM3 Lymphocytes # (Auto) 1.4 TH/MM3 Monocytes # (Auto) 0.8 TH/MM3 Eosinophils # (Auto) 0.3 TH/MM3 Basophils # (Auto) 0.1 TH/MM3 CBC Comment AUTO DIFF Differential Comment AUTO DIFF CONFIRMED Platelet Estimate NORMAL Platelet Morphology Comment NORMAL Ovalocytes 1+ Microbiology Date/Time Source Procedure Growth Status 06/24/17 02:10 Fluid Bile Fluid Gram Stain - Final Complete 06/24/17 02:10 Body Fluid Culture - Final Enterococcus Faecium Vre Complete IMAGING: Chest X-Ray 06/27/17 0600 Signed Impressions: Service Date/Time: Tuesday, June 27, 2017 03:42 - CONCLUSION: Unchanged bibasilar consolidation with slight decrease of bilateral pleural effusions. Gustavo Tineo Jr., MD Hepatobiliary Scan Nuclear Medicine 06/21/17 1120 Signed Impressions: Service Date/Time: May 11:19 - CONCLUSION: 1. Normal biliary bowel transit time with no evidence for common bile duct obstruction. 2. No activity noted in the gallbladder at up to 90 minutes. This is concerning for obstruction of the cystic duct in this patient with suspected acute cholecystitis. Given the high degree of clinical suspicion and patient's tenuous clinical condition, plan is for percutaneous cholecystostomy drain placement rather than delayed imaging. Swapnil Marte MD Chest CT 06/19/17 1513 Signed Impressions: Service Date/Time: Monday, June 19, 2017 15:59 - CONCLUSION: 1. Chronic interstitial lung disease 2. Bibasilar airspace disease with small effusions and mild dural thickening 3. 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 Long Garrison MD Renal Ultrasound 06/19/17 0000 Signed Impressions: Service Date/Time: Monday, June 19, 2017 13:29 - CONCLUSION: 1. Hyperechoic kidneys consistent with medical renal disease. 2. No obstructive uropathy. Swapnil Marte MD Chest X-Ray 06/19/17 0000 Signed Impressions: Service Date/Time: Monday, June 19, 2017 10:36 - CONCLUSION: Hypoaerated lungs with mild right basilar airspace disease. Mild cardiomegaly Long Garrison MD Abdomen Ultrasound 06/19/17 0000 Signed Impressions: Service Date/Time: Monday, June 19, 2017 14:14 - CONCLUSION: 1. No significant ascites. Swapnil Marte MD GI Procedure 06/18/17 0000 Signed Impressions: Service Date/Time: Sunday, June 18, 2017 13:06 - CONCLUSION: ERCP as above. Salomon Faust MD Abdomen X-Ray [id number]/[id number] Signed Impressions: Service Date/Time: Saturday, June 17, 2017 20:49 - CONCLUSION: No evidence of free air. Salomon Faust MD Abdomen/Pelvis CT 06/17/172002 Signed Impressions: Service Date/Time: Saturday, June 17, 2017 21:30 - CONCLUSION: 1. 5 mm rounded density in the region of the distal common duct suspicious for choledocholithiasis. Common duct diameter has increased when compared to the prior study now measuring 7-8 mm in diameter. Mild diffuse intrahepatic biliary ductal prominence. 2. Cholelithiasis. 3. 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 No bowel dilatation. Salomon Faust MD PHYSICAL EXAMINATION: GENERAL: No acute distress. HEENT: No icterus. Oropharynx: No lesions. Neck: Supple. Lungs: Decreased breath sounds. Heart: Irregular rate and rhythm. Systolic murmur at the left sternal border. Abdomen: Bowel sounds present but diminished, soft. Non tender. Colostomy bag in place. Cholecystostomy tube draining biliary fluid. Extremities: No clubbing or cyanosis or edema. Skin: No rash. NEURO: No focal finding. Psych: Calm and cooperative. IMPRESSION 1. Pneumonia. improved. 2. Choledocholithiasis. Acute cholecystitis - VRE. RECOMMENDATIONS Complete the PO Zyvox on 07/03/17. Stop order has been in place. I am signing off now. Lito Sena MD Jul 02, 2017 11:57
--- NOTE | 2017-07-02 13:42 | HHI.PR ---
Subjective Remarks seen with at bedside no pain complains, no nausea or vomiting Objective Vitals Vital Signs Date Time Temp Pulse Resp B/P (MAP) Pulse Ox O2 Delivery O2 Flow Rate FiO2 07/02/17 12:00 97.5 81 16 140/64 (89) 96 07/02/17 08:46 96 Nasal Cannula 4.00 07/02/17 08:00 96.8 78 16 110/50 (70) 96 07/02/17 04:06 94 Nasal Cannula 4.00 07/02/17 04:00 97.1 75 16 110/58 (75) 94 07/02/17 00:00 97.9 62 19 112/54 (73) 98 07/01/17 20:37 93 Nasal Cannula 4.00 07/01/17 20:00 72 07/01/17 20:00 97.8 66 19 112/53 (72) 100 07/01/17 19:39 Nasal Cannula 4.00 Humidified 07/01/17 16:00 97.7 89 17 131/60 (83) 98 07/01/17 14:27 84 I/O 07/01/17 07/01/17 07/01/17 07/02/17 07/02/17 07/02/17 07:00 15:00 23:00 07:00 15:00 23:00 Intake Total 0 ml 360 ml 1140 ml Output Total 680 ml 730 ml 1540 ml Balance -680 ml -370 ml -400 ml Intake Oral 0 ml 360 ml 240 ml IV Total 900 ml Output Urine Total 400 ml 500 ml 1290 ml Stool Total 0 ml 0 ml Drainage Total 280 ml 230 ml 250 ml Result Diagram: 07/01/17 0647 06/28/17 1230 Imaging Last Impressions Chest X-Ray 06/29/17 0600 Signed Impressions: Service Date/Time: Thursday, June 29, 2017 04:49 - CONCLUSION: Decreased pulmonary vascular congestion. Minimal bilateral lower lung zone opacity likely representing atelectasis. Salomon Faust MD Percutaneous Cholangiogram 06/21/17 1513 Signed Impressions: Service Date/Time: May 14:26 - CONCLUSION: 1. Uncomplicated percutaneous cholecystostomy as above. 2. As noted above, bowel drapes over the anterior and anterolateral aspects of the gallbladder preventing access from this approach. A lateral, transhepatic approach was utilized. 3. Cystic duct and CBD all appear to be patent. Jermaine Herman MD Hepatobiliary Scan Nuclear Medicine 06/21/17 1120 Signed Impressions: Service Date/Time: May 11:19 - CONCLUSION: 1. Normal biliary bowel transit time with no evidence for common bile duct obstruction. 2. No activity noted in the gallbladder at up to 90 minutes. This is concerning for obstruction of the cystic duct in this patient with suspected acute cholecystitis. Given the high degree of clinical suspicion and patient's tenuous clinical condition, plan is for percutaneous cholecystostomy drain placement rather than delayed imaging. Swapnil Marte MD Chest CT 06/19/17 1513 Signed Impressions: Service Date/Time: Monday, June 19, 2017 15:59 - CONCLUSION: 1. Chronic interstitial lung disease 2. Bibasilar airspace disease with small effusions and mild dural thickening 3. 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 Long Garrison MD Renal Ultrasound 06/19/17 0000 Signed Impressions: Service Date/Time: Monday, June 19, 2017 13:29 - CONCLUSION: 1. Hyperechoic kidneys consistent with medical renal disease. 2. No obstructive uropathy. Swapnil Marte MD Abdomen Ultrasound 06/19/17 0000 Signed Impressions: Service Date/Time: Monday, June 19, 2017 14:14 - CONCLUSION: 1. No significant ascites. Swapnil Marte MD GI Procedure 06/18/17 0000 Signed Impressions: Service Date/Time: Sunday, June 18, 2017 13:06 - CONCLUSION: ERCP as above. Salomon Faust MD Abdomen X-Ray 06/17/172040 Signed Impressions: Service Date/Time: Saturday, June 17, 2017 20:49 - CONCLUSION: No evidence of free air. Salomon Faust MD Abdomen/Pelvis CT 06/17/172002 Signed Impressions: Service Date/Time: Saturday, June 17, 2017 21:30 - CONCLUSION: 1. 5 mm rounded density in the region of the distal common duct suspicious for choledocholithiasis. Common duct diameter has increased when compared to the prior study now measuring 7-8 mm in diameter. Mild diffuse intrahepatic biliary ductal prominence. 2. Cholelithiasis. 3. 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 No bowel dilatation. Salomon Faust MD Objective Remarks awake and alert, no acute distress anciteric decreased breth sounds, no rales regular rhythm abdomen- colostomy bag with yellow formed brown stools, cholecystostomy tube in place condom catheter no edema moves all extremities spontaneously Procedures Pre Procedure Diagnosis: (1) Acute cholecystitis Post Procedure Diagnosis: (1) Biliary sludge Procedure Date: Jun 21, 2017 Supervising Radiologist: Jermaine Herman Proceduralist/Assist: Ca Khan, RT(R)(CV), Kristan Lundy RT(R) Anesthesia: Local, Analgesia, Conscious Sedation Plan of Activity Patient to Unit: ROPU Patient Condition: Good See PACS Report for procedural detail/treatment Drainage Procedure Procedure 1 Imaging Guidance: Fluoroscopy, Ultrasound Procedure Type: Cholecystostomy Procedure: Placement Drainage: [place] drainage Fluid Description: Cloudy, Bilious Findings: Bowel surrounds anterior access to GB. Transhepatic approach. Cystic duct and CBD patent. Debris in GB lumen. 8Fr catheter to gravity drainage. A/P Assessment and Plan Bibasilar pneumonia A. fib with RVR Choledocholithiasis Acute respiratory failure and hypoxia QUIQUE on CKD Hypertension/hyperlipidemia DVT prophylaxis 06/20: Stat transfer to ICU, stat Check lactic acid, consult ID, Lopressor iv to control heart rate, resume Lopressor Discussed with GI, discussed with GS 06/21: Heart rate much better on Lopressor 50 every 8 hours, still on 15 L nonrebreather mask, appreciate pulmonary, recommended high flow oxygen, ABG nonsignificant pH 7.44. Rayna scan has been done was concerning for obstruction, surgery following patient will go to IR for cholecystotomy drainage, ID following for iv antibiotic 06/22: pt agitated, aggressive if restraints removed. will consult Psych for assistance to agitation/confusion. Continue abx (zosyn/azithro). Monitor labs. Hypokalemia noted. Currently getting replacement. Per RN, pt NPO at this time, awaiting swallow eval. On D5NS @84ml/hr and also getting IV potassium. Monitor electrolytes. Leukocytosis resolved. s/p cholecystostomy tube placement. QUIQUE resolved. Continue to monitor in ICU due to respiratory status and still requiring partial non rebreather. 06/23: seems a bit better this morning. calm. at least he knows his name and that he is in a hospital. K 3.3. continue to supplement IV as pt is currently NPO per speech therapy recs. continue to monitor. added vasotec prn as he cannot yet take po meds. Discussed w GS yesterday, ok to resume dvt proph. Azithro has been stopped by ID and continue zosyn per their rec. Appreciate recs from psych. Try to remove restraints if pt cooperative. 06/24: Pt calm, took off his non rebreather and sats were 74% when I came into the room, I immediately put mask on and sats went up slowly. Pt seems to be improving, he is more alert and able to follow commands, he is off restraints. continue to monitor. continue breathing treatments and IV abx. He is on Zosyn. Discussed w RN, encourage out of bed to a recliner if possible to see if this helps w his ventilation. PT/ST/OT following. He is on puree honey thick diet. No BM's recorded, I requested that pt get his prn stool softeners in addition to the shahab-colace he is getting. Continue to monitor in the ICU for now as pt still requiring a partial non rebreather. Repeat K level as it was noted to be elevated this morning but due to blood being hemolyzed. 06/25: Pt calm and getting breathing treatment. Still requiring partial non rebreather. Per RN, didn't tolerate BiPAP last night. Pt less confused. Continue current management. ID, GS and pulm following. Appreciate assistance. Labs pending this morning. Continue cholecystostomy tube to drainage bag, pt not a candidate for sx. Once breathing treatment improves, will transfer out of ICU. Encourage out of bed to recliner daily. 1-2 patient is still not able to get out of bed. Very short of breath. Slightly confused In bed chair sitting like a recliner at bedside during exam Discussed with RN and patient and Very slow going 06/27/17: Still in respiratory failure nonrebreathing mask, pulmonary following, hard hearing slightly confused, continue monitoring in ICU 06/28/17: Continue weaning down oxygen, follow with pulmonology 06/29/17: Still oxygen dependent high flow nasal cannula, worsening change in mental status possibly due to Ativan for evening agitation/owning, will switch to hold all 07/01/17: Continue weaning down oxygen, follow with pulmonary, transferred to [facility] floor Initial A/P: //Choledocholithiasis CT of the abdomen/pelvis showed choledocholithiasis with increased diameter of the common bile duct Leukocytosis, elevated lactic acid, transaminitis, elevated T bili Gastroenterology following, s/p ERCP. Dilaudid for pain Cholecystotomy tube in place //biBasilar pneumonia //Hypoxemic respiratory failure. -s/p Zithromax/zosyn. Continue supportive care with do nebs. Incentive spirometry, Acapella. BNP normal, echocardiogram without pericardial effusion. Pulmonology following. BiPAP at night but pt not tolerating it. Appreciate assistance. Wean oxygen as able to-- currently on NC 3 L - currently on Zyvox po till 07/03 //Acute on chronic kidney injury resolved.- stable creatinine- non oliguric IV fluid hydration Monitor renal function Avoid nephrotoxic agent A.m. labs //Hypertension/hyperlipidemia/a fib on metoprolol. Stable. FEN Electrolytes: monitor and replete prn on heparin Discharge Planning SNF hopefully tomorrow Lee Fisher MD Jul 02, 2017 13:42
--- NOTE | 2017-07-02 19:53 | HHI.PR ---
Subjective Remarks He is better. On O2 3 L and talking . Cooperative. CXR shows basal infiltrates. Confused . Objective Vital Signs Date Time Temp Pulse Resp B/P (MAP) Pulse Ox O2 Delivery O2 Flow Rate FiO2 07/02/17 16:00 96.3 77 18 121/60 (80) 98 07/02/17 12:00 97.5 81 16 140/64 (89) 96 07/02/17 08:46 96 Nasal Cannula 4.00 07/02/17 08:00 96.8 78 16 110/50 (70) 96 07/02/17 04:06 94 Nasal Cannula 4.00 07/02/17 04:00 97.1 75 16 110/58 (75) 94 07/02/17 00:00 97.9 62 19 112/54 (73) 98 07/01/17 20:37 93 Nasal Cannula 4.00 07/01/17 20:00 72 07/01/17 20:00 97.8 66 19 112/53 (72) 100 I/O 07/01/17 07/01/17 07/01/17 07/02/17 07/02/17 07/02/17 07:00 15:00 23:00 07:00 15:00 23:00 Intake Total 0 ml 360 ml 1140 ml Output Total 680 ml 730 ml 1540 ml 1140 ml Balance -680 ml -370 ml -400 ml -1140 ml Intake Oral 0 ml 360 ml 240 ml IV Total 900 ml Output Urine Total 400 ml 500 ml 1290 ml 900 ml Stool Total 0 ml 0 ml Drainage Total 280 ml 230 ml 250 ml 240 ml Result Diagram: 07/01/17 0647 06/28/17 1230 Objective Remarks This is a moderately obese elderly man, who is alert and in no distress No cyanosis. There is no clubbing. HEENT: Head normocephalic. Pupils are reactive and equal. Tongue clear Throat is clear. Neck: Supple. No bruits or thyroid enlargement or lymphadenopathy. Chest: Occ crackles at Both lung bases.Distant breath sounds Heart: The heart sounds are irregular, S1-S2 no murmur. Abdomen: Soft, protuberant with colostomy bag in place. Bowel sounds are active. No organomegaly.. Drain on RUQ Extremities: 1 + edema with diminished pulses. Reflexes are 1+. The patient does move his arms and legs well. Skin: No lesions are observed. Assessment and Plan Assessment and Plan IMPRESSION 1. Basilar pneumonia with hypoxemia. 2. History of choledocholithiasis/ Cholecystitis with sepsis. 3. Acute kidney injury with history of chronic kidney disease. 4. History of colostomy. 5. Atrial Fibrillation with RVR Resolved Plan : 1. Cont Bipap at HS 12/5 CM ,FIo2 30% 2. Cont O2 Via N/C at 4 L and wean to 3 L 3. To rehab soon. 4. Continue antibiotics, Per ID 5. Soft diet as tolerated. 6. Ativan .5 Mg q6h PRN for agitation 7. Continue Heparin 5000 U S/Q bid 8. Add Seroquel 25 mg bid 9. PT evaluation Lon Willams MD Jul 02, 2017 19:53
[2017-07-02] MEDS: ATORVASTATIN 10 MG TAB PO SCH (21:02)
[2017-07-03] VITALS (8 sets, daily range): BP systolic 119–146; BP diastolic 56–65; PULSE 64–100; RESP 18–19; TEMP 96.3–97.1; O2SAT 92–99
[2017-07-03] MEDS: METOPROLOL TARTRATE 50 MG TAB PO SCH ×3 (01:09→16:52)
[2017-07-03] MEDS: D5-NS + KCL 20 MEQ INJ 1,000 ML IV SCH (03:24)
[2017-07-03] MEDS: RESP: IPRATROPIUM 0.5 MG/2.5 ML NEB NEB SCH ×3 (04:59→16:00)
[2017-07-03] MEDS: LINEZOLID 600 MG TAB PO SCH (07:42)
[2017-07-03] MEDS: QUEtiapine FUMARATE 25 MG TAB PO SCH ×2 (07:43→11:15)
[2017-07-03] MEDS: SODIUM CHLORIDE 0.9% FLUSH 10 ML FLUSH IV FLUSH SCH (07:43)
[2017-07-03] MEDS: DOCUSATE SODIUM 50 MG/SENNA 8.6 MG TAB PO SCH (07:43)
[2017-07-03] MEDS: ENALAPRIL MALEATE 10 MG TAB PO SCH (07:43)
[2017-07-03] MEDS: ALLOPURINOL 300 MG TAB PO SCH (07:43)
[2017-07-03] MEDS: HEPARIN SODIUM - SQ 10,000 UNITS/ML VIAL SQ SCH ×2 (07:44→07:47)
[2017-07-03] MEDS: NYSTATIN 100,000 U/GM PWD 15 GM BTL TOPICAL SCH (07:44)
--- NOTE | 2017-07-03 10:38 | HHI.PR ---
Subjective Remarks awake and alert, very interactive oriented x 3 ate pretty good for dinner and breakfast, no pain Objective Vitals Vital Signs Date Time Temp Pulse Resp B/P (MAP) Pulse Ox O2 Delivery O2 Flow Rate FiO2 07/03/17 08:50 93 Nasal Cannula 4.00 07/03/17 08:00 96.8 71 19 146/65 (92) 93 07/03/17 05:02 93 Nasal Cannula 4.00 07/03/17 04:50 96.8 100 18 119/56 (77) 92 07/03/17 04:00 69 07/03/17 00:00 96.5 64 18 134/62 (86) 98 07/03/17 00:00 69 07/02/17 21:05 Nasal Cannula 4.00 Humidified 07/02/17 20:42 94 Nasal Cannula 4.00 07/02/17 20:04 71 07/02/17 20:00 98.2 76 18 130/66 (87) 96 07/02/17 16:00 96.3 77 18 121/60 (80) 98 07/02/17 12:00 97.5 81 16 140/64 (89) 96 I/O 07/02/17 07/02/17 07/02/17 07/03/17 07/03/17 07/03/17 06:59 14:59 22:59 06:59 14:59 22:59 Intake Total 1140 ml 390 ml Output Total 1540 ml 1140 ml 830 ml Balance -400 ml -1140 ml -440 ml Intake Oral 240 ml IV Total 900 ml 390 ml Output Urine Total 1290 ml 900 ml 600 ml Drainage Total 250 ml 240 ml 230 ml Result Diagram: 07/01/17 0647 Imaging Last Impressions Chest X-Ray 06/29/17 0600 Signed Impressions: Service Date/Time: Thursday, June 29, 2017 04:49 - CONCLUSION: Decreased pulmonary vascular congestion. Minimal bilateral lower lung zone opacity likely representing atelectasis. Salomon Faust MD Percutaneous Cholangiogram 06/21/17 1513 Signed Impressions: Service Date/Time: May 14:26 - CONCLUSION: 1. Uncomplicated percutaneous cholecystostomy as above. 2. As noted above, bowel drapes over the anterior and anterolateral aspects of the gallbladder preventing access from this approach. A lateral, transhepatic approach was utilized. 3. Cystic duct and CBD all appear to be patent. Jermaine Herman MD Hepatobiliary Scan Nuclear Medicine 06/21/17 1120 Signed Impressions: Service Date/Time: May 11:19 - CONCLUSION: 1. Normal biliary bowel transit time with no evidence for common bile duct obstruction. 2. No activity noted in the gallbladder at up to 90 minutes. This is concerning for obstruction of the cystic duct in this patient with suspected acute cholecystitis. Given the high degree of clinical suspicion and patient's tenuous clinical condition, plan is for percutaneous cholecystostomy drain placement rather than delayed imaging. Swapnil Marte MD Chest CT 06/19/17 1513 Signed Impressions: Service Date/Time: Monday, June 19, 2017 15:59 - CONCLUSION: 1. Chronic interstitial lung disease 2. Bibasilar airspace disease with small effusions and mild dural thickening 3. 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 Long Garrison MD Renal Ultrasound 06/19/17 0000 Signed Impressions: Service Date/Time: Monday, June 19, 2017 13:29 - CONCLUSION: 1. Hyperechoic kidneys consistent with medical renal disease. 2. No obstructive uropathy. Swapnil Marte MD Abdomen Ultrasound 06/19/17 0000 Signed Impressions: Service Date/Time: Monday, June 19, 2017 14:14 - CONCLUSION: 1. No significant ascites. Swapnil Marte MD GI Procedure 06/18/17 0000 Signed Impressions: Service Date/Time: Sunday, June 18, 2017 13:06 - CONCLUSION: ERCP as above. Salomon Faust MD Abdomen X-Ray 06/17/172040 Signed Impressions: Service Date/Time: Saturday, June 17, 2017 20:49 - CONCLUSION: No evidence of free air. Salomon Faust MD Abdomen/Pelvis CT 06/17/172002 Signed Impressions: Service Date/Time: Saturday, June 17, 2017 21:30 - CONCLUSION: 1. 5 mm rounded density in the region of the distal common duct suspicious for choledocholithiasis. Common duct diameter has increased when compared to the prior study now measuring 7-8 mm in diameter. Mild diffuse intrahepatic biliary ductal prominence. 2. Cholelithiasis. 3. 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 No bowel dilatation. Salomon Faust MD Objective Remarks awake and alert, no acute distress anicteric no rales regular rhythm abdomen- colostomy bag with yellow formed brown stools, cholecystostomy tube in place condom catheter no edema moves all extremities spontaneously Procedures Pre Procedure Diagnosis: (1) Acute cholecystitis Post Procedure Diagnosis: (1) Biliary sludge Procedure Date: Jun 21, 2017 Supervising Radiologist: Jermaine Herman Proceduralist/Assist: Ca Khan, RT(R)(CV), Kristan Lundy RT(R) Anesthesia: Local, Analgesia, Conscious Sedation Plan of Activity Patient to Unit: ROPU Patient Condition: Good See PACS Report for procedural detail/treatment Drainage Procedure Procedure 1 Imaging Guidance: Fluoroscopy, Ultrasound Procedure Type: Cholecystostomy Procedure: Placement Drainage: [place] drainage Fluid Description: Cloudy, Bilious Findings: Bowel surrounds anterior access to GB. Transhepatic approach. Cystic duct and CBD patent. Debris in GB lumen. 8Fr catheter to gravity drainage. A/P Assessment and Plan Bibasilar pneumonia A. fib with RVR Choledocholithiasis Acute respiratory failure and hypoxia QUIQUE on CKD Hypertension/hyperlipidemia DVT prophylaxis 06/20: Stat transfer to ICU, stat Check lactic acid, consult ID, Lopressor iv to control heart rate, resume Lopressor Discussed with GI, discussed with GS 06/21: Heart rate much better on Lopressor 50 every 8 hours, still on 15 L nonrebreather mask, appreciate pulmonary, recommended high flow oxygen, ABG nonsignificant pH 7.44. Rayna scan has been done was concerning for obstruction, surgery following patient will go to IR for cholecystotomy drainage, ID following for iv antibiotic 06/22: pt agitated, aggressive if restraints removed. will consult Psych for assistance to agitation/confusion. Continue abx (zosyn/azithro). Monitor labs. Hypokalemia noted. Currently getting replacement. Per RN, pt NPO at this time, awaiting swallow eval. On D5NS @84ml/hr and also getting IV potassium. Monitor electrolytes. Leukocytosis resolved. s/p cholecystostomy tube placement. QUIQUE resolved. Continue to monitor in ICU due to respiratory status and still requiring partial non rebreather. 06/23: seems a bit better this morning. calm. at least he knows his name and that he is in a hospital. K 3.3. continue to supplement IV as pt is currently NPO per speech therapy recs. continue to monitor. added vasotec prn as he cannot yet take po meds. Discussed w GS yesterday, ok to resume dvt proph. Azithro has been stopped by ID and continue zosyn per their rec. Appreciate recs from psych. Try to remove restraints if pt cooperative. 06/24: Pt calm, took off his non rebreather and sats were 74% when I came into the room, I immediately put mask on and sats went up slowly. Pt seems to be improving, he is more alert and able to follow commands, he is off restraints. continue to monitor. continue breathing treatments and IV abx. He is on Zosyn. Discussed w RN, encourage out of bed to a recliner if possible to see if this helps w his ventilation. PT/ST/OT following. He is on puree honey thick diet. No BM's recorded, I requested that pt get his prn stool softeners in addition to the shahab-colace he is getting. Continue to monitor in the ICU for now as pt still requiring a partial non rebreather. Repeat K level as it was noted to be elevated this morning but due to blood being hemolyzed. 06/25: Pt calm and getting breathing treatment. Still requiring partial non rebreather. Per RN, didn't tolerate BiPAP last night. Pt less confused. Continue current management. ID, GS and pulm following. Appreciate assistance. Labs pending this morning. Continue cholecystostomy tube to drainage bag, pt not a candidate for sx. Once breathing treatment improves, will transfer out of ICU. Encourage out of bed to recliner daily. 1-2 patient is still not able to get out of bed. Very short of breath. Slightly confused In bed chair sitting like a recliner at bedside during exam Discussed with RN and patient and Very slow going 06/27/17: Still in respiratory failure nonrebreathing mask, pulmonary following, hard hearing slightly confused, continue monitoring in ICU 06/28/17: Continue weaning down oxygen, follow with pulmonology 06/29/17: Still oxygen dependent high flow nasal cannula, worsening change in mental status possibly due to Ativan for evening agitation/sundowning, will switch to hold all 07/01/17: Continue weaning down oxygen, follow with pulmonary, transferred to [facility] floor //Choledocholithiasis S/P cholecystostomy tube placement CT of the abdomen/pelvis showed choledocholithiasis with increased diameter of the common bile duct Leukocytosis, elevated lactic acid, transaminitis, elevated T bili currently on zosyn. Gastroenterology following, s/p ERCP. Dilaudid for pain Cholecystotomy tube in place- will be DC with this. OP ff up with GS //biBasilar pneumonia //Hypoxemic respiratory failure. -s/p Zithromax now on Zosyn. Continue supportive care with do nebs. Incentive spirometry, Acapella. BNP normal, echocardiogram without pericardial effusion. Pulmonology following. BiPAP at night but pt not tolerating it. Appreciate assistance. Wean oxygen as able to-- currently on NC 3 L - Zyvox po - last day 07/03 //Acute on chronic kidney injury- stable resolved.- stable creatinine- non oliguric Monitor renal function Avoid nephrotoxic agent //Hypertension/hyperlipidemia/a fib on metoprolol. Stable. daily baby ASA on heparin Discharge Planning SNF today if arranged- prefers to [facility] to [facility]- d/w Lee Delarosa MD Jul 03, 2017 10:38
--- NOTE | 2017-07-03 12:54 | HHI.PR ---
Subjective Remarks He is much better. On O2 2 L and talking . Cooperative. Less Confused . Objective Vital Signs Date Time Temp Pulse Resp B/P (MAP) Pulse Ox O2 Delivery O2 Flow Rate FiO2 07/03/17 12:00 97.1 71 18 122/59 (80) 99 07/03/17 08:50 93 Nasal Cannula 4.00 07/03/17 08:00 96.8 71 19 146/65 (92) 93 07/03/17 05:02 93 Nasal Cannula 4.00 07/03/17 04:50 96.8 100 18 119/56 (77) 92 07/03/17 04:00 69 07/03/17 00:00 96.5 64 18 134/62 (86) 98 07/03/17 00:00 69 07/02/17 21:05 Nasal Cannula 4.00 Humidified 07/02/17 20:42 94 Nasal Cannula 4.00 07/02/17 20:04 71 07/02/17 20:00 98.2 76 18 130/66 (87) 96 07/02/17 16:00 96.3 77 18 121/60 (80) 98 I/O 07/02/17 07/02/17 07/02/17 07/03/17 07/03/17 07/03/17 07:00 15:00 23:00 07:00 15:00 23:00 Intake Total 1140 ml 390 ml Output Total 1540 ml 1140 ml 830 ml Balance -400 ml -1140 ml -440 ml Intake Oral 240 ml IV Total 900 ml 390 ml Output Urine Total 1290 ml 900 ml 600 ml Drainage Total 250 ml 240 ml 230 ml Result Diagram: 07/01/17 0647 Objective Remarks This is a moderately obese elderly man, who is alert and in no distress No cyanosis. There is no clubbing. HEENT: Head normocephalic. Pupils are reactive and equal. Tongue clear Throat is clear. Neck: Supple. No bruits or thyroid enlargement or lymphadenopathy. Chest: Occ crackles at Both lung bases and wheezes. Heart: The heart sounds are irregular, S1-S2 no murmur. Abdomen: Soft, protuberant with colostomy bag in place. Bowel sounds are active. No organomegaly.. Drain on RUQ Extremities: 1 + edema with diminished pulses. Reflexes are 1+. The patient does move his arms and legs well. Skin: No lesions are observed. Assessment and Plan Assessment and Plan IMPRESSION 1. Basilar pneumonia with hypoxemia. 2. History of choledocholithiasis/ Cholecystitis with sepsis. 3. Acute kidney injury with history of chronic kidney disease. 4. History of colostomy. 5. Atrial Fibrillation with RVR Resolved Plan : 1. D/C Bipap 2. Cont O2 Via N/C at 3 L 3. To rehab soon. 4. Continue antibiotics, Per ID 5. Soft diet as tolerated. 6. Ativan .5 Mg q6h PRN for agitation 7. D/C Heparin 8.Seroquel 25 mg bid 9. PT evaluation 10. To rehab today and will see as OP . Lon Willams MD Jul 03, 2017 12:54
[2017-07-03] MEDS ORDERED: OXYGENDME NAS.CANULA (13:26)
[2017-07-03] MEDS ORDERED: METO-309 PO (13:30)
[2017-07-03] MEDS ORDERED: HYDR-3516 PO (13:30)
[2017-07-03] MEDS ORDERED: Ipratropium Bromide NEB (13:30)
[2017-07-03] MEDS ORDERED: SERO25TA PO (13:33)
--- NOTE | 2017-07-03 13:39 | HHI.DS ---
Discharge Summary Admission Date Jun 17, 2017 at 22:55 Discharge Date: Jul 03, 2017 Admitting Diagnosis choledocholithiasis, hyperbilirubinemia, renal insufficiency (1) Bibasila PNA Diagnosis: Principal (2) Choledocholithiasis ICD Code: K80.50 - Calculus of bile duct without cholangitis or cholecystitis without obstruction (3) Atrial fibrillation ICD Code: I48.91 - Unspecified atrial fibrillation Diagnosis: Secondary Status: Chronic (4) QUIQUE (acute kidney injury) ICD Code: N17.9 - Acute kidney failure, unspecified Diagnosis: Secondary Status: Acute Procedures Pre Procedure Diagnosis: (1) Acute cholecystitis Post Procedure Diagnosis: (1) Biliary sludge Procedure Date: Jun 21, 2017 Supervising Radiologist: Jermaine Herman Proceduralist/Assist: Ca Khan RT(R)(CV), RT Shahab(R) Anesthesia: Local, Analgesia, Conscious Sedation Plan of Activity Patient to Unit: ROPU Patient Condition: Good See PACS Report for procedural detail/treatment Drainage Procedure Procedure 1 Imaging Guidance: Fluoroscopy, Ultrasound Procedure Type: Cholecystostomy Procedure: Placement Drainage: [place] drainage Fluid Description: Cloudy, Bilious Findings: Bowel surrounds anterior access to GB. Transhepatic approach. Cystic duct and CBD patent. Debris in GB lumen. 8Fr catheter to gravity drainage. Brief History - From Admission 86-year-old male with a past medical history significant for rectal cancer status post colectomy, history of prostate cancer, osteoarthritis, hypertension , hyperlipidemia, CKD and paroxysmal A. fib presented to the emergency department with severe epigastric abdominal pain. The patient's abdominal pain started 2 days ago. It was accompanied by episodic nausea/vomiting. Positive subjective fever/chills. CT of the abdomen/pelvis showed choledocholithiasis with increased diameter of the common bile duct. Patient with transaminitis and elevated lactic acid. WBCs 18.0. CBC/BMP: 07/01/17 0647 Significant Findings Laboratory Tests Test 07/01/17 06:47 Red Blood Count 3.61 MIL/MM3 (4.50-5.90) Hemoglobin 11.6 GM/DL (13.0-17.0) Hematocrit 35.1 % (39.0-51.0) Monocytes (%) (Auto) 10.0 % (0.0-8.0) Ovalocytes 1+ (NORMAL) Imaging Last Impressions Chest X-Ray 06/29/17 0600 Signed Impressions: Service Date/Time: Thursday, June 29, 2017 04:49 - CONCLUSION: Decreased pulmonary vascular congestion. Minimal bilateral lower lung zone opacity likely representing atelectasis. Salomon Faust MD Percutaneous Cholangiogram 06/21/17 1513 Signed Impressions: Service Date/Time: May 14:26 - CONCLUSION: 1. Uncomplicated percutaneous cholecystostomy as above. 2. As noted above, bowel drapes over the anterior and anterolateral aspects of the gallbladder preventing access from this approach. A lateral, transhepatic approach was utilized. 3. Cystic duct and CBD all appear to be patent. Jermaine Herman MD Hepatobiliary Scan Nuclear Medicine 06/21/17 1120 Signed Impressions: Service Date/Time: May 11:19 - CONCLUSION: 1. Normal biliary bowel transit time with no evidence for common bile duct obstruction. 2. No activity noted in the gallbladder at up to 90 minutes. This is concerning for obstruction of the cystic duct in this patient with suspected acute cholecystitis. Given the high degree of clinical suspicion and patient's tenuous clinical condition, plan is for percutaneous cholecystostomy drain placement rather than delayed imaging. Swapnil Marte MD Chest CT 06/19/17 1513 Signed Impressions: Service Date/Time: Monday, June 19, 2017 15:59 - CONCLUSION: 1. Chronic interstitial lung disease 2. Bibasilar airspace disease with small effusions and mild dural thickening 3. 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 Long Garrison MD Renal Ultrasound 06/19/17 0000 Signed Impressions: Service Date/Time: Monday, June 19, 2017 13:29 - CONCLUSION: 1. Hyperechoic kidneys consistent with medical renal disease. 2. No obstructive uropathy. Swapnil Marte MD Abdomen Ultrasound 06/19/17 0000 Signed Impressions: Service Date/Time: Monday, June 19, 2017 14:14 - CONCLUSION: 1. No significant ascites. Swapnil Marte MD GI Procedure 06/18/17 0000 Signed Impressions: Service Date/Time: Sunday, June 18, 2017 13:06 - CONCLUSION: ERCP as above. Salomon Faust MD Abdomen X-Ray 06/17/172040 Signed Impressions: Service Date/Time: Saturday, June 17, 2017 20:49 - CONCLUSION: No evidence of free air. Salomon Faust MD Abdomen/Pelvis CT 06/17/172002 Signed Impressions: Service Date/Time: Saturday, June 17, 2017 21:30 - CONCLUSION: 1. 5 mm rounded density in the region of the distal common duct suspicious for choledocholithiasis. Common duct diameter has increased when compared to the prior study now measuring 7-8 mm in diameter. Mild diffuse intrahepatic biliary ductal prominence. 2. Cholelithiasis. 3. 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 No bowel dilatation. Salomon Faust MD PE at Discharge awake and alert, no acute distress anicteric no rales regular rhythm abdomen- colostomy bag with yellow formed brown stools, cholecystostomy tube in place condom catheter no edema moves all extremities spontaneously Pt update on day of discharge afebrile awake and alert, tolerating po well good sats at 2 [facility] Hospital Course Bibasilar pneumonia A. fib with RVR Choledocholithiasis Acute respiratory failure and hypoxia QUIQUE on CKD Hypertension/hyperlipidemia DVT prophylaxis 06/20: Stat transfer to ICU, stat Check lactic acid, consult ID, Lopressor iv to control heart rate, resume Lopressor Discussed with GI, discussed with GS 06/21: Heart rate much better on Lopressor 50 every 8 hours, still on 15 L nonrebreather mask, appreciate pulmonary, recommended high flow oxygen, ABG nonsignificant pH 7.44. Rayna scan has been done was concerning for obstruction, surgery following patient will go to IR for cholecystotomy drainage, ID following for iv antibiotic 06/22: pt agitated, aggressive if restraints removed. will consult Psych for assistance to agitation/confusion. Continue abx (zosyn/azithro). Monitor labs. Hypokalemia noted. Currently getting replacement. Per RN, pt NPO at this time, awaiting swallow eval. On D5NS @84ml/hr and also getting IV potassium. Monitor electrolytes. Leukocytosis resolved. s/p cholecystostomy tube placement. QUIQUE resolved. Continue to monitor in ICU due to respiratory status and still requiring partial non rebreather. 06/23: seems a bit better this morning. calm. at least he knows his name and that he is in a hospital. K 3.3. continue to supplement IV as pt is currently NPO per speech therapy recs. continue to monitor. added vasotec prn as he cannot yet take po meds. Discussed w GS yesterday, ok to resume dvt proph. Azithro has been stopped by ID and continue zosyn per their rec. Appreciate recs from psych. Try to remove restraints if pt cooperative. 06/24: Pt calm, took off his non rebreather and sats were 74% when I came into the room, I immediately put mask on and sats went up slowly. Pt seems to be improving, he is more alert and able to follow commands, he is off restraints. continue to monitor. continue breathing treatments and IV abx. He is on Zosyn. Discussed w RN, encourage out of bed to a recliner if possible to see if this helps w his ventilation. PT/ST/OT following. He is on puree honey thick diet. No BM's recorded, I requested that pt get his prn stool softeners in addition to the shahab-colace he is getting. Continue to monitor in the ICU for now as pt still requiring a partial non rebreather. Repeat K level as it was noted to be elevated this morning but due to blood being hemolyzed. 06/25: Pt calm and getting breathing treatment. Still requiring partial non rebreather. Per RN, didn't tolerate BiPAP last night. Pt less confused. Continue current management. ID, GS and pulm following. Appreciate assistance. Labs pending this morning. Continue cholecystostomy tube to drainage bag, pt not a candidate for sx. Once breathing treatment improves, will transfer out of ICU. Encourage out of bed to recliner daily. 1-2 patient is still not able to get out of bed. Very short of breath. Slightly confused In bed chair sitting like a recliner at bedside during exam Discussed with RN and patient and Very slow going 06/27/17: Still in respiratory failure nonrebreathing mask, pulmonary following, hard hearing slightly confused, continue monitoring in ICU 06/28/17: Continue weaning down oxygen, follow with pulmonology 06/29/17: Still oxygen dependent high flow nasal cannula, worsening change in mental status possibly due to Ativan for evening agitation/owning, will switch to hold all 07/01/17: Continue weaning down oxygen, follow with pulmonary, transferred to [facility] floor //Choledocholithiasis S/P cholecystostomy tube placement CT of the abdomen/pelvis showed choledocholithiasis with increased diameter of the common bile duct Leukocytosis, elevated lactic acid, transaminitis, elevated T bili currently on zosyn. Gastroenterology following, s/p ERCP. Dilaudid for pain Cholecystotomy tube in place- will be DC with this. OP ff up with GS //biBasilar pneumonia //Hypoxemic respiratory failure. -s/p Zithromax now on Zosyn. Continue supportive care with do nebs. Incentive spirometry, Acapella. BNP normal, echocardiogram without pericardial effusion. Pulmonology following. BiPAP at night but pt not tolerating it. Appreciate assistance. Wean oxygen as able to-- currently on NC 3 L - Zyvox po - last day 07/03 //Acute on chronic kidney injury- stable resolved.- stable creatinine- non oliguric Monitor renal function Avoid nephrotoxic agent //Hypertension/hyperlipidemia/a fib on metoprolol. Stable. daily baby ASA on heparin SQ Discharge Planning SNF today if arranged- prefers to o to [facility]- d/w CM Pt Condition on Discharge: Stable Discharge Disposition: Discharge to SNF Discharge Time: > 30 minutes Discharge Instructions DIET: Follow Instructions for: As Tolerated, No Restrictions, Heart Healthy Diet Speech Therapy-Diet Recommends: Regular Activities you can perform: Weight Bearing as Willi Activities to Avoid: Prolonged Standing, Strenuous Activity Follow up Referrals: PCP Follow-up - 3-5 Days with [facility] - 2 Weeks with Lon Willams MD New Medications: Oxygen (O2) (Oxygen (O2)) Device LITER ROSE MARIE.CANULA CONTINUOUS for Prevent Hypoxemia, #2 Oxygen Concentrator Portable Gaseous 2 L/min via Nasal Canula Continuous For 99 months Linezolid (Zyvox) 600 Mg Tab 600 MG PO Q12HR for Infection for 1 Day, #1 TAB Metoprolol Tartrate (Lopressor) 50 Mg Tab 50 MG PO Q8H for HTN for 30 Days, #90 TAB Quetiapine (Seroquel) 25 Mg Tab 25 MG PO BID@09,12 for Agitation for 7 Days, TAB [Ipratropium [place]] () 0.5 MG/2.5 ML NEBU 0.5 MG NEB Q6HR NEB for RESp for 14 Days, ML Continued Medications: Allopurinol (Allopurinol) 300 Mg Tab 300 MG PO DAILY for Gout, #30 TAB 0 Refills Aspirin (Aspirin 81 Low Dose) 81 Mg Chew 81 MG CHEW DAILY, #30 TAB Atorvastatin (Atorvastatin) 10 Mg Tab 10 MG PO HS for Cholesterol Management, #30 TAB 0 Refills Cholecalciferol (Vitamin D) 2,000 Unit Cap 2000 MG PO DAILY Cyanocobalamin (Vitamin B-12) 1,000 Mcg Tab 1000 MCG PO DAILY for Nutritional Supplement, #1 BOTTLE 0 Refills Docusate Sodium (Colace) 100 Mg Capsule 1 TAB PO BID, #14 Enalapril (Enalapril) 10 Mg Tab 10 MG PO DAILY, #30 TAB 0 Refills Hydrocodone-Acetaminophen (Hydrocodone-Acetaminophen) 5-325 mg Tab 1 TAB PO Q6H PRN for PAIN, #30 TAB 0 Refills (This prescription has been renewed ) Omeprazole (Omeprazole) 20 Mg Tab 20 MG PO BID for Reflux, #60 TAB 0 Refills Discontinued Medications: Amlodipine (Amlodipine) 5 Mg Tab 5 MG PO DAILY for Blood Pressure Management, #30 TAB 0 Refills Naproxen (Naprosyn) 500 Mg Tab 500 MG PO Q12HR for Inflammation, #30 TAB Lee Fisher MD Jul 03, 2017 13:39
[2017-07-03] MEDS ORDERED: ASPIRIN 81 MG CHEW TAB CHEW SCH (14:00)
== END 2017-07-03 17:55 | DRG 871 ==
LOC: PHED 20:00 → PHEDA 22:55 → N07A 06-18 01:50 → HIMW 06-20 13:21 → N07B 06-30 14:54
PROVIDERS: ADMIT Internal Medicine; ATTEND Internal Medicine
PROC: 0FC98ZZ Extirpation of Matter from Common Bile Duct, Via Natural or Artificial Opening Endoscopic (ICD-10-PCS; principal; 2017-06-18 12:30)
PROC: 0F9430Z Drainage of Gallbladder with Drainage Device, Percutaneous Approach (ICD-10-PCS; 2017-06-21)
PROC: 5A09357 Assistance with Respiratory Ventilation, Less than 24 Consecutive Hours, Continuous Positive Airway Pressure (ICD-10-PCS; 2017-06-24)
DX: A41.9 Sepsis, unspecified organism (principal); J18.9 Pneumonia, unspecified organism; J96.01 Acute respiratory failure with hypoxia; N17.9 Acute kidney failure, unspecified; K56.609 Unspecified intestinal obstruction, unspecified as to partial versus complete obstruction; K80.62 Calculus of gallbladder and bile duct with acute cholecystitis without obstruction; I48.0 Paroxysmal atrial fibrillation; N18.9 Chronic kidney disease, unspecified; K43.5 Parastomal hernia without obstruction or gangrene; Z85.048 Personal history of other malignant neoplasm of rectum, rectosigmoid junction, and anus; Z85.46 Personal history of malignant neoplasm of prostate; R11.2 Nausea with vomiting, unspecified; M19.90 Unspecified osteoarthritis, unspecified site; I25.2 Old myocardial infarction; H91.90 Unspecified hearing loss, unspecified ear; E78.5 Hyperlipidemia, unspecified; K21.9 Gastro-esophageal reflux disease without esophagitis; M10.9 Gout, unspecified; I71.4 Abdominal aortic aneurysm, without rupture; I12.9 Hypertensive chronic kidney disease with stage 1 through stage 4 chronic kidney disease, or unspecified chronic kidney disease; Z86.711 Personal history of pulmonary embolism; Z90.49 Acquired absence of other specified parts of digestive tract; Z80.42 Family history of malignant neoplasm of prostate; Z92.3 Personal history of irradiation; Z87.891 Personal history of nicotine dependence; K57.10 Diverticulosis of small intestine without perforation or abscess without bleeding; Z78.1 Physical restraint status; E87.6 Hypokalemia; R41.0 Disorientation, unspecified
CPT/HCPCS: 36600; 47490; 71010; 71045; 71250; 74000; 74177; 74330; 76705; 76775; 76937; 78226; 80048; 80053; 80069; 80076; 81001; 82247; 82550; 82805; 82948; 83605; 83690; 83735; 83880; 84132; 84484; 85025; 85610; 85730; 87070; 87077; 87086; 87186; 87205; 87641; 87804; 93005; 93308; 94002; 94150; 94640; 94664; 94667; 94668; 96361; 96374; 96375; 99152; 99153; A9537; C1729; C1769; C1887; C9113; J0456; J0696; J1170; J1630; J1644; J1940; J2060; J2270; J2370; J2405; J2543; J3010; J3480; J7030; J7042; J7050; J7613; J7644; Q9967

== ENCOUNTER 2017-10-12 11:14 | Inpatient (IN) | payer OTHER, MEDICARE ==
[~2017-10-12] VITALS: Ht 180.3 cm; Wt 70.3 kg
[2017-10-12] VITALS (8 sets, daily range): BP systolic 103–143; BP diastolic 55–77; PULSE 82–94; RESP 15–18; TEMP 97.5–98.6; O2SAT 94–100
[~2017-10-12 11:14] MED LIST changes: -AMLO5TAB2 PO; +ATOR10TA15 PO; +Ipratropium Bromide NEB; -LOVA40TA PO; +METO-309 PO; -NAPR500 PO; +OXYGENDME NAS.CANULA; +SERO25TA PO
[2017-10-12] MEDS ORDERED: SODIUM CHLOR 0.9% 1000 ML INJ 1,000 ML IV SCH (11:46)
[2017-10-12] MEDS ORDERED: MEGE20TA PO (11:52)
[2017-10-12] MEDS ORDERED: AMLO5TAB2 PO (11:52)
[2017-10-12] MEDS ORDERED: DIATRIZOATE MEGLUM/DIATRIZOATE SOD 9 ML CUP ONE (11:59)
[2017-10-12] MEDS ORDERED: SODIUM CHLORIDE 0.9% FLUSH 10 ML FLUSH IV FLUSH PRN ×2 (12:00→16:15)
[2017-10-12] MEDS ORDERED: ONDANSETRON HCL 4 MG/2 ML VIAL IVP ONE (12:00)
[2017-10-12] MEDS ORDERED: MORPHINE SULFATE 4 MG/ML INJ IV PUSH ONE (12:00)
[2017-10-12 12:27] LABS: AUTOMATED NEUTROPHIL # 11.1 TH/MM3 (1.8-7.7); BASOPHIL # 0.1 TH/MM3 (0-0.2); BASOPHIL % 0.5 % (0.0-2.0); EOSINOPHIL # 0.2 TH/MM3 (0-0.4); EOSINOPHIL % 1.1 % (0.0-4.0); HEMATOCRIT 32.1 % (39.0-51.0); HEMOGLOBIN 10.9 GM/DL (13.0-17.0); LYMPH % 11.4 % (9.0-44.0); LYMPHOCYTE # 1.6 TH/MM3 (1.0-4.8); MEAN CELL VOLUME 91.2 FL (80.0-100.0); MEAN CORPUSCULAR HEMOGLOBIN 30.9 PG (27.0-34.0); MEAN CORPUSCULAR HGB CONC 33.9 % (32.0-36.0); MEAN PLATELET VOLUME 7.9 FL (7.0-11.0); MONO % 7.1 % (0.0-8.0); NEUT % 79.9 % (16.0-70.0); PLATELET COUNT 381 TH/MM3 (150-450); RED BLOOD COUNT 3.52 MIL/MM3 (4.50-5.90); RED CELL DISTRIBUTION WIDTH 16.7 % (11.6-17.2)
--- NOTE | 2017-10-12 12:36 | RADRPT ---
EXAM DATE/TIME: 10/12/2017 12:08 [facility] COMPARISON: No previous studies available for comparison. INDICATIONS : Pain without fall. MEDICAL HISTORY : Gastroesophageal reflux disease. Hypertension Carcinoma, prostatic. SURGICAL HISTORY : None. ENCOUNTER: Initial ACUITY: 1 week PAIN SCORE: 8/10 LOCATION: Entire spine. FINDINGS: Bones are osteopenic. There is minimal loss of vertebral height at multiple levels. Worse at T9. A lignment is anatomic. CONCLUSION: Probable minimal compression at T9. Edd Chavez MD FACR on October 12, 2017 at 12:32 Board Certified Radiologist. This report was verified electronically.
--- NOTE | 2017-10-12 12:36 | RADRPT ---
EXAM DATE/TIME: 10/12/2017 12:10 [facility] COMPARISON: No previous studies available for comparison. INDICATIONS : Pain without trauma. MEDICAL HISTORY : Gastroesophageal reflux disease. Hypertension Carcinoma, prostatic. SURGICAL HISTORY : None. ENCOUNTER: Initial ACUITY: 1 week PAIN SCORE: 8/10 LOCATION: Entire spine. FINDINGS: Mild degenerative changes L4-5 and L5-S1 without compression. Pedicles are intact. Degenerative danyell nges both SI joints. CONCLUSION: Mild degenerative changes. Edd Chavez MD FACR on October 12, 2017 at 12:33 Board Certified Radiologist. This report was verified electronically.
[2017-10-12 12:37] LABS: AST (GOT) 21 U/L (15-37); BICARBONATE 19.1 MEQ/L (21.0-32.0); BLOOD UREA NITROGEN 14 MG/DL (7-18); CALCIUM 9.8 MG/DL (8.5-10.1); CHLORIDE 107 MEQ/L (98-107); CREATININE 1.51 MG/DL (0.60-1.30); GLOMERULAR FILTRATION RATE 44 ML/MIN (>89); GLUCOSE,RANDOM 107 MG/DL (74-106); SODIUM (NA) 136 MEQ/L (136-145)
[2017-10-12 12:38] LABS: ALT (GPT) 16 U/L (12-78)
[2017-10-12 12:41] LABS: ALKALINE PHOSPHATASE 186 U/L (45-117); TOTAL BILIRUBIN ADULT 0.5 MG/DL (0.2-1.0); TOTAL PROTEIN 7.7 GM/DL (6.4-8.2)
[2017-10-12 12:58] LABS: ALBUMIN 2.9 GM/DL (3.4-5.0)
[2017-10-12] MEDS ORDERED: IOHEXOL 350 MG/ML 10 ML VIAL (for RAD DIAG) IVCONTRAST ONE (14:40)
[2017-10-12] MEDS ORDERED: IODIXANOL 320 MG/ML 10 ML VIAL (for Rad CT) IVCONTRAST ONE (14:47)
[2017-10-12 15:11] LABS: BILIRUBIN, URINE NEG (NEG); BLOOD, URINE NEG (NEG); GLUCOSE,URINE NEG (NEG); HYALINE CAST, URINE 5 /lpf (RARE); KETONE, URINE NEG (NEG); MUCUS URINE FEW /lpf (OCC); NITRITE,URINE NEG (NEG); SQUAMOUS EPITHELIAL CELL URINE <1 /hpf (0-5); URINE COLOR LIGHT-YELLOW (YELLW/STRAW); URINE LEUKOCYTE ESTERASE LARGE (NEG)
--- NOTE | 2017-10-12 15:11 | RADRPT ---
EXAM DATE/TIME: 10/12/2017 14:23 [facility] COMPARISON: CT ABDOMEN & PELVIS W CONTRAST, June 17, 2017, 21:30. INDICATIONS : Left sided flank pain radiating to umbilical area. IV CONTRAST: 96 cc Visipaque (iodixanol) IV ORAL CONTRAST: Prescribed oral contrast ingested. RADIATION DOSE: 6.60 CTDIvol (mGy) MEDICAL HISTORY : Cardiovascular disease. Hypertension. Rectal and prostate cancer, reflux, GI bl eed SURGICAL HISTORY : Prostatectomy. Colostomy. ENCOUNTER: Initial ACUITY: 1 day PAIN SCALE: 4/10 LOCATION: Left flank TECHNIQUE: Volumetric scanning of the abdomen and pelvis was performed. Using automated exposure control and adjustment of the mA and/or kV according to patient size, radiation dose was kept as low as reasonably achievable to obtain optimal diagnostic quality images. DICOM format image data is av ailable electronically for review and comparison. FINDINGS: The lower lungs are clear. Mild dilatation of the ascending aorta to 4.9 cm. Descending aorta measures 3 cm. Minimal coronary calcifications. The liver is free of focal defects Gallbladder may contain one or 2 small stones. Spleen and pancreas unremarkable Adrenal glands appear normal There is symmetrical renal function. There is prominent renal pelvis on the left the dilated ureter extending down to the left ureterovesical junction. There surgical clips from previous prostatectomy present. Ther e is thickening of the bladder wall about the trigone of the left side that is probably the cause of the dilatation. The right ureter is of normal size Colostomy is seen in the right left mid abdomen with small associated hernia containing bowel. There is dilatation of the infrarenal aorta measuring 3.2 cm. In the pelvis is evidence for previous prostate surgery the abnormal bladder as described above. The re is no inguinal adenopathy. There is no obturator adenopathy. Previous left hip fracture is noted Review of bone windows reveals sclerotic changes scattered through multiple portions of the axial and appendicular skeleton suspicious for metastatic disease. The most significant sclerosis is in the L1 vertebral body left side. 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 Edd Chavez MD FACR on October 12, 2017 at 15:03 Board Certified Radiologist. This report was verified electronically.
--- NOTE | 2017-10-12 15:32 | PD ---
HPI Chief Complaint: Pain: Acute or Chronic Time Seen by Provider: 11:46 Travel History International Travel<30 days: No Contact w/Intl Traveler<30days: No Traveled to known affect area: No History of Present Illness HPI This is an 86-year-old male with a history of colon cancer,, presents with left upper back pain and left upper abdominal pain. Patient reports is been there on and off for several days. He reports is progressively getting worse. who was at the bedside states that he started complaining of how severe it was this morning and that is why she called 911. There is no reported fevers, chills. He does report decreased urination. Reports no increased output in his colostomy site. No other complaints at time of examination. PFSH Past Medical History Hx Anticoagulant Therapy: Yes Arthritis: Yes Asthma: No Autoimmune Disease: No Anxiety: No Depression: No Cancer: Yes (PROSTATE /RECTAL) Cardiovascular Problems: Yes High Cholesterol: Yes Chemotherapy: No Congestive Heart Failure: No COPD: No Diabetes: No Diminished Hearing: Yes ([facility]) Endocrine: No Gastrointestinal Disorders: Yes (HEMORRHOIDS/GI BLEED, COLOSTOMY, COLON TUMOR) GERD: Yes Gout: Yes Genitourinary: No Hepatitis: No Hiatal Hernia: No Hypertension: Yes Immune Disorder: No Implanted Vascular Access Dvce: No Musculoskeletal: No Neurologic: No Psychiatric: No Reproductive: No Respiratory: No Myocardial Infarction: Yes ( 2013) Radiation Therapy: No Sickle Cell Disease: No Thyroid Disease: No Influenza Vaccination: Yes Past Surgical History Abdominal Surgery: Yes AICD: No Arteriovenous Shunt: No Body Medical Devices: "pedrito in left leg" Cardiac Surgery: No Ear Surgery: No Endocrine Surgery: No Eye Surgery: Yes (TICO CATARACT SURGERY) Genitourinary Surgery: Yes (PROSTATECTOMY 1997) Insulin Pump: No Joint Replacement: Yes Neurologic Surgery: No Oral Surgery: No Pacemaker: No Thoracic Surgery: No Other Surgery: Yes (unable to assess) Social History Alcohol Use: Yes Tobacco Use: No Substance Use: No Allergies-Medications (Allergen,Severity, Reaction): Coded Allergies: No Known Allergies (Verified , 03/08/17) Reported Meds & Prescriptions Reported Meds & Active Scripts Active Oxygen (O2) Device Liter ROSE MARIE.CANULA CONTINUOUS Oxygen Concentrator Portable Gaseous 2 L/min via Nasal Canula Continuous For 99 months Omeprazole 20 Mg Tab 20 Mg PO BID Reported Amlodipine (Amlodipine Besylate) 5 Mg Tab 5 Mg PO DAILY Megestrol (Megestrol Acetate) 20 Mg Tab 20 Mg PO BID Atorvastatin (Atorvastatin Calcium) 10 Mg Tab 10 Mg PO HS Vitamin B-12 (Cyanocobalamin) 1,000 Mcg Tab 1,000 Mcg PO DAILY Vitamin D (Cholecalciferol) 2,000 Unit Cap 2,000 Mg PO DAILY Aspirin 81 Low Dose (Aspirin) 81 Mg Chew 81 Mg CHEW DAILY Allopurinol 300 Mg Tab 300 Mg PO DAILY Metoprolol Tartrate 50 Mg Tab 50 Mg PO BID Review of Systems Except as stated in HPI: all other systems reviewed are Neg General / Constitutional: No: Fever, Chills HENT: No: Headaches, Lightheadedness, Neck Pain Cardiovascular: No: Chest Pain or Discomfort, Palpitations Respiratory: No: Cough, Shortness of Breath Gastrointestinal: Positive: Nausea, Abdominal Pain (Left upper), No: Vomiting, Diarrhea Genitourinary: Positive: Decreased Urinary Output, No: Dysuria Musculoskeletal: Positive: Pain (Left middle back), No: Weakness Neurologic: No: Weakness, Dizziness, Headache Physical Exam Narrative GENERAL: Well-nourished, well-developed patient in no acute respiratory distress. Patient does wince when he touches left upper abdomen. SKIN: Focused skin assessment warm/dry. HEAD: Normocephalic/atraumatic. EYES: No scleral icterus. No injection or drainage. NECK: Supple, trachea midline. CARDIOVASCULAR: Regular rate and rhythm without murmurs, gallops, or rubs. RESPIRATORY: Breath sounds equal bilaterally. No accessory muscle use. Decreased respiratory effort. GASTROINTESTINAL: Abdomen soft, nondistended. There is tenderness to palpation in his left upper abdominal area below the rib cage. No obvious palpable masses appreciated. No rebound but guarding is present. MUSCULOSKELETAL: No cyanosis, or edema. BACK: Tenderness in his left middle thoracic region. NEUROLOGICAL: Awake and alert. Cranial nerves II through XII intact. Motor grossly within normal limits. Five out of 5 muscle strength in all muscle groups. Normal speech. Data Data Last Documented VS Vital Signs Date Time Temp Pulse Resp B/P (MAP) Pulse Ox O2 Delivery O2 Flow Rate FiO2 10/12/17 16:00 84 18 116/67 (83) 99 Room Air 10/12/17 11:30 98.6 Orders Orders Complete Blood Count With Diff (10/12/17 11:46) Comprehensive Metabolic Panel (10/12/17 11:46) Lipase (10/12/17 11:46) Urinalysis - C+S If Indicated (10/12/17 11:46) Ct Abd/Pel W Iv Contrast(Rout) (10/12/17 11:46) Iv Access Insert/Monitor (10/12/17 11:46) Ecg Monitoring (10/12/17 11:46) Oximetry (10/12/17 11:46) Morphine Inj (Morphine Inj) (10/12/17 12:00) Ondansetron Inj (Zofran Inj) (10/12/17 12:00) Sodium Chlor 0.9% 1000 Ml Inj (Ns 1000 M (10/12/17 11:46) Sodium Chloride 0.9% Flush (Ns Flush) (10/12/17 12:00) Spine, Thoracic-Ap/Lat/Sw(3vw) (10/12/17 11:46) Spine, Lumbar - Ltd (Ap & Lat) (10/12/17 11:46) Oral Contrast - Adult (10/12/17 11:56) Diatrizoate Liq ( Gastroview Liq) (10/12/17 11:59) Iodixanol 320 Inj (Rad Ct) (Visipaque 32 (10/12/17 14:47) Urine Culture (10/12/17 14:45) Ceftriaxone Inj (Rocephin Inj) (10/12/17 15:45) Vascular Access Team Consult/P PRN (10/12/17 15:33) Blood Culture (10/12/17 15:33) Vascular Poc Ultrasound (10/12/17 ) Admit Order (Ed Use Only) (10/12/17 16:14) Admit To Inpatient (10/12/17 ) Vital Signs (Adult) Q4H (10/12/17 16:14) Activity Oob Ad Ida (10/12/17 16:14) Intake + Output EL.QSHIFT (10/12/17 16:14) Diet Heart Healthy (10/12/17 Dinner) Sodium Chloride 0.9% Flush (Ns Flush) (10/12/17 16:15) Sodium Chloride 0.9% Flush (Ns Flush) (10/12/17 21:00) Ondansetron Inj (Zofran Inj) (10/12/17 16:15) Basic Metabolic Panel (Bmp) (10/13/17 06:00) Complete Blood Count With Diff (10/13/17 06:00) Enoxaparin Inj (Lovenox Inj) (10/12/17 17:00) Naloxone Inj (Narcan Inj) (10/12/17 16:15) Docusate Sodium-Senna (Le-Colace) (10/12/17 21:00) Magnesium Hydroxide Liq (Milk Of Magnesi (10/12/17 16:15) Sennosides (Senokot) (10/12/17 16:15) Bisacodyl Supp (Dulcolax Supp) (10/12/17 16:15) Lactulose Liq (Lactulose Liq) (10/12/17 16:15) Inpatient Certification (10/12/17 ) Labs Laboratory Tests Test 10/12/17 11:50 10/12/17 14:45 White Blood Count 14.0 TH/MM3 Red Blood Count 3.52 MIL/MM3 Hemoglobin 10.9 GM/DL Hematocrit 32.1 % Mean Corpuscular Volume 91.2 FL Mean Corpuscular Hemoglobin 30.9 PG Mean Corpuscular Hemoglobin Concent 33.9 % Red Cell Distribution Width 16.7 % Platelet Count 381 TH/MM3 Mean Platelet Volume 7.9 FL Neutrophils (%) (Auto) 79.9 % Lymphocytes (%) (Auto) 11.4 % Monocytes (%) (Auto) 7.1 % Eosinophils (%) (Auto) 1.1 % Basophils (%) (Auto) 0.5 % Neutrophils # (Auto) 11.1 TH/MM3 Lymphocytes # (Auto) 1.6 TH/MM3 Monocytes # (Auto) 1.0 TH/MM3 Eosinophils # (Auto) 0.2 TH/MM3 Basophils # (Auto) 0.1 TH/MM3 CBC Comment DIFF FINAL Differential Comment Blood Urea Nitrogen 14 MG/DL Creatinine 1.51 MG/DL Random Glucose 107 MG/DL Total Protein 7.7 GM/DL Albumin 2.9 GM/DL Calcium Level 9.8 MG/DL Alkaline Phosphatase 186 U/L Aspartate Amino Transf (AST/SGOT) 21 U/L Alanine Aminotransferase (ALT/SGPT) 16 U/L Total Bilirubin 0.5 MG/DL Sodium Level 136 MEQ/L Potassium Level 4.0 MEQ/L Chloride Level 107 MEQ/L Carbon Dioxide Level 19.1 MEQ/L Anion Gap 10 MEQ/L Estimat Glomerular Filtration Rate 44 ML/MIN Lipase 73 U/L Urine Color LIGHT-YELLOW Urine Turbidity HAZY Urine pH 6.0 Urine Specific [place] 1.017 Urine Protein 30 mg/dL Urine Glucose (UA) NEG mg/dL Urine Ketones NEG mg/dL Urine Occult Blood NEG Urine Nitrite NEG Urine Bilirubin NEG Urine Urobilinogen LESS THAN 2.0 MG/DL Urine Leukocyte Esterase LARGE Urine WBC 137 /hpf Urine Squamous Epithelial Cells <1 /hpf Urine Hyaline Casts 5 /lpf Urine Mucus FEW /lpf Microscopic Urinalysis Comment CULTURE INDICATED MDM Medical Decision Making Medical Screen Exam Complete: Yes Emergency Medical Condition: Yes Interpretation(s) Last 24 hours Impressions Thoracic Spine X-Ray 10/12/17 1146 Signed Impressions: Service Date/Time: Thursday, October 12, 2017 12:08 - CONCLUSION: Probable minimal compression at T9. Edd Chavez MD FACR Lumbar Spine X-Ray 10/12/17 1146 Signed Impressions: Service Date/Time: Thursday, October 12, 2017 12:10 - CONCLUSION: Mild degenerative changes. 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 Edd Chavez MD FACR Differential Diagnosis Intra-abdominal mass versus metastatic disease versus thoracic versus lumbar spine fracture versus kidney stone Narrative Course 86-year-old male presents today with complaints of left upper abdominal pain. Patient reports that it has been going on for several days. Patient also reports back pain. CT scan shows a mass on his bladder. He also has a urinary tract infection. There is concern for possible metastatic cancer to the bone as well. Plain x-ray of the thoracic spine shows a T9 small compression fracture. I discussed this with both the patient and his . Patient will be admitted for IV antibiotics. Case was discussed with the admitting physician. Diagnosis Primary Impression: Bladder mass Additional Impressions: UTI (urinary tract infection) T9 compression fracture of unknown age History of prostate cancer History of colorectal cancer Atrial fibrillation Anticoagulated Admitting Information Admitting Physician Requests: Admit Neno Cruz MD Oct 12, 2017 15:32
[2017-10-12] MEDS ORDERED: cefTRIAXone INJ 1,000 MG in SODIUM CHLORIDE 0.9% INJ 100 ML IV ONE (15:45)
[2017-10-12] MEDS ORDERED: SENNOSIDES 8.6 MG TAB PO PRN (16:15)
[2017-10-12] MEDS ORDERED: NALOXONE HCL 0.4 MG/ML AMP IV PUSH PRN (16:15)
[2017-10-12] MEDS ORDERED: BISACODYL 10 MG SUPP RECTAL PRN (16:15)
[2017-10-12] MEDS ORDERED: LACTULOSE SYRUP 20 GM/30 ML CUP PO PRN (16:15)
[2017-10-12] MEDS ORDERED: MAGNESIUM HYDROXIDE SUSP 30 ML CUP PO PRN (16:15)
[2017-10-12] MEDS ORDERED: ENOXAPARIN SODIUM 40 MG/0.4 ML SYRINGE SQ SCH (17:00)
--- NOTE | 2017-10-12 20:01 | HHI.HP ---
[facility] Stephani Rodriguez MD Admission Diagnosis pyelonephritis, bladder mass, t9 compression frx. Diagnoses: (1) Prostate CA Diagnosis: Principal (2) QUIQUE (acute kidney injury) Diagnosis: Principal (3) UTI (urinary tract infection) Diagnosis: Principal (4) Thoracic compression fracture Diagnosis: Principal Travel History International Travel<30 Days: No Contact w/Intl Traveler <30 Da: No Traveled to Known Affected Are: No History of Present Illness This is an 86-year-old male with a PMH of Colon CA, Prostate CA, HTN and Hyperlipidemia who presented to the ER w/ complaints of back pain and abdominal pain. Pt is poor historian and very SAMISH, history limited. Per , pt w/ complaints of back/abdominal pain for several days, worse today. Pain is intermittent, severe, 10/10, non-radiating. No associated nausea/vomiting or diarrhea although reports slightly increased output from colostomy. No fever, chills, injury or trauma. On arrival, BP 124/77, HR 94, O2 sat 96% RA, Afebrile. WBC 14. Creatinine 1.51, previously 1.24 on 06/28/2017. ALP 186. UA positive for UTI. CT Abdomen/Pelvis with abnormal left ureter with abnormal left side of bladder and trigone, findings suggestive of metastatic prostate cancer to the spine, colostomy with small herniation. Lumbar X-ray mild degenerative changes. Thoracic X-ray probable minimal compression T9. Pt cannot recall name of Urologist, does not know if he is following w/ Oncology. S/p Rocephin in ER. Review of Systems Except as stated in HPI: all other systems reviewed are Neg ROS: 14 point review of systems otherwise negative. Past Family Social History Past Medical History PMH: Colon CA, Prostate CA, HTN and Hyperlipidemia Past Surgical History PAST SURGICAL HISTORY: Cataract Surgery, Prostatectomy, Left Leg Surgery Allergies: Coded Allergies: No Known Allergies (Verified , 03/08/17) Family History PAST FAMILY HISTORY: Reviewed. No h/o DM or CAD Social History PAST SOCIAL HISTORY: Occasional alcohol. Negative for drugs or tobacco. Physical Exam Vital Signs Vital Signs Date Time Temp Pulse Resp B/P (MAP) Pulse Ox O2 Delivery O2 Flow Rate FiO2 10/12/17 20:00 88 18 123/58 (79) 96 Room Air 10/12/17 18:00 84 15 120/59 (79) 97 Room Air 10/12/17 17:00 82 18 128/58 (81) 95 Room Air 10/12/17 16:00 84 18 116/67 (83) 99 Room Air 10/12/17 15:00 88 16 118/66 (83) 94 Room Air 10/12/17 12:59 16 10/12/17 11:53 18 10/12/17 11:52 16 98 Room Air 10/12/17 11:30 98.6 94 18 124/77 (93) 96 Physical Exam PE: GENERAL: Pleasant elderly male in no acute distress. Very SAMISH. HEENT: PERRLA, EOMI. No scleral icterus or conjunctival pallor. No lid lag or facial droop. CARDIOVASCULAR: Regular rate and rhythm. No obvious murmurs to auscultation. No chest tenderness to palpation. RESPIRATORY: No obvious rhonchi or wheezing. Clear to auscultation. Breath sounds equal bilaterally. GASTROINTESTINAL: Abdomen soft, non-tender, nondistended. BS normal. MUSCULOSKELETAL: Extremities without clubbing, cyanosis, or edema. No obvious deformities. NEUROLOGICAL: Awake, alert and oriented x4. No focal neurologic deficits. Moving both upper and lower extremities spontaneously. Laboratory Laboratory Tests Test 10/12/17 11:50 10/12/17 14:45 White Blood Count 14.0 Red Blood Count 3.52 Hemoglobin 10.9 Hematocrit 32.1 Mean Corpuscular Volume 91.2 Mean Corpuscular Hemoglobin 30.9 Mean Corpuscular Hemoglobin Concent 33.9 Red Cell Distribution Width 16.7 Platelet Count 381 Mean Platelet Volume 7.9 Neutrophils (%) (Auto) 79.9 Lymphocytes (%) (Auto) 11.4 Monocytes (%) (Auto) 7.1 Eosinophils (%) (Auto) 1.1 Basophils (%) (Auto) 0.5 Neutrophils # (Auto) 11.1 Lymphocytes # (Auto) 1.6 Monocytes # (Auto) 1.0 Eosinophils # (Auto) 0.2 Basophils # (Auto) 0.1 CBC Comment DIFF FINAL Differential Comment Blood Urea Nitrogen 14 Creatinine 1.51 Random Glucose 107 Total Protein 7.7 Albumin 2.9 Calcium Level 9.8 Alkaline Phosphatase 186 Aspartate Amino Transf (AST/SGOT) 21 Alanine Aminotransferase (ALT/SGPT) 16 Total Bilirubin 0.5 Sodium Level 136 Potassium Level 4.0 Chloride Level 107 Carbon Dioxide Level 19.1 Anion Gap 10 Estimat Glomerular Filtration Rate 44 Lipase 73 Urine Color LIGHT-YELLOW Urine Turbidity HAZY Urine pH 6.0 Urine Specific [place] 1.017 Urine Protein 30 Urine Glucose (UA) NEG Urine Ketones NEG Urine Occult Blood NEG Urine Nitrite NEG Urine Bilirubin NEG Urine Urobilinogen LESS THAN 2.0 Urine Leukocyte Esterase LARGE Urine WBC 137 Urine Squamous Epithelial Cells <1 Urine Hyaline Casts 5 Urine Mucus FEW Microscopic Urinalysis Comment CULTURE INDICATED Date/Time Source Procedure Growth Status 10/12/17 15:35 Blood Peripheral Aerobic Blood Culture Pending Received 10/12/17 15:35 Blood Peripheral Anaerobic Blood Culture Pending Received 10/12/17 14:45 Urine Clean Catch Urine Culture Pending Received Result Diagram: 10/12/17 1150 10/12/17 1150 Caprini VTE Risk Assessment Caprini VTE Risk Assessment: No/Low Risk (score <= 1) Caprini Risk Assessment Model Point Value = 1 Point Value = 2 Point Value = 3 Point Value = 5 Age 41-60 Minor surgery BMI > 25 kg/m2 Swollen legs Varicose veins or History of unexplained or recurrent spontaneous Oral contraceptives or hormone replacement Sepsis (< 1 month) Serious lung disease, including pneumonia (< 1 month) Abnormal pulmonary function Acute myocardial infarction Congestive heart failure (< 1 month) History of inflammatory bowel disease Medical patient at bed rest Age 61-74 Arthroscopic surgery Major open surgery (> 45 min) Laparoscopic surgery (> 45 min) Malignancy Confined to bed (> 72 hours) Immobilizing plaster cast Central venous access Age >= 75 History of VTE Family history of VTE Factor V Leiden Prothrombin [id number] Lupus anticoagulant Anticardiolipin antibodies Elevated serum homocysteine Heparin-induced thrombocytopenia Other congenital or acquired thrombophilia Stroke (< 1 month) Elective arthroplasty Hip, pelvis, or leg fracture Acute spinal cord injury (< 1 month) Prophylaxis Regimen Total Risk Factor Score Risk Level Prophylaxis Regimen 0-1 Low Early ambulation 2 Moderate Order ONE of the following: *Sequential Compression Device (SCD) *Heparin 5000 units SQ BID 3-4 Higher Order ONE of the following medications: *Heparin 5000 units SQ TID *Enoxaparin/Lovenox 40 mg SQ daily (WT < 150 kg, CrCl > 30 mL/min) *Enoxaparin/Lovenox 30 mg SQ daily (WT < 150 kg, CrCl > 10-29 mL/min) *Enoxaparin/Lovenox 30 mg SQ BID (WT < 150 kg, CrCl > 30 mL/min) AND/OR *Sequential Compression Device (SCD) 5 or more Highest Order ONE of the following medications: *Heparin 5000 units SQ TID (Preferred with Epidurals) *Enoxaparin/Lovenox 40 mg SQ daily (WT < 150 kg, CrCl > 30 mL/min) *Enoxaparin/Lovenox 30 mg SQ daily (WT < 150 kg, CrCl > 10-29 mL/min) *Enoxaparin/Lovenox 30 mg SQ BID (WT < 150 kg, CrCl > 30 mL/min) AND *Sequential Compression Device (SCD) Assessment and Plan Problem List: (1) Prostate CA ICD Code: C61 - Malignant neoplasm of prostate (2) UTI (urinary tract infection) ICD Code: N39.0 - Urinary tract infection, site not specified (3) Thoracic compression fracture ICD Code: S22.000A - Wedge compression fracture of unspecified thoracic vertebra, initial encounter for closed fracture (4) QUIQUE (acute kidney injury) ICD Code: N17.9 - Acute kidney failure, unspecified Assessment and Plan A/P: 1. Prostate CA: h/o Prostate CA s/p Prostatectomy per records, now w/ significant back/abdominal pain. CT Abd/Pelvis w/ abnormal left ureter associated with abnormal left side of bladder suggestive of metastatic prostate CA, images reviewed by me. Oncology consulted, will await further evaluation/ recommendations. 2. T9 Compression Fracture: Thoracic X-ray with probable minimal compression fracture at T9, images reviewed by me. TLSO, Consult Ortho/NxSx as needed for further evaluation. 3. UTI: U/a w/ significant UTI, s/p Rocephin, will continue w/ IV Abx, IVF for hydration. 4. QUIQUE: Creatinine 1.51, previously 1.24 on 06/28/2017. IVF for hydration, repeat labs in a.m. 5. DVT Prophylaxis: SCDs/teds. 6. Social work for DC planning as needed. 7. Case discussed at length with the ER physician, lab/record/imaging reviewed by me. Physician Certification 2 Midnight Certification Type: Admission for Inpatient Services Order for Inpatient Services The services are ordered in accordance with Medicare regulations or non- Medicare payer requirements, as applicable. In the case of services not specified as inpatient-only, they are appropriately provided as inpatient services in accordance with the 2-midnight benchmark. Estimated LOS (days): 2 days is the estimated time the patient will need to remain in the hospital, assuming treatment plan goals are met and no additional complications. Post-Hospital Plan: Not yet determined Krystyna Joseph MD Oct 12, 2017 20:01
[2017-10-12] MEDS: SODIUM CHLORIDE 0.9% FLUSH 10 ML FLUSH IV FLUSH SCH (21:00)
[2017-10-13 00:45] VITALS: BP 104/51; PULSE 86; RESP 18; TEMP 98; O2SAT 96
[2017-10-13 04:45] VITALS: BP 110/64; PULSE 63; RESP 18; TEMP 97.6; O2SAT 97
[2017-10-13] MEDS: ACETAMINOPHEN/HYDROcodone 325 MG/10 MG TAB PO PRN ×3 (06:58→17:10)
[2017-10-13 08:00] VITALS: BP 129/64; PULSE 109; RESP 18; TEMP 97.5; O2SAT 96
[2017-10-13] MEDS: DOCUSATE SODIUM 50 MG/SENNA 8.6 MG TAB PO SCH ×2 (09:00→19:57)
[2017-10-13] MEDS: SODIUM CHLORIDE 0.9% FLUSH 10 ML FLUSH IV FLUSH SCH ×2 (09:00→20:00)
[2017-10-13 09:56] LABS: AUTOMATED NEUTROPHIL # 10.4 TH/MM3 (1.8-7.7); BASOPHIL # 0.1 TH/MM3 (0-0.2); BASOPHIL % 0.8 % (0.0-2.0); EOSINOPHIL # 0.1 TH/MM3 (0-0.4); EOSINOPHIL % 0.9 % (0.0-4.0); HEMATOCRIT 32.5 % (39.0-51.0); HEMOGLOBIN 10.6 GM/DL (13.0-17.0); LYMPH % 7.4 % (9.0-44.0); LYMPHOCYTE # 0.9 TH/MM3 (1.0-4.8); MEAN CORPUSCULAR HEMOGLOBIN 29.8 PG (27.0-34.0); MEAN CORPUSCULAR HGB CONC 32.8 % (32.0-36.0); MEAN PLATELET VOLUME 7.7 FL (7.0-11.0); MONO % 6.5 % (0.0-8.0); MONOCYTE # 0.8 TH/MM3 (0-0.9); NEUT % 84.4 % (16.0-70.0); PLATELET COUNT 334 TH/MM3 (150-450); RED BLOOD COUNT 3.57 MIL/MM3 (4.50-5.90); RED CELL DISTRIBUTION WIDTH 16.7 % (11.6-17.2); WHITE BLOOD COUNT 12.3 TH/MM3 (4.0-11.0)
[2017-10-13 10:17] LABS: BICARBONATE 21.1 MEQ/L (21.0-32.0); CALCIUM 9.6 MG/DL (8.5-10.1); CREATININE 1.19 MG/DL (0.60-1.30)
[2017-10-13] MEDS: amLODIPine BESYLATE 5 MG TAB PO SCH (10:53)
[2017-10-13] MEDS: METOPROLOL TARTRATE 50 MG TAB PO SCH ×2 (10:53→19:57)
[2017-10-13] MEDS: PANTOPRAZOLE SOD 20 MG DELAYED RELEASE TAB PO SCH ×2 (10:53→19:57)
[2017-10-13 12:00] VITALS: BP 111/51; PULSE 92; RESP 18; TEMP 97.8; O2SAT 97
[2017-10-13 16:00] VITALS: BP 115/60; PULSE 88; RESP 20; TEMP 97.6; O2SAT 95
--- NOTE | 2017-10-13 18:10 | HHI.PR ---
Subjective Remarks Pt is very hard of hearing, he doesn't complain of pain, he denied any burning w urination although I am not sure he understands what I'm asking. Per RN, pt refusing to wear his hearing aids. RN notifies me that urine growing MRSA Objective Vitals Vital Signs Date Time Temp Pulse Resp B/P (MAP) Pulse Ox O2 Delivery O2 Flow Rate FiO2 10/13/17 16:00 97.6 88 20 115/60 (78) 95 10/13/17 12:00 97.8 92 18 111/51 (71) 97 10/13/17 08:00 97.5 109 18 129/64 (85) 96 10/13/17 04:45 97.6 63 18 110/64 (79) 97 10/13/17 00:45 98.0 86 18 104/51 (68) 96 10/12/17 21:10 97.5 94 18 103/55 (71) 100 10/12/17 21:00 10/12/17 20:00 88 18 123/58 (79) 96 Room Air I/O 10/12/17 10/12/17 10/12/17 10/13/17 10/13/17 10/13/17 07:00 15:00 23:00 07:00 15:00 23:00 Intake Total 1600 ml 480 ml 600 ml Output Total 75 ml Balance -75 ml 1600 ml 480 ml 600 ml Intake Oral 480 ml 600 ml IV Total 1600 ml Output Urine Total 75 ml # Voids 1 2 3 # Bowel Movements 0 Result Diagram: 10/13/17 0941 10/13/17 0941 Imaging Last Impressions Thoracic Spine X-Ray 10/12/17 1146 Signed Impressions: Service Date/Time: Thursday, October 12, 2017 12:08 - CONCLUSION: Probable minimal compression at T9. Edd Chavez MD FACR Lumbar Spine X-Ray 10/12/17 1146 Signed Impressions: Service Date/Time: Thursday, October 12, 2017 12:10 - CONCLUSION: Mild degenerative changes. 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 Edd Chavez MD FACR Objective Remarks GENERAL: Pleasant elderly male, Very hard of hearing HEENT: EOMI. CARDIOVASCULAR: Regular rate and rhythm. RESPIRATORY: No obvious rhonchi or wheezing. Clear to auscultation. Breath sounds equal bilaterally. GASTROINTESTINAL: Abdomen soft, non-tender, nondistended. BS normal. colostomy bag present MUSCULOSKELETAL: Extremities without edema. No obvious deformities. NEUROLOGICAL: Awake, alert and oriented x4. No focal neurologic deficits. Moving both upper and lower extremities spontaneously. A/P Problem List: (1) Prostate CA ICD Code: C61 - Malignant neoplasm of prostate (2) UTI (urinary tract infection) ICD Code: N39.0 - Urinary tract infection, site not specified (3) Thoracic compression fracture ICD Code: S22.000A - Wedge compression fracture of unspecified thoracic vertebra, initial encounter for closed fracture (4) QUIQUE (acute kidney injury) ICD Code: N17.9 - Acute kidney failure, unspecified Assessment and Plan 1. Prostate CA: h/o Prostate CA s/p Prostatectomy per records, now w/ significant back/abdominal pain. CT Abd/Pelvis w/ abnormal left ureter associated with abnormal left side of bladder suggestive of metastatic prostate CA. Oncology consulted, will await further evaluation/recommendations. urology consulted as there is concerns for dilated ureter. appreciate recs. PSA 11.5 2. T9 Compression Fracture: Thoracic X-ray with probable minimal compression fracture at T9. TLSO, Consult Ortho/NxSx as needed for further evaluation if pain worsening. Pt appears comfortable for now. continue pain meds as needed. PT eval 3. UTI: U/a w/ significant UTI, s/p Rocephin, switched to IV vanco as pt's urine growing MRSA. ID consulted. 4. QUIQUE: Creatinine 1.51--1.19, previously 1.24 on 06/28/2017. IVF for hydration , monitor. 5. DVT Prophylaxis: SCDs/teds. Discharge Planning awaiting recs from consultants Bia Pérez MD Oct 13, 2017 18:10
[2017-10-13] MEDS: ATORVASTATIN 10 MG TAB PO SCH (19:57)
[2017-10-13] MEDS: VANCOMYCIN INJ 1,250 MG in SODIUM CHLOR 0.9% 250 ML INJ 250 ML IV SCH (20:00)
[2017-10-13 20:15] VITALS: BP 124/58; PULSE 78; RESP 18; TEMP 97.5; O2SAT 97
[2017-10-13] MEDS ORDERED: cefTRIAXone INJ 1,000 MG in SODIUM CHLORIDE 0.9% INJ 100 ML IV SCH (21:00)
[2017-10-14] VITALS: BP 136/73; PULSE 91; RESP 18; TEMP 98; O2SAT 96
[2017-10-14 04:00] VITALS: BP 106/59; PULSE 100; RESP 18; TEMP 98.1; O2SAT 95
[2017-10-14 08:00] VITALS: BP 123/56; PULSE 90; RESP 18; TEMP 97.3; O2SAT 100
[2017-10-14] MEDS: METOPROLOL TARTRATE 50 MG TAB PO SCH ×2 (08:54→20:10)
[2017-10-14] MEDS: DOCUSATE SODIUM 50 MG/SENNA 8.6 MG TAB PO SCH ×2 (08:54→20:10)
[2017-10-14] MEDS: ACETAMINOPHEN/HYDROcodone 325 MG/10 MG TAB PO PRN ×3 (08:54→16:40)
[2017-10-14] MEDS: amLODIPine BESYLATE 5 MG TAB PO SCH (08:54)
[2017-10-14] MEDS: SODIUM CHLORIDE 0.9% FLUSH 10 ML FLUSH IV FLUSH SCH ×2 (08:54→20:10)
[2017-10-14] MEDS: PANTOPRAZOLE SOD 20 MG DELAYED RELEASE TAB PO SCH ×2 (08:55→20:10)
[2017-10-14] MEDS: ONDANSETRON HCL 4 MG/2 ML VIAL IVP PRN ×2 (08:56→11:59)
--- NOTE | 2017-10-14 10:13 | PD.CONS ---
History of Present Illness Service Infectious disease Consult Requested By Dr Pérez Reason for Consult Evaluate patient with MRSA in the urine Primary Care Physician Stephani Rodriguez MD Diagnoses: History of Present Illness Patient seen and examined. Records reviewed. Patient is a poor historian. Patient is an 86-year-old male, brought into the hospital complaining of back pain and abdominal pain. Patient also had nausea and vomiting today. According to the patient is incontinent of urine. On this admission he is afebrile. CT of the abdomen and pelvis showed an abnormality in the right kidney. Urinalysis showed some pyuria, and the culture is growing MRSA. 2 blood cultures done on admission are negative. His initial WBC was 14,000, and is down to 12,000. Patient has known prostate cancer, and imaging study with CT showing some findings suggestive of metastatic prostate cancer. Infectious disease consultation has been requested to assist with antibiotic management. Review of Systems ROS Limitations: Clinical Condition, Altered Mental Status, Poor Historian Past Family Social History Allergies: Coded Allergies: No Known Allergies (Verified , 03/08/17) Past Medical History Rectal cancer Prostate cancer Hypertension Hyperlipidemia Atrial fibrillation Gout GERD Previous pericarditis Esophageal stricture Episode of acute cholecystitis Past Surgical History Cataract Surgery Prostatectomy Left Leg Surgery Surgery for rectal cancer Previous esophageal dilatation Active Ordered Medications Current Medications Medications (Trade) Dose Ordered Sig/Thee Route Start Time Stop Time Status Last Admin (NS Flush) 2 ml UNSCH PRN IV FLUSH 10/12/17 16:15 (NS Flush) 2 ml BID IV FLUSH 10/12/17 21:00 10/13/17 20:00 (Zofran Inj) 4 mg Q6H PRN IVP 10/12/17 16:15 (Narcan Inj) 0.4 mg UNSCH PRN IV PUSH 10/12/17 16:15 (Le-Colace) 1 tab BID PO 10/12/17 21:00 10/13/17 19:57 (Milk Of Magnesia Liq) 30 ml Q12H PRN PO 10/12/17 16:15 (Senokot) 17.2 mg Q12H PRN PO 10/12/17 16:15 (Dulcolax Supp) 10 mg DAILY PRN RECTAL 10/12/17 16:15 (Lactulose Liq) 30 ml DAILY PRN PO 10/12/17 16:15 ([place] 5-325 Mg) 1 tab Q4H PRN PO 10/12/17 16:30 ([place] 10-325 Mg) 1 tab Q4H PRN PO 10/12/17 16:30 10/14/17 08:54 (Morphine Inj) 2 mg Q4H PRN IV PUSH 10/12/17 16:30 (Norvasc) 5 mg DAILY PO 10/13/17 09:00 10/14/17 08:54 (Lipitor) 10 mg HS PO 10/13/17 21:00 10/13/17 19:57 (Lopressor) 50 mg BID PO 10/13/17 09:00 10/14/17 08:54 (Protonix) 20 mg BID PO 10/13/17 09:00 10/14/17 08:55 Vancomycin HCl 1250 mg/Sodium Chloride 262.5 ml @ 262.5 mls/ hr Q24H IV 10/13/17 20:00 10/13/17 20:00 Family History Noncontributory Social History No smoking No alcohol abuse No illicit drug Physical Exam Vital Signs Vital Signs Date Time Temp Pulse Resp B/P (MAP) Pulse Ox O2 Delivery O2 Flow Rate FiO2 10/14/17 08:00 97.3 90 18 123/56 (78) 100 10/14/17 04:00 98.1 100 18 106/59 (75) 95 10/14/17 00:00 98.0 91 18 136/73 (94) 96 10/13/17 20:15 97.5 78 18 124/58 (80) 97 10/13/17 16:00 97.6 88 20 115/60 (78) 95 10/13/17 12:00 97.8 92 18 111/51 (71) 97 Physical Exam GENERAL: Patient is a well-nourished, well-developed male, awake and alert, not in respiratory distress.m Not following commands SKIN: Warm and dry. No generalized rash, no ecchymoses and no evidence of embolic lesions. HEAD: Atraumatic. Normocephalic. No temporal wasting, or tenderness. EYES: [place] conjunctiva. No petechia or hemorrhage. Pupils equal, round and reactive to light. Extraocular movements full and intact. No scleral icterus. He has drainage in both eyes, and has blepharitis. EARS, NOSE AND THROAT: Nose without bleeding or purulent nasal discharge. No sinus tenderness. Mucous membranes pink and moist. No oral lesions noted.Edentulous, wears dentures NECK: Trachea midline. Supple and not tender, no meningeal signs CARDIOVASCULAR: Regular rate and rhythm. No murmurs, rubs or gallops heard RESPIRATORY: Clear to auscultation. Breath sounds equal bilaterally. No rales , wheezing or rhonchi ABDOMEN: Soft, non-tender, nondistended. Bowel sounds present and normoactive. No guarding. No rebound. No organomegaly. Colostomy on L side. Scars C/W surgical hx. Has some erythema both groin C/S derrick EXTREMITIES: No clubbing, cyanosis, or edema.No joint effusion, has good ROM. No calf tenderness. Well perfused and warm. NEUROLOGICAL: Awake and alert. Not following consistently. NO facial asymmetry. PSYCHIATRIC: cooperative. LINE: No evidence of infection Laboratory Date/Time Source Procedure Growth Status 10/12/17 15:35 Blood Peripheral Aerobic Blood Culture - Preliminary NO GROWTH IN 1 DAY Resulted 10/12/17 15:35 Blood Peripheral Anaerobic Blood Culture - Preliminary NO GROWTH IN 1 DAY Resulted 10/12/17 14:45 Urine Clean Catch Urine Culture - Preliminary S. Aureus Mrsa Resulted Result Diagram: 10/13/17 0941 10/13/17 0941 Imaging RADIOLOGY STUDIES/FILMS REVIEWED Last Impressions Thoracic Spine X-Ray 10/12/17 1146 Signed Impressions: Service Date/Time: Thursday, October 12, 2017 12:08 - CONCLUSION: Probable minimal compression at T9. Edd Chavez MD FACR Lumbar Spine X-Ray 10/12/17 1146 Signed Impressions: Service Date/Time: Thursday, October 12, 2017 12:10 - CONCLUSION: Mild degenerative changes. 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 Edd Cahvez MD FACR Assessment and Plan Assessment and Plan IMPRESSION UTI, MRSA, has dilatation of pelvis on CT - he is incontinent of urine - has prostate CA, with possible mets - Usually MRSA in the urine is seen with bacteremia, but his blood cultures are negative. It could be due to the dilatation and abnormality in his structure Hx rectal CA, had surgery, has colostomy RECOMMENDATION Agree with urology evaluation Continue IV vanco - ask pharm to do dosing Check bladder scan Lotrimin to groin rash Follow C/S Monitor progress We will determine course of treatment once workup is completed I will follow along with you. Thank you for this consultation Discussed Condition With Explained plan to the Alexandra Boyd MD Oct 14, 2017 10:13
[2017-10-14] MEDS ORDERED: Vancomycin Consult Pharmacy 1 EA OTHER SCH (10:30)
[2017-10-14 11:40] LABS: AUTOMATED NEUTROPHIL # 16.7 TH/MM3 (1.8-7.7); BASOPHIL # 0.1 TH/MM3 (0-0.2); BASOPHIL % 0.3 % (0.0-2.0); EOSINOPHIL % 0.2 % (0.0-4.0); HEMATOCRIT 34.3 % (39.0-51.0); HEMOGLOBIN 11.9 GM/DL (13.0-17.0); LYMPH % 4.7 % (9.0-44.0); LYMPHOCYTE # 0.9 TH/MM3 (1.0-4.8); MEAN CELL VOLUME 90.5 FL (80.0-100.0); MEAN CORPUSCULAR HEMOGLOBIN 31.5 PG (27.0-34.0); MEAN CORPUSCULAR HGB CONC 34.8 % (32.0-36.0); MONO % 7.5 % (0.0-8.0); MONOCYTE # 1.4 TH/MM3 (0-0.9); NEUT % 87.3 % (16.0-70.0); PLATELET COUNT 333 TH/MM3 (150-450); RED BLOOD COUNT 3.79 MIL/MM3 (4.50-5.90); RED CELL DISTRIBUTION WIDTH 16.7 % (11.6-17.2); WHITE BLOOD COUNT 19.1 TH/MM3 (4.0-11.0)
[2017-10-14 11:52] LABS: BICARBONATE 18.1 MEQ/L (21.0-32.0); CALCIUM 9.5 MG/DL (8.5-10.1); CREATININE 1.37 MG/DL (0.60-1.30)
[2017-10-14] MEDS: CLOTRIMAZOLE 1% CREAM 15 GM TOPICAL SCH ×2 (11:59→20:17)
[2017-10-14 12:00] VITALS: BP 146/63; PULSE 94; RESP 18; TEMP 97.2; O2SAT 99
--- NOTE | 2017-10-14 14:01 | MB ---
cc: Miguel Hess MD DATE: 10/14/2017 REASON FOR CONSULTATION: 1. Possible metastatic prostate cancer. 2. Questionable bladder mass. 3. Methicillin-resistant Staphylococcus aureus urinary tract infection. 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 He was complaining of lower back and abdominal pain, nausea and vomiting. CT abdomen and pelvis was done, which showed mild dilatation of the left ureter all the way down to the bladder with possible thickening of the left bladder wall. They also suspected several sclerotic lesions were seen on the spine concerning for metastatic prostate cancer. Urology was consulted for these findings. According to the , the patient is currently incontinent of urine and then he gets repeated urinary tract infections. He is under the care of Dr. Richards, who did his prostatectomy for his prostate cancer, but he has not seen him in quite some time. Denies any fevers, chills or blood in his urine. REVIEW OF SYSTEMS: Unobtainable due to the patient's altered mental status and clinical condition. ALLERGIES: NO DRUG ALLERGIES. PAST MEDICAL HISTORY: Significant for prostate cancer, hypertension, hyperlipidemia, atrial fibrillation, gout, GERD, pericarditis, rectal cancer. PAST SURGICAL HISTORY: He had a prostatectomy, cataract surgery, colectomy, left leg surgery, cholecystectomy. FAMILY HISTORY: Denies urolithiasis or genitourinary malignancies. SOCIAL HISTORY: No smoking, alcohol or illicit drug use. He is . HOME MEDICATIONS: Include Lipitor 10 mg p.o. daily, Lopressor 50 mg p.o. b.i.d., Protonix 20 mg p.o. b.i.d., milk of magnesia 30 mL q. 12 hours p.r.n. for constipation. PHYSICAL EXAMINATION: VITAL SIGNS: Temperature 97.2, pulse 94, respiratory rate 18, BP 146/60, saturating 99% on room air. GENERAL: He is awake and alert, but disoriented, nonverbal, no apparent distress. HEAD: Head is normocephalic, atraumatic. EYES: Extraocular muscles intact. NECK: Supple. Trachea is midline. No JVD. LUNGS: Clear to auscultation bilaterally. No wheezes, rales or rhonchi. HEART: Irregularly irregular. No murmurs, gallops or rubs. ABDOMEN: Soft, nontender, nondistended, positive bowel sounds. He does have a colostomy in his left lower quadrant that is pink and healthy. He has a midline scar from his pubic symphysis to just below his umbilicus consistent with a radical retropubic prostatectomy. GENITOURINARY: His penis is circumcised. Testes are descended bilaterally, normal size, consistency, without mass. He is incontinent of urine. EXTREMITIES: Nontender. No clubbing, cyanosis or edema. NEUROLOGIC: Cranial nerves 2-12 intact. Strength 5/5 all 4 extremities. PSYCHIATRIC: Flat affect, nonverbal. SKIN: No ulcers or rashes are visible. His mucous membranes are warm and dry. LABORATORY DATA: Shows a white count of 19.1, hemoglobin 11.9, hematocrit 34.3, platelet count 333. Sodium 138, potassium 4.0, chloride 107, bicarbonate 18, BUN 16, creatinine 1.37 . His urine showed large leukocyte esterase. Urine culture is growing out MRSA. RADIOLOGY STUDIES: CT of the abdomen and pelvis with and without contrast, images are reviewed. Agree with radiologist's report. The patient has mild dilatation of his left ureter all the way down to his left UVJ with some thickening of his left bladder wall concerning for a cancerous process. No evidence of any stones or renal masses. ASSESSMENT: The patient is an 86-year-old male with a history of prostate cancer, status post radical retropubic prostatectomy, who was admitted with abdominal and back pain, found to have possible metastatic prostate cancer as well as a normal thickened bladder and mild left hydroureteronephrosis as well as a methicillin-resistant Staphylococcus aureus urinary tract infection. PLAN: 1. Antibiotics per ID. 2. We will obtain a bone scan to further characterize these possible metastatic lesions. 3. Since his PVR is less than 50, would recommend placing a condom catheter for collection and not an indwelling Senior catheter at this time. He will eventually need a cystoscopy and retrograde pyelogram, which can be done on an outpatient basis with Dr. Richards, as it is not good idea to do a cystoscopy in the presence of a urinary tract infection. Thank you for this consult. Will follow along with you. MD CARIDAD Sutherland/DAVION , 01:15 PM , 02:01 PM
--- NOTE | 2017-10-14 15:09 | HHI.PR ---
Subjective Remarks Patient denies any pain. at bedside tells me that he threw up a couple of times today however he did receive Zofran and feels better. She brought him some chocolate milk and he has been drinking this. Patient denies any nausea at this time. Objective Vitals Vital Signs Date Time Temp Pulse Resp B/P (MAP) Pulse Ox O2 Delivery O2 Flow Rate FiO2 10/14/17 12:00 97.2 94 18 146/63 (90) 99 10/14/17 08:00 97.3 90 18 123/56 (78) 100 10/14/17 04:00 98.1 100 18 106/59 (75) 95 10/14/17 00:00 98.0 91 18 136/73 (94) 96 10/13/17 20:15 97.5 78 18 124/58 (80) 97 10/13/17 16:00 97.6 88 20 115/60 (78) 95 I/O 10/13/17 10/13/17 10/13/17 10/14/17 10/14/17 10/14/17 07:00 15:00 23:00 07:00 15:00 23:00 Intake Total 480 ml 600 ml Output Total 250 ml Balance 480 ml 600 ml -250 ml Intake Oral 480 ml 600 ml Stool Total 250 ml Bladder Scan Volume Amount 43 ml # Voids 2 3 1 2 # Bowel Movements 0 Result Diagram: 10/14/17 1110 10/14/17 1110 Imaging Last Impressions Thoracic Spine X-Ray 10/12/17 1146 Signed Impressions: Service Date/Time: Thursday, October 12, 2017 12:08 - CONCLUSION: Probable minimal compression at T9. Edd Chavez MD FACR Lumbar Spine X-Ray 10/12/17 1146 Signed Impressions: Service Date/Time: Thursday, October 12, 2017 12:10 - CONCLUSION: Mild degenerative changes. 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 Edd Chavez MD FACR Objective Remarks GENERAL: Pleasant elderly male, Very hard of hearing HEENT: EOMI. CARDIOVASCULAR: Regular rate and rhythm. RESPIRATORY: No obvious rhonchi or wheezing. Clear to auscultation. Breath sounds equal bilaterally. GASTROINTESTINAL: Abdomen soft, non-tender, nondistended. BS normal. colostomy bag present MUSCULOSKELETAL: Extremities without edema. No obvious deformities. NEUROLOGICAL: Awake, alert A/P Problem List: (1) Prostate CA ICD Code: C61 - Malignant neoplasm of prostate (2) UTI (urinary tract infection) ICD Code: N39.0 - Urinary tract infection, site not specified (3) Thoracic compression fracture ICD Code: S22.000A - Wedge compression fracture of unspecified thoracic vertebra, initial encounter for closed fracture (4) QUIQUE (acute kidney injury) ICD Code: N17.9 - Acute kidney failure, unspecified Assessment and Plan 1. Prostate CA: h/o Prostate CA s/p Prostatectomy per records, now w/ significant back/abdominal pain. CT Abd/Pelvis w/ abnormal left ureter associated with abnormal left side of bladder suggestive of metastatic prostate CA. Oncology consulted, will await further evaluation/recommendations. urology consulted, and ordered condom cath ordered and bone scan. PSA 11.5. 2. T9 Compression Fracture: Thoracic X-ray with probable minimal compression fracture at T9. TLSO, Consult Ortho/NxSx as needed for further evaluation if pain worsening. Pt appears comfortable for now. continue pain meds as needed. PT eval 3. UTI: U/a w/ significant UTI, s/p Rocephin, switched to IV vanco as pt's urine growing MRSA. ID consulted appreciate recommendations 4. QUIQUE: Creatinine 1.51--1.19-->1.37, previously 1.24 on 06/28/2017. IVF for hydration, monitor. 5. DVT Prophylaxis: SCDs/teds. Discharge Planning awaiting recs from consultants Bia Pérez MD Oct 14, 2017 15:09
[2017-10-14 16:00] VITALS: BP 115/56; PULSE 89; RESP 18; TEMP 97.6; O2SAT 96
[2017-10-14 19:00] VITALS: BP 116/59; PULSE 90; RESP 18; TEMP 98.2; O2SAT 97
[2017-10-14] MEDS ORDERED: PHARMACY ORDERED LAB ONE (19:45)
[2017-10-14] MEDS: ATORVASTATIN 10 MG TAB PO SCH (20:10)
[2017-10-14] MEDS: VANCOMYCIN INJ 1,250 MG in SODIUM CHLOR 0.9% 250 ML INJ 250 ML IV SCH (20:17)
[2017-10-15] VITALS (7 sets, daily range): BP systolic 109–126; BP diastolic 54–72; PULSE 72–98; RESP 16–19; TEMP 97.1–98; O2SAT 96–99
[2017-10-15] MEDS: ACETAMINOPHEN/HYDROcodone 325 MG/10 MG TAB PO PRN (05:18)
[2017-10-15 05:36] LABS: AUTOMATED NEUTROPHIL # 7.5 TH/MM3 (1.8-7.7); BASOPHIL % 0.5 % (0.0-2.0); EOSINOPHIL # 0.2 TH/MM3 (0-0.4); EOSINOPHIL % 1.7 % (0.0-4.0); HEMATOCRIT 37.1 % (39.0-51.0); LYMPH % 11.4 % (9.0-44.0); LYMPHOCYTE # 1.1 TH/MM3 (1.0-4.8); MEAN CELL VOLUME 90.2 FL (80.0-100.0); MEAN CORPUSCULAR HEMOGLOBIN 29.2 PG (27.0-34.0); MEAN CORPUSCULAR HGB CONC 32.4 % (32.0-36.0); MONOCYTE # 0.8 TH/MM3 (0-0.9); NEUT % 78.4 % (16.0-70.0); PLATELET COUNT 394 TH/MM3 (150-450); RED BLOOD COUNT 4.11 MIL/MM3 (4.50-5.90); RED CELL DISTRIBUTION WIDTH 16.5 % (11.6-17.2); WHITE BLOOD COUNT 9.6 TH/MM3 (4.0-11.0)
[2017-10-15 06:01] LABS: BICARBONATE 21.2 MEQ/L (21.0-32.0); CALCIUM 9.5 MG/DL (8.5-10.1); CREATININE 1.51 MG/DL (0.60-1.30)
[2017-10-15] MEDS: DOCUSATE SODIUM 50 MG/SENNA 8.6 MG TAB PO SCH ×2 (09:00→19:20)
[2017-10-15] MEDS: METOPROLOL TARTRATE 50 MG TAB PO SCH ×2 (09:00→19:20)
[2017-10-15] MEDS: amLODIPine BESYLATE 5 MG TAB PO SCH (09:32)
[2017-10-15] MEDS: CLOTRIMAZOLE 1% CREAM 15 GM TOPICAL SCH ×2 (09:32→19:22)
[2017-10-15] MEDS: PANTOPRAZOLE SOD 20 MG DELAYED RELEASE TAB PO SCH ×2 (09:32→19:20)
[2017-10-15] MEDS: SODIUM CHLORIDE 0.9% FLUSH 10 ML FLUSH IV FLUSH SCH ×2 (09:38→19:20)
--- NOTE | 2017-10-15 10:50 | HHI.IDPN ---
Subjective Subjective Remarks Patient is an 86-year-old male, brought into the hospital complaining of back pain and abdominal pain. Patient also had nausea and vomiting today. According to the patient is incontinent of urine. On this admission he is afebrile. CT of the abdomen and pelvis showed an abnormality in the right kidney. Urinalysis showed some pyuria, and the culture is growing MRSA. 2 blood cultures done on admission are negative. His initial WBC was 14,000, and is down to 12,000. Patient has known prostate cancer, and imaging study with CT showing some findings suggestive of metastatic prostate cancer. Infectious disease consultation has been requested to assist with antibiotic management. Notes reviewed Ivonne lott Has had some intermittent vomiting says his abdomen is very touchy Has a condom cath in place WBC down to normal Creatinine elevated today at 1.5 Antibiotics Vancomycin Current Medications Medications (Trade) Dose Ordered Sig/Thee Route Start Time Stop Time Status Last Admin (NS Flush) 2 ml UNSCH PRN IV FLUSH 10/12/17 16:15 10/14/17 11:59 (NS Flush) 2 ml BID IV FLUSH 10/12/17 21:00 10/15/17 09:38 (Zofran Inj) 4 mg Q6H PRN IVP 10/12/17 16:15 10/14/17 11:59 (Narcan Inj) 0.4 mg UNSCH PRN IV PUSH 10/12/17 16:15 (Le-Colace) 1 tab BID PO 10/12/17 21:00 10/14/17 20:10 (Milk Of Magnesia Liq) 30 ml Q12H PRN PO 10/12/17 16:15 (Senokot) 17.2 mg Q12H PRN PO 10/12/17 16:15 (Dulcolax Supp) 10 mg DAILY PRN RECTAL 10/12/17 16:15 (Lactulose Liq) 30 ml DAILY PRN PO 10/12/17 16:15 ([place] 5-325 Mg) 1 tab Q4H PRN PO 10/12/17 16:30 ([place] 10-325 Mg) 1 tab Q4H PRN PO 10/12/17 16:30 10/15/17 05:18 (Morphine Inj) 2 mg Q4H PRN IV PUSH 10/12/17 16:30 (Norvasc) 5 mg DAILY PO 10/13/17 09:00 10/15/17 09:32 (Lipitor) 10 mg HS PO 10/13/17 21:00 10/14/17 20:10 (Lopressor) 50 mg BID PO 10/13/17 09:00 10/15/17 09:00 (Protonix) 20 mg BID PO 10/13/17 09:00 10/15/17 09:32 (Lotrimin 1% Cream) 1 applic Q12HR TOPICAL 10/14/17 11:00 10/15/17 09:32 Miscellaneous Information SPECIFIC LAB TO BE DRAWN:VANCO TROUGH DATE TO BE DR... ONCE ONCE .XX 10/16/17 08:45 10/16/17 08:46 (Zyvox) 600 mg Q12HR PO 10/15/17 10:30 UNV Lines PIV no evidence of infection Past Medical History Rectal cancer Prostate cancer Hypertension Hyperlipidemia Atrial fibrillation Gout GERD Previous pericarditis Esophageal stricture Episode of acute cholecystitis Past Surgical History Cataract Surgery Prostatectomy Left Leg Surgery Surgery for rectal cancer Previous esophageal dilatation Allergies: Coded Allergies: No Known Allergies (Verified , 03/08/17) Objective . Vital Signs Date Time Temp Pulse Resp B/P (MAP) Pulse Ox O2 Delivery O2 Flow Rate FiO2 10/15/17 08:00 97.9 86 16 116/72 (87) 99 10/15/17 04:00 97.1 80 19 113/60 (77) 96 10/15/17 00:00 97.1 82 17 109/54 (72) 96 10/14/17 19:00 98.2 90 18 116/59 (78) 97 10/14/17 16:00 97.6 89 18 115/56 (75) 96 10/14/17 12:00 97.2 94 18 146/63 (90) 99 . Laboratory Tests Test 10/14/17 11:10 10/15/17 04:49 White Blood Count 19.1 TH/MM3 9.6 TH/MM3 Red Blood Count 3.79 MIL/MM3 4.11 MIL/MM3 Hemoglobin 11.9 GM/DL 12.0 GM/DL Hematocrit 34.3 % 37.1 % Mean Corpuscular Volume 90.5 FL 90.2 FL Mean Corpuscular Hemoglobin 31.5 PG 29.2 PG Mean Corpuscular Hemoglobin Concent 34.8 % 32.4 % Red Cell Distribution Width 16.7 % 16.5 % Platelet Count 333 TH/MM3 394 TH/MM3 Mean Platelet Volume 8.0 FL 8.0 FL Neutrophils (%) (Auto) 87.3 % 78.4 % Lymphocytes (%) (Auto) 4.7 % 11.4 % Monocytes (%) (Auto) 7.5 % 8.0 % Eosinophils (%) (Auto) 0.2 % 1.7 % Basophils (%) (Auto) 0.3 % 0.5 % Neutrophils # (Auto) 16.7 TH/MM3 7.5 TH/MM3 Lymphocytes # (Auto) 0.9 TH/MM3 1.1 TH/MM3 Monocytes # (Auto) 1.4 TH/MM3 0.8 TH/MM3 Eosinophils # (Auto) 0.0 TH/MM3 0.2 TH/MM3 Basophils # (Auto) 0.1 TH/MM3 0.0 TH/MM3 CBC Comment DIFF FINAL DIFF FINAL Differential Comment Hematology Comments Laboratory Tests Test 10/14/17 11:10 10/15/17 04:44 Blood Urea Nitrogen 16 MG/DL 21 MG/DL Creatinine 1.37 MG/DL 1.51 MG/DL Random Glucose 95 MG/DL 96 MG/DL Calcium Level 9.5 MG/DL 9.5 MG/DL Sodium Level 138 MEQ/L 142 MEQ/L Potassium Level 4.5 MEQ/L 4.1 MEQ/L Chloride Level 107 MEQ/L 109 MEQ/L Carbon Dioxide Level 18.1 MEQ/L 21.2 MEQ/L Anion Gap 13 MEQ/L 12 MEQ/L Estimat Glomerular Filtration Rate 49 ML/MIN 44 ML/MIN Microbiology Date/Time Source Procedure Growth Status 10/12/17 15:35 Blood Peripheral Aerobic Blood Culture - Preliminary NO GROWTH IN 2 DAYS Resulted 10/12/17 15:35 Blood Peripheral Anaerobic Blood Culture - Preliminary NO GROWTH IN 2 DAYS Resulted 10/12/17 15:30 Blood Peripheral Aerobic Blood Culture - Preliminary NO GROWTH IN 2 DAYS Resulted 10/12/17 15:30 Blood Peripheral Anaerobic Blood Culture - Preliminary NO GROWTH IN 2 DAYS Resulted 10/12/17 14:45 Urine Clean Catch Urine Culture - Final S. Aureus Mrsa Complete Imaging s Thoracic Spine X-Ray 10/12/17 1146 Signed Impressions: Service Date/Time: Thursday, October 12, 2017 12:08 - CONCLUSION: Probable minimal compression at T9. Edd Chavez MD FACR Lumbar Spine X-Ray 10/12/17 1146 Signed Impressions: Service Date/Time: Thursday, October 12, 2017 12:10 - CONCLUSION: Mild degenerative changes. 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 Edd Chavez MD FACR Physical Exam GENERAL: awake and alert, not in respiratory distress. Following commands, answering some of my questions SKIN: Warm and dry. No generalized rash, no ecchymoses and no evidence of embolic lesions. HEAD: Atraumatic. Normocephalic. No temporal wasting, or tenderness. EYES: [place] conjunctiva. No petechia or hemorrhage. Pupils equal, round and reactive to light. Extraocular movements full and intact. No scleral icterus. He has drainage in both eyes, and has blepharitis. EARS, NOSE AND THROAT: Nose without bleeding or purulent nasal discharge. No sinus tenderness. Mucous membranes pink and moist. No oral lesions noted.Edentulous, wears dentures NECK: Trachea midline. Supple and not tender, no meningeal signs CARDIOVASCULAR: Regular rate and rhythm. No murmurs, rubs or gallops heard RESPIRATORY: Clear to auscultation. Breath sounds equal bilaterally. No rales , wheezing or rhonchi ABDOMEN: Soft, nondistended, has tenderness especially in the lower quadrants , bowel sounds present and normoactive. No organomegaly. Colostomy on L side. Scars C/W surgical hx. Has some erythema both groin C/S derrick EXTREMITIES: No clubbing, cyanosis, or edema.No joint effusion, has good ROM. No calf tenderness. Well perfused and warm. NEUROLOGICAL: Awake and alert. Not following consistently. NO facial asymmetry. PSYCHIATRIC: cooperative. LINE: No evidence of infection Assessment & Plan Remarks IMPRESSION UTI, MRSA, has dilatation of pelvis on CT - he is incontinent of urine - has prostate CA, with possible mets - Usually MRSA in the urine is seen with bacteremia, but his blood cultures are negative. It could be due to the dilatation and abnormality in his structure Hx rectal CA, had surgery, has colostomy Prostate CA possible mets Renal insufficiency, worsening - bladder scan yesterday ok, ?intermittent poor emptying RECOMMENDATION Stop IV Vanco, since creatinine is rising, and his blood cultures are negative so far Start p.o. Zyvox Repeat bladder scan Urology following the patient Follow cultures Monitor progress Explained plan to the patient's Alexandra Boyd MD Oct 15, 2017 10:50
[2017-10-15] MEDS: ONDANSETRON HCL 4 MG/2 ML VIAL IVP PRN (11:48)
[2017-10-15] MEDS: ACETAMINOPHEN/HYDROcodone 325 MG/5 MG TAB PO PRN (11:53)
[2017-10-15] MEDS: LINEZOLID 600 MG TAB PO SCH ×2 (11:53→19:20)
--- NOTE | 2017-10-15 12:16 | HHI.PR ---
Subjective Remarks Patient is not feeling well. Has been having dry heaving today. Objective Vitals Vital Signs Date Time Temp Pulse Resp B/P (MAP) Pulse Ox O2 Delivery O2 Flow Rate FiO2 10/15/17 11:55 98.0 92 16 123/ 98 10/15/17 08:00 97.9 86 16 116/72 (87) 99 10/15/17 04:00 97.1 80 19 113/60 (77) 96 10/15/17 00:00 97.1 82 17 109/54 (72) 96 10/14/17 19:00 98.2 90 18 116/59 (78) 97 10/14/17 16:00 97.6 89 18 115/56 (75) 96 I/O 10/14/17 10/14/17 10/14/17 10/15/17 10/15/17 10/15/17 07:00 15:00 23:00 07:00 15:00 23:00 Intake Total 730 ml 262.5 ml 480 ml Output Total 250 ml Balance -250 ml 730 ml 262.5 ml 480 ml Intake Oral 730 ml 480 ml IV Total 262.5 ml Stool Total 250 ml Bladder Scan Volume Amount 43 ml # Voids 2 3 2 2 Result Diagram: 10/15/17 0449 10/15/17 0444 Objective Remarks GENERAL: Elderly male, Very hard of hearing. Defer questions to his . HEENT: EOMI. CARDIOVASCULAR: Regular rate and rhythm. RESPIRATORY: No obvious rhonchi or wheezing. Clear to auscultation. Breath sounds equal bilaterally. GASTROINTESTINAL: Abdomen with mild distention. BS normal. colostomy bag present and draining fluid. MUSCULOSKELETAL: Extremities without edema. No obvious deformities. NEUROLOGICAL: Awake, alert A/P Problem List: (1) Prostate CA ICD Code: C61 - Malignant neoplasm of prostate (2) UTI (urinary tract infection) ICD Code: N39.0 - Urinary tract infection, site not specified (3) Thoracic compression fracture ICD Code: S22.000A - Wedge compression fracture of unspecified thoracic vertebra, initial encounter for closed fracture (4) QUIQUE (acute kidney injury) ICD Code: N17.9 - Acute kidney failure, unspecified Assessment and Plan 86-year-old male with: Prostate CA: h/o Prostate CA s/p Prostatectomy per records, now w/ significant back/abdominal pain. CT Abd/Pelvis w/ abnormal left ureter associated with abnormal left side of bladder suggestive of metastatic prostate CA. Oncology consulted, will await further evaluation/recommendations. urology consulted, and ordered condom cath ordered and bone scan. PSA 11.5. T9 Compression Fracture: Thoracic X-ray with probable minimal compression fracture at T9. TLSO, Consult Ortho/NxSx as needed for further evaluation if pain worsening. Pt appears comfortable for now. continue pain meds as needed. PT eval UTI: U/a w/ significant UTI, on Zyvox per ID. QUIQUE: Creatinine not yet at baseline. IVF for hydration, monitor. Nausea/Vomiting: Antiemetics. Zofran. Add Phenergan. - IVF. Monitor. CT abdomen noted. Consider KUB if no improvement. DVT Prophylaxis: SCDs/teds. Discharge Planning Pending further workup, oncology consult. May need palliative care Priyanka Blandon MD Oct 15, 2017 12:16
--- NOTE | 2017-10-15 14:29 | RADRPT ---
EXAM DATE/TIME: 10/15/2017 12:30 [facility] COMPARISON: CT ABDOMEN & PELVIS W CONTRAST, October 12, 2017, 14:23. SPINE LUMBAR LTD (AP & LAT), October 12, 2017, 12:10. PRIOR BONE SCANS: No correlative bone scan available for comparison. INDICATIONS : Back and abdominal pain. DOSE: 31 mCi Tc99m MDP IV MEDICAL HISTORY : Carcinoma, prostate. Carcinoma, colon. Myocardial infarction. SURGICAL HISTORY : Colostomy. ENCOUNTER: Initial ACUITY: 1 week PAIN SCALE: 10/10 LOCATION: Bilateral Back and Abdominal TECHNIQUE: Three hours post intravenous administration of radiotracer, whole body bone scan imaging was performe d. FINDINGS: There are multiple foci of metastatic disease throughout the spinal axis with extensive metastatic di sease in the mid thoracic spine but also involvement of the lumbar spine, right sacral ala, skull, le ft humerus and a small focus in the proximal left femur. CONCLUSION: 1. Widespread osseous metastatic disease characteristic of metastatic prostate carcinoma Florencio Riley MD on October 15, 2017 at 14:16 Board Certified Radiologist. This report was verified electronically.
[2017-10-15] MEDS ORDERED: VANCOMYCIN INJ 900 MG in SODIUM CHLOR 0.9% 250 ML INJ 250 ML IV SCH (15:00)
[2017-10-15] MEDS ORDERED: PROMETHAZINE INJ 25 MG/ML VIAL IM PRN (15:45)
[2017-10-15] MEDS: ATORVASTATIN 10 MG TAB PO SCH (19:20)
[2017-10-16 04:45] VITALS: BP 128/49; PULSE 80; RESP 18; TEMP 97.6; O2SAT 92
[2017-10-16 07:42] VITALS: BP 111/54; PULSE 73; RESP 18; TEMP 98.2; O2SAT 97
[2017-10-16] MEDS ORDERED: PHARMACY ORDERED LAB ONE (08:45)
[2017-10-16] MEDS: DOCUSATE SODIUM 50 MG/SENNA 8.6 MG TAB PO SCH ×2 (09:00→21:00)
[2017-10-16] MEDS: CLOTRIMAZOLE 1% CREAM 15 GM TOPICAL SCH ×2 (09:00→21:21)
[2017-10-16 11:50] VITALS: BP 135/61; PULSE 76; RESP 18; TEMP 96.4; O2SAT 94
[2017-10-16] MEDS: amLODIPine BESYLATE 5 MG TAB PO SCH (11:51)
[2017-10-16] MEDS: LINEZOLID 600 MG TAB PO SCH ×2 (11:51→21:21)
[2017-10-16] MEDS: ACETAMINOPHEN/HYDROcodone 325 MG/10 MG TAB PO PRN (11:51)
[2017-10-16] MEDS: METOPROLOL TARTRATE 50 MG TAB PO SCH ×2 (11:51→21:21)
[2017-10-16] MEDS: PANTOPRAZOLE SOD 20 MG DELAYED RELEASE TAB PO SCH ×2 (11:51→21:21)
[2017-10-16] MEDS: SODIUM CHLORIDE 0.9% FLUSH 10 ML FLUSH IV FLUSH SCH ×2 (11:52→21:00)
--- NOTE | 2017-10-16 11:53 | HHI.PR ---
Subjective Remarks Discussed with the patient's at bedside. Patient reports he is doing okay. He appears more comfortable today after receiving [place]. No new issues. Objective Vitals Vital Signs Date Time Temp Pulse Resp B/P (MAP) Pulse Ox O2 Delivery O2 Flow Rate FiO2 10/16/17 11:50 96.4 76 18 135/61 (85) 94 10/16/17 07:42 98.2 73 18 111/54 (73) 97 10/16/17 04:45 97.6 80 18 128/49 (75) 92 10/15/17 23:35 97.6 72 17 118/56 (76) 97 10/15/17 20:57 97.2 81 17 119/57 (77) 97 10/15/17 16:00 97.1 98 17 126/62 (83) 96 10/15/17 11:55 98.0 92 16 123/ 98 I/O 10/15/17 10/15/17 10/15/17 10/16/17 10/16/17 10/16/17 07:00 15:00 23:00 07:00 15:00 23:00 Intake Total 480 ml 480 ml 240 ml Output Total 600 ml 330 ml Balance 480 ml -120 ml -90 ml Intake Oral 480 ml 480 ml 240 ml Output Urine Total 300 ml 30 ml Stool Total 300 ml 300 ml Bladder Scan Volume Amount 35 ml # Voids 2 Result Diagram: 10/15/17 0449 10/15/17 0444 Objective Remarks GENERAL: Elderly male, Very hard of hearing. Defer questions to his . Grimacing with movements. HEENT: EOMI. CARDIOVASCULAR: Regular rate and rhythm. RESPIRATORY: No obvious rhonchi or wheezing. Clear to auscultation. Breath sounds equal bilaterally. GASTROINTESTINAL: Abdomen with mild distention. BS normal. colostomy bag present and draining brownish fluid. MUSCULOSKELETAL: Extremities without edema. No obvious deformities. 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 ICD Code: M84.58XA - Pathological fracture in neoplastic disease, other specified site, initial encounter for fracture (2) Prostate CA ICD Code: C61 - Malignant neoplasm of prostate (3) UTI (urinary tract infection) ICD Code: N39.0 - Urinary tract infection, site not specified (4) Thoracic compression fracture ICD Code: S22.000A - Wedge compression fracture of unspecified thoracic vertebra, initial encounter for closed fracture (5) QUIQUE (acute kidney injury) ICD Code: N17.9 - Acute kidney failure, unspecified Assessment and Plan 86-year-old male with: Metastatic Prostate CA: h/o Prostate CA s/p Prostatectomy per records, now w/ significant back/abdominal pain. CT Abd/Pelvis w/ abnormal left ureter associated with abnormal left side of bladder suggestive of metastatic prostate CA. Oncology consulted, will await further evaluation/recommendations. Urology following, recommend condom cath and bone scan. PSA 11.5. - Bone scan revealed widespread bony metastasis. I discussed this findings with the patient's at bedside. She is eager to learn possible options but also appeared to be open to the idea of comfort care and hospice as patient previously told her to let them in peace at home. He is becoming more debilitated and is doing less and less. He had unintentional weight loss of about 40 pounds per his . Discussed with Dr. Varela who will evaluate the patient and discuss options with the patient and his . Pathologic T9 Compression Fracture: Thoracic X-ray with probable minimal compression fracture at T9. TLSO, pain is currently controlled. Continue pain meds as needed. PT as tolerated. UTI: U/a w/ significant UTI, on Zyvox per ID. QUIQUE: Creatinine not yet at baseline. IVF for hydration, monitor. Nausea/Vomiting: Improved. Continue antiemetics. Zofran and Phenergan as needed. - IVF. Monitor. CT abdomen noted. DVT Prophylaxis: Start heparin. Discharge Planning Oncology consult. May need palliative radiation vs Hospice. More than 30 min spent in coordination of care and discussion with family. Priyanka Blandon MD Oct 16, 2017 11:53
[2017-10-16 12:00] VITALS: BP 135/61; PULSE 76; RESP 18; TEMP 96.4; O2SAT 94
--- NOTE | 2017-10-16 12:23 | HHI.IDPN ---
Subjective Subjective Remarks Patient is an 86-year-old male, brought into the hospital complaining of back pain and abdominal pain. Patient also had nausea and vomiting today. According to the patient is incontinent of urine. On this admission he is afebrile. CT of the abdomen and pelvis showed an abnormality in the right kidney. Urinalysis showed some pyuria, and the culture is growing MRSA. 2 blood cultures done on admission are negative. His initial WBC was 14,000, and is down to 12,000. Patient has known prostate cancer, and imaging study with CT showing some findings suggestive of metastatic prostate cancer. Infectious disease consultation has been requested to assist with antibiotic management. Notes reviewed Temnichole okaudrey Bladder scan low Has a condom cath in place WBC down to normal Creatinine elevated today at 1.5 Antibiotics Zyvox Current Medications Medications (Trade) Dose Ordered Sig/Thee Route Start Time Stop Time Status Last Admin (NS Flush) 2 ml UNSCH PRN IV FLUSH 10/12/17 16:15 10/14/17 11:59 (NS Flush) 2 ml BID IV FLUSH 10/12/17 21:00 10/16/17 11:52 (Zofran Inj) 4 mg Q6H PRN IVP 10/12/17 16:15 10/15/17 11:48 (Narcan Inj) 0.4 mg UNSCH PRN IV PUSH 10/12/17 16:15 (Le-Colace) 1 tab BID PO 10/12/17 21:00 10/14/17 20:10 (Milk Of Magnesia Liq) 30 ml Q12H PRN PO 10/12/17 16:15 (Senokot) 17.2 mg Q12H PRN PO 10/12/17 16:15 (Dulcolax Supp) 10 mg DAILY PRN RECTAL 10/12/17 16:15 (Lactulose Liq) 30 ml DAILY PRN PO 10/12/17 16:15 (Hunter 5-325 Mg) 1 tab Q4H PRN PO 10/12/17 16:30 10/15/17 11:53 (Hunter 10-325 Mg) 1 tab Q4H PRN PO 10/12/17 16:30 10/16/17 11:51 (Morphine Inj) 2 mg Q4H PRN IV PUSH 10/12/17 16:30 (Norvasc) 5 mg DAILY PO 10/13/17 09:00 10/16/17 11:51 (Lipitor) 10 mg HS PO 10/13/17 21:00 10/15/17 19:20 (Lopressor) 50 mg BID PO 10/13/17 09:00 10/16/17 11:51 (Protonix) 20 mg BID PO 10/13/17 09:00 10/16/17 11:51 (Lotrimin 1% Cream) 1 applic Q12HR TOPICAL 10/14/17 11:00 10/16/17 09:00 (Zyvox) 600 mg Q12HR PO 10/15/17 11:00 10/16/17 11:51 (Phenergan Inj) 25 mg Q6H PRN IM 10/15/17 15:45 10/15/17 16:47 Lines PIV no evidence of infection Past Medical History Rectal cancer Prostate cancer Hypertension Hyperlipidemia Atrial fibrillation Gout GERD Previous pericarditis Esophageal stricture Episode of acute cholecystitis Past Surgical History Cataract Surgery Prostatectomy Left Leg Surgery Surgery for rectal cancer Previous esophageal dilatation Allergies: Coded Allergies: No Known Allergies (Verified , 03/08/17) Objective . Vital Signs Date Time Temp Pulse Resp B/P (MAP) Pulse Ox O2 Delivery O2 Flow Rate FiO2 10/16/17 12:00 96.4 76 18 135/61 (85) 94 10/16/17 11:50 96.4 76 18 135/61 (85) 94 10/16/17 07:42 98.2 73 18 111/54 (73) 97 10/16/17 04:45 97.6 80 18 128/49 (75) 92 10/15/17 23:35 97.6 72 17 118/56 (76) 97 10/15/17 20:57 97.2 81 17 119/57 (77) 97 10/15/17 16:00 97.1 98 17 126/62 (83) 96 . Laboratory Tests Test 10/15/17 04:49 White Blood Count 9.6 TH/MM3 Red Blood Count 4.11 MIL/MM3 Hemoglobin 12.0 GM/DL Hematocrit 37.1 % Mean Corpuscular Volume 90.2 FL Mean Corpuscular Hemoglobin 29.2 PG Mean Corpuscular Hemoglobin Concent 32.4 % Red Cell Distribution Width 16.5 % Platelet Count 394 TH/MM3 Mean Platelet Volume 8.0 FL Neutrophils (%) (Auto) 78.4 % Lymphocytes (%) (Auto) 11.4 % Monocytes (%) (Auto) 8.0 % Eosinophils (%) (Auto) 1.7 % Basophils (%) (Auto) 0.5 % Neutrophils # (Auto) 7.5 TH/MM3 Lymphocytes # (Auto) 1.1 TH/MM3 Monocytes # (Auto) 0.8 TH/MM3 Eosinophils # (Auto) 0.2 TH/MM3 Basophils # (Auto) 0.0 TH/MM3 CBC Comment DIFF FINAL Differential Comment Laboratory Tests Test 10/15/17 04:44 Blood Urea Nitrogen 21 MG/DL Creatinine 1.51 MG/DL Random Glucose 96 MG/DL Calcium Level 9.5 MG/DL Sodium Level 142 MEQ/L Potassium Level 4.1 MEQ/L Chloride Level 109 MEQ/L Carbon Dioxide Level 21.2 MEQ/L Anion Gap 12 MEQ/L Estimat Glomerular Filtration Rate 44 ML/MIN Imaging s Thoracic Spine X-Ray 10/12/17 1146 Signed Impressions: Service Date/Time: Thursday, October 12, 2017 12:08 - CONCLUSION: Probable minimal compression at T9. Edd Chavez MD FACR Lumbar Spine X-Ray 10/12/17 1146 Signed Impressions: Service Date/Time: Thursday, October 12, 2017 12:10 - CONCLUSION: Mild degenerative changes. 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 Edd Chavez MD FACR Physical Exam GENERAL: awake and alert, not in respiratory distress. Following commands, answering some of my questions SKIN: Warm and dry. No generalized rash, no ecchymoses and no evidence of embolic lesions. HEAD: Atraumatic. Normocephalic. No temporal wasting, or tenderness. EYES: [place] conjunctiva. No petechia or hemorrhage. Pupils equal, round and reactive to light. Extraocular movements full and intact. No scleral icterus. He has drainage in both eyes, and has blepharitis. EARS, NOSE AND THROAT: Nose without bleeding or purulent nasal discharge. No sinus tenderness. Mucous membranes pink and moist. No oral lesions noted.Edentulous, wears dentures NECK: Trachea midline. Supple and not tender, no meningeal signs CARDIOVASCULAR: Regular rate and rhythm. No murmurs, rubs or gallops heard RESPIRATORY: Clear to auscultation. Breath sounds equal bilaterally. No rales , wheezing or rhonchi ABDOMEN: Soft, nondistended, has tenderness especially in the lower quadrants , bowel sounds present and normoactive. No organomegaly. Colostomy on L side. Scars C/W surgical hx. Has some erythema both groin C/S derrick EXTREMITIES: No clubbing, cyanosis, or edema.No joint effusion, has good ROM. No calf tenderness. Well perfused and warm. NEUROLOGICAL: Awake and alert. Not following consistently. NO facial asymmetry. PSYCHIATRIC: cooperative. LINE: No evidence of infection Assessment & Plan Remarks IMPRESSION UTI, MRSA, has dilatation of pelvis on CT - he is incontinent of urine - has prostate CA, with possible mets - Usually MRSA in the urine is seen with bacteremia, but his blood cultures are negative. It could be due to the dilatation and abnormality in his structure Hx rectal CA, had surgery, has colostomy Prostate CA possible mets Renal insufficiency, worsening - bladder scan ok RECOMMENDATION Continue p.o. Zyvox Urinalysis, urine for eosinophils Follow CBC while on Zyvox Follow cultures Monitor progress Alexandra Boyd MD Oct 16, 2017 12:23
[2017-10-16] MEDS: HEPARIN SODIUM - SQ 10,000 UNITS/ML VIAL SQ SCH ×2 (15:00→23:00)
[2017-10-16 16:00] VITALS: BP 111/55; PULSE 77; RESP 18; TEMP 98; O2SAT 93
[2017-10-16] MEDS: DEXT 5%-NACL 0.45% 1000 ML INJ 1,000 ML IV SCH (18:00)
--- NOTE | 2017-10-16 18:21 | MB ---
cc: Nalini Varela MD, Ruby Anne E MD Rimpel,Priyanka MERCADO DATE: 10/16/2017 REFERRING PHYSICIAN: Dr. Priyanka Blandon. CHIEF COMPLAINT: Dr. Blandon requests a consultation for Mr. Nuñez regarding suspected metastatic prostate cancer. HISTORY OF PRESENT ILLNESS: Mr. Nuñez is an 86-year-old man, well known patient to Dr. Richards. He has a history of prostate cancer diagnosed in 1998. He underwent a radical retropubic prostatectomy. He had subsequent radiation for biochemical relapse in 2003. He also has a history of colon cancer that was resected in 2014. He has been seen by my partner, Dr. Geeta Porras in the past, but never on the outpatient basis. In 10/2014, he had a provoked pulmonary embolism of the right lung. He was treated with anticoagulant therapy. Very little history could be obtained from Mr. Nuñez. He was quite hard of hearing. He did not have his hearing aid. He referred me to his , who was not home at the time of my phone call. He presented with upper back pain and left upper abdominal pain. This has been going on for several days. Imaging study, CT scan of the abdomen and pelvis revealed abnormal left ureter associated with abnormal bladder trigone. This is concerning for metastatic prostate cancer and trigone. There was also suggestion of metastatic prostate cancer to spine. Bone scan evaluation on 10/15 showed widespread osseous metastatic disease characteristic of prostate cancer. Interestingly, however, his PSA that went down to 0 after radiation is currently at 11.5. His course is further complicated by urinary tract infection. He had pyuria. He has MRSA in the urine. He is under the care of infectious disease who continue to treat him with Zyvox. Urology had deferred urologic evaluation during acute infection deferring for an outpatient procedure by Dr. Richards. Hematology/Oncology is consulted for the suspected metastatic prostate cancer and his symptoms from his back. Lumbar and thoracic x-rays showed minimal compression at T9. Mr. Nuñez denies having any pain. He has a colostomy in the left quadrant. Denies any urinary complaints. He defers much to his . PAST MEDICAL HISTORY: Provoked pulmonary embolism 2014, prostate cancer status post biochemical recurrence, rectal cancer status post resection, chronic atrial fibrillation, gout, gastroesophageal reflux, hypercholesterolemia, hypertension, chronic renal insufficiency and mild anemia. PAST SURGICAL HISTORY: Prostatectomy, APR resection. FAMILY HISTORY: Unable to obtain SOCIAL HISTORY: He is , lives with his . He drinks alcohol. Denies any tobacco or illicit drug use. ALLERGIES: NO KNOWN DRUG ALLERGIES. CURRENT MEDICATIONS: 1. Unfractionated heparin 2. Phenergan p.r.n. 3. Zyvox. 4. Lotrimin 5. Lipitor. 6. Norvasc. 7. Lopressor. 8. Protonix. 9. Aquilla p.r.n. 10. Zofran p.r.n. PHYSICAL EXAMINATION: VITAL SIGNS: Temperature 98.0, heart rate 77, respiratory rate 18, blood pressure 111/55, saturation 93%. GENERAL: Mr. Nuñez is an elderly 86-year-old man who looks weak and tired. He is hard of hearing. HEENT: His pupils are round, reactive to light and accommodation. Bilateral arcus senilis. NECK: Supple with no adenopathy. LUNGS: Clear anteriorly. CARDIOVASCULAR: Reveals a normal rate and rhythm. ABDOMEN: Soft and nontender. The ostomy site is on the left. LOWER EXTREMITIES:: No edema. Moves all 4 extremities. NEUROLOGIC: He appears to respond well, but is limited by what he could hear. LABORATORY DATA: Significant for a normocytic anemia. BUN 21, creatinine 1.5. ASSESSMENT AND PLAN: Mr. Nuñez is an 86-year-old man with a history of colorectal cancer, prostate cancer with biochemical relapse now presents with a methicillin resistant Staphylococcus aureus urinary tract infection and findings consistent with metastatic disease. He will need a biopsy of the bone lesion to determine the nature of his cancer. It is suspicious for metastatic prostate cancer; however, the PSA is quite low. I need information about his initial presentation of prostate cancer at the time of his initial diagnosis. He was scheduled for a followup appointment in the outpatient setting. We will keep that appointment when the patient is discharged to followup. Concur with Dr. Hess. He will need urologic evaluation to determine the nature of that recurrence versus infection in the posterior part of the bladder. He is currently being treated for the urinary tract infection. Cultures are being followed by infectious disease. His blood counts will be monitored due to cytopenias that can occur with the Zyvox. I tried to call Mrs. Nuñez to assist in answering her questions. The case was discussed with Dr. Blandon earlier. We will determine how much they would like to proceed. He may benefit from evaluation of the T9 compression fracture to see if this is amenable to kyphoplasty to alleviate his symptoms or pain. The goal of therapy would be for palliation. We need to determine if he still has hormone responsive prostate cancer. He would benefit from antiandrogen therapy. I agree his performance status is quite poor at present. This may be complicated by the fact that he has a urinary tract infection. Mr. Nuñez's questions were answered to his satisfaction. I will continue discussion with his . MD ANA Ocamop/ , 05:34 PM , 06:20 PM
[2017-10-16 20:09] VITALS: BP 116/72; PULSE 69; RESP 18; TEMP 97.5; O2SAT 95
[2017-10-16] MEDS: ATORVASTATIN 10 MG TAB PO SCH (21:21)
[2017-10-17 00:52] VITALS: BP 123/57; PULSE 63; RESP 18; TEMP 98.5; O2SAT 95
[2017-10-17] MEDS: DEXT 5%-NACL 0.45% 1000 ML INJ 1,000 ML IV SCH ×3 (03:44→21:58)
[2017-10-17 04:17] VITALS: BP 118/58; PULSE 69; RESP 18; TEMP 97.2; O2SAT 94
[2017-10-17 04:39] LABS: AMORPHOUS SEDIMENT, URINE RARE; BACTERIA, URINE OCC /hpf; BILIRUBIN, URINE NEG (NEG); BLOOD, URINE NEG (NEG); CALCIUM OXALATE CRYSTALS,URINE RARE /hpf; GLUCOSE,URINE NEG (NEG); HYALINE CAST, URINE 49 /lpf (RARE); KETONE, URINE NEG (NEG); MUCUS URINE FEW /lpf (OCC); NITRITE,URINE NEG (NEG); PH, URINE 5.5 (5.0-8.5); URINE COLOR YELLOW (YELLW/STRAW); URINE LEUKOCYTE ESTERASE MOD (NEG); WHITE BLOOD CELL CLUMPS OCC
[2017-10-17] MEDS: HEPARIN SODIUM - SQ 10,000 UNITS/ML VIAL SQ SCH ×3 (05:26→22:02)
[2017-10-17 08:00] VITALS: BP 113/60; PULSE 53; RESP 16; TEMP 97.3; O2SAT 97
[2017-10-17 08:23] LABS: BICARBONATE 19.2 MEQ/L (21.0-32.0); CREATININE 1.73 MG/DL (0.60-1.30)
[2017-10-17] MEDS: PANTOPRAZOLE SOD 20 MG DELAYED RELEASE TAB PO SCH ×2 (08:43→21:58)
[2017-10-17] MEDS: SODIUM CHLORIDE 0.9% FLUSH 10 ML FLUSH IV FLUSH SCH ×2 (08:43→21:00)
[2017-10-17] MEDS: DOCUSATE SODIUM 50 MG/SENNA 8.6 MG TAB PO SCH ×2 (08:43→21:58)
[2017-10-17] MEDS: amLODIPine BESYLATE 5 MG TAB PO SCH (08:43)
[2017-10-17] MEDS: LINEZOLID 600 MG TAB PO SCH ×2 (08:43→21:58)
[2017-10-17] MEDS: CLOTRIMAZOLE 1% CREAM 15 GM TOPICAL SCH ×2 (08:43→21:59)
[2017-10-17] MEDS: METOPROLOL TARTRATE 50 MG TAB PO SCH ×2 (08:43→21:00)
--- NOTE | 2017-10-17 08:44 | HHI.IDPN ---
Subjective Subjective Remarks Patient is an 86-year-old male, brought into the hospital complaining of back pain and abdominal pain. Patient also had nausea and vomiting today. According to the patient is incontinent of urine. On this admission he is afebrile. CT of the abdomen and pelvis showed an abnormality in the right kidney. Urinalysis showed some pyuria, and the culture is growing MRSA. 2 blood cultures done on admission are negative. His initial WBC was 14,000, and is down to 12,000. Patient has known prostate cancer, and imaging study with CT showing some findings suggestive of metastatic prostate cancer. Infectious disease consultation has been requested to assist with antibiotic management. Notes reviewed Temps okay Bladder scan low Has a condom cath in place WBC down to normal Creatinine continues to rise UA with improving pyuria Urine for eosinophil negative Bone scan positive compatible with metastatic disease Antibiotics Zyvox Current Medications Medications (Trade) Dose Ordered Sig/Thee Route Start Time Stop Time Status Last Admin (NS Flush) 2 ml UNSCH PRN IV FLUSH 10/12/17 16:15 10/14/17 11:59 (NS Flush) 2 ml BID IV FLUSH 10/12/17 21:00 10/16/17 11:52 (Zofran Inj) 4 mg Q6H PRN IVP 10/12/17 16:15 10/15/17 11:48 (Narcan Inj) 0.4 mg UNSCH PRN IV PUSH 10/12/17 16:15 (Le-Colace) 1 tab BID PO 10/12/17 21:00 10/14/17 20:10 (Milk Of Magnesia Liq) 30 ml Q12H PRN PO 10/12/17 16:15 (Senokot) 17.2 mg Q12H PRN PO 10/12/17 16:15 (Dulcolax Supp) 10 mg DAILY PRN RECTAL 10/12/17 16:15 (Lactulose Liq) 30 ml DAILY PRN PO 10/12/17 16:15 ([place] 5-325 Mg) 1 tab Q4H PRN PO 10/12/17 16:30 10/15/17 11:53 ([place] 10-325 Mg) 1 tab Q4H PRN PO 10/12/17 16:30 10/16/17 11:51 (Morphine Inj) 2 mg Q4H PRN IV PUSH 10/12/17 16:30 (Norvasc) 5 mg DAILY PO 10/13/17 09:00 10/16/17 11:51 (Lipitor) 10 mg HS PO 10/13/17 21:00 10/16/17 21:21 (Lopressor) 50 mg BID PO 10/13/17 09:00 10/16/17 21:21 (Protonix) 20 mg BID PO 10/13/17 09:00 10/16/17 21:21 (Lotrimin 1% Cream) 1 applic Q12HR TOPICAL 10/14/17 11:00 10/16/17 21:21 (Zyvox) 600 mg Q12HR PO 10/15/17 11:00 10/26/17 23:00 10/16/17 21:21 (Phenergan Inj) 25 mg Q6H PRN IM 10/15/17 15:45 10/15/17 16:47 Dextrose/Sodium Chloride 1,000 ml @ 100 mls/hr Q10H IV 10/16/17 14:15 10/17/17 03:44 (Heparin Inj) 5,000 units Q8H SQ 10/16/17 15:00 Lines PIV no evidence of infection Past Medical History Rectal cancer Prostate cancer Hypertension Hyperlipidemia Atrial fibrillation Gout GERD Previous pericarditis Esophageal stricture Episode of acute cholecystitis Past Surgical History Cataract Surgery Prostatectomy Left Leg Surgery Surgery for rectal cancer Previous esophageal dilatation Allergies: Coded Allergies: No Known Allergies (Verified , 03/08/17) Objective . Vital Signs Date Time Temp Pulse Resp B/P (MAP) Pulse Ox O2 Delivery O2 Flow Rate FiO2 10/17/17 04:17 97.2 69 18 118/58 (78) 94 10/17/17 00:52 98.5 63 18 123/57 (79) 95 10/16/17 20:09 97.5 69 18 116/72 (87) 95 10/16/17 16:00 98.0 77 18 111/55 (73) 93 10/16/17 12:00 96.4 76 18 135/61 (85) 94 10/16/17 11:50 96.4 76 18 135/61 (85) 94 . Laboratory Tests Test 10/17/17 06:00 Blood Urea Nitrogen 33 MG/DL Creatinine 1.73 MG/DL Random Glucose 83 MG/DL Calcium Level 9.0 MG/DL Sodium Level 139 MEQ/L Potassium Level 4.1 MEQ/L Chloride Level 108 MEQ/L Carbon Dioxide Level 19.2 MEQ/L Anion Gap 12 MEQ/L Estimat Glomerular Filtration Rate 38 ML/MIN Imaging s Thoracic Spine X-Ray 10/12/17 1146 Signed Impressions: Service Date/Time: Thursday, October 12, 2017 12:08 - CONCLUSION: Probable minimal compression at T9. Edd Chavez MD FACR Lumbar Spine X-Ray 10/12/17 1146 Signed Impressions: Service Date/Time: Thursday, October 12, 2017 12:10 - CONCLUSION: Mild degenerative changes. 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 Edd Chavez MD FACR Physical Exam GENERAL: awake and alert, NAD SKIN: Warm and dry. No generalized rash, no ecchymoses and no evidence of embolic lesions. HEAD: Atraumatic. Normocephalic. No temporal wasting, or tenderness. EYES: [place] conjunctiva. No petechia or hemorrhage. Pupils equal, round and reactive to light. Extraocular movements full and intact. No scleral icterus. EARS, NOSE AND THROAT: Nose without bleeding or purulent nasal discharge. No sinus tenderness. Mucous membranes pink and moist. Edentulous, wears dentures NECK: Trachea midline. Supple and not tender, no meningeal signs CARDIOVASCULAR: Regular rate and rhythm. No murmurs, rubs or gallops heard RESPIRATORY: Clear to auscultation. Breath sounds equal bilaterally. No rales , wheezing or rhonchi ABDOMEN: Soft, nondistended, has mild tenderness especially in the lower quadrants, bowel sounds present and normoactive. No organomegaly. Colostomy on L side. Scars C/W surgical hx. EXTREMITIES: No clubbing, cyanosis, or edema. No calf tenderness. Well perfused and warm. NEUROLOGICAL: Awake and alert. Not following consistently. NO facial asymmetry. PSYCHIATRIC: cooperative. LINE: No evidence of infection Assessment & Plan Remarks IMPRESSION UTI, MRSA, has dilatation of pelvis on CT - he is incontinent of urine - has prostate CA, with possible mets - Usually MRSA in the urine is seen with bacteremia, but his blood cultures are negative. It could be due to the dilatation and abnormality in his structure Hx rectal CA, had surgery, has colostomy Prostate CA possible mets Renal insufficiency, worsening - bladder scan ok RECOMMENDATION Continue p.o. Zyvox -Complete treatment for UTI Follow CBC while on Zyvox Will do a renal ultrasound to reevaluate for obstruction Follow cultures Monitor progress He seems clinically stable from the ID standpoint Alexandra Boyd MD Oct 17, 2017 08:43
[2017-10-17 08:47] LABS: AUTOMATED NEUTROPHIL # 6.6 TH/MM3 (1.8-7.7); BASOPHIL % 0.2 % (0.0-2.0); EOSINOPHIL # 0.2 TH/MM3 (0-0.4); EOSINOPHIL % 2.4 % (0.0-4.0); HEMATOCRIT 38.1 % (39.0-51.0); HEMOGLOBIN 12.5 GM/DL (13.0-17.0); LYMPH % 13.6 % (9.0-44.0); LYMPHOCYTE # 1.2 TH/MM3 (1.0-4.8); MEAN CELL VOLUME 91.4 FL (80.0-100.0); MEAN CORPUSCULAR HEMOGLOBIN 29.9 PG (27.0-34.0); MEAN CORPUSCULAR HGB CONC 32.7 % (32.0-36.0); MEAN PLATELET VOLUME 7.7 FL (7.0-11.0); MONO % 11.8 % (0.0-8.0); MONOCYTE # 1.1 TH/MM3 (0-0.9); PLATELET COUNT 359 TH/MM3 (150-450); RED BLOOD COUNT 4.17 MIL/MM3 (4.50-5.90); WHITE BLOOD COUNT 9.2 TH/MM3 (4.0-11.0)
--- NOTE | 2017-10-17 09:30 | HHI.PR ---
Subjective Remarks opened eyes to call of his name, denies any pain, back pain or headaches but refused to answer ff commands moves all extremities spontaneously Objective Vitals Vital Signs Date Time Temp Pulse Resp B/P (MAP) Pulse Ox O2 Delivery O2 Flow Rate FiO2 10/17/17 04:17 97.2 69 18 118/58 (78) 94 10/17/17 00:52 98.5 63 18 123/57 (79) 95 10/16/17 20:09 97.5 69 18 116/72 (87) 95 10/16/17 16:00 98.0 77 18 111/55 (73) 93 10/16/17 12:00 96.4 76 18 135/61 (85) 94 10/16/17 11:50 96.4 76 18 135/61 (85) 94 I/O 10/16/17 10/16/17 10/16/17 10/17/17 10/17/17 10/17/17 07:00 15:00 23:00 07:00 15:00 23:00 Intake Total 240 ml Output Total 330 ml 400 ml Balance -90 ml -400 ml Intake Oral 240 ml Output Urine Total 30 ml 400 ml Stool Total 300 ml Bladder Scan Volume Amount 35 ml Result Diagram: 10/17/17 0830 10/17/17 0600 Imaging Last Impressions Bone Scan Nuclear Medicine 10/15/17 0000 Signed Impressions: Service Date/Time: Sunday, October 15, 2017 12:30 - CONCLUSION: 1. Widespread osseous metastatic disease characteristic of metastatic prostate carcinoma Florencio Riley MD Thoracic Spine X-Ray 10/12/17 1146 Signed Impressions: Service Date/Time: Thursday, October 12, 2017 12:08 - CONCLUSION: Probable minimal compression at T9. Edd Chavez MD FACR Lumbar Spine X-Ray 10/12/17 1146 Signed Impressions: Service Date/Time: Thursday, October 12, 2017 12:10 - CONCLUSION: Mild degenerative changes. 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 ICD Code: M84.58XA - Pathological fracture in neoplastic disease, other specified site, initial encounter for fracture (2) Prostate CA ICD Code: C61 - Malignant neoplasm of prostate (3) UTI (urinary tract infection) ICD Code: N39.0 - Urinary tract infection, site not specified (4) Thoracic compression fracture ICD Code: S22.000A - Wedge compression fracture of unspecified thoracic vertebra, initial encounter for closed fracture (5) QUIQUE (acute kidney injury) ICD Code: N17.9 - Acute kidney failure, unspecified Assessment and Plan 86-year-old male with: Metastatic Prostate CA: h/o Prostate CA s/p Prostatectomy per records, now w/ significant back/abdominal pain. CT Abd/Pelvis w/ abnormal left ureter associated with abnormal left side of bladder suggestive of metastatic prostate CA. Oncology consulted, will await further evaluation/recommendations. Urology following, recommend condom cath and bone scan. PSA 11.5. - Bone scan revealed widespread bony metastasis. I discussed this findings with the patient's at bedside. She is eager to learn possible options but also appeared to be open to the idea of comfort care and hospice as patient previously told her to let them in peace at home. He is becoming more debilitated and is doing less and less. He had unintentional weight loss of about 40 pounds per his . - dr. Varela ff Pathologic T9 Compression Fracture: Thoracic X-ray with probable minimal compression fracture at T9. TLSO, pain is currently controlled. Continue pain meds as needed. PT as tolerated. UTI: U/a w/ significant UTI, on Zyvox per ID. QUIQUE: Creatinine not yet at baseline. creatinine inreasing. IVF for hydration, monitor.ff BMP check another bladder scan Nausea/Vomiting: Improved. Continue antiemetics. Zofran and Phenergan as needed. - IVF. Monitor. CT abdomen noted. MOnitor po intake DVT Prophylaxis: Start heparin. Lee Fisher MD Oct 17, 2017 09:30
[2017-10-17 12:00] VITALS: BP 114/63; PULSE 76; RESP 16; TEMP 97; O2SAT 100
--- NOTE | 2017-10-17 14:33 | RADRPT ---
EXAM DATE/TIME: 10/17/2017 13:36 [facility] COMPARISON: US KIDNEY/RENAL/BLADDER, June 19, 2017, 13:29. EXTERNAL COMPARISON : [facility], CT ABDOMEN/PELVIS W/ CONTRAST, October 11, 2015 INDICATIONS : Abnornal lab values. MEDICAL HISTORY : Myocardial infarction. Hypercholesterolemia. Hypertension. Colon tumor. GERD. VRE. MRSA. Prostae canc er. Rectal cancer. Arthritis. SURGICAL HISTORY : Prostatectomy. Colostomy. Right arm surgery. Left knee surgery. ENCOUNTER: Subsequent ACUITY: 1 day PAIN SCORE: 0/10 LOCATION: Bilateral flank MEASUREMENTS: RIGHT KIDNEY: 11.5 x 6.3 x 5.9 cm LEFT KIDNEY: 11.5 x 4.6 x 5.1 cm FINDINGS: RIGHT KIDNEY: Renal cortex is normal in thickness and echotexture. No hydronephrosis, stone, or mass. LEFT KIDNEY: Renal cortex is normal in thickness and echotexture. No hydronephrosis, stone, or mass. BLADDER: Within normal limits given the degree of distension. CONCLUSION: Normal examination. Jorge Spangler MD on October 17, 2017 at 14:30 Board Certified Radiologist. This report was verified electronically.
--- NOTE | 2017-10-17 15:58 | PD.ONC.PN ---
Subjective Subjective Remarks Afebrile Patient resting in bed with spouse at bedside Patient very hard of hearing, currently taking a nap Objective Data Date Time Temp Pulse Resp B/P (MAP) Pulse Ox O2 Delivery O2 Flow Rate FiO2 10/17/17 12:00 97.0 76 16 114/63 (80) 100 10/17/17 08:00 97.3 53 16 113/60 (77) 97 10/17/17 04:17 97.2 69 18 118/58 (78) 94 10/17/17 00:52 98.5 63 18 123/57 (79) 95 10/16/17 20:09 97.5 69 18 116/72 (87) 95 10/16/17 16:00 98.0 77 18 111/55 (73) 93 10/17/17 10/17/17 10/17/17 07:00 15:00 23:00 Intake Total 1000 ml Output Total 400 ml Balance -400 ml 1000 ml Result Diagram: 10/17/17 0830 10/17/17 0600 Laboratory Results Laboratory Tests Test 10/17/17 04:00 10/17/17 06:00 10/17/17 08:30 Urine Color YELLOW Urine Turbidity HAZY Urine pH 5.5 Urine Specific [place] 1.023 Urine Protein 30 mg/dL Urine Glucose (UA) NEG mg/dL Urine Ketones NEG mg/dL Urine Occult Blood NEG Urine Nitrite NEG Urine Bilirubin NEG Urine Urobilinogen LESS THAN 2.0 MG/DL Urine Leukocyte Esterase MOD Urine RBC 7 /hpf Urine WBC 40 /hpf Urine WBC Clumps OCC Urine Calcium Oxalate Crystals RARE /hpf Urine Amorphous Sediment RARE Urine Bacteria OCC /hpf Urine Hyaline Casts 49 /lpf Urine Granular Casts 10 /lpf Urine Mucus FEW /lpf Urine Yeast (Budding) RARE Urine Eosinophils NONE SEEN /HPF Blood Urea Nitrogen 33 MG/DL Creatinine 1.73 MG/DL Random Glucose 83 MG/DL Calcium Level 9.0 MG/DL Sodium Level 139 MEQ/L Potassium Level 4.1 MEQ/L Chloride Level 108 MEQ/L Carbon Dioxide Level 19.2 MEQ/L Anion Gap 12 MEQ/L Estimat Glomerular Filtration Rate 38 ML/MIN White Blood Count 9.2 TH/MM3 Red Blood Count 4.17 MIL/MM3 Hemoglobin 12.5 GM/DL Hematocrit 38.1 % Mean Corpuscular Volume 91.4 FL Mean Corpuscular Hemoglobin 29.9 PG Mean Corpuscular Hemoglobin Concent 32.7 % Red Cell Distribution Width 17.0 % Platelet Count 359 TH/MM3 Mean Platelet Volume 7.7 FL Neutrophils (%) (Auto) 72.0 % Lymphocytes (%) (Auto) 13.6 % Monocytes (%) (Auto) 11.8 % Eosinophils (%) (Auto) 2.4 % Basophils (%) (Auto) 0.2 % Neutrophils # (Auto) 6.6 TH/MM3 Lymphocytes # (Auto) 1.2 TH/MM3 Monocytes # (Auto) 1.1 TH/MM3 Eosinophils # (Auto) 0.2 TH/MM3 Basophils # (Auto) 0.0 TH/MM3 CBC Comment DIFF FINAL Differential Comment Imaging Studies Last Impressions Renal Ultrasound 10/17/17 0000 Signed Impressions: Service Date/Time: Tuesday, October 17, 2017 13:36 - CONCLUSION: Normal examination. Jorge Spangler MD Bone Scan Nuclear Medicine 10/15/17 0000 Signed Impressions: Service Date/Time: Sunday, October 15, 2017 12:30 - CONCLUSION: 1. Widespread osseous metastatic disease characteristic of metastatic prostate carcinoma Florencio Riley MD Thoracic Spine X-Ray 10/12/17 1146 Signed Impressions: Service Date/Time: Thursday, October 12, 2017 12:08 - CONCLUSION: Probable minimal compression at T9. Edd Chavez MD FACR Lumbar Spine X-Ray 10/12/17 1146 Signed Impressions: Service Date/Time: Thursday, October 12, 2017 12:10 - CONCLUSION: Mild degenerative changes. 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 Edd Chavez MD FACR Last 24 hours Impressions Renal Ultrasound 10/17/17 0000 Signed Impressions: Service Date/Time: Tuesday, October 17, 2017 13:36 - CONCLUSION: Normal examination. Jorge Spangler MD Administered Medications Medications (Trade) Dose Ordered Sig/Thee Route PRN Reason Start Time Stop Time Status Last Admin Dose Admin Sodium Chloride (NS Flush) 2 ml UNSCH PRN IV FLUSH FLUSH AFTER USING IV ACCESS 10/12/17 16:15 10/14/17 11:59 Sodium Chloride (NS Flush) 2 ml BID IV FLUSH 10/12/17 21:00 10/17/17 08:43 Ondansetron HCl (Zofran Inj) 4 mg Q6H PRN IVP NAUSEA OR VOMITING 10/12/17 16:15 10/15/17 11:48 Senna/Docusate Sodium (Le-Colace) 1 tab BID PO 10/12/17 21:00 10/17/17 08:43 Acetaminophen/ Hydrocodone Bitart ([place] 5-325 Mg) 1 tab Q4H PRN PO PAIN SCALE 3 TO 5 10/12/17 16:30 10/15/17 11:53 Acetaminophen/ Hydrocodone Bitart ([place] 10-325 Mg) 1 tab Q4H PRN PO PAIN SCALE 6 TO 10 10/12/17 16:30 10/16/17 11:51 Amlodipine Besylate (Norvasc) 5 mg DAILY PO 10/13/17 09:00 10/17/17 08:43 Atorvastatin Calcium (Lipitor) 10 mg HS PO 10/13/17 21:00 10/16/17 21:21 Metoprolol Tartrate (Lopressor) 50 mg BID PO 10/13/17 09:00 10/17/17 08:43 Pantoprazole Sodium (Protonix) 20 mg BID PO 10/13/17 09:00 10/17/17 08:43 Clotrimazole (Lotrimin 1% Cream) 1 applic Q12HR TOPICAL 10/14/17 11:00 10/17/17 08:43 Linezolid (Zyvox) 600 mg Q12HR PO 10/15/17 11:00 10/26/17 23:00 10/17/17 08:43 Promethazine HCl (Phenergan Inj) 25 mg Q6H PRN IM NAUSEA OR VOMITING 10/15/17 15:45 10/15/17 16:47 Dextrose/Sodium Chloride 1,000 ml @ 100 mls/hr Q10H IV 10/16/17 14:15 10/17/17 11:46 Objective Remarks GENERAL: Elderly male resting in bed asleep in no obvious distress SKIN: Warm and dry. HEAD: Normocephalic. Very hard of hearing EYES: No injection or drainage. NECK: Supple, trachea midline. No JVD or lymphadenopathy. CARDIOVASCULAR: Regular rate and rhythm without murmurs. RESPIRATORY: Breath sounds equal bilaterally. No accessory muscle use. GASTROINTESTINAL: Colostomy to left abdomen. Green liquid noted in bag. Stoma pink. EXTREMITIES: No cyanosis, or edema. MUSCULOSKELETAL: Generalized weakness NEUROLOGICAL: Awakens to gentle shaking but quickly falls back to sleep Assessment/Plan Problem List: (1) Prostate CA ICD Codes: C61 - Malignant neoplasm of prostate Plan: --Patient appears to have metastatic prostate cancer --Will need biopsy of metastatic lesion Assessment 86-year-old male with history of prostate cancer and colon cancer admitted with back and abdominal pain Plan 1. Consult interventional radiology to get biopsy of metastatic lesion- defer pending urology 2. Monitor CBC 3. Continue antibiotics per infectious disease for UTI Attending Statement The exam, history, and the medical decision-making described in the above note were completed with the assistance of the mid-level provider. I reviewed and agree with the findings presented. I attest that I had a [id number] encounter with the patient on the same day, and personally performed and documented my assessment and findings in the medical record. Agree with above. Discussed w/ and patient, they would like to proceed with diagnostic biopsy. Reviewed case w/ radiology. There are bone lesions to biopsy but testing for PDL 1 would be difficult. There is pelvic mass, however easiest to biopsy is bladder lesion. OK by ID to proceed with cystoscopy. Furthermore, obstruction needs to be excluded with pt's increase creatinine. Paged Dr. Pino await call back. Suggest cystoscopy and biopsy. 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 However definitive biopsy needed to confirm. Khushbu Herr Oct 17, 2017 15:58 Nalini Varela MD Oct 17, 2017 18:41
[2017-10-17 16:00] VITALS: BP 97/54; PULSE 74; RESP 16; TEMP 97.3; O2SAT 95
[2017-10-17 20:00] VITALS: BP 103/43; PULSE 73; RESP 16; TEMP 97.2; O2SAT 95
[2017-10-17] MEDS: ATORVASTATIN 10 MG TAB PO SCH (21:58)
[2017-10-18] VITALS (7 sets, daily range): BP systolic 102–129; BP diastolic 51–67; PULSE 56–82; RESP 16–18; TEMP 97.3–98.1; O2SAT 95–99
[2017-10-18] MEDS: HEPARIN SODIUM - SQ 10,000 UNITS/ML VIAL SQ SCH ×3 (06:04→23:00)
[2017-10-18] MEDS: DEXT 5%-NACL 0.45% 1000 ML INJ 1,000 ML IV SCH ×3 (06:07→23:31)
[2017-10-18] MEDS: amLODIPine BESYLATE 5 MG TAB PO SCH (09:00)
[2017-10-18] MEDS: LINEZOLID 600 MG TAB PO SCH ×2 (09:00→20:55)
[2017-10-18] MEDS: SODIUM CHLORIDE 0.9% FLUSH 10 ML FLUSH IV FLUSH SCH ×2 (09:00→20:56)
[2017-10-18] MEDS: DOCUSATE SODIUM 50 MG/SENNA 8.6 MG TAB PO SCH ×2 (09:00→20:55)
[2017-10-18] MEDS: PANTOPRAZOLE SOD 20 MG DELAYED RELEASE TAB PO SCH ×2 (09:00→20:55)
[2017-10-18] MEDS: METOPROLOL TARTRATE 50 MG TAB PO SCH ×2 (09:00→20:55)
[2017-10-18] MEDS: CLOTRIMAZOLE 1% CREAM 15 GM TOPICAL SCH ×2 (09:19→20:56)
--- NOTE | 2017-10-18 12:45 | HHI.IDPN ---
Subjective Subjective Remarks Patient is an 86-year-old male, brought into the hospital complaining of back pain and abdominal pain. Patient also had nausea and vomiting today. According to the patient is incontinent of urine. On this admission he is afebrile. CT of the abdomen and pelvis showed an abnormality in the right kidney. Urinalysis showed some pyuria, and the culture is growing MRSA. 2 blood cultures done on admission are negative. His initial WBC was 14,000, and is down to 12,000. Patient has known prostate cancer, and imaging study with CT showing some findings suggestive of metastatic prostate cancer. Infectious disease consultation has been requested to assist with antibiotic management. Notes reviewed Ivonne lott Has a condom cath in place WBC down to normal Creatinine continues to rise UA with improving pyuria Urine for eosinophil negative Renal US no hydronephrosis Bone scan positive compatible with metastatic disease Antibiotics Zyvox Current Medications Medications (Trade) Dose Ordered Sig/Thee Route Start Time Stop Time Status Last Admin (NS Flush) 2 ml UNSCH PRN IV FLUSH 10/12/17 16:15 10/14/17 11:59 (NS Flush) 2 ml BID IV FLUSH 10/12/17 21:00 10/17/17 08:43 (Zofran Inj) 4 mg Q6H PRN IVP 10/12/17 16:15 10/15/17 11:48 (Narcan Inj) 0.4 mg UNSCH PRN IV PUSH 10/12/17 16:15 (Le-Colace) 1 tab BID PO 10/12/17 21:00 10/17/17 21:58 (Milk Of Magnesia Liq) 30 ml Q12H PRN PO 10/12/17 16:15 (Senokot) 17.2 mg Q12H PRN PO 10/12/17 16:15 (Dulcolax Supp) 10 mg DAILY PRN RECTAL 10/12/17 16:15 (Lactulose Liq) 30 ml DAILY PRN PO 10/12/17 16:15 (Anthon 5-325 Mg) 1 tab Q4H PRN PO 10/12/17 16:30 10/15/17 11:53 (Anthon 10-325 Mg) 1 tab Q4H PRN PO 10/12/17 16:30 10/16/17 11:51 (Morphine Inj) 2 mg Q4H PRN IV PUSH 10/12/17 16:30 (Norvasc) 5 mg DAILY PO 10/13/17 09:00 10/17/17 08:43 (Lipitor) 10 mg HS PO 10/13/17 21:00 10/17/17 21:58 (Lopressor) 50 mg BID PO 10/13/17 09:00 10/17/17 08:43 (Protonix) 20 mg BID PO 10/13/17 09:00 10/17/17 21:58 (Lotrimin 1% Cream) 1 applic Q12HR TOPICAL 10/14/17 11:00 10/18/17 09:19 (Zyvox) 600 mg Q12HR PO 10/15/17 11:00 10/26/17 23:00 10/17/17 21:58 (Phenergan Inj) 25 mg Q6H PRN IM 10/15/17 15:45 10/15/17 16:47 Dextrose/Sodium Chloride 1,000 ml @ 100 mls/hr Q10H IV 10/16/17 14:15 10/18/17 06:07 (Heparin Inj) 5,000 units Q8H SQ 10/16/17 15:00 Lines PIV no evidence of infection Past Medical History Rectal cancer Prostate cancer Hypertension Hyperlipidemia Atrial fibrillation Gout GERD Previous pericarditis Esophageal stricture Episode of acute cholecystitis Past Surgical History Cataract Surgery Prostatectomy Left Leg Surgery Surgery for rectal cancer Previous esophageal dilatation Allergies: Coded Allergies: No Known Allergies (Verified , 03/08/17) Objective . Vital Signs Date Time Temp Pulse Resp B/P (MAP) Pulse Ox O2 Delivery O2 Flow Rate FiO2 10/18/17 08:00 97.3 64 18 122/67 (85) 98 10/18/17 06:10 97.6 78 18 126/57 (80) 96 10/18/17 00:00 98.1 82 16 124/63 (83) 99 10/17/17 20:00 97.2 73 16 103/43 (63) 95 10/17/17 16:00 97.3 74 16 97/54 (68) 95 . Laboratory Tests Test 10/17/17 08:30 White Blood Count 9.2 TH/MM3 Red Blood Count 4.17 MIL/MM3 Hemoglobin 12.5 GM/DL Hematocrit 38.1 % Mean Corpuscular Volume 91.4 FL Mean Corpuscular Hemoglobin 29.9 PG Mean Corpuscular Hemoglobin Concent 32.7 % Red Cell Distribution Width 17.0 % Platelet Count 359 TH/MM3 Mean Platelet Volume 7.7 FL Neutrophils (%) (Auto) 72.0 % Lymphocytes (%) (Auto) 13.6 % Monocytes (%) (Auto) 11.8 % Eosinophils (%) (Auto) 2.4 % Basophils (%) (Auto) 0.2 % Neutrophils # (Auto) 6.6 TH/MM3 Lymphocytes # (Auto) 1.2 TH/MM3 Monocytes # (Auto) 1.1 TH/MM3 Eosinophils # (Auto) 0.2 TH/MM3 Basophils # (Auto) 0.0 TH/MM3 CBC Comment DIFF FINAL Differential Comment Laboratory Tests Test 10/17/17 06:00 Blood Urea Nitrogen 33 MG/DL Creatinine 1.73 MG/DL Random Glucose 83 MG/DL Calcium Level 9.0 MG/DL Sodium Level 139 MEQ/L Potassium Level 4.1 MEQ/L Chloride Level 108 MEQ/L Carbon Dioxide Level 19.2 MEQ/L Anion Gap 12 MEQ/L Estimat Glomerular Filtration Rate 38 ML/MIN Imaging s Thoracic Spine X-Ray 10/12/17 1146 Signed Impressions: Service Date/Time: Thursday, October 12, 2017 12:08 - CONCLUSION: Probable minimal compression at T9. Edd Chavez MD FACR Lumbar Spine X-Ray 10/12/17 1146 Signed Impressions: Service Date/Time: Thursday, October 12, 2017 12:10 - CONCLUSION: Mild degenerative changes. 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 Edd Chavez MD FACR Physical Exam GENERAL: awake and alert, NAD SKIN: Warm and dry. No generalized rash, no ecchymoses and no evidence of embolic lesions. HEAD: Atraumatic. Normocephalic. No temporal wasting, or tenderness. EYES: [place] conjunctiva. No petechia or hemorrhage. Pupils equal, round and reactive to light. Extraocular movements full and intact. No scleral icterus. EARS, NOSE AND THROAT: Nose without bleeding or purulent nasal discharge. No sinus tenderness. Mucous membranes pink and moist. Edentulous, wears dentures NECK: Trachea midline. Supple and not tender, no meningeal signs CARDIOVASCULAR: Regular rate and rhythm. No murmurs, rubs or gallops heard RESPIRATORY: Clear to auscultation. Breath sounds equal bilaterally. No rales , wheezing or rhonchi ABDOMEN: Soft, nondistended, has mild tenderness especially in the lower quadrants, bowel sounds present and normoactive. No organomegaly. Colostomy on L side. Scars C/W surgical hx. EXTREMITIES: No clubbing, cyanosis, or edema. No calf tenderness. Well perfused and warm. NEUROLOGICAL: Awake and alert. Not following consistently. NO facial asymmetry. PSYCHIATRIC: cooperative. LINE: No evidence of infection Assessment & Plan Remarks IMPRESSION UTI, MRSA, has dilatation of pelvis on CT - he is incontinent of urine - has prostate CA, with possible mets - Usually MRSA in the urine is seen with bacteremia, but his blood cultures are negative. It could be due to the dilatation and abnormality in his structure Hx rectal CA, had surgery, has colostomy Prostate CA possible mets Renal insufficiency, worsening - bladder scan ok - renal US ok RECOMMENDATION Continue p.o. Zyvox -Complete treatment for UTI Follow CBC while on Zyvox Repeat UC and see if needs to extend Rx Patient being eval for cystoscopy He seems clinically stable from the ID standpoint Alexandra Boyd MD Oct 18, 2017 12:45
--- NOTE | 2017-10-18 13:35 | HHI.PR ---
Subjective Patient symptoms today Denies pain. Bladder Scan less than 50 ml. Catheter draining well. Objective Vital Signs Vital Signs Date Time Temp Pulse Resp B/P (MAP) Pulse Ox O2 Delivery O2 Flow Rate FiO2 10/18/17 08:00 97.3 64 18 122/67 (85) 98 10/18/17 06:10 97.6 78 18 126/57 (80) 96 10/18/17 00:00 98.1 82 16 124/63 (83) 99 10/17/17 20:00 97.2 73 16 103/43 (63) 95 10/17/17 16:00 97.3 74 16 97/54 (68) 95 Intake & Output 10/18/17 10/18/17 07:00 19:00 Output Total 600 ml Balance -600 ml Output Urine Total 600 ml Result Diagram: 10/17/17 0830 10/17/17 0600 Objective Remarks NAD. Awake, alert. abd soft urine concentrated, yellow Medications and IVs Current Medications Medications (Trade) Dose Ordered Sig/Thee Route Start Time Stop Time Status Last Admin (NS Flush) 2 ml UNSCH PRN IV FLUSH 10/12/17 16:15 10/14/17 11:59 (NS Flush) 2 ml BID IV FLUSH 10/12/17 21:00 10/17/17 08:43 (Zofran Inj) 4 mg Q6H PRN IVP 10/12/17 16:15 10/15/17 11:48 (Narcan Inj) 0.4 mg UNSCH PRN IV PUSH 10/12/17 16:15 (Le-Colace) 1 tab BID PO 10/12/17 21:00 10/17/17 21:58 (Milk Of Magnesia Liq) 30 ml Q12H PRN PO 10/12/17 16:15 (Senokot) 17.2 mg Q12H PRN PO 10/12/17 16:15 (Dulcolax Supp) 10 mg DAILY PRN RECTAL 10/12/17 16:15 (Lactulose Liq) 30 ml DAILY PRN PO 10/12/17 16:15 ([place] 5-325 Mg) 1 tab Q4H PRN PO 10/12/17 16:30 10/15/17 11:53 ([place]bar 10-325 Mg) 1 tab Q4H PRN PO 10/12/17 16:30 10/16/17 11:51 (Morphine Inj) 2 mg Q4H PRN IV PUSH 10/12/17 16:30 (Norvasc) 5 mg DAILY PO 10/13/17 09:00 10/17/17 08:43 (Lipitor) 10 mg HS PO 10/13/17 21:00 10/17/17 21:58 (Lopressor) 50 mg BID PO 10/13/17 09:00 10/17/17 08:43 (Protonix) 20 mg BID PO 10/13/17 09:00 10/17/17 21:58 (Lotrimin 1% Cream) 1 applic Q12HR TOPICAL 10/14/17 11:00 10/18/17 09:19 (Zyvox) 600 mg Q12HR PO 10/15/17 11:00 10/26/17 23:00 10/17/17 21:58 (Phenergan Inj) 25 mg Q6H PRN IM 10/15/17 15:45 10/15/17 16:47 Dextrose/Sodium Chloride 1,000 ml @ 100 mls/hr Q10H IV 10/16/17 14:15 10/18/17 06:07 (Heparin Inj) 5,000 units Q8H SQ 10/16/17 15:00 Assessment and Plan Assessment and Plan 86 yo male h/o CaP with metastatic bone lesions, ? bladder mass, incontinence, ARF -Bladder scan is low. Renal U/S is normal, no hydronephrosis. Suspect pre- renal. -Continue Condom Catheter -Cystoscopy, possible bladder biopsy is possible. Can be done next week. Would suggest proceeding with biopsy of one of the bone lesions as this would be more diagnostic than cystoscopy, bladder biopsy. Miguel Hess MD Oct 18, 2017 13:35
--- NOTE | 2017-10-18 14:48 | HHI.PR ---
Subjective Remarks seen with at bedside no complains poor po itntake cather-0- grossly clear urine Objective Vitals Vital Signs Date Time Temp Pulse Resp B/P (MAP) Pulse Ox O2 Delivery O2 Flow Rate FiO2 10/18/17 08:00 97.3 64 18 122/67 (85) 98 10/18/17 06:10 97.6 78 18 126/57 (80) 96 10/18/17 00:00 98.1 82 16 124/63 (83) 99 10/17/17 20:00 97.2 73 16 103/43 (63) 95 10/17/17 16:00 97.3 74 16 97/54 (68) 95 I/O 10/17/17 10/17/17 10/17/17 10/18/17 10/18/17 10/18/17 07:00 15:00 23:00 07:00 15:00 23:00 Intake Total 1000 ml 480 ml Output Total 400 ml 425 ml 600 ml Balance -400 ml 1000 ml 55 ml -600 ml Intake Oral 480 ml IV Total 1000 ml Output Urine Total 400 ml 425 ml 600 ml Result Diagram: 10/17/17 0830 10/17/17 0600 Imaging Last Impressions Renal Ultrasound 10/17/17 0000 Signed Impressions: Service Date/Time: Tuesday, October 17, 2017 13:36 - CONCLUSION: Normal examination. Jorge Spangler MD Bone Scan Nuclear Medicine 10/15/17 0000 Signed Impressions: Service Date/Time: Sunday, October 15, 2017 12:30 - CONCLUSION: 1. Widespread osseous metastatic disease characteristic of metastatic prostate carcinoma Florencio Riley MD Thoracic Spine X-Ray 10/12/17 1146 Signed Impressions: Service Date/Time: Thursday, October 12, 2017 12:08 - CONCLUSION: Probable minimal compression at T9. Edd Chavez MD FACR Lumbar Spine X-Ray 10/12/17 1146 Signed Impressions: Service Date/Time: Thursday, October 12, 2017 12:10 - CONCLUSION: Mild degenerative changes. 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 ICD Code: M84.58XA - Pathological fracture in neoplastic disease, other specified site, initial encounter for fracture (2) Prostate CA ICD Code: C61 - Malignant neoplasm of prostate (3) UTI (urinary tract infection) ICD Code: N39.0 - Urinary tract infection, site not specified (4) Thoracic compression fracture ICD Code: S22.000A - Wedge compression fracture of unspecified thoracic vertebra, initial encounter for closed fracture (5) QUIQUE (acute kidney injury) ICD Code: N17.9 - Acute kidney failure, unspecified Assessment and Plan 86-year-old male with: Metastatic Prostate CA: h/o Prostate CA s/p Prostatectomy per records, now w/ significant back/abdominal pain. CT Abd/Pelvis w/ abnormal left ureter associated with abnormal left side of bladder suggestive of metastatic prostate CA. Oncology consulted, will await further evaluation/recommendations. Urology following, recommend condom cath and bone scan. PSA 11.5. - Bone scan revealed widespread bony metastasis. I discussed this findings with the patient's at bedside. She is eager to learn possible options but also appeared to be open to the idea of comfort care and hospice as patient previously told her to let them in peace at home. He is becoming more debilitated and is doing less and less. He had unintentional weight loss of about 40 pounds per his . -d/w Dr. Varela ff- need to have cystoscopy . done- -Urology consulted for cystoscopy and biopsy- Pathologic T9 Compression Fracture: Thoracic X-ray with probable minimal compression fracture at T9. TLSO, pain is currently controlled. Continue pain meds as needed. PT as tolerated. UTI: U/a w/ significant UTI, on Zyvox per ID. QUIQUE: - non oliguric . creatinine increasing. continue IVF - increase rate to 125 cc/hhr ff BMP Nausea/Vomiting: Improved. Continue antiemetics. Zofran and Phenergan as needed. - IVF. Monitor. CT abdomen noted. MOnitor po intake DVT Prophylaxis: SQ heparin. Lee Fisher MD Oct 18, 2017 14:48
--- NOTE | 2017-10-18 15:45 | PD.ONC.PN ---
Subjective Subjective Remarks No complaints. at bedside. Objective Data Date Time Temp Pulse Resp B/P (MAP) Pulse Ox O2 Delivery O2 Flow Rate FiO2 10/18/17 08:00 97.3 64 18 122/67 (85) 98 10/18/17 06:10 97.6 78 18 126/57 (80) 96 10/18/17 00:00 98.1 82 16 124/63 (83) 99 10/17/17 20:00 97.2 73 16 103/43 (63) 95 10/17/17 16:00 97.3 74 16 97/54 (68) 95 10/18/17 10/18/17 10/18/17 07:00 15:00 23:00 Output Total 600 ml Balance -600 ml Result Diagram: 10/17/17 0830 10/17/17 0600 Culture Results Microbiology Date/Time Source Procedure Growth Status 10/18/17 13:45 Urine Clean Catch Urine Culture Pending Received Administered Medications Medications (Trade) Dose Ordered Sig/Thee Route PRN Reason Start Time Stop Time Status Last Admin Dose Admin Sodium Chloride (NS Flush) 2 ml UNSCH PRN IV FLUSH FLUSH AFTER USING IV ACCESS 10/12/17 16:15 10/14/17 11:59 Sodium Chloride (NS Flush) 2 ml BID IV FLUSH 10/12/17 21:00 10/17/17 08:43 Ondansetron HCl (Zofran Inj) 4 mg Q6H PRN IVP NAUSEA OR VOMITING 10/12/17 16:15 10/15/17 11:48 Senna/Docusate Sodium (Le-Colace) 1 tab BID PO 10/12/17 21:00 10/17/17 21:58 Acetaminophen/ Hydrocodone Bitart ([place] 5-325 Mg) 1 tab Q4H PRN PO PAIN SCALE 3 TO 5 10/12/17 16:30 10/15/17 11:53 Acetaminophen/ Hydrocodone Bitart ([place] 10-325 Mg) 1 tab Q4H PRN PO PAIN SCALE 6 TO 10 10/12/17 16:30 10/16/17 11:51 Amlodipine Besylate (Norvasc) 5 mg DAILY PO 10/13/17 09:00 10/17/17 08:43 Atorvastatin Calcium (Lipitor) 10 mg HS PO 10/13/17 21:00 10/17/17 21:58 Metoprolol Tartrate (Lopressor) 50 mg BID PO 10/13/17 09:00 10/17/17 08:43 Pantoprazole Sodium (Protonix) 20 mg BID PO 10/13/17 09:00 10/17/17 21:58 Clotrimazole (Lotrimin 1% Cream) 1 applic Q12HR TOPICAL 10/14/17 11:00 10/18/17 09:19 Linezolid (Zyvox) 600 mg Q12HR PO 10/15/17 11:00 10/26/17 23:00 10/17/17 21:58 Promethazine HCl (Phenergan Inj) 25 mg Q6H PRN IM NAUSEA OR VOMITING 10/15/17 15:45 10/15/17 16:47 Dextrose/Sodium Chloride 1,000 ml @ 125 mls/hr Q8H IV 10/16/17 14:15 10/18/17 15:22 Objective Remarks GENERAL: Elderly male resting in bed no obvious distress SKIN: Warm and dry. HEAD: Normocephalic. Very hard of hearing EYES: No injection or drainage. NECK: Supple, trachea midline. No JVD or lymphadenopathy. CARDIOVASCULAR: Regular rate and rhythm without murmurs. RESPIRATORY: Breath sounds equal bilaterally. No accessory muscle use. GASTROINTESTINAL: Colostomy to left abdomen. Green liquid noted in bag. Stoma pink. EXTREMITIES: No cyanosis, or edema. MUSCULOSKELETAL: Generalized weakness NEUROLOGICAL: Hard of hearing. Assessment/Plan Problem List: (1) Metastatic cancer ICD Codes: C79.9 - Secondary malignant neoplasm of unspecified site Plan: Clinical suspicion pt has a third primary considered. Although metastatic prostate cancer a clear consideration due to bone metastatic disease However, radiographic finding show a bladder mass and pelvic masses adjacent to/ posterior the bladder Furthermore PSA low, however s/p prostatectomy and XRT previous PSA undetectable. Ultimately a cystoscopy, next week will be ideal to make diagnosis of the primary. As discussed with radiology biopsy of bone lesions of vertebral body is more difficult and carries more risk than cystoscopic biopsy. Pt well known to Dr. Richards as out pt and Dr. Hess is following during his hospitalization. Defer to Dr. Hess diagnostic biopsy. Further oncologic recommendations pending on pathology report- goal ultimately is palliative. Assessment 86-year-old male with history of prostate cancer and colon cancer admitted with back and abdominal pain Plan 1. Pending urologic procedure and biopsy for diagnosis 2. Monitor increase creatinine, suggest pre renal by urology, continue IVF 3. Abx per ID 4. Monitor I/O, possible increase output through colostomy 5. Start Casodex for elevated PSA Nalini Varela MD Oct 18, 2017 15:45
[2017-10-18] MEDS: ATORVASTATIN 10 MG TAB PO SCH (20:55)
[2017-10-19 05:35] VITALS: BP 124/57; PULSE 71; RESP 16; TEMP 98.2; O2SAT 94
[2017-10-19] MEDS: HEPARIN SODIUM - SQ 10,000 UNITS/ML VIAL SQ SCH ×3 (07:00→23:00)
[2017-10-19 07:44] LABS: BICARBONATE 18.7 MEQ/L (21.0-32.0); CALCIUM 8.5 MG/DL (8.5-10.1); CREATININE 0.97 MG/DL (0.60-1.30)
[2017-10-19 08:00] VITALS: BP 98/57; PULSE 71; RESP 22; TEMP 97.4; O2SAT 98
[2017-10-19] MEDS: DEXT 5%-NACL 0.45% 1000 ML INJ 1,000 ML IV SCH ×2 (08:34→17:01)
[2017-10-19] MEDS: SODIUM CHLORIDE 0.9% FLUSH 10 ML FLUSH IV FLUSH SCH ×2 (08:34→20:48)
[2017-10-19] MEDS: DOCUSATE SODIUM 50 MG/SENNA 8.6 MG TAB PO SCH ×2 (08:36→20:44)
[2017-10-19] MEDS: PANTOPRAZOLE SOD 20 MG DELAYED RELEASE TAB PO SCH ×2 (08:36→20:45)
[2017-10-19] MEDS: LINEZOLID 600 MG TAB PO SCH ×2 (08:36→20:45)
[2017-10-19] MEDS: amLODIPine BESYLATE 5 MG TAB PO SCH (08:37)
[2017-10-19] MEDS: METOPROLOL TARTRATE 50 MG TAB PO SCH ×2 (08:37→20:44)
[2017-10-19] MEDS: CLOTRIMAZOLE 1% CREAM 15 GM TOPICAL SCH ×2 (08:39→20:45)
[2017-10-19 12:00] VITALS: BP 125/64; PULSE 73; RESP 22; TEMP 97.9; O2SAT 98
--- NOTE | 2017-10-19 12:21 | PD.ONC.PN ---
Subjective Subjective Remarks Afebrile overnight. Patient resting in bed having colostomy bag changed. at bedside concerned that biopsy will not be until next week. Objective Data Date Time Temp Pulse Resp B/P (MAP) Pulse Ox O2 Delivery O2 Flow Rate FiO2 10/19/17 08:00 97.4 71 22 98/57 (71) 98 10/19/17 05:35 98.2 71 16 124/57 (79) 94 10/18/17 23:56 97.8 78 16 105/52 (69) 97 10/18/17 20:54 97.3 75 17 109/52 (71) 98 10/18/17 16:00 97.6 56 16 102/51 (68) 95 10/19/17 10/19/17 10/19/17 07:00 15:00 23:00 Intake Total 240 ml Output Total 900 ml Balance -660 ml Result Diagram: 10/17/17 0830 10/19/17 0632 Laboratory Results Laboratory Tests Test 10/19/17 06:32 Blood Urea Nitrogen 11 MG/DL Creatinine 0.97 MG/DL Random Glucose 88 MG/DL Calcium Level 8.5 MG/DL Sodium Level 138 MEQ/L Potassium Level 3.2 MEQ/L Chloride Level 107 MEQ/L Carbon Dioxide Level 18.7 MEQ/L Anion Gap 12 MEQ/L Estimat Glomerular Filtration Rate 74 ML/MIN Culture Results Microbiology Date/Time Source Procedure Growth Status 10/18/17 13:45 Urine Clean Catch Urine Culture - Preliminary NO GROWTH IN 24 HOURS. Resulted Administered Medications Medications (Trade) Dose Ordered Sig/Thee Route PRN Reason Start Time Stop Time Status Last Admin Dose Admin Sodium Chloride (NS Flush) 2 ml UNSCH PRN IV FLUSH FLUSH AFTER USING IV ACCESS 10/12/17 16:15 10/14/17 11:59 Sodium Chloride (NS Flush) 2 ml BID IV FLUSH 10/12/17 21:00 10/18/17 20:56 Ondansetron HCl (Zofran Inj) 4 mg Q6H PRN IVP NAUSEA OR VOMITING 10/12/17 16:15 10/15/17 11:48 Senna/Docusate Sodium (Le-Colace) 1 tab BID PO 10/12/17 21:00 10/19/17 08:36 Acetaminophen/ Hydrocodone Bitart ([place] 5-325 Mg) 1 tab Q4H PRN PO PAIN SCALE 3 TO 5 10/12/17 16:30 10/15/17 11:53 Acetaminophen/ Hydrocodone Bitart ([place] 10-325 Mg) 1 tab Q4H PRN PO PAIN SCALE 6 TO 10 10/12/17 16:30 10/16/17 11:51 Amlodipine Besylate (Norvasc) 5 mg DAILY PO 10/13/17 09:00 10/17/17 08:43 Atorvastatin Calcium (Lipitor) 10 mg HS PO 10/13/17 21:00 10/18/17 20:55 Metoprolol Tartrate (Lopressor) 50 mg BID PO 10/13/17 09:00 10/18/17 20:55 Pantoprazole Sodium (Protonix) 20 mg BID PO 10/13/17 09:00 10/19/17 08:36 Clotrimazole (Lotrimin 1% Cream) 1 applic Q12HR TOPICAL 10/14/17 11:00 10/19/17 08:39 Linezolid (Zyvox) 600 mg Q12HR PO 10/15/17 11:00 10/26/17 23:00 10/19/17 08:36 Promethazine HCl (Phenergan Inj) 25 mg Q6H PRN IM NAUSEA OR VOMITING 10/15/17 15:45 10/15/17 16:47 Dextrose/Sodium Chloride 1,000 ml @ 125 mls/hr Q8H IV 10/16/17 14:15 10/19/17 08:34 Objective Remarks GENERAL: Elderly male, supine in bed resting. SKIN: Warm and dry. HEAD: Normocephalic. EYES: No injection or drainage. NECK: Supple, trachea midline. CARDIOVASCULAR: Regular rate and rhythm RESPIRATORY: anterior desir clear. GASTROINTESTINAL: Abdomen soft, colostomy bag in place, filled with soft brown- green stool and some stool on abdomen and gown.. EXTREMITIES: No cyanosis. NEUROLOGICAL: No obvious focal deficit. Assessment/Plan Problem List: (1) Metastatic cancer ICD Codes: C79.9 - Secondary malignant neoplasm of unspecified site Plan: 10/19: await cystoscopy/biopsy for diagnosis Clinical suspicion pt has a third primary considered. Although metastatic prostate cancer a clear consideration due to bone metastatic disease However, radiographic finding show a bladder mass and pelvic masses adjacent to/ posterior the bladder Furthermore PSA low, however s/p prostatectomy and XRT previous PSA undetectable. Ultimately a cystoscopy will be ideal to make diagnosis of the primary. As discussed with radiology biopsy of bone lesions of vertebral body is more difficult and carries more risk than cystoscopic biopsy. Pt well known to Dr. Richards as out pt and Dr. Hess is following during his hospitalization. Defer to Dr. Hess diagnostic biopsy. Further oncologic recommendations pending on pathology report- goal ultimately is palliative. Assessment 86-year-old male with history of prostate cancer and colon cancer admitted with back and abdominal pain Plan 1. continue antibiotics per ID 2. monitor CBC, creatinine 3. await biopsy through urology. Attending Statement Discussed with over the phone, plan for cystoscopy and biopsy, plan to defer tx until pathologic diagnosis made. As discussed with Dr. Esparza, he is aware and can coordinate biopsy during this hospitalization or as out pt. Defer to primary team continue management of UTI, pre renal azotemia and placement. Recommendation pending definitive diagnosis. Agree with above. Rere Escobar Oct 19, 2017 12:21 Nalini Varela MD Oct 19, 2017 19:59
[2017-10-19] MEDS: ACETAMINOPHEN/HYDROcodone 325 MG/10 MG TAB PO PRN (12:35)
[2017-10-19] MEDS ORDERED: POTASSIUM CHLORIDE 10 MEQ CONTROLLED RELEASE TAB PO ONE (14:15)
--- NOTE | 2017-10-19 14:21 | HHI.PR ---
Subjective Remarks no complains good urine output sarika do f hearing Objective Vitals Vital Signs Date Time Temp Pulse Resp B/P (MAP) Pulse Ox O2 Delivery O2 Flow Rate FiO2 10/19/17 12:00 97.9 73 22 125/64 (84) 98 10/19/17 08:00 97.4 71 22 98/57 (71) 98 10/19/17 05:35 98.2 71 16 124/57 (79) 94 10/18/17 23:56 97.8 78 16 105/52 (69) 97 10/18/17 20:54 97.3 75 17 109/52 (71) 98 10/18/17 16:00 97.6 56 16 102/51 (68) 95 I/O 10/18/17 10/18/17 10/18/17 10/19/17 10/19/17 10/19/17 07:00 15:00 23:00 07:00 15:00 23:00 Intake Total 1480 ml 240 ml Output Total 600 ml 850 ml 900 ml Balance -600 ml 630 ml -660 ml Intake Oral 480 ml 240 ml IV Total 1000 ml Output Urine Total 600 ml 850 ml 900 ml # Bowel Movements 0 Result Diagram: 10/17/17 0830 10/19/17 0632 Imaging Last Impressions Renal Ultrasound 10/17/17 0000 Signed Impressions: Service Date/Time: Tuesday, October 17, 2017 13:36 - CONCLUSION: Normal examination. Jorge Spangler MD Bone Scan Nuclear Medicine 10/15/17 0000 Signed Impressions: Service Date/Time: Sunday, October 15, 2017 12:30 - CONCLUSION: 1. Widespread osseous metastatic disease characteristic of metastatic prostate carcinoma Florencio Riley MD Thoracic Spine X-Ray 10/12/17 1146 Signed Impressions: Service Date/Time: Thursday, October 12, 2017 12:08 - CONCLUSION: Probable minimal compression at T9. Edd Chavez MD FACR Lumbar Spine X-Ray 10/12/17 1146 Signed Impressions: Service Date/Time: Thursday, October 12, 2017 12:10 - CONCLUSION: Mild degenerative changes. 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 ICD Code: M84.58XA - Pathological fracture in neoplastic disease, other specified site, initial encounter for fracture (2) Prostate CA ICD Code: C61 - Malignant neoplasm of prostate (3) UTI (urinary tract infection) ICD Code: N39.0 - Urinary tract infection, site not specified (4) Thoracic compression fracture ICD Code: S22.000A - Wedge compression fracture of unspecified thoracic vertebra, initial encounter for closed fracture (5) QUIQUE (acute kidney injury) ICD Code: N17.9 - Acute kidney failure, unspecified Assessment and Plan 86-year-old male with: Metastatic Prostate CA: h/o Prostate CA s/p Prostatectomy per records, now w/ significant back/abdominal pain. CT Abd/Pelvis w/ abnormal left ureter associated with abnormal left side of bladder suggestive of metastatic prostate CA. Oncology consulted, will await further evaluation/recommendations. Urology following, recommend condom cath and bone scan. PSA 11.5. - Bone scan revealed widespread bony metastasis. I discussed this findings with the patient's at bedside. She is eager to learn possible options but also appeared to be open to the idea of comfort care and hospice as patient previously told her to let them in peace at home. He is becoming more debilitated and is doing less and less. He had unintentional weight loss of about 40 pounds per his . -d/w Dr. Varela ff- need to have cystoscopy . done- -Urology consulted for cystoscopy and biopsy- not until next week Pathologic T9 Compression Fracture: Thoracic X-ray with probable minimal compression fracture at T9. TLSO, pain is currently controlled. Continue pain meds as needed. PT as tolerated. UTI: U/a w/ significant UTI, on Zyvox per ID. QUIQUE: - non oliguric . creatiine improved- decrease IVF rate ff BMP Nausea/Vomiting: Improved. Continue antiemetics. Zofran and Phenergan as needed. - IVF. Monitor. CT abdomen noted. MOnitor po intake Deocnditoning- PT daily DVT Prophylaxis: SQ heparin. CM - DC planning- SNF- unable to care for him Lee Fisher MD Oct 19, 2017 14:21
[2017-10-19 16:00] VITALS: BP 107/56; PULSE 67; RESP 22; TEMP 97.9; O2SAT 98
[2017-10-19 16:01] LABS: CALCIUM 8.8 MG/DL (8.5-10.1); CREATININE 1.02 MG/DL (0.60-1.30)
[2017-10-19 20:00] VITALS: BP 122/74; PULSE 72; RESP 18; TEMP 98.2; O2SAT 98
[2017-10-19] MEDS: ATORVASTATIN 10 MG TAB PO SCH (20:45)
[2017-10-19] MEDS: POTASSIUM CHLORIDE 10 MEQ CONTROLLED RELEASE TAB PO SCH (20:45)
[2017-10-20] VITALS: BP 108/58; PULSE 70; RESP 18; TEMP 97.7; O2SAT 95
[2017-10-20 04:00] VITALS: BP 117/65; PULSE 71; RESP 18; TEMP 97.5; O2SAT 94
[2017-10-20 05:46] LABS: BICARBONATE 19.4 MEQ/L (21.0-32.0); CALCIUM 8.5 MG/DL (8.5-10.1); CREATININE 0.99 MG/DL (0.60-1.30)
[2017-10-20] MEDS: HEPARIN SODIUM - SQ 10,000 UNITS/ML VIAL SQ SCH ×3 (06:07→22:49)
[2017-10-20 08:13] VITALS: BP 118/66; PULSE 70; RESP 18; TEMP 97.6; O2SAT 92
[2017-10-20] MEDS: LINEZOLID 600 MG TAB PO SCH ×2 (10:40→21:02)
[2017-10-20] MEDS: POTASSIUM CHLORIDE 10 MEQ CONTROLLED RELEASE TAB PO SCH ×2 (10:40→21:02)
[2017-10-20] MEDS: DOCUSATE SODIUM 50 MG/SENNA 8.6 MG TAB PO SCH ×2 (10:41→21:02)
[2017-10-20] MEDS: PANTOPRAZOLE SOD 20 MG DELAYED RELEASE TAB PO SCH ×2 (10:41→21:03)
[2017-10-20] MEDS: amLODIPine BESYLATE 5 MG TAB PO SCH (10:41)
[2017-10-20] MEDS: METOPROLOL TARTRATE 50 MG TAB PO SCH ×2 (10:42→21:02)
--- NOTE | 2017-10-20 10:55 | HHI.PR ---
Subjective Remarks no complains seen with family at bedside- very supportive no gross hematuria Objective Vitals Vital Signs Date Time Temp Pulse Resp B/P (MAP) Pulse Ox O2 Delivery O2 Flow Rate FiO2 10/20/17 04:00 97.5 71 18 117/65 (82) 94 10/20/17 00:00 97.7 70 18 108/58 (75) 95 10/19/17 20:00 98.2 72 18 122/74 (90) 98 10/19/17 16:00 97.9 67 22 107/56 (73) 98 10/19/17 12:00 97.9 73 22 125/64 (84) 98 I/O 10/19/17 10/19/17 10/19/17 10/20/17 10/20/17 10/20/17 07:00 15:00 23:00 07:00 15:00 23:00 Intake Total 240 ml 1480 ml 480 ml Output Total 900 ml 650 ml 800 ml Balance -660 ml 830 ml -320 ml Intake Oral 240 ml 480 ml 480 ml IV Total 1000 ml Output Urine Total 900 ml 650 ml 800 ml Result Diagram: 10/17/17 0830 10/20/17 0504 Imaging Last Impressions Renal Ultrasound 10/17/17 0000 Signed Impressions: Service Date/Time: Tuesday, October 17, 2017 13:36 - CONCLUSION: Normal examination. Jorge Spangler MD Bone Scan Nuclear Medicine 10/15/17 0000 Signed Impressions: Service Date/Time: Sunday, October 15, 2017 12:30 - CONCLUSION: 1. Widespread osseous metastatic disease characteristic of metastatic prostate carcinoma Florencio Riley MD Thoracic Spine X-Ray 10/12/17 1146 Signed Impressions: Service Date/Time: Thursday, October 12, 2017 12:08 - CONCLUSION: Probable minimal compression at T9. Edd Chavez MD FACR Lumbar Spine X-Ray 10/12/17 1146 Signed Impressions: Service Date/Time: Thursday, October 12, 2017 12:10 - CONCLUSION: Mild degenerative changes. 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 Edd Chavez MD FACR Objective Remarks awake and alert anicteric lungs- no rales, no wheezes regular rhythm abdomen- soft, + colostomy bag with liquid stools extremities no edema A/P Problem List: 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 ICD Code: M84.58XA - Pathological fracture in neoplastic disease, other specified site, initial encounter for fracture (2) Prostate CA ICD Code: C61 - Malignant neoplasm of prostate (3) UTI (urinary tract infection) ICD Code: N39.0 - Urinary tract infection, site not specified (4) Thoracic compression fracture ICD Code: S22.000A - Wedge compression fracture of unspecified thoracic vertebra, initial encounter for closed fracture (5) QUIQUE (acute kidney injury) ICD Code: N17.9 - Acute kidney failure, unspecified Assessment and Plan 86-year-old male with: Metastatic Prostate CA: h/o Prostate CA s/p Prostatectomy per records, now w/ significant back/abdominal pain. CT Abd/Pelvis w/ abnormal left ureter associated with abnormal left side of bladder suggestive of metastatic prostate CA. - Oncology ff. . Urology following, recommend condom cath and bone scan. PSA 11.5. - Bone scan revealed widespread bony metastasis. I discussed this findings with the patient's at bedside. She is eager to learn possible options but also appeared to be open to the idea of comfort care and hospice as patient previously told her to let them in peace at home. He is becoming more debilitated and is doing less and less. He had unintentional weight loss of about 40 pounds per his . -d/w Dr. Varela ff- need to have cystoscopy . done- -Urology consulted for cystoscopy and biopsy- not until next week -d/w family - get speech therapy for cognitive and swallowing - get a Head CT Pathologic T9 Compression Fracture: Thoracic X-ray with probable minimal compression fracture at T9. TLSO, pain is currently controlled. Continue pain meds as needed. PT as tolerated. UTI: U/a w/ significant UTI, on Zyvox per ID. QUIQUE: - non oliguric . creatiine improved- decrease IVF rate ff BMP Nausea/Vomiting: Improved. Continue antiemetics. Zofran and Phenergan as needed. - IVF. Monitor. CT abdomen noted. MOnitor po intake - glass sander consult - speech therapy consult Deocnditoning- PT daily DVT Prophylaxis: SQ heparin. CM - DC planning- SNF- unable to care for him Lee Fisher MD Oct 20, 2017 10:55
[2017-10-20 12:13] VITALS: BP 122/73; PULSE 87; RESP 18; TEMP 98; O2SAT 99
[2017-10-20] MEDS: SODIUM CHLORIDE 0.9% FLUSH 10 ML FLUSH IV FLUSH SCH ×2 (13:25→21:02)
[2017-10-20] MEDS: ACETAMINOPHEN/HYDROcodone 325 MG/10 MG TAB PO PRN (13:25)
[2017-10-20 16:13] VITALS: BP 124/72; PULSE 82; RESP 18; TEMP 98.1; O2SAT 100
[2017-10-20] MEDS: DEXT 5%-NACL 0.45% 1000 ML INJ 1,000 ML IV SCH (18:01)
[2017-10-20 20:00] VITALS: BP 136/62; PULSE 67; RESP 20; TEMP 98.6; O2SAT 94
[2017-10-20] MEDS: CLOTRIMAZOLE 1% CREAM 15 GM TOPICAL SCH (21:02)
[2017-10-20] MEDS: ATORVASTATIN 10 MG TAB PO SCH (21:03)
--- NOTE | 2017-10-20 23:17 | RADRPT ---
EXAM DATE/TIME: 10/20/2017 22:54 [facility] COMPARISON: BONE SCAN (WHOLE BODY), October 15, 2017, 12:30. INDICATIONS : Altered mental status. RADIATION DOSE: 56.35 CTDIvol (mGy) MEDICAL HISTORY : Cardiovascular disease. Hypertension. Carcinoma, prostate.Colon cancer SURGICAL HISTORY : Prostatectomy. Colostomy. ENCOUNTER: Initial ACUITY: 1 day PAIN SCALE: 0/10 LOCATION: cranial TECHNIQUE: Multiple contiguous axial images were obtained of the head. Using automated exposure control and adj ustment of the mA and/or kV according to patient size, radiation dose was kept as low as reasonably a chievable to obtain optimal diagnostic quality images. DICOM format image data is available electro nically for review and comparison. FINDINGS: CEREBRUM: The ventricles, sulci, and basal cisterns are prominent, characteristic of moderate severity central and cortical atrophy. Lacunar infarct in the inferior left external capsule. Prior occipital infarc tion in the parasagittal the convexity right occipital lobe with ex vacuo enlargement of the occipita l horn. No evidence of acute infarction, acute blood products, or extra-axial fluid. The suprasella r region is grossly unremarkable. POSTERIOR FOSSA: The cerebellum and brainstem are intact. The 4th ventricle is midline. The cerebellopontine angle i s unremarkable. EXTRACRANIAL: The visualized portion of the orbits is intact. SKULL: 1.3 cm lesion in the left supraorbital bone with a thin sclerotic rim and some internal matrix, corre lates with an osteoblastic lesion seen on recent bone scan. Bone scan had also demonstrated intense area of uptake in the high convexity right frontal region. There is no lytic or sclerotic calvarial lesions, but there is a focal area of thickening of the scalp measuring 10 x 5 mm, best seen on axial image #22 which is located approximately same area as the uptake films. The calvaria is intact. No evidence of skull fracture. CONCLUSION: 1. Severe central and cortical atrophy. 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 2. 2 hot lesions were seen on recent bone scan in the region of the skull. There is a mixed lytic an d sclerotic lesion in the left sphenoid bone and should region correlating with one of the lesions. No osseous lesion seen in the right frontal bone to correlate with the other area, but there is a 10 mm soft tissue nodule in the scalp which could potentially correlate with the 2nd area increased upta ke on the bone scan. Gustavo Murillo MD on October 20, 2017 at 23:07 Board Certified Radiologist. This report was verified electronically.
[2017-10-21] VITALS (7 sets, daily range): BP systolic 103–134; BP diastolic 57–68; PULSE 66–80; RESP 19–20; TEMP 97.4–99; O2SAT 94–99
[2017-10-21] MEDS: HEPARIN SODIUM - SQ 10,000 UNITS/ML VIAL SQ SCH ×3 (06:06→23:54)
[2017-10-21] MEDS: POTASSIUM CHLORIDE 10 MEQ CONTROLLED RELEASE TAB PO SCH ×2 (09:28→21:03)
[2017-10-21] MEDS: DOCUSATE SODIUM 50 MG/SENNA 8.6 MG TAB PO SCH ×2 (09:28→21:02)
[2017-10-21] MEDS: amLODIPine BESYLATE 5 MG TAB PO SCH (09:28)
[2017-10-21] MEDS: METOPROLOL TARTRATE 50 MG TAB PO SCH ×2 (09:28→21:02)
[2017-10-21] MEDS: LINEZOLID 600 MG TAB PO SCH ×2 (09:28→21:03)
[2017-10-21] MEDS: PANTOPRAZOLE SOD 20 MG DELAYED RELEASE TAB PO SCH ×2 (09:28→21:02)
[2017-10-21] MEDS: SODIUM CHLORIDE 0.9% FLUSH 10 ML FLUSH IV FLUSH SCH ×2 (09:28→21:00)
[2017-10-21] MEDS: CLOTRIMAZOLE 1% CREAM 15 GM TOPICAL SCH ×2 (09:38→21:03)
[2017-10-21] MEDS: ACETAMINOPHEN/HYDROcodone 325 MG/10 MG TAB PO PRN ×2 (10:53→21:03)
--- NOTE | 2017-10-21 13:16 | HHI.PR ---
Subjective Remarks awake and alert no complains of back pain or headaches voiding spontaneously- grossly clear urine Objective Vitals Vital Signs Date Time Temp Pulse Resp B/P (MAP) Pulse Ox O2 Delivery O2 Flow Rate FiO2 10/21/17 09:25 74 20 116/58 (77) 95 10/21/17 08:06 98.0 80 20 128/62 (84) 94 10/21/17 04:00 97.4 74 19 121/68 (85) 96 10/21/17 00:00 97.5 79 19 134/60 (84) 99 10/20/17 20:00 98.6 67 20 136/62 (86) 94 10/20/17 20:00 Room Air 10/20/17 16:13 98.1 82 18 124/72 (89) 100 I/O 10/20/17 10/20/17 10/20/17 10/21/17 10/21/17 10/21/17 07:00 15:00 23:00 07:00 15:00 23:00 Intake Total 480 ml 760 ml 240 ml Output Total 800 ml 500 ml 1200 ml Balance -320 ml 260 ml -960 ml Intake Oral 480 ml 340 ml 240 ml IV Total 420 ml Output Urine Total 800 ml 500 ml 1200 ml # Bowel Movements 0 0 Result Diagram: 10/17/17 0830 10/20/17 0504 Imaging Last Impressions Head CT 10/20/17 0000 Signed Impressions: Service Date/Time: Friday, October 20, 2017 22:54 - CONCLUSION: 1. Severe central and cortical atrophy. 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 2. 2 hot lesions were seen on recent bone scan in the region of the skull. There is a mixed lytic and sclerotic lesion in the left sphenoid bone and should region correlating with one of the lesions. No osseous lesion seen in the right frontal bone to correlate with the other area, but there is a 10 mm soft tissue nodule in the scalp which could potentially correlate with the 2nd area increased uptake on the bone scan. Gustavo Murillo MD Renal Ultrasound 10/17/17 0000 Signed Impressions: Service Date/Time: Tuesday, October 17, 2017 13:36 - CONCLUSION: Normal examination. Jorge Spangler MD Bone Scan Nuclear Medicine 10/15/17 0000 Signed Impressions: Service Date/Time: Sunday, October 15, 2017 12:30 - CONCLUSION: 1. Widespread osseous metastatic disease characteristic of metastatic prostate carcinoma Florencio Riley MD Thoracic Spine X-Ray 10/12/17 1146 Signed Impressions: Service Date/Time: Thursday, October 12, 2017 12:08 - CONCLUSION: Probable minimal compression at T9. Edd Chavez MD FACR Lumbar Spine X-Ray 10/12/17 1146 Signed Impressions: Service Date/Time: Thursday, October 12, 2017 12:10 - CONCLUSION: Mild degenerative changes. 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 Edd Chavez MD FACR Objective Remarks awake and alert anicteric lungs- no rales, no wheezes regular rhythm abdomen- soft, + colostomy bag with liquid stools extremities no edema A/P Problem List: 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 ICD Code: M84.58XA - Pathological fracture in neoplastic disease, other specified site, initial encounter for fracture (2) Prostate CA ICD Code: C61 - Malignant neoplasm of prostate (3) UTI (urinary tract infection) ICD Code: N39.0 - Urinary tract infection, site not specified (4) Thoracic compression fracture ICD Code: S22.000A - Wedge compression fracture of unspecified thoracic vertebra, initial encounter for closed fracture (5) QUIQUE (acute kidney injury) ICD Code: N17.9 - Acute kidney failure, unspecified Assessment and Plan 86-year-old male with: Metastatic Prostate CA: h/o Prostate CA s/p Prostatectomy per records, now w/ significant back/abdominal pain. CT Abd/Pelvis w/ abnormal left ureter associated with abnormal left side of bladder suggestive of metastatic prostate CA. Head CT with bone mets 10/20 - Oncology ff. . Urology following, recommend condom cath and bone scan. PSA 11.5. - Bone scan revealed widespread bony metastasis. I discussed this findings with the patient's at bedside. She is eager to learn possible options but also appeared to be open to the idea of comfort care and hospice as patient previously told her to let them in peace at home. He is becoming more debilitated and is doing less and less. He had unintentional weight loss of about 40 pounds per his . -d/w Dr. Varela ff- need to have cystoscopy . done- -Urology consulted for cystoscopy and biopsy- hopefully can be done this week -d/w family -speech therapy for cognitive and swallowing- mechanical soft diet- doing well Pathologic T9 Compression Fracture: Thoracic X-ray with probable minimal compression fracture at T9. TLSO, pain is currently controlled. Continue pain meds as needed. PT as tolerated. UTI: U/a w/ significant UTI, on Zyvox per ID.till 10/26 QUIQUE: - non oliguric . creatiine improved- ff BMP Nausea/Vomiting: Improved. Continue antiemetics. Zofran and Phenergan as needed. - IVF. Monitor. CT abdomen noted. MOnitor po intake - nutritionis ff - speech therapy ff Deocnditoning- PT daily DVT Prophylaxis: SQ heparin. CM - DC planning- SNF- unable to care for him- will need SNF Lee Fisher MD Oct 21, 2017 13:16
[2017-10-21] MEDS: DEXT 5%-NACL 0.45% 1000 ML INJ 1,000 ML IV SCH (17:23)
[2017-10-21] MEDS: ATORVASTATIN 10 MG TAB PO SCH (21:02)
[2017-10-22] VITALS: BP 120/50; PULSE 64; RESP 19; TEMP 98.9; O2SAT 97
[2017-10-22 04:00] VITALS: BP 115/53; PULSE 65; RESP 16; TEMP 97.4; O2SAT 98
[2017-10-22] MEDS: HEPARIN SODIUM - SQ 10,000 UNITS/ML VIAL SQ SCH ×3 (06:35→22:46)
[2017-10-22 08:00] VITALS: BP 113/56; PULSE 61; RESP 18; TEMP 97.9; O2SAT 98
[2017-10-22] MEDS: METOPROLOL TARTRATE 50 MG TAB PO SCH ×2 (08:51→20:56)
[2017-10-22] MEDS: PANTOPRAZOLE SOD 20 MG DELAYED RELEASE TAB PO SCH ×2 (08:51→20:56)
[2017-10-22] MEDS: amLODIPine BESYLATE 5 MG TAB PO SCH (08:51)
[2017-10-22] MEDS: DOCUSATE SODIUM 50 MG/SENNA 8.6 MG TAB PO SCH ×2 (08:51→20:56)
[2017-10-22] MEDS: LINEZOLID 600 MG TAB PO SCH ×2 (08:51→20:56)
[2017-10-22] MEDS: SODIUM CHLORIDE 0.9% FLUSH 10 ML FLUSH IV FLUSH SCH ×2 (09:00→20:56)
[2017-10-22] MEDS: CLOTRIMAZOLE 1% CREAM 15 GM TOPICAL SCH ×2 (09:00→20:56)
[2017-10-22] MEDS: POTASSIUM CHLORIDE 10 MEQ CONTROLLED RELEASE TAB PO SCH ×2 (10:41→20:56)
[2017-10-22 12:00] VITALS: BP 110/53; PULSE 67; RESP 18; TEMP 98.2; O2SAT 96
[2017-10-22 16:00] VITALS: BP 123/51; PULSE 67; RESP 18; TEMP 97.6; O2SAT 97
[2017-10-22] MEDS: ATORVASTATIN 10 MG TAB PO SCH (20:55)
[2017-10-22] MEDS: ACETAMINOPHEN/HYDROcodone 325 MG/10 MG TAB PO PRN (20:56)
[2017-10-22 21:35] VITALS: BP 115/55; PULSE 84; RESP 16; TEMP 98.2; O2SAT 99
[2017-10-23 00:15] VITALS: BP 115/55; PULSE 60; RESP 16; TEMP 97.7; O2SAT 99
[2017-10-23 05:15] VITALS: BP 117/56; PULSE 62; RESP 16; TEMP 97.8; O2SAT 96
[2017-10-23] MEDS: HEPARIN SODIUM - SQ 10,000 UNITS/ML VIAL SQ SCH ×3 (06:43→23:21)
[2017-10-23 08:00] VITALS: BP 115/55; PULSE 64; RESP 18; TEMP 98.4; O2SAT 99
[2017-10-23] MEDS: CLOTRIMAZOLE 1% CREAM 15 GM TOPICAL SCH ×2 (09:00→20:08)
[2017-10-23] MEDS: PANTOPRAZOLE SOD 20 MG DELAYED RELEASE TAB PO SCH ×2 (09:14→20:07)
[2017-10-23] MEDS: METOPROLOL TARTRATE 50 MG TAB PO SCH ×2 (09:14→20:08)
[2017-10-23] MEDS: LINEZOLID 600 MG TAB PO SCH ×2 (09:14→20:07)
[2017-10-23] MEDS: SODIUM CHLORIDE 0.9% FLUSH 10 ML FLUSH IV FLUSH SCH ×2 (09:15→20:08)
[2017-10-23] MEDS: DOCUSATE SODIUM 50 MG/SENNA 8.6 MG TAB PO SCH ×2 (09:15→20:07)
[2017-10-23] MEDS: POTASSIUM CHLORIDE 10 MEQ CONTROLLED RELEASE TAB PO SCH ×2 (09:15→20:07)
[2017-10-23] MEDS: amLODIPine BESYLATE 5 MG TAB PO SCH (09:15)
[2017-10-23 12:00] VITALS: BP 103/57; PULSE 66; RESP 18; TEMP 98; O2SAT 99
[2017-10-23 16:00] VITALS: BP 108/57; PULSE 75; RESP 19; TEMP 98.1; O2SAT 99
--- NOTE | 2017-10-23 18:21 | HHI.PR ---
Subjective Remarks Follow-up UTI, metastatic prostate cancer. The patient has no complaints at this time. He denies chest pain, dyspnea, nausea, vomiting. Objective Vitals Vital Signs Date Time Temp Pulse Resp B/P (MAP) Pulse Ox O2 Delivery O2 Flow Rate FiO2 10/23/17 16:00 98.1 75 19 108/57 (74) 99 10/23/17 12:00 98.0 66 18 103/57 (72) 99 10/23/17 12:00 99 Room Air 10/23/17 10:07 99 Room Air 10/23/17 08:00 98.4 64 18 115/55 (75) 99 10/23/17 05:15 97.8 62 16 117/56 (76) 96 10/23/17 04:00 Room Air 10/23/17 00:15 97.7 60 16 115/55 (75) 99 10/23/17 00:00 Room Air 10/22/17 21:35 98.2 84 16 115/55 (75) 99 10/22/17 20:00 Room Air I/O 10/22/17 10/22/17 10/22/17 10/23/17 10/23/17 10/23/17 06:59 14:59 22:59 06:59 14:59 22:59 Intake Total 240 ml 480 ml 0 ml Output Total 600 ml 250 ml Balance -360 ml 480 ml -250 ml Intake Oral 240 ml 480 ml 0 ml Output Urine Total 600 ml 250 ml # Voids 1 2 # Bowel Movements 0 0 Result Diagram: 10/20/17 0504 Imaging Last Impressions Head CT 10/20/17 0000 Signed Impressions: Service Date/Time: Friday, October 20, 2017 22:54 - CONCLUSION: 1. Severe central and cortical atrophy. 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 2. 2 hot lesions were seen on recent bone scan in the region of the skull. There is a mixed lytic and sclerotic lesion in the left sphenoid bone and should region correlating with one of the lesions. No osseous lesion seen in the right frontal bone to correlate with the other area, but there is a 10 mm soft tissue nodule in the scalp which could potentially correlate with the 2nd area increased uptake on the bone scan. Gustavo Murillo MD Renal Ultrasound 10/17/17 0000 Signed Impressions: Service Date/Time: Tuesday, October 17, 2017 13:36 - CONCLUSION: Normal examination. Jorge Spanlger MD Bone Scan Nuclear Medicine 10/15/17 0000 Signed Impressions: Service Date/Time: Sunday, October 15, 2017 12:30 - CONCLUSION: 1. Widespread osseous metastatic disease characteristic of metastatic prostate carcinoma Florencio Riley MD Thoracic Spine X-Ray 10/12/17 1146 Signed Impressions: Service Date/Time: Thursday, October 12, 2017 12:08 - CONCLUSION: Probable minimal compression at T9. Edd Chavez MD FACR Lumbar Spine X-Ray 10/12/17 1146 Signed Impressions: Service Date/Time: Thursday, October 12, 2017 12:10 - CONCLUSION: Mild degenerative changes. 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 Edd Chavez MD FACR Objective Remarks General: Elderly male in no acute distress. Hard of hearing. Heart: Regular rate and rhythm. No murmur. Lungs: Clear to auscultation bilaterally. No wheezes, rales, or rhonchi. Breathing is nonlabored. Abdomen: Soft, nontender, nondistended. Colostomy. Extremities: No lower extremity edema. Psych: Alert and oriented. Neuro: Normal speech. No focal deficits noted. 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 Metastatic prostate cancer: Per oncology recommendations, urology has been reconsulted for cystoscopy with biopsy. Bone scan revealed widespread bony metastases. 2. Pathologic T9 compression fracture: TLSO brace. Pain is controlled. Continue PT/OT. 3. UTI: Appreciate infectious disease recommendations. Urine culture growing MRSA. Continue Zyvox until 10/26/17. 4. Acute kidney injury: Nonoliguric. Creatinine improved. 5. Deconditioning: Continue physical therapy, occupational therapy. 6. DVT prophylaxis: Heparin. 7. Consult palliative care for assistance with clarification of goals of care. Discharge Planning Patient will need SNF at discharge. Jaspal Sepulveda MD October 23, 2017 18:21
[2017-10-23] MEDS: ATORVASTATIN 10 MG TAB PO SCH (20:08)
[2017-10-23 21:30] VITALS: BP 121/59; PULSE 71; RESP 16; TEMP 97.6; O2SAT 99
[2017-10-24] VITALS (7 sets, daily range): BP systolic 113–129; BP diastolic 48–66; PULSE 65–77; RESP 16–20; TEMP 97.7–98.3; O2SAT 94–99
[2017-10-24] MEDS: ACETAMINOPHEN/HYDROcodone 325 MG/10 MG TAB PO PRN (05:19)
[2017-10-24] MEDS: HEPARIN SODIUM - SQ 10,000 UNITS/ML VIAL SQ SCH ×3 (05:23→23:00)
[2017-10-24] MEDS: amLODIPine BESYLATE 5 MG TAB PO SCH (09:00)
[2017-10-24] MEDS: CLOTRIMAZOLE 1% CREAM 15 GM TOPICAL SCH ×2 (09:00→21:00)
[2017-10-24] MEDS: LINEZOLID 600 MG TAB PO SCH ×2 (09:00→21:57)
[2017-10-24] MEDS: POTASSIUM CHLORIDE 10 MEQ CONTROLLED RELEASE TAB PO SCH ×2 (10:19→21:57)
[2017-10-24] MEDS: METOPROLOL TARTRATE 50 MG TAB PO SCH ×2 (10:19→21:00)
[2017-10-24] MEDS: DOCUSATE SODIUM 50 MG/SENNA 8.6 MG TAB PO SCH ×2 (10:19→21:57)
[2017-10-24] MEDS: PANTOPRAZOLE SOD 20 MG DELAYED RELEASE TAB PO SCH ×2 (10:19→21:57)
[2017-10-24] MEDS: SODIUM CHLORIDE 0.9% FLUSH 10 ML FLUSH IV FLUSH SCH (10:21)
--- NOTE | 2017-10-24 10:54 | PD.CONS ---
Consult Service Palliative Care Consult Requested By Dr. Sepulveda . Primary Care Physician Stephani Rodriguez MD Reason for Consultation a. To assist with evaluation and management of symptoms including: Pain, debility b. To assist medical decision maker(s) with: better understanding of current medical conditions; weighing benefits/burdens of medical treatment options; making medical treatment decisions. HPI History of Present Illness Mr. Nuñez is a 86 years old male with a past medical history significant for colorectal cancer, prostate cancer with biochemical relapse, chronic atrial fibrillation, gout, hypertension, chronic renal insufficiency, recurrent urinary tract infections, hyperlipidemia, mild anemia and GERD. Patient presented to the ER on 10/12/17 with complaints of worsening back and abdominal pain for several days. Patient was diagnosed with prostate cancer in 1998 and is status post radical retropubic prostatectomy and then received subsequent radiation for a biochemical recurrence in 2003. Patient follows with Dr. Richards outpatient. ER course: * Vital signs: Temperature 98.6, BP 127/77, heart rate 94, O2 saturation 96% on room * Laboratory workup revealed WBC 14.0, hemoglobin 10.9, hematocrit 32.1, platelet count 381, sodium 136, potassium 4.0, BUN/creatinine 14/1.51, calcium 9.8, AST 21, ALT 1 6, alkaline phosphatase 186, total protein 7.7, albumin 2.9 * Urinalysis positive for large leukocyte esterase, culture positive for S. aureus MRSA * Blood cultures negative * Abdomen/pelvis CT revealed abnormal left ureter associated with the abnormal left side of the bladder and trigone. Findings suggestive of metastatic prostate cancer to the spine. Cholecystectomy with small annular dilatation of the ascending aorta. * Lumbar spine x-ray revealed mild degenerative changes. * Thoracic spine x-ray revealed probable minimal compression at T9 * Patient admitted for further evaluation and treatment [facility] disease Dr. Byod consulted on 10/14/17 to evaluate patient with MRSA in the urine. Urology Dr. Hess consulted on 10/14/17 to evaluate patient with possible metastatic cancer, methicillin resistant Staphylococcus aureus urinary tract infection, recommended bone scan to further characterize possible metastatic lesions in patient and cystoscopy and retrograde pyelogram which can be done outpatient. Bone scan on 10/15/17 revealed widespread osseous metastatic disease characteristic of metastatic prostate carcinoma. Patient ordered to have thoracic lumbosacral orthosis (TLSO brace). Oncology Dr. Varela consulted on 10/16/17, recommended cystoscopy and biopsy to make diagnosis of the primary. Renal ultrasound on 10/17- speech therapy consulted recommended mechanical soft diet with thin liquids. Repeat urine culture on showing no growth in [address] on 10/20 revealed severe central and cortical atrophy. 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 2 hot lesions noted on recent bone scan in the region of the skull. There is a mixed lytic and sclerotic lesion in the left sphenoid point and should region correlating with 1 of the lesions. No osseous lesions seen in the right frontal bone to correlate with the other area but the is a 10 mm soft tissue nodule in the scalp which could potentially correlate with the second area of increased uptake on the bone scan. Physical therapy consulted, recommended home health PT. OT consulted, recommended rehabilitation. Palliative care consulted on 10/23/17 to assist with symptom management and establishment of goals of care. Patient seen and examined in the presence of his Stella Nuñez on CIC. Patient is awake, alert, oriented to self, place and situation. Patient is very hard of hearing. Patient is able to follow simple commands. Currently denies pain. Vital signs stable. Obtained psychosocial, reviewed past medical history and events leading to this hospitalization. Discussed trajectory of decline in the past 3 years. Most of the conversation done with patient's at bedside since patient is hard of hearing. Patient`s has a clear understanding of her husbands past medical history and current findings. Patient has a Durable Power of Credit Support Counselor and living will and patient's spouse Stella Nuñez is named is the [facility]. Addressed code status, discussed CPR limitations, complications and benefits, patient elected do not resuscitate and do not intubate. Patient's supportive of his decision and stated that patient is always told her that he would never want to be connected to any machines. Reviewed diagnostic tests that has been done so far and the results. Introduced hospice philosophy and benefits. At this time patient with the support of his is willing to pursue palliation therapy if offered by oncology and patient`s understands that patient may not do well and at that time they will consider transitioning to comfort care only through hospice. Patient and his are amenable to diagnostic cystoscopy and biopsy to determine diagnosis of the primary. Patient`s wants an update regarding what the plan is regarding cystoscopy and biopsy. Bedside RN has placed a call to Dr. Hess to notify him. . Function/Cognitive Trajectory Patient lives at home with his and in the past 3 years patient has significantly declined health samano. Patient has a hospital bed, shower chair, wheelchair and walker at home. Patient requires assistance with most of his ADLs. Ambulates with a rolling walker. Patient is incontinent of urine. Patient is hard of hearing but able to verbalize his needs. reported unintentional weight loss of about 50 pounds in a period of 2-3 months. also reported that patient is becoming more debilitated, he can only ambulate within the house and spends most of the time in bed or sitting in a recliner. . Review of Systems ROS Limitations: Other (very hard of hearing ) Constitutional: COMPLAINS OF: Weight loss, Pain (back pain), Generalized weakness Eyes: DENIES: Eye inflammation Ears, nose, mouth, throat: DENIES: Nasal discharge Respiratory: DENIES: Cough, Shortness of breath Cardiovascular: DENIES: Chest pain Gastrointestinal: COMPLAINS OF: Nausea Genitourinary: COMPLAINS OF: Urinary incontinence Musculoskeletal: COMPLAINS OF: Back pain Hematologic/Lymphatics: COMPLAINS OF: Bruising Neurologic: COMPLAINS OF: Poor Balance Other ROS: ROS obtained from EMR and patient`s Stella Nuñez. . Past Family Social History Coded Allergies: No Known Allergies (Verified , 03/08/17) Past Medical History Prostate cancer (dx 1998) s/p radical retropubic prostatectomy and s/p radiation for biochemical relapse in 2003 Colorectal Cancer s/p resection (2014) Provoked pulmonary embolism of Right lung (2014) Recurrent urinary tract infection Chronic atrial fibrillation Gout Gastroesophageal reflux Hyperlipidemia Hypertension Chronic renal insufficiency Esophageal stricture Previous pericarditis Episode of acute cholecystitis Mild anemia . Past Surgical History Cataract surgery Prostatectomy Cholecystectomy Left leg surgery Colectomy Abdominal perineal resection Previous esophageal dilatation . Reported Medications Oxygen (O2) Device Liter ROSE MARIE.CANULA CONTINUOUS Omeprazole 20 Mg Tab 20 Mg PO BID Amlodipine (Amlodipine Besylate) 5 Mg Tab 5 Mg PO DAILY Megestrol (Megestrol Acetate) 20 Mg Tab 20 Mg PO BID Atorvastatin (Atorvastatin Calcium) 10 Mg Tab 10 Mg PO HS Vitamin B-12 (Cyanocobalamin) 1,000 Mcg Tab 1,000 Mcg PO DAILY Vitamin D (Cholecalciferol) 2,000 Unit Cap 2,000 Mg PO DAILY Aspirin 81 Low Dose (Aspirin) 81 Mg Chew 81 Mg CHEW DAILY Allopurinol 300 Mg Tab 300 Mg PO DAILY Metoprolol Tartrate 50 Mg Tab 50 Mg PO BID . Current Medications Medications (Trade) Dose Ordered Sig/Thee Route Start Time Stop Time Status Last Admin (NS Flush) 2 ml UNSCH PRN IV FLUSH 10/12/17 16:15 10/14/17 11:59 (NS Flush) 2 ml BID IV FLUSH 10/12/17 21:00 10/23/17 20:08 (Zofran Inj) 4 mg Q6H PRN IVP 10/12/17 16:15 10/15/17 11:48 (Narcan Inj) 0.4 mg UNSCH PRN IV PUSH 10/12/17 16:15 (Le-Colace) 1 tab BID PO 10/12/17 21:00 10/23/17 20:07 (Milk Of Magnesia Liq) 30 ml Q12H PRN PO 10/12/17 16:15 (Senokot) 17.2 mg Q12H PRN PO 10/12/17 16:15 (Dulcolax Supp) 10 mg DAILY PRN RECTAL 10/12/17 16:15 (Lactulose Liq) 30 ml DAILY PRN PO 10/12/17 16:15 ([place] 5-325 Mg) 1 tab Q4H PRN PO 10/12/17 16:30 10/15/17 11:53 ([place] 10-325 Mg) 1 tab Q4H PRN PO 10/12/17 16:30 10/24/17 05:19 (Morphine Inj) 2 mg Q4H PRN IV PUSH 10/12/17 16:30 (Norvasc) 5 mg DAILY PO 10/13/17 09:00 10/23/17 09:15 (Lipitor) 10 mg HS PO 10/13/17 21:00 10/23/17 20:08 (Lopressor) 50 mg BID PO 10/13/17 09:00 10/23/17 20:08 (Protonix) 20 mg BID PO 10/13/17 09:00 10/23/17 20:07 (Lotrimin 1% Cream) 1 applic Q12HR TOPICAL 10/14/17 11:00 10/23/17 20:08 (Zyvox) 600 mg Q12HR PO 10/15/17 11:00 10/26/17 23:00 10/23/17 20:07 (Phenergan Inj) 25 mg Q6H PRN IM 10/15/17 15:45 10/15/17 16:47 (Heparin Inj) 5,000 units Q8H SQ 10/16/17 15:00 10/24/17 05:23 (KCl) 10 meq Q12HR PO 10/19/17 21:00 10/23/17 20:07 Family History Father -had prostate cancer Sister -had massive heart attack Another Sister -had massive heart attack and esophageal stricture Step brother - had heart disease . Substance Use Tobacco: Denies Alcohol: Drinks alcohol Prescription med abuse: Denies Illicits: Denies . Psychosocial History Psychosocial: Patient was born in [place], [place]. He moved to [place] 15 years ago. Patient served in the [employer] for 6 months. 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 Patient has been twice, once. He has been to his current Stella Nuñez for 19 years and they have known each other for 28 years. Patient his one adult daughter, Ann Escoto endocrine children. . Spiritual/Cultural Factors Patient is Yarsanism and attends lutheran. Jehovah'S Witness is not been a big part of his life. . Living Will: Copy in medical record Durable Power of Credit Support Counselor: Copy in medical record Date completed: Living will-signed November, DURABLE POWER [employer]ICE [employer]-signed Ethical and Legal Issues None identified at this time . Physical Exam Vital Signs Date Time Temp Pulse Resp B/P (MAP) Pulse Ox O2 Delivery O2 Flow Rate FiO2 10/24/17 05:10 97.8 69 16 119/58 (78) 99 10/24/17 04:00 Room Air 10/24/17 00:47 97.9 74 16 113/57 (75) 99 10/24/17 00:00 Room Air 10/23/17 21:30 97.6 71 16 121/59 (79) 99 10/23/17 20:00 Room Air 10/23/17 16:00 98.1 75 19 108/57 (74) 99 10/23/17 12:00 98.0 66 18 103/57 (72) 99 10/23/17 12:00 99 Room Air 10/23/17 10:07 99 Room Air Exam CONSTITUTIONAL/GENERAL: This is an elderly, chronically ill looking patient, in no apparent distress. TUBES/LINES/DRAINS:Colostomy, PIV. Senior catheter SKIN: No jaundice, rashes, or lesions. Ecchymoses on upper extremities. No wounds seen anteriorly. Skin temperature appropriate. Not diaphoretic. HEAD: Atraumatic. Normocephalic. EYES: PERRLA. Extraocular motions intact. Fundi not examined. ENT: Very hard of hearing. Nose without bleeding or purulent drainage. moist oral mucosa NECK: Trachea midline. Supple, nontender. CARDIOVASCULAR: S1, S2 normal, no gallops, or rubs. No JVD. Peripheral pulses symmetric. RESPIRATORY/CHEST: Symmetric, unlabored respirations. Diminished breath sounds. No wheezes, rales, or rhonchi. GASTROINTESTINAL: Abdomen soft, non-tender, nondistended. Left colostomy. No guarding. Active bowel sounds GENITOURINARY: Without palpable bladder distension. Senior catheter in place. MUSCULOSKELETAL: Extremities without clubbing, cyanosis, or edema. No joint tenderness or effusion noted. No mottling or clubbing. NEUROLOGICAL: Awake and alert. Follows simple commands. Moves all extremities. Patient limited due to hard of hearing PSYCHIATRIC: No obvious anxiety/depression. no apparent hallucinations or other psychotic thought process. Diagnostic Tests Laboratory Result Diagram: 10/20/17 0504 Microbiology 10/12/17-Staphylococcus aureus MRSA in urine . Imaging Last Impressions Head CT 10/20/17 0000 Signed Impressions: Service Date/Time: Friday, October 20, 2017 22:54 - CONCLUSION: 1. Severe central and cortical atrophy. 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 2. 2 hot lesions were seen on recent bone scan in the region of the skull. There is a mixed lytic and sclerotic lesion in the left sphenoid bone and should region correlating with one of the lesions. No osseous lesion seen in the right frontal bone to correlate with the other area, but there is a 10 mm soft tissue nodule in the scalp which could potentially correlate with the 2nd area increased uptake on the bone scan. Gustavo Murillo MD Renal Ultrasound 10/17/17 0000 Signed Impressions: Service Date/Time: Tuesday, October 17, 2017 13:36 - CONCLUSION: Normal examination. Jorge Spangler MD Bone Scan Nuclear Medicine 10/15/17 0000 Signed Impressions: Service Date/Time: Sunday, October 15, 2017 12:30 - CONCLUSION: 1. Widespread osseous metastatic disease characteristic of metastatic prostate carcinoma Florencio Riley MD Thoracic Spine X-Ray 10/12/17 1146 Signed Impressions: Service Date/Time: Thursday, October 12, 2017 12:08 - CONCLUSION: Probable minimal compression at T9. Edd Chavez MD FACR Lumbar Spine X-Ray 10/12/17 1146 Signed Impressions: Service Date/Time: Thursday, October 12, 2017 12:10 - CONCLUSION: Mild degenerative changes. 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 Edd Chavez MD FACR Patient/Family Conference Present at Family Conference: Patient's spouse, Stella Nuñez . Family Conference Location: Bedside Issues Discussed: * Palliative care role, purpose, approach * Additional medical, psychosocial, and spiritual history * Patients general health, functional status, and cognitive changes in the months leading up to the current hospitalization * Patient/family understanding of the current medical problems * Patient/family understanding of prognosis * Patients goals of care as best understood from advance directives and/or conversations and/or values * Current medical treatment options and benefits/burdens of those options * Likely scenarios comparing ongoing aggressive care with a transition to comfort measures only * Questions answered to the best of my ability * Introduced hospice philosophy, and benefits * Palliative care contact information provided Assessment and Plan Disease Oriented Problem List: (1) [id number] kidney injury (2) UTI (urinary tract infection) (3) Prostate CA (4) 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 (2) Debility 0-10 Scale: Unable to quantify Comment: Progressive . Pertinent Non-Medical Issues Psychosocial: Patient was born in [place], [place]. He moved to [place] 15 years ago. Patient served in the [place] [employer] for 6 months. 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 Patient has been twice, once. He has been to his current Stella Nuñez for 19 years and they have known each other for 28 years. Patient his one adult daughter, Ann Escoto endocrine children. Spiritual: Patient is Yarsanism and attends lutheran. Jehovah'S Witness is not been a big part of his life. Legal: Patient has completed DPOA, and living will in the past. Copies on EMR Ethical issues impacting care: None identified at this time . Important Contacts Spouse-DPOA- Stella Mohan [phone] Daughter- Jevon Juarez-[phone](cell)/[phone](home) . Prognosis Mr. Nuñez is a 86 years old male with a past medical history significant for colorectal cancer, prostate cancer with biochemical relapse, chronic atrial fibrillation, gout, hypertension, chronic renal insufficiency, recurrent urinary tract infections, hyperlipidemia,mild anemia and GERD. Patient presented to the ER on 10/12/17 with complaints of worsening back and abdominal pain for several days. Patient was found to have mild left hydrouteronephrosis, bladder mass, methicillin-resistant Staphylococcus aureus urinary tract infection, possible pathologic T9 compression fracture, and bone scan showing widespread osseous metastatic disease characteristic of metastatic prostate carcinoma. Given ongoing comorbidities, patient remains at high risk for further complications, deterioration and decline. . Code Status: No Code Plan PLAN: Legal decision maker: Patient is able to make his own medical decisions, due to his severe hard of hearing, recommending joints decision making with his Stella Nuñez who is his DURABLE POWER [employer]ER Goals: Aggressive short of no code CODE STATUS: No code DNR/DNI Patient is very hard of hearing. Patient is able to follow simple commands. Currently denies pain. Vital signs stable. Obtained psychosocial, reviewed past medical history and events leading to this hospitalization. Discussed trajectory of decline in the past 3 years. Most of the conversation done with patient's at bedside since patient is hard of hearing. Patient`s has a clear understanding of her husbands past medical history and current findings. Patient has a Durable Power of Credit Support Counselor and living will and patient's spouse Stella Nuñez is named is the DPOA. Addressed code status, discussed CPR limitations, complications and benefits, patient elected do not resuscitate and do not intubate. Patient's supportive of his decision and stated that patient is always told her that he would never want to be connected to any machines. Reviewed diagnostic tests that has been done so far and the results. Introduced hospice philosophy and benefits. At this time patient with the support of his is willing to pursue palliation therapy if offered by oncology and patient`s understands that patient may not do well and at that time they will consider transitioning to comfort care only through hospice. Patient and his are amenable to diagnostic cystoscopy and biopsy to determine diagnosis of the primary. Patient`s wants an update regarding what the plan is regarding cystoscopy and biopsy. SYMPTOMS: * Pain: Patient came in complaining of abdominal/back pain. Abdomen/pelvis CT revealed mild left hydrouteronephrosis,and bladder mass. Bone scan showing widespread osseous metastatic disease characteristic of metastatic prostate carcinoma and patient he has a T9 pathologic compression fracture. Patient has a TLSO brace the back. Patient has hydrocodone/acetaminophen 5/325 q 4 hrs prn. Patient sparingly needing as needed. Currently denying pain. * Debility: Progressive. Per patient has been sick in the past 3 years with multiple hospitalizations and has progressively declined to a point of needing assistance with most of his ADLs. Patient has a hospital bed, shower chair, wheelchair, rolling walker at home. He is only able to ambulate short distances within the house. Patient's mentions that she is no longer able to take care of him at home considering his need for assistance with most of his ADLs. Physical therapy and occupational therapy have been consulted. Palliative care will continue to follow the patient during hospital course as condition evolves, to assist patient/decision-maker with understanding of their medical conditions, weighing benefits/burdens of treatment options, for clarification of goals of treatment. Additionally will assist with any symptoms of palliative concern Thank you for the opportunity to participate in the care of Mr. Nuñez. Attestation To help prompt me to consider important information that might be impacting today's encounter and assessment, information from prior notes written by myself or my colleagues may have been "brought forward" into today's note. My signature on this note, however, is an attestation that I personally performed the exam, history, and/or decision-making noted today, and, unless otherwise indicated, the interactions with patient, family, and staff as well as the review of records all occurred today. I also attest that the listed assessment and stated plan reflect my best clinical judgment today based on the combination of historical information, prior notes, and today's exam/ interactions. When time spent is documented, it refers only to time spent today by the signer, or if indicated, combined time spent today by collaborating physician/nurse practitioner. Aleshia Lyn October 24, 2017 10:47
[2017-10-24] MEDS: MORPHINE SULFATE 2 MG/ML SYRINGE IV PUSH PRN (13:00)
[2017-10-24] MEDS ORDERED: MORPHINE SULFATE 2 MG/ML SYRINGE IV PUSH ONE (13:00)
--- NOTE | 2017-10-24 13:44 | PD.ONC.PN ---
Subjective Subjective Remarks Afebrile overnight Patient resting in bed; his is attempting to change the colostomy bag He is having a lot of pain due to additional tape applied Denies pain elsewhere The patient and his expressed frustration that he has not had cystoscopy with biopsy as of yet Objective Data Date Time Temp Pulse Resp B/P (MAP) Pulse Ox O2 Delivery O2 Flow Rate FiO2 10/24/17 12:29 97.8 68 20 129/66 (87) 99 10/24/17 08:30 97.7 65 18 116/56 (76) 99 10/24/17 08:30 99 Room Air 10/24/17 05:10 97.8 69 16 119/58 (78) 99 10/24/17 04:00 Room Air 10/24/17 00:47 97.9 74 16 113/57 (75) 99 10/24/17 00:00 Room Air 10/23/17 21:30 97.6 71 16 121/59 (79) 99 10/23/17 20:00 Room Air 10/23/17 16:00 98.1 75 19 108/57 (74) 99 10/24/17 10/24/17 10/24/17 07:00 15:00 23:00 Intake Total 60 ml Output Total 600 ml Balance -540 ml Result Diagram: 10/20/17 0504 Administered Medications Medications (Trade) Dose Ordered Sig/Thee Route PRN Reason Start Time Stop Time Status Last Admin Dose Admin Sodium Chloride (NS Flush) 2 ml UNSCH PRN IV FLUSH FLUSH AFTER USING IV ACCESS 10/12/17 16:15 10/14/17 11:59 Sodium Chloride (NS Flush) 2 ml BID IV FLUSH 10/12/17 21:00 10/24/17 10:21 Ondansetron HCl (Zofran Inj) 4 mg Q6H PRN IVP NAUSEA OR VOMITING 10/12/17 16:15 10/15/17 11:48 Senna/Docusate Sodium (Le-Colace) 1 tab BID PO 10/12/17 21:00 10/24/17 10:19 Acetaminophen/ Hydrocodone Bitart ([place] 5-325 Mg) 1 tab Q4H PRN PO PAIN SCALE 3 TO 5 10/12/17 16:30 10/15/17 11:53 Acetaminophen/ Hydrocodone Bitart ([place] 10-325 Mg) 1 tab Q4H PRN PO PAIN SCALE 6 TO 10 10/12/17 16:30 10/24/17 05:19 Morphine Sulfate (Morphine Inj) 2 mg Q4H PRN IV PUSH BREAKTHROUGH PAIN 10/12/17 16:30 10/24/17 13:00 Amlodipine Besylate (Norvasc) 5 mg DAILY PO 10/13/17 09:00 10/24/17 09:00 Atorvastatin Calcium (Lipitor) 10 mg HS PO 10/13/17 21:00 10/23/17 20:08 Metoprolol Tartrate (Lopressor) 50 mg BID PO 10/13/17 09:00 10/24/17 10:19 Pantoprazole Sodium (Protonix) 20 mg BID PO 10/13/17 09:00 10/24/17 10:19 Clotrimazole (Lotrimin 1% Cream) 1 applic Q12HR TOPICAL 10/14/17 11:00 10/23/17 20:08 Linezolid (Zyvox) 600 mg Q12HR PO 10/15/17 11:00 10/26/17 23:00 10/23/17 20:07 Promethazine HCl (Phenergan Inj) 25 mg Q6H PRN IM NAUSEA OR VOMITING 10/15/17 15:45 10/15/17 16:47 Heparin Sodium (Porcine) (Heparin Inj) 5,000 units Q8H SQ 10/16/17 15:00 10/24/17 05:23 Potassium Chloride (KCl) 10 meq Q12HR PO 10/19/17 21:00 10/24/17 10:19 Objective Remarks GENERAL: Elderly male resting in bed in no obvious distress SKIN: Warm and dry. HEAD: Normocephalic. Very hard of hearing EYES: No injection or drainage. + Arcus senilis NECK: Supple, trachea midline. No JVD or lymphadenopathy. CARDIOVASCULAR: Regular rate and rhythm without murmurs. RESPIRATORY: Breath sounds equal bilaterally. No accessory muscle use. GASTROINTESTINAL: Colostomy to left abdomen. Green liquid noted in bag. Stoma pink. EXTREMITIES: No cyanosis, or edema. MUSCULOSKELETAL: Generalized weakness NEUROLOGICAL: Awake and alert. Patient following commands. Assessment/Plan Problem List: (1) Metastatic cancer ICD Codes: C79.9 - Secondary malignant neoplasm of unspecified site Plan: 10/24: The patient has yet to have cystoscopy planned. Will recheck out to Dr. Hess to evaluate plan for biopsy this admission 10/19: await cystoscopy/biopsy for diagnosis Clinical suspicion pt has a third primary considered. Although metastatic prostate cancer a clear consideration due to bone metastatic disease However, radiographic finding show a bladder mass and pelvic masses adjacent to/ posterior the bladder Furthermore PSA low, however s/p prostatectomy and XRT previous PSA undetectable. Ultimately a cystoscopy will be ideal to make diagnosis of the primary. As discussed with radiology biopsy of bone lesions of vertebral body is more difficult and carries more risk than cystoscopic biopsy. Pt well known to Dr. Richards as out pt and Dr. Hess is following during his hospitalization. Defer to Dr. Hess diagnostic biopsy. Further oncologic recommendations pending on pathology report- goal ultimately is palliative. Assessment 86-year-old male with history of prostate cancer and colon cancer admitted with back and abdominal pain Plan 1. The patient and his remain aggressive in terms of obtaining biopsy to find out available treatment; will attempt to reach urology 2. Check labs in am to include CBC, BMP and coags 3. 2mg IV morphine ordered 1 dose to give for painful colostomy bag change. 4. Supportive care Attending Statement The exam, history, and the medical decision-making described in the above note were completed with the assistance of the mid-level provider. I reviewed and agree with the findings presented. I attest that I had a [id number] encounter with the patient on the same day, and personally performed and documented my assessment and findings in the medical record. had gone home, pt curled on side of bed, poor appetite. Hard of hearing, no complaints. KPS poor, efforts to optimize care not improving his KPS. Pending diagnostic biopsy. Performance status continue to decline. Repeat PSA if high consider casodex. Khushbu Herr October 24, 2017 13:44 Nalini Varela MD October 24, 2017 18:37
[2017-10-24 14:03] LABS: AUTOMATED NEUTROPHIL # 5.5 TH/MM3 (1.8-7.7); BASOPHIL # 0.1 TH/MM3 (0-0.2); BASOPHIL % 1.1 % (0.0-2.0); EOSINOPHIL # 0.3 TH/MM3 (0-0.4); EOSINOPHIL % 3.3 % (0.0-4.0); HEMATOCRIT 29.4 % (39.0-51.0); HEMOGLOBIN 9.5 GM/DL (13.0-17.0); LYMPH % 19.1 % (9.0-44.0); LYMPHOCYTE # 1.5 TH/MM3 (1.0-4.8); MEAN CELL VOLUME 89.3 FL (80.0-100.0); MEAN CORPUSCULAR HGB CONC 32.5 % (32.0-36.0); MEAN PLATELET VOLUME 7.8 FL (7.0-11.0); MONO % 7.4 % (0.0-8.0); MONOCYTE # 0.6 TH/MM3 (0-0.9); NEUT % 69.1 % (16.0-70.0); PLATELET COUNT 232 TH/MM3 (150-450); RED BLOOD COUNT 3.29 MIL/MM3 (4.50-5.90); RED CELL DISTRIBUTION WIDTH 16.7 % (11.6-17.2); WHITE BLOOD COUNT 7.9 TH/MM3 (4.0-11.0)
--- NOTE | 2017-10-24 14:13 | HHI.PR ---
Subjective Remarks Follow-up UTI, metastatic prostate cancer. The patient has no complaints at this time. Denies chest pain, dyspnea, nausea, vomiting. Objective Vitals Vital Signs Date Time Temp Pulse Resp B/P (MAP) Pulse Ox O2 Delivery O2 Flow Rate FiO2 10/24/17 12:29 97.8 68 20 129/66 (87) 99 10/24/17 08:30 97.7 65 18 116/56 (76) 99 10/24/17 08:30 99 Room Air 10/24/17 05:10 97.8 69 16 119/58 (78) 99 10/24/17 04:00 Room Air 10/24/17 00:47 97.9 74 16 113/57 (75) 99 10/24/17 00:00 Room Air 10/23/17 21:30 97.6 71 16 121/59 (79) 99 10/23/17 20:00 Room Air 10/23/17 16:00 98.1 75 19 108/57 (74) 99 I/O 10/23/17 10/23/17 10/23/17 10/24/17 10/24/17 10/24/17 07:00 15:00 23:00 07:00 15:00 23:00 Intake Total 0 ml 480 ml 60 ml Output Total 250 ml 300 ml 600 ml Balance -250 ml 180 ml -540 ml Intake Oral 0 ml 480 ml 60 ml Output Urine Total 250 ml 300 ml 600 ml # Bowel Movements 0 0 Result Diagram: 10/24/17 1344 10/20/17 0504 Imaging Last Impressions Head CT 10/20/17 0000 Signed Impressions: Service Date/Time: Friday, October 20, 2017 22:54 - CONCLUSION: 1. Severe central and cortical atrophy. 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 2. 2 hot lesions were seen on recent bone scan in the region of the skull. There is a mixed lytic and sclerotic lesion in the left sphenoid bone and should region correlating with one of the lesions. No osseous lesion seen in the right frontal bone to correlate with the other area, but there is a 10 mm soft tissue nodule in the scalp which could potentially correlate with the 2nd area increased uptake on the bone scan. Gustavo Murillo MD Renal Ultrasound 10/17/17 0000 Signed Impressions: Service Date/Time: Tuesday, October 17, 2017 13:36 - CONCLUSION: Normal examination. Jorge Spangler MD Bone Scan Nuclear Medicine 10/15/17 0000 Signed Impressions: Service Date/Time: Sunday, October 15, 2017 12:30 - CONCLUSION: 1. Widespread osseous metastatic disease characteristic of metastatic prostate carcinoma Florencio Riley MD Thoracic Spine X-Ray 10/12/17 1146 Signed Impressions: Service Date/Time: Thursday, October 12, 2017 12:08 - CONCLUSION: Probable minimal compression at T9. Edd Chavez MD FACR Lumbar Spine X-Ray 10/12/17 1146 Signed Impressions: Service Date/Time: Thursday, October 12, 2017 12:10 - CONCLUSION: Mild degenerative changes. 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 Edd Chavez MD FACR Objective Remarks General: Elderly male in no acute distress. Hard of hearing. Heart: Regular rate and rhythm. No murmur. Lungs: Clear to auscultation bilaterally. No wheezes, rales, or rhonchi. Breathing is nonlabored. Abdomen: Soft, nontender, nondistended. Colostomy. Extremities: No lower extremity edema. Psych: Alert and oriented. Neuro: Normal speech. No focal deficits noted. 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 Metastatic prostate cancer: Bone scan revealed widespread bony metastases. Per oncology recommendations, urology has been reconsulted for cystoscopy with biopsy. Awaiting urology recommendations (Dr. Hess currently in the OR). 2. Pathologic T9 compression fracture: TLSO brace. Pain is controlled. Continue PT/OT. 3. UTI: Appreciate infectious disease recommendations. Urine culture growing MRSA. Continue Zyvox until 10/26/17. 4. Acute kidney injury: Nonoliguric. Creatinine improved. 5. Deconditioning: Continue physical therapy, occupational therapy. 6. DVT prophylaxis: Heparin. 7. Appreciate palliative care assistance. 8. Code status: DNR. Discharge Planning Patient will need SNF at discharge. Jaspal Sepulveda MD October 24, 2017 14:13
[2017-10-24] MEDS: ATORVASTATIN 10 MG TAB PO SCH (21:56)
[2017-10-25 00:42] VITALS: BP 109/54; PULSE 76; RESP 18; TEMP 98.5; O2SAT 99
[2017-10-25] MEDS: SODIUM CHLORIDE 0.9% FLUSH 10 ML FLUSH IV FLUSH SCH ×3 (00:49→20:48)
[2017-10-25] MEDS: HEPARIN SODIUM - SQ 10,000 UNITS/ML VIAL SQ SCH ×3 (05:56→23:00)
[2017-10-25 05:57] VITALS: BP 131/65; PULSE 79; RESP 18; TEMP 98.5; O2SAT 100
[2017-10-25] MEDS ORDERED: CHLORHEXIDINE GLUCONATE 2 % 1 PACK (2 CLOTHS) TOPICAL PRN (08:45)
[2017-10-25] MEDS ORDERED: LACTATED RINGER'S 1000 ML IV PRN (08:45)
[2017-10-25] MEDS ORDERED: SODIUM CHLORID 0.9% 500 ML IV PRN (08:45)
[2017-10-25] MEDS ORDERED: METOPROLOL TARTRATE 25 MG TAB PO PRN (08:45)
[2017-10-25] MEDS ORDERED: POVIDONE IODINE 5% (ANTISEPSIS KIT) 4 APPLICATIONS EACH NARE PRN (08:45)
[2017-10-25] MEDS: amLODIPine BESYLATE 5 MG TAB PO SCH (09:00)
[2017-10-25 09:26] VITALS: BP 116/57; PULSE 90; RESP 18; TEMP 97.6; O2SAT 100
[2017-10-25] MEDS: DOCUSATE SODIUM 50 MG/SENNA 8.6 MG TAB PO SCH ×2 (09:27→20:48)
[2017-10-25] MEDS: POTASSIUM CHLORIDE 10 MEQ CONTROLLED RELEASE TAB PO SCH ×2 (09:27→20:48)
[2017-10-25] MEDS: PANTOPRAZOLE SOD 20 MG DELAYED RELEASE TAB PO SCH ×2 (09:27→20:48)
[2017-10-25] MEDS: CLOTRIMAZOLE 1% CREAM 15 GM TOPICAL SCH ×2 (09:28→20:49)
[2017-10-25] MEDS: LINEZOLID 600 MG TAB PO SCH ×2 (09:28→20:48)
[2017-10-25] MEDS: METOPROLOL TARTRATE 50 MG TAB PO SCH ×2 (09:28→20:48)
--- NOTE | 2017-10-25 11:14 | HHI.PR ---
Subjective Remarks The patient is in bed he appears chronically ill. He is very sleepy. 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 Says some pain medications and he feels a little better. No nausea vomiting no diarrhea or constipation. Denies any chest pain or shortness of breath. Plan for cystoscopy and biopsy today in the afternoon by Dr. saman duarte. Family at bedside also with multiple questions, all answered to the best of my ability. Objective Vitals Vital Signs Date Time Temp Pulse Resp B/P (MAP) Pulse Ox O2 Delivery O2 Flow Rate FiO2 10/25/17 09:26 97.6 90 18 116/57 (76) 100 10/25/17 05:57 98.5 79 18 131/65 (87) 100 10/25/17 00:42 98.5 76 18 109/54 (72) 99 10/24/17 21:57 99 Room Air 10/24/17 21:53 98.3 77 18 115/48 (70) 94 10/24/17 16:16 70 10/24/17 16:00 98.0 72 20 119/58 (78) 99 10/24/17 12:29 97.8 68 20 129/66 (87) 99 I/O 10/24/17 10/24/17 10/24/17 10/25/17 10/25/17 10/25/17 07:00 15:00 23:00 07:00 15:00 23:00 Intake Total 60 ml 300 ml Output Total 600 ml 350 ml 600 ml Balance -540 ml -50 ml -600 ml Intake Oral 60 ml 300 ml Output Urine Total 600 ml 350 ml 600 ml # Bowel Movements 0 0 Result Diagram: 10/24/17 1344 Imaging Last Impressions Head CT 10/20/17 0000 Signed Impressions: Service Date/Time: Friday, October 20, 2017 22:54 - CONCLUSION: 1. Severe central and cortical atrophy. 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 2. 2 hot lesions were seen on recent bone scan in the region of the skull. There is a mixed lytic and sclerotic lesion in the left sphenoid bone and should region correlating with one of the lesions. No osseous lesion seen in the right frontal bone to correlate with the other area, but there is a 10 mm soft tissue nodule in the scalp which could potentially correlate with the 2nd area increased uptake on the bone scan. Gustavo Murillo MD Renal Ultrasound 10/17/17 0000 Signed Impressions: Service Date/Time: Tuesday, October 17, 2017 13:36 - CONCLUSION: Normal examination. Jorge Spangler MD Bone Scan Nuclear Medicine 10/15/17 0000 Signed Impressions: Service Date/Time: Sunday, October 15, 2017 12:30 - CONCLUSION: 1. Widespread osseous metastatic disease characteristic of metastatic prostate carcinoma Florencio Riley MD Thoracic Spine X-Ray 10/12/17 1146 Signed Impressions: Service Date/Time: Thursday, October 12, 2017 12:08 - CONCLUSION: Probable minimal compression at T9. Edd Chavez MD FACR Lumbar Spine X-Ray 10/12/17 1146 Signed Impressions: Service Date/Time: Thursday, October 12, 2017 12:10 - CONCLUSION: Mild degenerative changes. 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 Edd Chavez MD FACR Objective Remarks GENERAL: Elderly male appearing chronically ill, sleepy in bed. Hard of hearing. CARDIOVASCULAR: Regular rate and rhythm. RESPIRATORY: No accessory muscle use. Clear to auscultation. Breath sounds equal bilaterally. GASTROINTESTINAL: Abdomen soft, non-tender, nondistended. Hepatic and splenic margins not palpable. MUSCULOSKELETAL: Extremities without clubbing, cyanosis, or edema. No obvious deformities. NEUROLOGICAL: Awake and alert. No obvious cranial nerve deficits. Motor grossly within normal limits. Five out of 5 muscle strength in the arms and legs. Normal speech. PSYCHIATRIC: Appropriate mood and affect; insight and judgment normal. 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 ICD Code: M84.58XA - Pathological fracture in neoplastic disease, other specified site, initial encounter for fracture (2) Prostate CA ICD Code: C61 - Malignant neoplasm of prostate (3) UTI (urinary tract infection) ICD Code: N39.0 - Urinary tract infection, site not specified (4) Thoracic compression fracture ICD Code: S22.000A - Wedge compression fracture of unspecified thoracic vertebra, initial encounter for closed fracture (5) QUIQUE (acute kidney injury) ICD Code: N17.9 - Acute kidney failure, unspecified Assessment and Plan Metastatic prostate cancer: Bone scan revealed widespread bony metastases. Per oncology recommendations, urology has been reconsulted for cystoscopy with biopsy. Awaiting urology recommendations (Dr. Hess currently in the OR). Pathologic T9 compression fracture: TLSO brace. Pain is controlled. Continue PT/OT. UTI: Appreciate infectious disease recommendations. Urine culture growing MRSA. Continue Zyvox until 10/26/17. Acute kidney injury: Nonoliguric. Creatinine improved. Deconditioning: Continue physical therapy, occupational therapy. DVT prophylaxis: Heparin. Appreciate palliative care assistance. Code status: DNR. Discharge Planning Plan for cysto with biopsy by DR Hess 10/25 Patient will need SNF at discharge. Alexia Giordano MD October 25, 2017 11:14
--- NOTE | 2017-10-25 11:47 | HHI.HCPN ---
Reason for visit a. To assist with evaluation and management of symptoms including: Pain, debility b. To assist medical decision maker(s) with: better understanding of current medical conditions; weighing benefits/burdens of medical treatment options; making medical treatment decisions. Subjective/Interval History Follow up medically necessary for symptom management and further clarification of goals of care. Patient seen in his room in bed asleep, easily arousable. at bedside. Patient is hard of hearing. Denies pain at this time. Patient scheduled for cystoscopy with biopsy and fulguration today at 1500hrs. Patient` s signed consents. Testosterone lab results collected today pending. Discussed community DNR and patient`s Stella Nuñez who is his DPOA signed for patient. Goals at this time remain aggressive, patients would want to continue with any palliation therapy that can be offered. She does understand that patient may not be able to tolerate it due to his poor performance status. Hospice topic has been broached and she mentions that if patient does not do well with palliative therapy she will transition patient to comfort care only. . Family/friend interactions Bedside conversation with patient`s Stella. . Advance Directives Living Will: Copy in medical record Durable Power of Timber Management Assistant: Copy in medical record Advance Directive Specifics Date completed: Living will-signed November, DURABLE POWER OF NURSE ADVISOR-signed Health Care Surrogate(s): DPOA- Spouse-Stella Mohan [phone] . Documented care wishes: Standard verbiage . Objective Vital Signs Date Time Temp Pulse Resp B/P (MAP) Pulse Ox O2 Delivery O2 Flow Rate FiO2 10/25/17 09:26 97.6 90 18 116/57 (76) 100 10/25/17 05:57 98.5 79 18 131/65 (87) 100 10/25/17 00:42 98.5 76 18 109/54 (72) 99 10/24/17 21:57 99 Room Air 10/24/17 21:53 98.3 77 18 115/48 (70) 94 10/24/17 16:16 70 10/24/17 16:00 98.0 72 20 119/58 (78) 99 10/24/17 12:29 97.8 68 20 129/66 (87) 99 Intake & Output 10/25/17 10/25/17 07:00 19:00 Output Total 600 ml Balance -600 ml Output Urine Total 600 ml Physical Exam CONSTITUTIONAL/GENERAL: This is an elderly, chronically ill looking patient, sleeping in no apparent distress. TUBES/LINES/DRAINS:Colostomy, PIV. Senior catheter SKIN: No jaundice, rashes, or lesions. Ecchymoses on upper extremities. No wounds seen anteriorly. Skin temperature appropriate. Not diaphoretic. HEAD: Atraumatic. Normocephalic. EYES: PERRLA. Extraocular motions intact. Fundi not examined. ENT: Very hard of hearing. Nose without bleeding or purulent drainage. moist oral mucosa NECK: Trachea midline. Supple, nontender. CARDIOVASCULAR: S1, S2 normal, no gallops, or rubs. No JVD. Peripheral pulses symmetric. RESPIRATORY/CHEST: Symmetric, unlabored respirations. Diminished breath sounds. No wheezes, rales, or rhonchi. GASTROINTESTINAL: Abdomen soft, non-tender, nondistended. Left colostomy. No guarding. Active bowel sounds GENITOURINARY: Without palpable bladder distension. Condom catheter in place MUSCULOSKELETAL: Extremities without clubbing, cyanosis, or edema. No joint tenderness or effusion noted. No mottling or clubbing. NEUROLOGICAL: Sleeping, easily arousable Follows simple commands. Moves all extremities. Patient limited due to hard of hearing PSYCHIATRIC: No obvious anxiety/depression. no apparent hallucinations or other psychotic thought process. Diagnostic Tests Laboratory Laboratory Tests Test 10/24/17 13:44 10/25/17 04:50 White Blood Count 7.9 TH/MM3 (4.0-11.0) Red Blood Count 3.29 MIL/MM3 (4.50-5.90) Hemoglobin 9.5 GM/DL (13.0-17.0) Hematocrit 29.4 % (39.0-51.0) Mean Corpuscular Volume 89.3 FL (80.0-100.0) Mean Corpuscular Hemoglobin 29.0 PG (27.0-34.0) Mean Corpuscular Hemoglobin Concent 32.5 % (32.0-36.0) Red Cell Distribution Width 16.7 % (11.6-17.2) Platelet Count 232 TH/MM3 (150-450) Mean Platelet Volume 7.8 FL (7.0-11.0) Neutrophils (%) (Auto) 69.1 % (16.0-70.0) Lymphocytes (%) (Auto) 19.1 % (9.0-44.0) Monocytes (%) (Auto) 7.4 % (0.0-8.0) Eosinophils (%) (Auto) 3.3 % (0.0-4.0) Basophils (%) (Auto) 1.1 % (0.0-2.0) Neutrophils # (Auto) 5.5 TH/MM3 (1.8-7.7) Lymphocytes # (Auto) 1.5 TH/MM3 (1.0-4.8) Monocytes # (Auto) 0.6 TH/MM3 (0-0.9) Eosinophils # (Auto) 0.3 TH/MM3 (0-0.4) Basophils # (Auto) 0.1 TH/MM3 (0-0.2) CBC Comment DIFF FINAL Differential Comment Prostate Specific Antigen 10.50 NG/ML (0.00-4.00) Result Diagram: 10/24/17 9200 Assessment and Plan Disease Oriented Problem List: (1) Annfc-kk-vkiqjpb kidney injury (2) UTI (urinary tract infection) (3) Prostate CA (4) 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 (2) Debility 0-10 Scale: Unable to quantify Comment: Progressive . Pertinent Non-Medical Issues Psychosocial: Patient was born in [place], [place]. He moved to [place] 15 years ago. Patient served in the [employer] for 6 months. 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 Patient has been twice, once. He has been to his current Stella Nuñez for 19 years and they have known each other for 28 years. Patient his one adult daughter, Ann Escoto endocrine children. Spiritual: Patient is Holiness and attends protestant. Restorationist is not been a big part of his life. Legal: Patient has completed DPOA, and living will in the past. Copies on EMR Ethical issues impacting care: None identified at this time . Important Contacts Spouse-DPOA- Stella Mohan [phone] Daughter- Jevon Juarez-[phone](cell)/[phone](home) . Prognosis Mr. Nuñez is a 86 years old male with a past medical history significant for colorectal cancer, prostate cancer with biochemical relapse, chronic atrial fibrillation, gout, hypertension, chronic renal insufficiency, recurrent urinary tract infections, hyperlipidemia,mild anemia and GERD. Patient presented to the ER on 10/12/17 with complaints of worsening back and abdominal pain for several days. Patient was found to have mild left hydrouteronephrosis, bladder mass, methicillin-resistant Staphylococcus aureus urinary tract infection, possible pathologic T9 compression fracture, and bone scan showing widespread osseous metastatic disease characteristic of metastatic prostate carcinoma. Given ongoing comorbidities, patient remains at high risk for further complications, deterioration and decline. . Code Status: No Code Plan PLAN: Legal decision maker: Patient is able to make his own medical decisions, due to his severe hard of hearing, recommending joints decision making with his Stella Nuñez who is his DURABLE POWER OF NURSE ADVISOR Goals: Aggressive short of no code CODE STATUS: No code DNR/DNI- Community DNR signed. Discussed community DNR and patient`s Stella Nuñez who is his DPOA signed for patient. Goals at this time remain aggressive, patients would want to continue with any palliation therapy that can be offered. She does understand that patient may not be able to tolerate it due to his poor performance status. Hospice topic has been broached and she mentions that if patient does not do well with palliative therapy she will transition patient to comfort care only. SYMPTOMS: * Pain: Patient came in complaining of abdominal/back pain. Abdomen/pelvis CT revealed mild left hydrouteronephrosis,and bladder mass. Bone scan showing widespread osseous metastatic disease characteristic of metastatic prostate carcinoma and patient he has a T9 pathologic compression fracture. Patient has a TLSO brace the back. Patient has hydrocodone/acetaminophen 5/325 q 4 hrs prn. Patient sparingly needing as needed. Currently denying pain. * Debility: Progressive. Per patient has been sick in the past 3 years with multiple hospitalizations and has progressively declined to a point of needing assistance with most of his ADLs. Patient has a hospital bed, shower chair, wheelchair, rolling walker at home. He is only able to ambulate short distances within the house. Patient's mentions that she is no longer able to take care of him at home considering his need for assistance with most of his ADLs. Physical therapy and occupational therapy have been consulted. Palliative care will continue to follow the patient during hospital course as condition evolves, to assist patient/decision-maker with understanding of their medical conditions, weighing benefits/burdens of treatment options, for clarification of goals of treatment. Additionally will assist with any symptoms of palliative concern Attestation To help prompt me to consider important information that might be impacting today's encounter and assessment, information from prior notes written by myself or my colleagues may have been "brought forward" into today's note. My signature on this note, however, is an attestation that I personally performed the exam, history, and/or decision-making noted today, and, unless otherwise indicated, the interactions with patient, family, and staff as well as the review of records all occurred today. I also attest that the listed assessment and stated plan reflect my best clinical judgment today based on the combination of historical information, prior notes, and today's exam/ interactions. When time spent is documented, it refers only to time spent today by the signer, or if indicated, combined time spent today by collaborating physician/nurse practitioner. Aleshia Lyn October 25, 2017 11:47
[2017-10-25] MEDS ORDERED: PROPOFOL 200 MG/20 ML AMP IV ONE (12:00)
[2017-10-25] MEDS ORDERED: PHENYLEPH/NS 1000 MCG/10 ML SYR IV ONE (12:00)
[2017-10-25] MEDS ORDERED: GLYCOPYRROLATE 1 MG/5 ML SYRINGE IV PUSH ONE (12:00)
[2017-10-25] MEDS ORDERED: NEOSTIGMINE 5 MG/5 ML SYRINGE IV PUSH ONE (12:00)
[2017-10-25] MEDS ORDERED: ceFAZolin INJ 1,000 MG VIAL IV ONE ×2 (12:00→17:32)
[2017-10-25] MEDS ORDERED: LIDOCAINE HCL 1% PF 5 ML SYRINGE OTHER ONE (12:00)
--- NOTE | 2017-10-25 12:06 | PD.ONC.PN ---
Subjective Subjective Remarks Afebrile Patient denies any acute complaints He appears to be nonchalant about the procedure today while his is not present "I figure I'm dying anyway" Objective Data Date Time Temp Pulse Resp B/P (MAP) Pulse Ox O2 Delivery O2 Flow Rate FiO2 10/25/17 09:26 97.6 90 18 116/57 (76) 100 10/25/17 05:57 98.5 79 18 131/65 (87) 100 10/25/17 00:42 98.5 76 18 109/54 (72) 99 10/24/17 21:57 99 Room Air 10/24/17 21:53 98.3 77 18 115/48 (70) 94 10/24/17 16:16 70 10/24/17 16:00 98.0 72 20 119/58 (78) 99 10/24/17 12:29 97.8 68 20 129/66 (87) 99 10/25/17 10/25/17 10/25/17 07:00 15:00 23:00 Output Total 600 ml Balance -600 ml Result Diagram: 10/24/17 1344 Laboratory Results Laboratory Tests Test 10/24/17 13:44 10/25/17 04:50 White Blood Count 7.9 TH/MM3 Red Blood Count 3.29 MIL/MM3 Hemoglobin 9.5 GM/DL Hematocrit 29.4 % Mean Corpuscular Volume 89.3 FL Mean Corpuscular Hemoglobin 29.0 PG Mean Corpuscular Hemoglobin Concent 32.5 % Red Cell Distribution Width 16.7 % Platelet Count 232 TH/MM3 Mean Platelet Volume 7.8 FL Neutrophils (%) (Auto) 69.1 % Lymphocytes (%) (Auto) 19.1 % Monocytes (%) (Auto) 7.4 % Eosinophils (%) (Auto) 3.3 % Basophils (%) (Auto) 1.1 % Neutrophils # (Auto) 5.5 TH/MM3 Lymphocytes # (Auto) 1.5 TH/MM3 Monocytes # (Auto) 0.6 TH/MM3 Eosinophils # (Auto) 0.3 TH/MM3 Basophils # (Auto) 0.1 TH/MM3 CBC Comment DIFF FINAL Differential Comment Prostate Specific Antigen 10.50 NG/ML Administered Medications Medications (Trade) Dose Ordered Sig/Thee Route PRN Reason Start Time Stop Time Status Last Admin Dose Admin Sodium Chloride (NS Flush) 2 ml UNSCH PRN IV FLUSH FLUSH AFTER USING IV ACCESS 10/12/17 16:15 10/14/17 11:59 Sodium Chloride (NS Flush) 2 ml BID IV FLUSH 10/12/17 21:00 10/25/17 09:28 Ondansetron HCl (Zofran Inj) 4 mg Q6H PRN IVP NAUSEA OR VOMITING 10/12/17 16:15 10/15/17 11:48 Senna/Docusate Sodium (Le-Colace) 1 tab BID PO 10/12/17 21:00 10/25/17 09:27 Acetaminophen/ Hydrocodone Bitart ([place] 5-325 Mg) 1 tab Q4H PRN PO PAIN SCALE 3 TO 5 10/12/17 16:30 10/15/17 11:53 Acetaminophen/ Hydrocodone Bitart ([place] 10-325 Mg) 1 tab Q4H PRN PO PAIN SCALE 6 TO 10 10/12/17 16:30 10/24/17 05:19 Morphine Sulfate (Morphine Inj) 2 mg Q4H PRN IV PUSH BREAKTHROUGH PAIN 10/12/17 16:30 10/24/17 13:00 Amlodipine Besylate (Norvasc) 5 mg DAILY PO 10/13/17 09:00 10/24/17 09:00 Atorvastatin Calcium (Lipitor) 10 mg HS PO 10/13/17 21:00 10/24/17 21:56 Metoprolol Tartrate (Lopressor) 50 mg BID PO 10/13/17 09:00 10/25/17 09:28 Pantoprazole Sodium (Protonix) 20 mg BID PO 10/13/17 09:00 10/25/17 09:27 Clotrimazole (Lotrimin 1% Cream) 1 applic Q12HR TOPICAL 10/14/17 11:00 10/25/17 09:28 Linezolid (Zyvox) 600 mg Q12HR PO 10/15/17 11:00 10/26/17 23:00 10/25/17 09:28 Promethazine HCl (Phenergan Inj) 25 mg Q6H PRN IM NAUSEA OR VOMITING 10/15/17 15:45 10/15/17 16:47 Heparin Sodium (Porcine) (Heparin Inj) 5,000 units Q8H SQ 4/24/18 15:00 10/24/17 15:15 Potassium Chloride (KCl) 10 meq Q12HR PO 10/19/17 21:00 10/25/17 09:27 Objective Remarks GENERAL: Elderly male resting in bed in no obvious distress SKIN: Warm and dry. HEAD: Normocephalic. Very hard of hearing EYES: No injection or drainage. + Arcus senilis NECK: Supple, trachea midline. No JVD or lymphadenopathy. CARDIOVASCULAR: Regular rate and rhythm without murmurs. RESPIRATORY: Breath sounds equal bilaterally. No accessory muscle use. GASTROINTESTINAL: Colostomy to left abdomen. Green liquid noted in bag. Stoma pink. EXTREMITIES: No cyanosis, or edema. MUSCULOSKELETAL: Generalized weakness NEUROLOGICAL: Awake and alert. Patient following commands. Assessment/Plan Problem List: (1) Metastatic cancer ICD Codes: C79.9 - Secondary malignant neoplasm of unspecified site Plan: 10/25: Cystoscopy planned for today at 3 PM 10/24: The patient has yet to have cystoscopy planned. Will recheck out to Dr. Hess to evaluate plan for biopsy this admission 10/19: await cystoscopy/biopsy for diagnosis Clinical suspicion pt has a third primary considered. Although metastatic prostate cancer a clear consideration due to bone metastatic disease However, radiographic finding show a bladder mass and pelvic masses adjacent to/ posterior the bladder Furthermore PSA low, however s/p prostatectomy and XRT previous PSA undetectable. Ultimately a cystoscopy will be ideal to make diagnosis of the primary. As discussed with radiology biopsy of bone lesions of vertebral body is more difficult and carries more risk than cystoscopic biopsy. Pt well known to Dr. Richards as out pt and Dr. Hess is following during his hospitalization. Defer to Dr. Hess diagnostic biopsy. Further oncologic recommendations pending on pathology report- goal ultimately is palliative. Assessment 86-year-old male with history of prostate cancer and colon cancer admitted with back and abdominal pain Plan 1. PSA slightly lower than the previous result 2. Cystoscopy planned for later today at 3 PM Attending Statement The exam, history, and the medical decision-making described in the above note were completed with the assistance of the mid-level provider. I reviewed and agree with the findings presented. I attest that I had a [id number] encounter with the patient on the same day, and personally performed and documented my assessment and findings in the medical record. Pending diagnostic biopsy, cystoscopy scheduled for today. KPS quite poor- pending SNF placement. PSA high suggest recurrent prostate cancer. Cystoscopy to r/o second primary bladder cancer and opportunity to check PDL1 on soft tissue biopsy. Anticipate starting Casodex. Discussed with primary team. Khushbu Herr October 25, 2017 12:06 Nalini Varela MD October 25, 2017 14:44
[2017-10-25 13:43] VITALS: BP 122/64; PULSE 72; RESP 16; TEMP 97.8; O2SAT 100
[2017-10-25 14:34] LABS: AUTOMATED NEUTROPHIL # 6.1 TH/MM3 (1.8-7.7); BASOPHIL # 0.1 TH/MM3 (0-0.2); BASOPHIL % 0.9 % (0.0-2.0); EOSINOPHIL # 0.1 TH/MM3 (0-0.4); EOSINOPHIL % 1.6 % (0.0-4.0); HEMATOCRIT 34.3 % (39.0-51.0); HEMOGLOBIN 11.3 GM/DL (13.0-17.0); LYMPH % 11.5 % (9.0-44.0); LYMPHOCYTE # 0.9 TH/MM3 (1.0-4.8); MEAN CELL VOLUME 89.7 FL (80.0-100.0); MEAN CORPUSCULAR HEMOGLOBIN 29.5 PG (27.0-34.0); MEAN CORPUSCULAR HGB CONC 32.9 % (32.0-36.0); MEAN PLATELET VOLUME 7.8 FL (7.0-11.0); MONO % 5.2 % (0.0-8.0); MONOCYTE # 0.4 TH/MM3 (0-0.9); NEUT % 80.8 % (16.0-70.0); PLATELET COUNT 204 TH/MM3 (150-450); RED BLOOD COUNT 3.82 MIL/MM3 (4.50-5.90); WHITE BLOOD COUNT 7.6 TH/MM3 (4.0-11.0)
[2017-10-25 14:39] LABS: INTERNATIONAL NORMALIZED RATIO 1.1 RATIO; PROTHROMBIN TIME - PATIENT 11.4 SEC (9.8-11.6)
--- NOTE | 2017-10-25 15:44 | EKG ---
Date Performed: 10/24/2017 Time Performed: 22:18:02 PTAGE: 86 years EKG: Sinus rhythm WITH FIRST DEGREE AV BLOCK ABNORMAL ECG PREVIOUS TRACING : 06/20/2017 12.52 Since the prior tracing, the atrial flutter with rapid vent ricular response has resolved. The nonspecific ST-T wave changes have resolved. DOCTOR: Liz Espinosa Interpretating Date/Time 10/25/2017 15:43:12
[2017-10-25 16:31] VITALS: BP 123/75; PULSE 67; RESP 16; TEMP 97.9; O2SAT 100
--- NOTE | 2017-10-25 17:44 | HHI.PR ---
Immediate Post Op Note Procedure Date: October 25, 2017 Pre Op Diagnosis: Possible bladder mass, Metastatic Prostate Cancer Post Op Diagnosis: Metastatic Prostate Cancer Surgeon: Miguel Hess Propeller Tester(s): n/a Procedure: Cystoscopy Findings: Trabeculated bladder, no bladder mass seen. Mild bladder neck contracture Tumor seen on CT Scan likely prostate encroachment on posterior portion of bladder. Anesthesia: General IVF Patient to: PACU Miguel Hess MD October 25, 2017 17:44
[2017-10-25 20:00] VITALS: BP 116/52; PULSE 82; RESP 20; TEMP 98.3; O2SAT 100
[2017-10-25] MEDS: ATORVASTATIN 10 MG TAB PO SCH (20:48)
[2017-10-26] VITALS: BP 117/64; PULSE 80; RESP 20; TEMP 98; O2SAT 99
[2017-10-26 04:00] VITALS: BP 128/53; PULSE 80; RESP 20; TEMP 97.3; O2SAT 99
[2017-10-26] MEDS: HEPARIN SODIUM - SQ 10,000 UNITS/ML VIAL SQ SCH ×3 (06:10→22:58)
--- NOTE | 2017-10-26 08:12 | HHI.DS ---
Discharge Summary Admission Date Oct 12, 2017 at 16:16 Discharge Date: October 29, 2017 Admitting Diagnosis pyelonephritis, bladder mass, t9 compression frx. 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 ICD Code: M84.58XA - Pathological fracture in neoplastic disease, other specified site, initial encounter for fracture (2) Prostate CA ICD Code: C61 - Malignant neoplasm of prostate (3) UTI (urinary tract infection) ICD Code: N39.0 - Urinary tract infection, site not specified (4) Thoracic compression fracture ICD Code: S22.000A - Wedge compression fracture of unspecified thoracic vertebra, initial encounter for closed fracture (5) QUIQUE (acute kidney injury) ICD Code: N17.9 - Acute kidney failure, unspecified Procedures None Brief History - From Admission This is an 86-year-old male with a PMH of Colon CA, Prostate CA, HTN and Hyperlipidemia who presented to the ER w/ complaints of back pain and abdominal pain. Pt is poor historian and very [place], history limited. Per , pt w/ complaints of back/abdominal pain for several days, worse today. Pain is intermittent, severe, 10/10, non-radiating. No associated nausea/vomiting or diarrhea although reports slightly increased output from colostomy. No fever, chills, injury or trauma. On arrival, BP 124/77, HR 94, O2 sat 96% RA, Afebrile. WBC 14. Creatinine 1.51, previously 1.24 on 06/28/2017. ALP 186. UA positive for UTI. CT Abdomen/Pelvis with abnormal left ureter with abnormal left side of bladder and trigone, findings suggestive of metastatic prostate cancer to the spine, colostomy with small herniation. Lumbar X-ray mild degenerative changes. Thoracic X-ray probable minimal compression T9. Pt cannot recall name of Urologist, does not know if he is following w/ Oncology. S/p Rocephin in ER. CBC/BMP: 10/25/17 1418 Significant Findings Laboratory Tests Test 10/24/17 13:44 10/25/17 04:50 10/25/17 14:18 Red Blood Count 3.29 MIL/MM3 (4.50-5.90) 3.82 MIL/MM3 (4.50-5.90) Hemoglobin 9.5 GM/DL (13.0-17.0) 11.3 GM/DL (13.0-17.0) Hematocrit 29.4 % (39.0-51.0) 34.3 % (39.0-51.0) Prostate Specific Antigen 10.50 NG/ML (0.00-4.00) Neutrophils (%) (Auto) 80.8 % (16.0-70.0) Lymphocytes # (Auto) 0.9 TH/MM3 (1.0-4.8) Activated Partial Thromboplast Time 31.7 SEC (24.3-30.1) Imaging Last Impressions Head CT 10/20/17 0000 Signed Impressions: Service Date/Time: Friday, October 20, 2017 22:54 - CONCLUSION: 1. Severe central and cortical atrophy. 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 2. 2 hot lesions were seen on recent bone scan in the region of the skull. There is a mixed lytic and sclerotic lesion in the left sphenoid bone and should region correlating with one of the lesions. No osseous lesion seen in the right frontal bone to correlate with the other area, but there is a 10 mm soft tissue nodule in the scalp which could potentially correlate with the 2nd area increased uptake on the bone scan. Gustavo Murillo MD Renal Ultrasound 10/17/17 0000 Signed Impressions: Service Date/Time: Tuesday, October 17, 2017 13:36 - CONCLUSION: Normal examination. Jorge Spangler MD Bone Scan Nuclear Medicine 10/15/17 0000 Signed Impressions: Service Date/Time: Sunday, October 15, 2017 12:30 - CONCLUSION: 1. Widespread osseous metastatic disease characteristic of metastatic prostate carcinoma Florencio Riley MD Thoracic Spine X-Ray 10/12/17 1146 Signed Impressions: Service Date/Time: Thursday, October 12, 2017 12:08 - CONCLUSION: Probable minimal compression at T9. Edd Chavez MD FACR Lumbar Spine X-Ray 10/12/17 1146 Signed Impressions: Service Date/Time: Thursday, October 12, 2017 12:10 - CONCLUSION: Mild degenerative changes. 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 Edd Chavez MD FACR PE at Discharge GENERAL: Elderly male appearing chronically ill, sleepy in bed. Hard of hearing. CARDIOVASCULAR: Regular rate and rhythm. RESPIRATORY: No accessory muscle use. Clear to auscultation. Breath sounds equal bilaterally. GASTROINTESTINAL: Abdomen soft, non-tender, nondistended. Hepatic and splenic margins not palpable. MUSCULOSKELETAL: Extremities without clubbing, cyanosis, or edema. No obvious deformities. NEUROLOGICAL: Awake and alert. No obvious cranial nerve deficits. Motor grossly within normal limits. Five out of 5 muscle strength in the arms and legs. Normal speech. PSYCHIATRIC: Appropriate mood and affect; insight and judgment normal. Hospital Course Metastatic prostate cancer: Bone scan revealed widespread bony metastases. Per oncology recommendations, urology has been reconsulted for cystoscopy with biopsy. Patient is s/p cystoscopy with biopsy by Dr Hess 10/25 Bladder spasm. Add ditropan Has no pain anymore, condom cath removed. Pathologic T9 compression fracture: TLSO brace. Pain is controlled. Continue PT/OT. UTI: Appreciate infectious disease recommendations. Urine culture growing MRSA. Continue Zyvox until 10/26/17. H/o Afib with RVR. Repeat EKG converted to NSR. Per patient follows with Dr Samuel as OP. Do EKG. Monitor on tele. Check CBC, BMP, replete K and mag. Increased metoprolol to 75 mg po bid. Received labetalol IV . PNR labetalol if HR sustained > 110. Do 2D ECHO. Consult his cardiology Dr Samuel, seen by cardiology Dr Morrison appreciate recs. DC Norvasc and add Cardizem PO cleared for DC to follow up as OP. NOTE: the patient is not a candidate for anticoagulation given the his state of debilitation. Acute kidney injury: Nonoliguric. Creatinine improved. Deconditioning: Continue physical therapy, occupational therapy. DVT prophylaxis: Heparin. Appreciate palliative care assistance. Code status: DNR. Discharge Planning S/p cystoscopy with biopsy by Dr Hess 10/25. Path results pending DC to SNF in stable condition to follow up as OP with PCP and consultants. Pt Condition on Discharge: Stable Discharge Disposition: Discharge to SNF Discharge Time: > 30 minutes Discharge Instructions DIET: Follow Instructions for: Heart Healthy Diet Activities you can perform: Regular-No Restrictions Follow up Referrals: Appointment for Follow Up @ [facility] - 1 Week PCP Follow-up - 2-3 Days New Medications: Diltiazem CD 24 HR (Diltiazem CD 24 HR) 120 Mg Caper 120 MG PO DAILY for Blood Pressure Management, #30 CAP Hydrocodone/Acetaminophen (Hydrocodone-Acetamin 5-325 mg) 5 Mg-325 Mg Tablet 1 TAB PO Q4H PRN for pain, #15 TAB Linezolid (Zyvox) 600 Mg Tab 600 MG PO Q12HR for Infection, #2 TAB Metoprolol Tartrate (Lopressor) 50 Mg Tab 75 MG PO BID for Blood Pressure Management, #60 TAB Continued Medications: Allopurinol (Allopurinol) 300 Mg Tab 300 MG PO DAILY for Gout, #30 TAB 0 Refills Aspirin (Aspirin 81 Low Dose) 81 Mg Chew 81 MG CHEW DAILY, #30 TAB Atorvastatin (Atorvastatin) 10 Mg Tab 10 MG PO HS for Cholesterol Management, #30 TAB 0 Refills Cholecalciferol (Vitamin D) 2,000 Unit Cap 2000 MG PO DAILY Cyanocobalamin (Vitamin B-12) 1,000 Mcg Tab 1000 MCG PO DAILY for Nutritional Supplement, #1 BOTTLE 0 Refills Megestrol (Megestrol) 20 Mg Tab 20 MG PO BID, TAB 0 Refills Omeprazole (Omeprazole) 20 Mg Tab 20 MG PO BID for Reflux, #60 TAB 0 Refills Oxygen (O2) (Oxygen (O2)) Device LITER ROSE MARIE.CANULA CONTINUOUS for Prevent Hypoxemia, #2 Oxygen Concentrator Portable Gaseous 2 L/min via Nasal Canula Continuous For 99 months Discontinued Medications: Amlodipine (Amlodipine) 5 Mg Tab 5 MG PO DAILY for Blood Pressure Management, #30 TAB 0 Refills Metoprolol Tartrate (Metoprolol Tartrate) 50 Mg Tab 50 MG PO BID, #30 TAB 0 Refills Alexia Giordano MD October 26, 2017 08:12
[2017-10-26] MEDS ORDERED: HYDR-3516 PO (08:19)
[2017-10-26] MEDS ORDERED: ZYVO600T PO (08:19)
[2017-10-26 08:20] VITALS: BP 128/57; PULSE 82; RESP 20; TEMP 98; O2SAT 97
[2017-10-26] MEDS: MORPHINE SULFATE 2 MG/ML SYRINGE IV PUSH PRN (08:47)
[2017-10-26] MEDS: ONDANSETRON HCL 4 MG/2 ML VIAL IVP PRN (08:47)
[2017-10-26] MEDS: SODIUM CHLORIDE 0.9% FLUSH 10 ML FLUSH IV FLUSH SCH ×2 (08:48→21:18)
--- NOTE | 2017-10-26 08:51 | HHI.PR ---
Subjective Remarks Feels much better today. no pain.More awake and alert. Patient ays he wants to go home however per she cant take care of hi home and would prefer SNF. Patient in nad. No fever or chills. No n/v/d/c. Denies chest pain or sob. Objective Vitals Vital Signs Date Time Temp Pulse Resp B/P (MAP) Pulse Ox O2 Delivery O2 Flow Rate FiO2 10/26/17 04:00 97.3 80 20 128/53 (78) 99 10/26/17 00:00 98.0 80 20 117/64 (81) 99 10/25/17 20:00 98.3 82 20 116/52 (73) 100 10/25/17 20:00 Nasal Cannula 2.00 10/25/17 18:15 97.8 81 15 130/65 (86) 100 Nasal Cannula 2 10/25/17 18:00 73 15 130/56 (80) 100 Nasal Cannula 2 10/25/17 17:50 97.6 81 15 152/68 (96) 98 Nasal Cannula 2 10/25/17 16:31 97.9 67 16 123/75 (91) 100 10/25/17 13:43 97.8 72 16 122/64 (83) 100 10/25/17 13:10 Room Air 10/25/17 09:26 97.6 90 18 116/57 (76) 100 I/O 10/25/17 10/25/17 10/25/17 10/26/17 10/26/17 10/26/17 07:00 15:00 23:00 07:00 15:00 23:00 Intake Total 440 ml Output Total 600 ml 375 ml 500 ml Balance -600 ml 65 ml -500 ml Intake Oral 240 ml IV Total 200 ml Output Urine Total 600 ml 375 ml 500 ml Result Diagram: 10/25/17 1418 Imaging Last Impressions Head CT 10/20/17 0000 Signed Impressions: Service Date/Time: Friday, October 20, 2017 22:54 - CONCLUSION: 1. Severe central and cortical atrophy. 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 2. 2 hot lesions were seen on recent bone scan in the region of the skull. There is a mixed lytic and sclerotic lesion in the left sphenoid bone and should region correlating with one of the lesions. No osseous lesion seen in the right frontal bone to correlate with the other area, but there is a 10 mm soft tissue nodule in the scalp which could potentially correlate with the 2nd area increased uptake on the bone scan. Gustavo Murillo MD Renal Ultrasound 10/17/17 0000 Signed Impressions: Service Date/Time: Tuesday, October 17, 2017 13:36 - CONCLUSION: Normal examination. Jorge Spangler MD Bone Scan Nuclear Medicine 10/15/17 0000 Signed Impressions: Service Date/Time: Sunday, October 15, 2017 12:30 - CONCLUSION: 1. Widespread osseous metastatic disease characteristic of metastatic prostate carcinoma Florencio Riley MD Thoracic Spine X-Ray 10/12/17 1146 Signed Impressions: Service Date/Time: Thursday, October 12, 2017 12:08 - CONCLUSION: Probable minimal compression at T9. Edd Chavez MD FACR Lumbar Spine X-Ray 10/12/17 1146 Signed Impressions: Service Date/Time: Thursday, October 12, 2017 12:10 - CONCLUSION: Mild degenerative changes. 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 Edd Chavez MD FACR Objective Remarks GENERAL: Elderly male appearing chronically ill, sleepy in bed. Hard of hearing. CARDIOVASCULAR: Regular rate and rhythm. RESPIRATORY: No accessory muscle use. Clear to auscultation. Breath sounds equal bilaterally. GASTROINTESTINAL: Abdomen soft, non-tender, nondistended. Hepatic and splenic margins not palpable. MUSCULOSKELETAL: Extremities without clubbing, cyanosis, or edema. No obvious deformities. NEUROLOGICAL: Awake and alert. No obvious cranial nerve deficits. Motor grossly within normal limits. Five out of 5 muscle strength in the arms and legs. Normal speech. PSYCHIATRIC: Appropriate mood and affect; insight and judgment normal. 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 ICD Code: M84.58XA - Pathological fracture in neoplastic disease, other specified site, initial encounter for fracture (2) Prostate CA ICD Code: C61 - Malignant neoplasm of prostate (3) UTI (urinary tract infection) ICD Code: N39.0 - Urinary tract infection, site not specified (4) Thoracic compression fracture ICD Code: S22.000A - Wedge compression fracture of unspecified thoracic vertebra, initial encounter for closed fracture (5) QUIQUE (acute kidney injury) ICD Code: N17.9 - Acute kidney failure, unspecified Assessment and Plan Metastatic prostate cancer: Bone scan revealed widespread bony metastases. Per oncology recommendations, urology has been reconsulted for cystoscopy with biopsy. Patient is s/p cystoscopy with biopsy by Dr Hess / Pathologic T9 compression fracture: TLSO brace. Pain is controlled. Continue PT/OT. UTI: Appreciate infectious disease recommendations. Urine culture growing MRSA. Continue Zyvox until 10/26/17. Acute kidney injury: Nonoliguric. Creatinine improved. Deconditioning: Continue physical therapy, occupational therapy. DVT prophylaxis: Heparin. Appreciate palliative care assistance. Code status: DNR. Discharge Planning S/p cystoscopy with biopsy by Dr Hess 10/25. Plan to DC to SNF. Alexia Giordano MD October 26, 2017 08:51
[2017-10-26] MEDS: CLOTRIMAZOLE 1% CREAM 15 GM TOPICAL SCH ×2 (09:00→21:00)
[2017-10-26] MEDS: POTASSIUM CHLORIDE 10 MEQ CONTROLLED RELEASE TAB PO SCH ×2 (10:54→21:17)
[2017-10-26] MEDS: LINEZOLID 600 MG TAB PO SCH ×2 (10:54→21:17)
[2017-10-26] MEDS: PANTOPRAZOLE SOD 20 MG DELAYED RELEASE TAB PO SCH ×2 (10:55→21:17)
[2017-10-26] MEDS: DOCUSATE SODIUM 50 MG/SENNA 8.6 MG TAB PO SCH ×2 (10:55→21:17)
[2017-10-26] MEDS: amLODIPine BESYLATE 5 MG TAB PO SCH (10:55)
[2017-10-26] MEDS: METOPROLOL TARTRATE 50 MG TAB PO SCH ×2 (10:55→21:00)
[2017-10-26 12:00] VITALS: BP 105/53; PULSE 76; RESP 20; TEMP 98; O2SAT 98
--- NOTE | 2017-10-26 13:22 | HHI.HCPN ---
Reason for visit a. To assist with evaluation and management of symptoms including: Pain, debility b. To assist medical decision maker(s) with: better understanding of current medical conditions; weighing benefits/burdens of medical treatment options; making medical treatment decisions. Subjective/Interval History Follow-up medically necessary for symptom management and for clarification of goals of care. Patient seen and examined in his room in the presence of his . Patient is sitting up in a recliner chair with a TLSO brace on. Patient is awake, alert, denies pain. Patient is very hard of hearing. Patient underwent cystoscopy with biopsy on 10/25/17 and it revealed trabeculated bladder with no bladder mass and mild bladder neck contracture. No laboratory workup or recent imaging today. Patient`s reported that patient became dizzy and hypotensive when transferred OOB to recliner chair. CM assisting with patient discharge to a SNF. Goals remain aggressive short of no code . Family/friend interactions Patient's at bedside during visit . Advance Directives Living Will: Copy in medical record Durable Power of Urban Forester: Copy in medical record Advance Directive Specifics Date completed: Living will-signed November, DURABLE POWER OF CLINICAL TRIAL EDUCATOR-signed Health Care Surrogate(s): DPOA- Spouse-Stella Mohan [phone] . Documented care wishes: Standard verbiage . Objective Vital Signs Date Time Temp Pulse Resp B/P (MAP) Pulse Ox O2 Delivery O2 Flow Rate FiO2 10/26/17 08:20 97 Nasal Cannula 2.00 10/26/17 08:20 98.0 82 20 128/57 (80) 97 10/26/17 04:00 97.3 80 20 128/53 (78) 99 10/26/17 00:00 98.0 80 20 117/64 (81) 99 10/25/17 20:00 98.3 82 20 116/52 (73) 100 10/25/17 20:00 Nasal Cannula 2.00 10/25/17 18:15 97.8 81 15 130/65 (86) 100 Nasal Cannula 2 10/25/17 18:00 73 15 130/56 (80) 100 Nasal Cannula 2 10/25/17 17:50 97.6 81 15 152/68 (96) 98 Nasal Cannula 2 10/25/17 16:31 97.9 67 16 123/75 (91) 100 10/25/17 13:43 97.8 72 16 122/64 (83) 100 Intake & Output 10/26/17 10/26/17 07:00 19:00 Output Total 500 ml Balance -500 ml Output Urine Total 500 ml Physical Exam CONSTITUTIONAL/GENERAL: This is an elderly, chronically ill looking patient, sitting up in a recliner in no apparent distress. TUBES/LINES/DRAINS:Colostomy, PIV. Condom catheter SKIN: No jaundice, rashes, or lesions. Ecchymoses on upper extremities. No wounds seen anteriorly. Skin temperature appropriate. Not diaphoretic. HEAD: Atraumatic. Normocephalic. EYES: PERRLA. Extraocular motions intact. Fundi not examined. ENT: Very hard of hearing. Nose without bleeding or purulent drainage. moist oral mucosa NECK: Trachea midline. Supple, nontender. CARDIOVASCULAR: S1, S2 normal, no gallops, or rubs. No JVD. Peripheral pulses symmetric. RESPIRATORY/CHEST: Symmetric, unlabored respirations. Diminished breath sounds. No wheezes, rales, or rhonchi. GASTROINTESTINAL: Abdomen soft, non-tender, nondistended. Left colostomy. No guarding. Active bowel sounds GENITOURINARY: Without palpable bladder distension. Condom catheter in place MUSCULOSKELETAL: Extremities without clubbing, cyanosis, or edema. No joint tenderness or effusion noted. No mottling or clubbing. NEUROLOGICAL: Alert, arousable. Follows simple commands. Moves all extremities. Patient limited due to hard of hearing PSYCHIATRIC: No obvious anxiety/depression. no apparent hallucinations or other psychotic thought process. Diagnostic Tests Laboratory Laboratory Tests Test 10/24/17 13:44 10/25/17 04:50 10/25/17 14:18 White Blood Count 7.9 TH/MM3 (4.0-11.0) 7.6 TH/MM3 (4.0-11.0) Red Blood Count 3.29 MIL/MM3 (4.50-5.90) 3.82 MIL/MM3 (4.50-5.90) Hemoglobin 9.5 GM/DL (13.0-17.0) 11.3 GM/DL (13.0-17.0) Hematocrit 29.4 % (39.0-51.0) 34.3 % (39.0-51.0) Mean Corpuscular Volume 89.3 FL (80.0-100.0) 89.7 FL (80.0-100.0) Mean Corpuscular Hemoglobin 29.0 PG (27.0-34.0) 29.5 PG (27.0-34.0) Mean Corpuscular Hemoglobin Concent 32.5 % (32.0-36.0) 32.9 % (32.0-36.0) Red Cell Distribution Width 16.7 % (11.6-17.2) 17.0 % (11.6-17.2) Platelet Count 232 TH/MM3 (150-450) 204 TH/MM3 (150-450) Mean Platelet Volume 7.8 FL (7.0-11.0) 7.8 FL (7.0-11.0) Neutrophils (%) (Auto) 69.1 % (16.0-70.0) 80.8 % (16.0-70.0) Lymphocytes (%) (Auto) 19.1 % (9.0-44.0) 11.5 % (9.0-44.0) Monocytes (%) (Auto) 7.4 % (0.0-8.0) 5.2 % (0.0-8.0) Eosinophils (%) (Auto) 3.3 % (0.0-4.0) 1.6 % (0.0-4.0) Basophils (%) (Auto) 1.1 % (0.0-2.0) 0.9 % (0.0-2.0) Neutrophils # (Auto) 5.5 TH/MM3 (1.8-7.7) 6.1 TH/MM3 (1.8-7.7) Lymphocytes # (Auto) 1.5 TH/MM3 (1.0-4.8) 0.9 TH/MM3 (1.0-4.8) Monocytes # (Auto) 0.6 TH/MM3 (0-0.9) 0.4 TH/MM3 (0-0.9) Eosinophils # (Auto) 0.3 TH/MM3 (0-0.4) 0.1 TH/MM3 (0-0.4) Basophils # (Auto) 0.1 TH/MM3 (0-0.2) 0.1 TH/MM3 (0-0.2) CBC Comment DIFF FINAL DIFF FINAL Differential Comment Prostate Specific Antigen 10.50 NG/ML (0.00-4.00) Prothrombin Time 11.4 SEC (9.8-11.6) Prothromb Time International Ratio 1.1 RATIO Activated Partial Thromboplast Time 31.7 SEC (24.3-30.1) Result Diagram: 10/25/17 1418 Procedures 10/25/17 -cystoscopy . Assessment and Plan Disease Oriented Problem List: (1) Uwzyg-ck-bmpzjjh kidney injury (2) UTI (urinary tract infection) (3) Prostate CA (4) 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 (2) Debility 0-10 Scale: Unable to quantify Comment: Progressive . Pertinent Non-Medical Issues Psychosocial: Patient was born in [place], [place]. He moved to [place] 15 years ago. Patient served in the [employer] for 6 months. 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 Patient has been twice, once. He has been to his current Stella Nuñez for 19 years and they have known each other for 28 years. Patient his one adult daughter, Ann Escoto endocrine children. Spiritual: Patient is Muslim and attends oriental orthodox. Catholic is not been a big part of his life. Legal: Patient has completed DPOA, and living will in the past. Copies on EMR Ethical issues impacting care: None identified at this time . Important Contacts Spouse-DPOA- Stella Mohan [phone] Daughter- Jevon Juarez-[phone](cell)/[phone](home) . Prognosis Mr. Nuñez is a 86 years old male with a past medical history significant for colorectal cancer, prostate cancer with biochemical relapse, chronic atrial fibrillation, gout, hypertension, chronic renal insufficiency, recurrent urinary tract infections, hyperlipidemia,mild anemia and GERD. Patient presented to the ER on 10/12/17 with complaints of worsening back and abdominal pain for several days. Patient was found to have mild left hydrouteronephrosis, bladder mass, methicillin-resistant Staphylococcus aureus urinary tract infection, possible pathologic T9 compression fracture, and bone scan showing widespread osseous metastatic disease characteristic of metastatic prostate carcinoma. Given ongoing comorbidities, patient remains at high risk for further complications, deterioration and decline. . Code Status: No Code Plan PLAN: Legal decision maker: Patient is able to make his own medical decisions, due to his severe hard of hearing, recommending joints decision making with his Stella Nuñez who is his DURABLE POWER OF CLINICAL TRIAL EDUCATOR Goals: Aggressive short of no code CODE STATUS: No code DNR/DNI CM assisting with discharge to SNF. Spouse unable to take care of patient at home. SYMPTOMS: * Pain: Patient came in complaining of abdominal/back pain. Abdomen/pelvis CT revealed mild left hydrouteronephrosis,and bladder mass. Bone scan showing widespread osseous metastatic disease characteristic of metastatic prostate carcinoma and patient he has a T9 pathologic compression fracture. Patient has a TLSO brace the back. Patient has hydrocodone/acetaminophen 5/325 q 4 hrs prn. Patient sparingly needing PRN medications. Currently denying pain. * Debility: Progressive. Per patient has been sick in the past 3 years with multiple hospitalizations and has progressively declined to a point of needing assistance with most of his ADLs. Patient has a hospital bed, shower chair, wheelchair, rolling walker at home. He is only able to ambulate short distances within the house. Patient's mentions that she is no longer able to take care of him at home considering his need for assistance with most of his ADLs. Physical therapy and occupational therapy have been consulted. Palliative care will continue to follow the patient during hospital course as condition evolves, to assist patient/decision-maker with understanding of their medical conditions, weighing benefits/burdens of treatment options, for clarification of goals of treatment. Additionally will assist with any symptoms of palliative concern Attestation To help prompt me to consider important information that might be impacting today's encounter and assessment, information from prior notes written by myself or my colleagues may have been "brought forward" into today's note. My signature on this note, however, is an attestation that I personally performed the exam, history, and/or decision-making noted today, and, unless otherwise indicated, the interactions with patient, family, and staff as well as the review of records all occurred today. I also attest that the listed assessment and stated plan reflect my best clinical judgment today based on the combination of historical information, prior notes, and today's exam/ interactions. When time spent is documented, it refers only to time spent today by the signer, or if indicated, combined time spent today by collaborating physician/nurse practitioner. Aleshia Lyn October 26, 2017 13:22
[2017-10-26 17:30] VITALS: BP 112/58; PULSE 84; RESP 18; TEMP 98.4; O2SAT 99
[2017-10-26] MEDS: ACETAMINOPHEN/HYDROcodone 325 MG/5 MG TAB PO PRN (17:40)
[2017-10-26 20:00] VITALS: BP 115/55; PULSE 92; RESP 20; TEMP 98.1; O2SAT 98
[2017-10-26] MEDS: ATORVASTATIN 10 MG TAB PO SCH (21:17)
[2017-10-27] VITALS: BP 103/52; PULSE 94; RESP 20; TEMP 97.7; O2SAT 100
[2017-10-27 04:00] VITALS: BP 115/55; PULSE 99; RESP 22; TEMP 97.7; O2SAT 100
[2017-10-27] MEDS: HEPARIN SODIUM - SQ 10,000 UNITS/ML VIAL SQ SCH ×5 (06:02→21:40)
[2017-10-27 08:00] VITALS: BP 112/56; RESP 20; TEMP 97.5
--- NOTE | 2017-10-27 08:47 | HHI.PR ---
Subjective Remarks Feels. Has some mild narrowing he has no pain at this time. No chest pain or shortness of breath no nausea vomiting. No diarrhea constipation. Senior in place. Objective Vitals Vital Signs Date Time Temp Pulse Resp B/P (MAP) Pulse Ox O2 Delivery O2 Flow Rate FiO2 10/27/17 08:00 97.5 20 112/56 (74) 10/27/17 04:00 97.7 99 22 115/55 (75) 100 10/27/17 00:00 97.7 94 20 103/52 (69) 100 10/26/17 20:00 98.1 92 20 115/55 (75) 98 10/26/17 20:00 Nasal Cannula 2.00 10/26/17 17:30 98.4 84 18 112/58 (76) 99 10/26/17 12:00 98.0 76 20 105/53 (70) 98 I/O 10/26/17 10/26/17 10/26/17 10/27/17 10/27/17 10/27/17 07:00 15:00 23:00 07:00 15:00 23:00 Intake Total 850 ml Output Total 500 ml 350 ml Balance -500 ml 500 ml Intake Oral 850 ml Output Urine Total 500 ml 300 ml Emesis 50 ml # Voids 2 # Bowel Movements 1 Result Diagram: 10/25/17 1418 Imaging Last Impressions Head CT 10/20/17 0000 Signed Impressions: Service Date/Time: Friday, October 20, 2017 22:54 - CONCLUSION: 1. Severe central and cortical atrophy. 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 2. 2 hot lesions were seen on recent bone scan in the region of the skull. There is a mixed lytic and sclerotic lesion in the left sphenoid bone and should region correlating with one of the lesions. No osseous lesion seen in the right frontal bone to correlate with the other area, but there is a 10 mm soft tissue nodule in the scalp which could potentially correlate with the 2nd area increased uptake on the bone scan. Gustavo Murillo MD Renal Ultrasound 10/17/17 0000 Signed Impressions: Service Date/Time: Tuesday, October 17, 2017 13:36 - CONCLUSION: Normal examination. Jorge Spangler MD Bone Scan Nuclear Medicine 10/15/17 0000 Signed Impressions: Service Date/Time: Sunday, October 15, 2017 12:30 - CONCLUSION: 1. Widespread osseous metastatic disease characteristic of metastatic prostate carcinoma Florencio Riley MD Thoracic Spine X-Ray 10/12/17 1146 Signed Impressions: Service Date/Time: Thursday, October 12, 2017 12:08 - CONCLUSION: Probable minimal compression at T9. Edd Chavez MD FACR Lumbar Spine X-Ray 10/12/17 1146 Signed Impressions: Service Date/Time: Thursday, October 12, 2017 12:10 - CONCLUSION: Mild degenerative changes. 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 Edd Chavez MD FACR Objective Remarks GENERAL: Elderly male appearing chronically ill, sleepy in bed. Hard of hearing. CARDIOVASCULAR: Regular rate and rhythm. RESPIRATORY: No accessory muscle use. Clear to auscultation. Breath sounds equal bilaterally. GASTROINTESTINAL: Abdomen soft, non-tender, nondistended. Hepatic and splenic margins not palpable. MUSCULOSKELETAL: Extremities without clubbing, cyanosis, or edema. No obvious deformities. NEUROLOGICAL: Awake and alert. No obvious cranial nerve deficits. Motor grossly within normal limits. Five out of 5 muscle strength in the arms and legs. Normal speech. PSYCHIATRIC: Appropriate mood and affect; insight and judgment normal. 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 ICD Code: M84.58XA - Pathological fracture in neoplastic disease, other specified site, initial encounter for fracture (2) Prostate CA ICD Code: C61 - Malignant neoplasm of prostate (3) UTI (urinary tract infection) ICD Code: N39.0 - Urinary tract infection, site not specified (4) Thoracic compression fracture ICD Code: S22.000A - Wedge compression fracture of unspecified thoracic vertebra, initial encounter for closed fracture (5) QUIQUE (acute kidney injury) ICD Code: N17.9 - Acute kidney failure, unspecified Assessment and Plan Metastatic prostate cancer: Bone scan revealed widespread bony metastases. Per oncology recommendations, urology has been reconsulted for cystoscopy with biopsy. Patient is s/p cystoscopy with biopsy by Dr Hess 5/ Pathologic T9 compression fracture: TLSO brace. Pain is controlled. Continue PT/OT. UTI: Appreciate infectious disease recommendations. Urine culture growing MRSA. Continue Zyvox until 10/26/17. Acute kidney injury: Nonoliguric. Creatinine improved. Deconditioning: Continue physical therapy, occupational therapy. DVT prophylaxis: Heparin. Appreciate palliative care assistance. Code status: DNR. Discharge Planning S/p cystoscopy with biopsy by Dr Hess 10/25. Path results pending Plan to DC to SNF. Alexia Giordano MD October 27, 2017 08:47
[2017-10-27] MEDS: amLODIPine BESYLATE 5 MG TAB PO SCH (09:00)
[2017-10-27] MEDS: SODIUM CHLORIDE 0.9% FLUSH 10 ML FLUSH IV FLUSH SCH ×2 (10:27→21:00)
[2017-10-27] MEDS: METOPROLOL TARTRATE 50 MG TAB PO SCH ×3 (10:28→21:34)
[2017-10-27] MEDS: POTASSIUM CHLORIDE 10 MEQ CONTROLLED RELEASE TAB PO SCH ×2 (10:28→21:34)
[2017-10-27] MEDS: PANTOPRAZOLE SOD 20 MG DELAYED RELEASE TAB PO SCH ×2 (10:29→21:34)
[2017-10-27] MEDS: DOCUSATE SODIUM 50 MG/SENNA 8.6 MG TAB PO SCH ×2 (10:29→21:34)
[2017-10-27] MEDS: CLOTRIMAZOLE 1% CREAM 15 GM TOPICAL SCH ×2 (10:30→21:35)
--- NOTE | 2017-10-27 10:30 | PD.ONC.PN ---
Subjective Subjective Remarks Afebrile Patient curled up in bed in no obvious distress Patient's not currently at bedside He has no acute complaints Per case management they are awaiting authorization for rehab placement Objective Data Date Time Temp Pulse Resp B/P (MAP) Pulse Ox O2 Delivery O2 Flow Rate FiO2 10/27/17 08:00 97.5 20 112/56 (74) 10/27/17 04:00 97.7 99 22 115/55 (75) 100 10/27/17 00:00 97.7 94 20 103/52 (69) 100 10/26/17 20:00 98.1 92 20 115/55 (75) 98 10/26/17 20:00 Nasal Cannula 2.00 10/26/17 17:30 98.4 84 18 112/58 (76) 99 10/26/17 12:00 98.0 76 20 105/53 (70) 98 Result Diagram: 10/25/17 1418 Administered Medications Medications (Trade) Dose Ordered Sig/Thee Route PRN Reason Start Time Stop Time Status Last Admin Dose Admin Sodium Chloride (NS Flush) 2 ml UNSCH PRN IV FLUSH FLUSH AFTER USING IV ACCESS 10/12/17 16:15 10/14/17 11:59 Sodium Chloride (NS Flush) 2 ml BID IV FLUSH 10/12/17 21:00 10/26/17 21:18 Ondansetron HCl (Zofran Inj) 4 mg Q6H PRN IVP NAUSEA OR VOMITING 10/12/17 16:15 10/26/17 08:47 Senna/Docusate Sodium (Le-Colace) 1 tab BID PO 10/12/17 21:00 10/26/17 21:17 Acetaminophen/ Hydrocodone Bitart (Hitchins 5-325 Mg) 1 tab Q4H PRN PO PAIN SCALE 3 TO 5 10/12/17 16:30 10/26/17 17:40 Acetaminophen/ Hydrocodone Bitart (Hitchins 10-325 Mg) 1 tab Q4H PRN PO PAIN SCALE 6 TO 10 10/12/17 16:30 10/24/17 05:19 Morphine Sulfate (Morphine Inj) 2 mg Q4H PRN IV PUSH BREAKTHROUGH PAIN 10/12/17 16:30 10/26/17 08:47 Amlodipine Besylate (Norvasc) 5 mg DAILY PO 10/13/17 09:00 10/26/17 10:55 Atorvastatin Calcium (Lipitor) 10 mg HS PO 10/13/17 21:00 10/26/17 21:17 Metoprolol Tartrate (Lopressor) 50 mg BID PO 10/13/17 09:00 10/26/17 21:00 Pantoprazole Sodium (Protonix) 20 mg BID PO 10/13/17 09:00 10/26/17 21:17 Clotrimazole (Lotrimin 1% Cream) 1 applic Q12HR TOPICAL 10/14/17 11:00 10/25/17 20:49 Promethazine HCl (Phenergan Inj) 25 mg Q6H PRN IM NAUSEA OR VOMITING 10/15/17 15:45 10/15/17 16:47 Heparin Sodium (Porcine) (Heparin Inj) 5,000 units Q8H SQ 10/16/17 15:00 10/27/17 06:02 Potassium Chloride (KCl) 10 meq Q12HR PO 10/19/17 21:00 10/26/17 21:17 Objective Remarks GENERAL: Elderly male resting in bed in no obvious distress SKIN: Warm and dry. HEAD: Normocephalic. Very hard of hearing EYES: No injection or drainage. + Arcus senilis NECK: Supple, trachea midline. No JVD or lymphadenopathy. CARDIOVASCULAR: Regular rate and rhythm without murmurs. RESPIRATORY: Breath sounds equal bilaterally. No accessory muscle use. GASTROINTESTINAL: Colostomy to left abdomen. Green liquid noted in bag. Stoma pink. EXTREMITIES: No cyanosis, or edema. MUSCULOSKELETAL: Generalized weakness NEUROLOGICAL: Patient follows commands. Very hard of hearing. Assessment/Plan Assessment 86-year-old male with history of prostate cancer and colon cancer admitted with back and abdominal pain Plan Patient clear for discharge from oncology standpoint. As he is elderly and frail he is not the best candidate for any type of systemic chemotherapy. However he should follow-up with Dr. Varela once discharged. As there was no mass in the bladder it is likely metastatic disease from the prostate. He may benefit from Casodex. Attending Statement The exam, history, and the medical decision-making described in the above note were completed with the assistance of the mid-level provider. I reviewed and agree with the findings presented. I attest that I had a [id number] encounter with the patient on the same day, and personally performed and documented my assessment and findings in the medical record. spoke with Dr. Varela. patient will start casodex 50 mg daily and continue this on discharge and see Dr. Varela in approximately two weeks at which point he will receive Lupron which should be effective treatment for metastatic prostate cancer. The fact that the PSA is not higher suggests that it may be poorly differentiated now and the response rate may be lower. Khushbu Herr October 27, 2017 10:30 Quinton Salguero MD October 27, 2017 13:52
[2017-10-27 12:00] VITALS: BP 128/81; PULSE 68; RESP 20; TEMP 97.7; O2SAT 92
[2017-10-27] MEDS: BICALUTAMIDE 50 MG TAB PO SCH (15:44)
[2017-10-27 16:00] VITALS: BP 121/58; PULSE 66; RESP 20; TEMP 97.7; O2SAT 92
[2017-10-27 20:00] VITALS: BP 105/60; PULSE 112; RESP 20; TEMP 98.2; O2SAT 92
[2017-10-27] MEDS: ATORVASTATIN 10 MG TAB PO SCH (21:34)
[2017-10-28] VITALS (12 sets, daily range): BP systolic 101–126; BP diastolic 50–67; PULSE 79–160; RESP 18–20; TEMP 98–98.4; O2SAT 96–98
[2017-10-28] MEDS ORDERED: METOPROLOL TARTRATE 5 MG/5 ML VIAL IV PUSH ONE (04:15)
[2017-10-28] MEDS ORDERED: SODIUM CHLORID 0.9% 500 ML INJ 500 ML IV ONE ×2 (04:30→05:30)
[2017-10-28] MEDS: METOPROLOL TARTRATE 5 MG/5 ML VIAL IV PUSH PRN ×2 (05:41→05:57)
[2017-10-28] MEDS: HEPARIN SODIUM - SQ 10,000 UNITS/ML VIAL SQ SCH ×3 (05:41→22:42)
--- NOTE | 2017-10-28 08:24 | HHI.PR ---
Subjective Remarks Patient had was noted with elevated heart rate persistently 127 and 2 140s. Received labetalol IV overnight. Will increase metoprolol p.o. Patient has a history of A. fib now with A. fib with RVR. Patient denies having chest pain or shortness of breath no lightheadedness. Also noted with spilling urine out of the condom cath. With bladder spasm will give Ditropan. Objective Vitals Vital Signs Date Time Temp Pulse Resp B/P (MAP) Pulse Ox O2 Delivery O2 Flow Rate FiO2 10/28/17 05:30 155 18 115/67 (83) 98 10/28/17 05:30 Nasal Cannula 2.00 10/28/17 04:00 98.0 160 18 112/57 (75) 98 10/28/17 04:00 Nasal Cannula 2.00 10/28/17 04:00 160 10/28/17 03:38 98.0 133 18 112/57 (75) 98 10/28/17 00:00 98.4 108 20 101/55 (70) 96 10/28/17 00:00 96 Nasal Cannula 2.00 10/27/17 20:00 95 Nasal Cannula 2.00 10/27/17 20:00 98.2 112 20 105/60 (75) 92 10/27/17 16:00 92 Nasal Cannula 2.00 10/27/17 16:00 97.7 66 20 121/58 (79) 92 10/27/17 12:00 92 Nasal Cannula 2.00 10/27/17 12:00 97.7 68 20 128/81 (97) 92 I/O 10/27/17 10/27/17 10/27/17 10/28/17 10/28/17 10/28/17 07:00 15:00 23:00 07:00 15:00 23:00 Intake Total 2120 ml Output Total 550 ml Balance 1570 ml Intake Oral 120 ml IV Total 2000 ml Output Urine Total 250 ml Stool Total 300 ml # Bowel Movements 2 2 Result Diagram: 10/25/17 1418 Imaging Last Impressions Head CT 10/20/17 0000 Signed Impressions: Service Date/Time: Friday, October 20, 2017 22:54 - CONCLUSION: 1. Severe central and cortical atrophy. 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 2. 2 hot lesions were seen on recent bone scan in the region of the skull. There is a mixed lytic and sclerotic lesion in the left sphenoid bone and should region correlating with one of the lesions. No osseous lesion seen in the right frontal bone to correlate with the other area, but there is a 10 mm soft tissue nodule in the scalp which could potentially correlate with the 2nd area increased uptake on the bone scan. Gustavo Murillo MD Renal Ultrasound 10/17/17 0000 Signed Impressions: Service Date/Time: Tuesday, October 17, 2017 13:36 - CONCLUSION: Normal examination. Jorge Spangler MD Bone Scan Nuclear Medicine 10/15/17 0000 Signed Impressions: Service Date/Time: Sunday, October 15, 2017 12:30 - CONCLUSION: 1. Widespread osseous metastatic disease characteristic of metastatic prostate carcinoma Florencio Riley MD Thoracic Spine X-Ray 10/12/17 1146 Signed Impressions: Service Date/Time: Thursday, October 12, 2017 12:08 - CONCLUSION: Probable minimal compression at T9. Edd Chavez MD FACR Lumbar Spine X-Ray 10/12/17 1146 Signed Impressions: Service Date/Time: Thursday, October 12, 2017 12:10 - CONCLUSION: Mild degenerative changes. 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 Edd Chavez MD FACR Objective Remarks GENERAL: Elderly male appearing chronically ill, sleepy in bed. Hard of hearing. CARDIOVASCULAR: Regular rate and rhythm. RESPIRATORY: No accessory muscle use. Clear to auscultation. Breath sounds equal bilaterally. GASTROINTESTINAL: Abdomen soft, non-tender, nondistended. Hepatic and splenic margins not palpable. MUSCULOSKELETAL: Extremities without clubbing, cyanosis, or edema. No obvious deformities. NEUROLOGICAL: Awake and alert. No obvious cranial nerve deficits. Motor grossly within normal limits. Five out of 5 muscle strength in the arms and legs. Normal speech. PSYCHIATRIC: Appropriate mood and affect; insight and judgment normal. 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 ICD Code: M84.58XA - Pathological fracture in neoplastic disease, other specified site, initial encounter for fracture (2) Prostate CA ICD Code: C61 - Malignant neoplasm of prostate (3) UTI (urinary tract infection) ICD Code: N39.0 - Urinary tract infection, site not specified (4) Thoracic compression fracture ICD Code: S22.000A - Wedge compression fracture of unspecified thoracic vertebra, initial encounter for closed fracture (5) QUIQUE (acute kidney injury) ICD Code: N17.9 - Acute kidney failure, unspecified Assessment and Plan Metastatic prostate cancer: Bone scan revealed widespread bony metastases. Per oncology recommendations, urology has been reconsulted for cystoscopy with biopsy. Patient is s/p cystoscopy with biopsy by Dr Hess 10/25 Bladder spasm. Add ditropan Pathologic T9 compression fracture: TLSO brace. Pain is controlled. Continue PT/OT. UTI: Appreciate infectious disease recommendations. Urine culture growing MRSA. Continue Zyvox until 10/26/17. H/o Afib now with RVR. Per patient follows with Dr Samuel as OP. Do EKG. Monitor on tele. Check CBC, BMP, replete K and mag. Increased metoprolol to 75 mg po bid. Received labetalol IV . PNR labetalol if HR sustained > 110. Do 2D ECHO. Co sul;t his cardiology Dr Samuel Acute kidney injury: Nonoliguric. Creatinine improved. Deconditioning: Continue physical therapy, occupational therapy. DVT prophylaxis: Heparin. Appreciate palliative care assistance. Code status: DNR. Discharge Planning S/p cystoscopy with biopsy by Dr Hess 10/25. Path results pending Plan to DC to SNF. Alexia Giordaon MD October 28, 2017 08:24
[2017-10-28] MEDS: ACETAMINOPHEN/HYDROcodone 325 MG/5 MG TAB PO PRN (08:57)
[2017-10-28] MEDS: POTASSIUM CHLORIDE 10 MEQ CONTROLLED RELEASE TAB PO SCH ×2 (08:57→22:35)
[2017-10-28] MEDS: PANTOPRAZOLE SOD 20 MG DELAYED RELEASE TAB PO SCH ×2 (08:57→21:00)
[2017-10-28] MEDS: SODIUM CHLORIDE 0.9% FLUSH 10 ML FLUSH IV FLUSH SCH ×2 (08:58→21:50)
[2017-10-28] MEDS: BICALUTAMIDE 50 MG TAB PO SCH (08:58)
[2017-10-28] MEDS: METOPROLOL TARTRATE 50 MG TAB PO SCH ×2 (08:59→22:42)
[2017-10-28] MEDS: amLODIPine BESYLATE 5 MG TAB PO SCH (09:00)
[2017-10-28] MEDS: DOCUSATE SODIUM 50 MG/SENNA 8.6 MG TAB PO SCH ×2 (09:00→19:42)
[2017-10-28] MEDS: CLOTRIMAZOLE 1% CREAM 15 GM TOPICAL SCH ×2 (09:01→22:43)
[2017-10-28] MEDS ORDERED: PILL SPLITTER OTHER PRN (10:00)
[2017-10-28] MEDS ORDERED: OXYBUTYNIN CHLORIDE 5 MG TAB PO ONE (12:30)
[2017-10-28] MEDS ORDERED: LABETALOL HCL 100 MG/20 ML VIAL IV PUSH PRN (12:30)
[2017-10-28 12:57] LABS: AUTOMATED NEUTROPHIL # 16.3 TH/MM3 (1.8-7.7); BASOPHIL % 0.1 % (0.0-2.0); EOSINOPHIL % 0.2 % (0.0-4.0); HEMATOCRIT 28.6 % (39.0-51.0); HEMOGLOBIN 9.3 GM/DL (13.0-17.0); LYMPH % 3.7 % (9.0-44.0); LYMPHOCYTE # 0.7 TH/MM3 (1.0-4.8); MEAN CELL VOLUME 90.2 FL (80.0-100.0); MEAN CORPUSCULAR HEMOGLOBIN 29.3 PG (27.0-34.0); MEAN CORPUSCULAR HGB CONC 32.5 % (32.0-36.0); MEAN PLATELET VOLUME 8.4 FL (7.0-11.0); MONO % 5.8 % (0.0-8.0); NEUT % 90.2 % (16.0-70.0); PLATELET COUNT 145 TH/MM3 (150-450); RED BLOOD COUNT 3.18 MIL/MM3 (4.50-5.90); RED CELL DISTRIBUTION WIDTH 16.7 % (11.6-17.2); WHITE BLOOD COUNT 18.1 TH/MM3 (4.0-11.0)
[2017-10-28 13:23] LABS: BICARBONATE 20.5 MEQ/L (21.0-32.0); CALCIUM 9.1 MG/DL (8.5-10.1); CREATININE 1.53 MG/DL (0.60-1.30); MAGNESIUM 1.7 MG/DL (1.5-2.5); PHOSPHORUS 1.6 MG/DL (2.5-4.9)
--- NOTE | 2017-10-28 14:08 | EKG ---
Date Performed: 10/28/2017 Time Performed: 03:44:48 PTAGE: 86 years EKG: Atrial fibrillation with rapid ventricular response Extensive ST-T changes may be due to my ocardial ischemia Abnormal ECG PREVIOUS TRACING 10/24/17 Since prior tracing, atrial fibrillation/flutter has replaced Sinus rh ythm . DOCTOR: Ramirez Borrero Interpretating Date/Time 10/28/2017 14:07:54
--- NOTE | 2017-10-28 14:53 | MB ---
cc: Ramirez Borrero MD DATE: 10/28/2017 REASON FOR CONSULTATION: Paroxysmal atrial fibrillation. HISTORY OF PRESENT ILLNESS: The patient is a pleasant 86-year-old gentleman known to my partner, Dr. Samuel, who does have a history of paroxysmal atrial fibrillation as well as hypertension, hyperlipidemia, GERD, rectal carcinoma, who was admitted for back and abdominal pain. During his hospitalization, he was found to briefly go into a rapid atrial fibrillation at about 130 to 140 beats per minute. The patient cannot give any history. He is apparently very hard of hearing, though I am with his and his nurse and the patient really appears to be poorly communicative, even more so than simple hard of hearing would allow for. He does currently appear comfortable. PAST MEDICAL HISTORY: Colon cancer, prostate cancer, hypertension, hyperlipidemia, paroxysmal atrial fibrillation (presumably not on anticoagulation due to multiple medical problems and fall risk). MEDICATIONS: Current medications: Lopressor 75 mg b.i.d., labetalol, potassium, Phenergan, atorvastatin 10 mg at bedtime, Norvasc 5 mg daily, Protonix 20 mg b.i.d. ALLERGIES: NO KNOWN DRUG ALLERGIES. PHYSICAL EXAMINATION: VITAL SIGNS: Afebrile, pulse 93, respiratory rate 18, BP 109/50, sating 97 on 2 liters. GENERAL: Pleasant, elderly gentleman in no distress. NECK: No JVD. LUNGS: Clear to auscultation bilaterally. HEART: Regular rate and rhythm. No murmurs appreciated. ABDOMEN: Benign. EXTREMITIES: No edema. LABORATORY DATA: White count 18, hematocrit 28.6, platelets 145. Sodium 142, potassium 4.2, chloride 112, bicarbonate 20.5, BUN 25, creatinine 1.53. EKG from early this morning shows atrial fibrillation at about [address] changes. Current telemetry shows sinus rhythm. IMPRESSION/PLAN: 1. Paroxysmal atrial fibrillation. The patient has a history of paroxysmal atrial fibrillation. I tried to get an answer on blood thinners from the patient's , but she was unaware. He does not appear to be a candidate for anticoagulation given his severe debilitation, multiple medical problems and fall risk. Furthermore, he is currently anemic. I also note that the patient is a DO NOT RESUSCITATE. He would likely benefit from some additional rate control, should he go back in atrial fibrillation, I will change his Norvasc to diltiazem. I will sign off, but one of my partners or Dr. Samuel will be available as needed during the remainder of hospitalization. Thank you again for the opportunity to participate in this patient's care. MD SLY Dsouza/[place] , 02:17 PM , 02:51 PM
[2017-10-28] MEDS: ATORVASTATIN 10 MG TAB PO SCH (22:35)
[2017-10-28] MEDS: OXYBUTYNIN CHLORIDE 5 MG TAB PO SCH (22:42)
[2017-10-29 00:08] VITALS: PULSE 69
[2017-10-29 00:20] VITALS: BP 124/53; PULSE 89; RESP 18; TEMP 98.6; O2SAT 99
[2017-10-29 04:00] VITALS: PULSE 82
[2017-10-29 04:45] VITALS: BP 101/43; PULSE 77; RESP 16; TEMP 98.5; O2SAT 100
[2017-10-29] MEDS: HEPARIN SODIUM - SQ 10,000 UNITS/ML VIAL SQ SCH (06:54)
[2017-10-29 08:00] VITALS: BP 127/64; PULSE 81; RESP 18; TEMP 97.6; O2SAT 100
--- NOTE | 2017-10-29 08:35 | HHI.PR ---
Subjective Remarks He feels much better today. Says he does not have any pain anywhere. He is heart rate is back to normal and repeat EKG shows normal sinus rhythm. No nausea vomiting no diarrhea or constipation. Has good urine output. He denies any fever or chills. No cough. He is saturating well on room air. Objective Vitals Vital Signs Date Time Temp Pulse Resp B/P (MAP) Pulse Ox O2 Delivery O2 Flow Rate FiO2 10/29/17 04:45 98.5 77 16 101/43 (62) 100 10/29/17 04:00 82 10/29/17 00:20 98.6 89 18 124/53 (76) 99 10/29/17 00:08 69 10/28/17 21:05 98.0 84 18 126/63 (84) 96 10/28/17 20:00 Nasal Cannula 2.00 10/28/17 20:00 84 10/28/17 18:23 98.4 82 18 114/63 (80) 96 10/28/17 17:04 79 10/28/17 13:28 Nasal Cannula 2.00 10/28/17 12:30 98.2 83 18 119/52 (74) 97 10/28/17 12:20 81 I/O 10/28/17 10/28/17 10/28/17 10/29/17 10/29/17 10/29/17 07:00 15:00 23:00 07:00 15:00 23:00 Intake Total 2120 ml 360 ml 120 ml Output Total 550 ml 150 ml 300 ml Balance 1570 ml 210 ml -180 ml Intake Oral 120 ml 360 ml 120 ml IV Total 2000 ml Output Urine Total 250 ml 150 ml 300 ml Stool Total 300 ml # Voids 1 # Bowel Movements 0 Result Diagram: 10/28/17 1153 10/28/17 1153 Imaging Last Impressions Head CT 10/20/17 0000 Signed Impressions: Service Date/Time: Friday, October 20, 2017 22:54 - CONCLUSION: 1. Severe central and cortical atrophy. 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 2. 2 hot lesions were seen on recent bone scan in the region of the skull. There is a mixed lytic and sclerotic lesion in the left sphenoid bone and should region correlating with one of the lesions. No osseous lesion seen in the right frontal bone to correlate with the other area, but there is a 10 mm soft tissue nodule in the scalp which could potentially correlate with the 2nd area increased uptake on the bone scan. Gustavo Murlilo MD Renal Ultrasound 10/17/17 0000 Signed Impressions: Service Date/Time: Tuesday, October 17, 2017 13:36 - CONCLUSION: Normal examination. Jorge Spangler MD Bone Scan Nuclear Medicine 10/15/17 0000 Signed Impressions: Service Date/Time: Sunday, October 15, 2017 12:30 - CONCLUSION: 1. Widespread osseous metastatic disease characteristic of metastatic prostate carcinoma Florencio Riley MD Thoracic Spine X-Ray 10/12/17 1146 Signed Impressions: Service Date/Time: Thursday, October 12, 2017 12:08 - CONCLUSION: Probable minimal compression at T9. Edd Chavez MD FACR Lumbar Spine X-Ray 10/12/17 1146 Signed Impressions: Service Date/Time: Thursday, October 12, 2017 12:10 - CONCLUSION: Mild degenerative changes. 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 Edd Chavez MD FACR Objective Remarks GENERAL: Elderly male appearing in not acute distress. Hard of hearing. CARDIOVASCULAR: Regular rate and rhythm. RESPIRATORY: No accessory muscle use. Clear to auscultation. Breath sounds equal bilaterally. GASTROINTESTINAL: Abdomen soft, non-tender, nondistended. Hepatic and splenic margins not palpable. MUSCULOSKELETAL: Extremities without clubbing, cyanosis, or edema. No obvious deformities. NEUROLOGICAL: Awake and alert. No obvious cranial nerve deficits. Motor grossly within normal limits. Five out of 5 muscle strength in the arms and legs. Normal speech. PSYCHIATRIC: Appropriate mood and affect; insight and judgment normal. 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 ICD Code: M84.58XA - Pathological fracture in neoplastic disease, other specified site, initial encounter for fracture (2) Prostate CA ICD Code: C61 - Malignant neoplasm of prostate (3) UTI (urinary tract infection) ICD Code: N39.0 - Urinary tract infection, site not specified (4) Thoracic compression fracture ICD Code: S22.000A - Wedge compression fracture of unspecified thoracic vertebra, initial encounter for closed fracture (5) QUIQUE (acute kidney injury) ICD Code: N17.9 - Acute kidney failure, unspecified Assessment and Plan Metastatic prostate cancer: Bone scan revealed widespread bony metastases. Per oncology recommendations, urology has been reconsulted for cystoscopy with biopsy. Patient is s/p cystoscopy with biopsy by Dr Hess 5/ Bladder spasm. Add ditropan Has no pain anymore, condom cath removed. Pathologic T9 compression fracture: TLSO brace. Pain is controlled. Continue PT/OT. UTI: Appreciate infectious disease recommendations. Urine culture growing MRSA. Continue Zyvox until 10/26/17. H/o Afib with RVR. Repeat EKG converted to NSR. Per patient follows with Dr Samuel as OP. Do EKG. Monitor on tele. Check CBC, BMP, replete K and mag. Increased metoprolol to 75 mg po bid. Received labetalol IV . PNR labetalol if HR sustained > 110. Do 2D ECHO. Consult his cardiology Dr Samuel, seen by cardiology Dr Morrison appreciate recs. DC Norvasc and add Cardizem PO cleared for DC to follow up as OP. Acute kidney injury: Nonoliguric. Creatinine improved. Deconditioning: Continue physical therapy, occupational therapy. DVT prophylaxis: Heparin. Appreciate palliative care assistance. Code status: DNR. Discharge Planning S/p cystoscopy with biopsy by Dr Hess 10/25. Path results pending Plan to DC to SNF. Alexia Giordano MD October 29, 2017 08:35
[2017-10-29] MEDS ORDERED: DILT120C50 PO (08:37)
[2017-10-29] MEDS ORDERED: METO-309 PO (08:37)
[2017-10-29] MEDS: DOCUSATE SODIUM 50 MG/SENNA 8.6 MG TAB PO SCH (09:00)
[2017-10-29] MEDS ORDERED: DILTIAZEM-CD 120 MG CAP ER PO SCH (09:00)
[2017-10-29] MEDS: BICALUTAMIDE 50 MG TAB PO SCH (09:40)
[2017-10-29] MEDS: OXYBUTYNIN CHLORIDE 5 MG TAB PO SCH (09:40)
[2017-10-29] MEDS: METOPROLOL TARTRATE 50 MG TAB PO SCH (09:40)
[2017-10-29] MEDS: PANTOPRAZOLE SOD 20 MG DELAYED RELEASE TAB PO SCH (09:41)
[2017-10-29] MEDS: POTASSIUM CHLORIDE 10 MEQ CONTROLLED RELEASE TAB PO SCH (09:41)
[2017-10-29] MEDS: SODIUM CHLORIDE 0.9% FLUSH 10 ML FLUSH IV FLUSH SCH (10:05)
[2017-10-29] MEDS: CLOTRIMAZOLE 1% CREAM 15 GM TOPICAL SCH (10:05)
--- NOTE | 2017-10-29 10:11 | EKG ---
Date Performed: 10/28/2017 Time Performed: 15:37:28 PTAGE: 86 years EKG: Possible ectopic atrial rhythm with PVC(s) Borderline ECG PREVIOUS TRACING : 10/28/2017 03.44 Compared to prior tracing, Sinus rhythm has replaced atrial fibrillation. DOCTOR: Florencio Herrera Interpretating Date/Time 10/29/2017 10:10:09
--- NOTE | 2017-10-29 10:42 | PD.ONC.PN ---
Subjective Subjective Remarks Afebrile overnight. Patient resting in bed with at bedside. No complaints. Objective Data Date Time Temp Pulse Resp B/P (MAP) Pulse Ox O2 Delivery O2 Flow Rate FiO2 10/29/17 04:45 98.5 77 16 101/43 (62) 100 10/29/17 04:00 82 10/29/17 00:20 98.6 89 18 124/53 (76) 99 10/29/17 00:08 69 10/28/17 21:05 98.0 84 18 126/63 (84) 96 10/28/17 20:00 Nasal Cannula 2.00 10/28/17 20:00 84 10/28/17 18:23 98.4 82 18 114/63 (80) 96 10/28/17 17:04 79 10/28/17 13:28 Nasal Cannula 2.00 10/28/17 12:30 98.2 83 18 119/52 (74) 97 10/28/17 12:20 81 10/29/17 10/29/17 10/29/17 07:00 15:00 23:00 Intake Total 120 ml Output Total 300 ml Balance -180 ml Result Diagram: 10/28/17 1153 10/28/17 1153 Laboratory Results Laboratory Tests Test 10/28/17 11:53 White Blood Count 18.1 TH/MM3 Red Blood Count 3.18 MIL/MM3 Hemoglobin 9.3 GM/DL Hematocrit 28.6 % Mean Corpuscular Volume 90.2 FL Mean Corpuscular Hemoglobin 29.3 PG Mean Corpuscular Hemoglobin Concent 32.5 % Red Cell Distribution Width 16.7 % Platelet Count 145 TH/MM3 Mean Platelet Volume 8.4 FL Neutrophils (%) (Auto) 90.2 % Lymphocytes (%) (Auto) 3.7 % Monocytes (%) (Auto) 5.8 % Eosinophils (%) (Auto) 0.2 % Basophils (%) (Auto) 0.1 % Neutrophils # (Auto) 16.3 TH/MM3 Lymphocytes # (Auto) 0.7 TH/MM3 Monocytes # (Auto) 1.0 TH/MM3 Eosinophils # (Auto) 0.0 TH/MM3 Basophils # (Auto) 0.0 TH/MM3 CBC Comment DIFF FINAL Differential Comment Blood Urea Nitrogen 25 MG/DL Creatinine 1.53 MG/DL Random Glucose 102 MG/DL Calcium Level 9.1 MG/DL Phosphorus Level 1.6 MG/DL Magnesium Level 1.7 MG/DL Sodium Level 142 MEQ/L Potassium Level 4.2 MEQ/L Chloride Level 112 MEQ/L Carbon Dioxide Level 20.5 MEQ/L Anion Gap 10 MEQ/L Estimat Glomerular Filtration Rate 43 ML/MIN Administered Medications Medications (Trade) Dose Ordered Sig/Thee Route PRN Reason Start Time Stop Time Status Last Admin Dose Admin Sodium Chloride (NS Flush) 2 ml UNSCH PRN IV FLUSH FLUSH AFTER USING IV ACCESS 10/12/17 16:15 10/14/17 11:59 Sodium Chloride (NS Flush) 2 ml BID IV FLUSH 10/12/17 21:00 10/29/17 10:05 Ondansetron HCl (Zofran Inj) 4 mg Q6H PRN IVP NAUSEA OR VOMITING 10/12/17 16:15 10/26/17 08:47 Senna/Docusate Sodium (Le-Colace) 1 tab BID PO 10/12/17 21:00 10/27/17 21:34 Acetaminophen/ Hydrocodone Bitart ([place] 5-325 Mg) 1 tab Q4H PRN PO PAIN SCALE 3 TO 5 10/12/17 16:30 10/28/17 08:57 Acetaminophen/ Hydrocodone Bitart ([place] 10-325 Mg) 1 tab Q4H PRN PO PAIN SCALE 6 TO 10 10/12/17 16:30 10/24/17 05:19 Morphine Sulfate (Morphine Inj) 2 mg Q4H PRN IV PUSH BREAKTHROUGH PAIN 10/12/17 16:30 10/26/17 08:47 Atorvastatin Calcium (Lipitor) 10 mg HS PO 10/13/17 21:00 10/28/17 22:35 Pantoprazole Sodium (Protonix) 20 mg BID PO 10/13/17 09:00 10/29/17 09:41 Clotrimazole (Lotrimin 1% Cream) 1 applic Q12HR TOPICAL 10/14/17 11:00 10/29/17 10:05 Promethazine HCl (Phenergan Inj) 25 mg Q6H PRN IM NAUSEA OR VOMITING 10/15/17 15:45 10/15/17 16:47 Heparin Sodium (Porcine) (Heparin Inj) 5,000 units Q8H SQ 10/16/17 15:00 10/29/17 06:54 Potassium Chloride (KCl) 10 meq Q12HR PO 10/19/17 21:00 10/29/17 09:41 Bicalutamide (Casodex) 50 mg DAILY PO 10/27/17 13:45 10/29/17 09:40 Metoprolol Tartrate (Lopressor Inj) 5 mg Q5M PRN IV PUSH heart rate sustained > 130 10/28/17 05:30 10/28/17 05:57 Metoprolol Tartrate (Lopressor) 75 mg BID PO 10/28/17 21:00 10/29/17 09:40 Oxybutynin Chloride (Ditropan) 5 mg Q12HR PO 10/28/17 21:00 10/29/17 09:40 Diltiazem HCl (Cardizem Cd) 120 mg DAILY PO 10/29/17 09:00 10/29/17 09:40 Objective Remarks GENERAL: chronically ill appearing elderly male, supine in bed. SKIN: Warm and dry. HEAD: Normocephalic. EYES: No injection or drainage. NECK: Supple, trachea midline. CARDIOVASCULAR: Regular rate and rhythm RESPIRATORY: Breath sounds equal bilaterally. No accessory muscle use. GASTROINTESTINAL: Abdomen soft, non-tender, nondistended. EXTREMITIES: No cyanosis NEUROLOGICAL: awake and alert. normal speech. Assessment/Plan Assessment 86-year-old male with history of prostate cancer and colon cancer admitted with back and abdominal pain Plan 1. oncology clear for discharge. 2. follow up with Dr. Varela upon discharge. Patient clear for discharge from oncology standpoint. As he is elderly and frail he is not the best candidate for any type of systemic chemotherapy. However he should follow-up with Dr. Varela once discharged. As there was no mass in the bladder it is likely metastatic disease from the prostate. He may benefit from Casodex. Rere Escobar October 29, 2017 10:42
[2017-10-29 12:13] LABS: AUTOMATED NEUTROPHIL # 10.1 TH/MM3 (1.8-7.7); BASOPHIL % 0.2 % (0.0-2.0); EOSINOPHIL # 0.1 TH/MM3 (0-0.4); EOSINOPHIL % 0.9 % (0.0-4.0); HEMATOCRIT 28.2 % (39.0-51.0); HEMOGLOBIN 9.1 GM/DL (13.0-17.0); LYMPH % 6.1 % (9.0-44.0); LYMPHOCYTE # 0.7 TH/MM3 (1.0-4.8); MEAN CELL VOLUME 89.7 FL (80.0-100.0); MEAN CORPUSCULAR HEMOGLOBIN 29.1 PG (27.0-34.0); MEAN CORPUSCULAR HGB CONC 32.4 % (32.0-36.0); MEAN PLATELET VOLUME 8.2 FL (7.0-11.0); MONO % 6.3 % (0.0-8.0); MONOCYTE # 0.7 TH/MM3 (0-0.9); NEUT % 86.5 % (16.0-70.0); PLATELET COUNT 154 TH/MM3 (150-450); RED BLOOD COUNT 3.14 MIL/MM3 (4.50-5.90); RED CELL DISTRIBUTION WIDTH 17.1 % (11.6-17.2); WHITE BLOOD COUNT 11.6 TH/MM3 (4.0-11.0)
[2017-10-29 12:46] LABS: BICARBONATE 19.6 MEQ/L (21.0-32.0); CALCIUM 9.3 MG/DL (8.5-10.1); CREATININE 1.36 MG/DL (0.60-1.30)
--- NOTE | 2017-10-31 11:55 | EKG ---
Date Performed: 10/29/2017 Time Performed: 08:57:16 PTAGE: 86 years EKG: Sinus rhythm WITH OCCASIONAL VENTRICULAR PREMATURE COMPLEXES BORDERLINE ECG PREVIOUS TRACING : 10/28/2017 15.37 DOCTOR: Jorge Fuller Interpretating Date/Time 10/31/2017 11:54:55
== END 2017-10-29 12:24 | DRG 690 ==
LOC: NEPC 11:14 → NEDA 16:16 → N06B 20:57 → N04A 10-16 15:28 → HCIN 10-24 08:43
PROVIDERS: ADMIT Hospitalist; ATTEND Hospitalist
PROC: 0TJB8ZZ Inspection of Bladder, Via Natural or Artificial Opening Endoscopic (ICD-10-PCS; principal; 2017-10-25 17:00)
DX: N39.0 Urinary tract infection, site not specified (principal); N17.9 Acute kidney failure, unspecified; C79.51 Secondary malignant neoplasm of bone; M84.58XA Pathological fracture in neoplastic disease, other specified site, initial encounter for fracture; I48.0 Paroxysmal atrial fibrillation; C61 Malignant neoplasm of prostate; I48.2 Chronic atrial fibrillation; N32.0 Bladder-neck obstruction; B95.62 Methicillin resistant Staphylococcus aureus infection as the cause of diseases classified elsewhere; H91.90 Unspecified hearing loss, unspecified ear; E78.5 Hyperlipidemia, unspecified; K21.9 Gastro-esophageal reflux disease without esophagitis; I12.9 Hypertensive chronic kidney disease with stage 1 through stage 4 chronic kidney disease, or unspecified chronic kidney disease; N18.9 Chronic kidney disease, unspecified; D64.9 Anemia, unspecified; R63.4 Abnormal weight loss; M10.9 Gout, unspecified; M19.90 Unspecified osteoarthritis, unspecified site; Z51.5 Encounter for palliative care; Z85.048 Personal history of other malignant neoplasm of rectum, rectosigmoid junction, and anus; Z85.46 Personal history of malignant neoplasm of prostate; Z93.3 Colostomy status; Z87.440 Personal history of urinary (tract) infections; I25.2 Old myocardial infarction; Z80.42 Family history of malignant neoplasm of prostate; Z86.711 Personal history of pulmonary embolism; Z66 Do not resuscitate
CPT/HCPCS: 70450; 72072; 72100; 74177; 76775; 76937; 78306; 80048; 80053; 80202; 81001; 83605; 83690; 83735; 84100; 84153; 84403; 85025; 85610; 85730; 86403; 87040; 87086; 87147; 87186; 87205; 93005; 96361; 96374; 96375; A9503; J0690; J0696; J1644; J1650; J2270; J2370; J2405; J2550; J2710; J3010; J3370; J7030; J7040; J7050; L0200; L0484; Q9963; Q9967